=== PATIENT | male | born 1950 | race Caucasian/White ===

== ENCOUNTER → 2016-09-30 | Outpatient (CLI) | payer OTHER | END | disposition home or self-care (01) | LOC: C.PATHSPEC 17:55 | PROVIDERS: ATTEND Urology | DX: N42.89 Other specified disorders of prostate (principal); N41.1 Chronic prostatitis ==

== ENCOUNTER → 2017-04-07 | Outpatient (CLI) | payer OTHER ==
[2017-04-07 10:09] LABS: BLOOD UREA NITROGEN 14 mg/dl (7-18); BUN/CREATININE RATIO 13.9 (10-20); CALCIUM 8.9 mg/dl (8.5-10.1); CARBON DIOXIDE 31 mmol/L (21-32); CHLORIDE 103 mmol/L (98-107); CREATININE 0.97 mg/dl (0.60-1.40); GLUCOSE 90 mg/dl (70-99); POTASSIUM 4.3 mmol/L (3.5-5.1); SODIUM 138 mmol/L (136-145)
== END ==
LOC: C.LABFOXMH 09:09
PROVIDERS: ATTEND Internal Medicine
DX: I10 Essential (primary) hypertension (principal)

== ENCOUNTER → 2017-12-08 | Outpatient (CLI) | payer OTHER ==
[2017-12-08 09:36] LABS: HEMATOCRIT 46.7 % (42-52); HEMOGLOBIN 15.5 g/dL (14.0-18.0); MEAN CELL VOLUME 94.2 fL (80-100); MEAN CORPUSCULAR HEMOGLOBIN 31.3 pg (25-34); MEAN CORPUSCULAR HGB CONC 33.2 g/dl (32-36); MEAN PLATELET VOLUME 10.6 fL (7.4-10.4); PLATELET COUNT 165 K/uL (130-400); RED CELL DISTRIBUTION WIDTH CV 13.1 % (11.5-14.5); RED CELL DISTRIBUTION WIDTH SD 45.6 fL (36.4-46.3); WHITE BLOOD COUNT 6.26 K/uL (4.8-10.8)
[2017-12-08 09:51] LABS: ALBUMIN 3.4 gm/dl (3.4-5.0); ALT/SGPT 14 U/L (12-78); AST/SGOT 16 U/L (15-37); BLOOD UREA NITROGEN 20 mg/dl (7-18); CALCIUM 8.7 mg/dl (8.5-10.1); CARBON DIOXIDE 28 mmol/L (21-32); CHOLESTEROL 173 mg/dl (0-200); CREATININE 1.18 mg/dl (0.60-1.40); GLUCOSE 90 mg/dl (70-99); POTASSIUM 4.1 mmol/L (3.5-5.1); SODIUM 140 mmol/L (136-145)
[2017-12-08 10:01] LABS: ALKALINE PHOSPHATASE 35 U/L (45-117); LDL CHOLESTEROL CALCULATED 95 mg/dl; TOTAL PROTEIN 6.5 gm/dl (6.4-8.2)
== END | disposition home or self-care (01) ==
LOC: C.LABFOXMH 09:11
PROVIDERS: ATTEND Internal Medicine Hospice and Palliative Medicine
DX: E03.9 Hypothyroidism, unspecified (principal); E78.00 Pure hypercholesterolemia, unspecified; D64.9 Anemia, unspecified; R97.20 Elevated prostate specific antigen [PSA]

== ENCOUNTER → 2018-04-11 | Outpatient (CLI) | payer OTHER ==
[~2018-04-11] MED LIST: OPTIRAY 320 IV PRN
--- NOTE | 2018-04-11 16:26 | DIAGNOSTIC IMAGING REPORT ---
CT SCAN OF THE CHEST, ABDOMEN, AND PELVIS WITH IV CONTRAST CLINICAL HISTORY: Esophageal cancer. COMPARISON STUDY: Chest x-ray dated 10/15/2015. Abdominal ultrasound dated 10/15/2015. TECHNIQUE: Following the IV administration of 115 of Optiray 320, CT scan of the chest, abdomen, and pelvis was performed from the thoracic inlet to the proximal femora. Images are reviewed in the axial, sagittal, and coronal planes. IV contrast was administered without complication. A dose lowering technique was utilized adhering to the principles of ALARA. CT DOSE: 1285.51 mGy.cm FINDINGS: CHEST: Thyroid: Imaged portions of the thyroid gland are normal in size and attenuation. Thoracic aorta: The thoracic aorta is normal in caliber and demonstrates standard 3-vessel arch anatomy. No dissection is seen. Pulmonary vasculature: The pulmonary trunk is normal in caliber. There are no filling defects identified in the central pulmonary vessels to indicate pulmonary embolus. Note that this examination was not protocoled for evaluation of the pulmonary arteries. Heart: The heart is top normal in size and without pericardial effusion. Lungs and pleural spaces: The lungs and pleural spaces are clear. Mediastinum: There is no mediastinal lymphadenopathy. Megan: Clear. Axillae: There is no axillary lymphadenopathy. Esophagus: There is a small hiatal hernia. Circumferential wall thickening is identified in the distal esophagus just over the gastroesophageal junction seen on image #210. Bony thorax: The skeletal structures are osteopenic. A hemangioma is noted in the body of T10. No lytic or blastic lesions are identified. Degenerative changes noted throughout the thoracic spine. ABDOMEN AND PELVIS: Liver: The contrast-enhanced liver is normal in size, contour, and attenuation. There is no intrahepatic or ductal dilatation. The hepatic veins and portal veins are patent. Gallbladder: There are large gas containing gallstones. The gallbladder wall appears mildly thickened and hyperemic. No significant pericholecystic stranding is identified. Spleen: Normal in size and attenuation. Pancreas: Unremarkable. Adrenal glands: Unremarkable. Kidneys: The contrast enhanced kidneys demonstrate cortical atrophy and are without hydronephrosis. The kidneys enhance symmetrically. There are numerous bilateral cortical and parapelvic cysts measure up to 6.2 cm. Additional subcentimeter cortical hypodensities also likely represent cysts but are too small for definitive characterization. No enhancing cortical mass is seen. Abdominal vasculature: The abdominal aorta is normal in course and caliber noting scattered foci of atherosclerotic calcification. Bowel: The small bowel and colon are normal in course and caliber. The appendix is normal. Peritoneum: There is no intraperitoneal free air or abdominal ascites. Lymphadenopathy: None. Pelvic viscera: The prostate gland is enlarged and heterogeneous, measuring 6.1 cm in transverse diameter. There is median lobe atrophy. The bladder is decompressed and grossly unremarkable. Skeletal structures: The skeletal structures are osteopenic. No lytic or blastic lesions are seen. There is mild to moderate lumbosacral spondylosis. IMPRESSION: 1. There is no evidence of metastatic disease in the chest, abdomen, or pelvis. 2. There is circumferential wall thickening identified in the distal esophagus. This is nonspecific, but likely corresponds to the reported history of esophageal carcinoma. 3. There are large gallstones. There is mild nonspecific gallbladder wall thickening and hyperemia. No significant pericholecystic stranding is identified. Correlate clinically for evidence of acute versus chronic cholecystitis. 4. The lungs are clear. 5. Prostatomegaly. 6. Additional findings as above. Electronically signed by: Adrian Espino M.D. 04/11/2018 4:24 PM Dictated Date/Time: 04/11/2018 4:05 PM
== END | disposition home or self-care (01) ==
LOC: C.CTS 15:23
PROVIDERS: ATTEND Internal Medicine Gastroenterology
DX: C15.9 Malignant neoplasm of esophagus, unspecified (principal); K80.20 Calculus of gallbladder without cholecystitis without obstruction; N40.0 Benign prostatic hyperplasia without lower urinary tract symptoms

== ENCOUNTER 2018-11-19 11:17 | Inpatient (IN) ==
[2018-11-19] MEDS ORDERED: SODIUM CHLORIDE 0.9% 1000ML 1,000 ML IV ONE (11:42)
[2018-11-19] MEDS ORDERED: LEVALBUTEROL HCL 1.25 MG/3 ML NEB NEB STA (11:42)
--- NOTE | 2018-11-19 11:58 | XRay Report ---
XR chest 1V portable HISTORY: 68 years-old Male weakness acute weakness COMPARISON: PET CT 08/07/2018, chest radiograph 11/16/2018 TECHNIQUE: Portable AP view of the chest FINDINGS: Stable positioning of the right internal jugular [id number] catheter. Cardiomediastinal and hilar silhouettes are unchanged. No pneumothorax. Small right pleural effusion with right greater than left bibasilar airspace opacities. Trace left pleural effusion. Degenerative changes of the shoulders and spine. Left shoulder rotator cuff calcific tendinosis. IMPRESSION: 1. Persistent right greater than left bibasilar opacities appear unchanged suggestive of atelectasis or pneumonitis. 2. Small right and trace left pleural effusions. The above report was generated using voice recognition software. It may contain grammatical, syntax o r spelling errors. Electronically signed by: Mike Varner M.D. 11/19/2018 11:57 AM
[2018-11-19 12:43] LABS: Basophils # (auto) 0.01 K/uL (0-0.2); Basophils % (auto) 0.1 %; Eosinophils # (auto) 0.02 K/uL (0-0.5); Eosinophils % (auto) 0.2 %; Hematocrit (blood only) 42.4 % (42-52); Hemoglobin 13.9 g/dL (14.0-18.0); Immature Granulocytes # (auto) 0.02 K/uL (0.00-0.02); Immature Granulocytes % (auto) 0.2 %; Lymphocytes # (auto) 0.69 K/uL (1.2-3.4); Lymphocytes % (auto) 7.7 %; Mean Corpuscular Hgb Conc 32.8 g/dL (32-36); Mean Corpuscular Volume 91.6 fL (80-100); Mean Platelet Volume 9.7 fL (7.4-10.4); Monocytes # (auto) 0.52 K/uL (0.11-0.59); Monocytes % (auto) 5.8 %; Neutrophils # (auto) 7.71 K/uL (1.4-6.5); Platelet Count 203 K/uL (130-400); RDW Coefficient of Variation 14.7 % (11.5-14.5); RDW Standard Deviation 49.2 fL (36.4-46.3); Red Blood Count 4.63 M/uL (4.7-6.1); White Blood Count 8.97 K/uL (4.8-10.8)
[2018-11-19 13:00] LABS: Alanine Aminotransferase 12 U/L (12-78); Albumin Level 2.7 gm/dl (3.4-5.0); Aspartate Aminotransferase 20 U/L (15-37); BUN Creatinine Ratio 16.4 (10-20); Blood Urea Nitrogen 15 mg/dl (7-18); Calcium 8.5 mg/dl (8.5-10.1); Carbon Dioxide 30 mmol/L (21-32); Chloride 101 mmol/L (98-107); Est GFR (African American) 96.7; Est GFR (Non-African American) 83.5; Glucose 86 mg/dl (70-99); Potassium 3.9 mmol/L (3.5-5.1); Sodium 140 mmol/L (136-145)
[2018-11-19 13:17] LABS: Albumin Globulin Ratio 0.8 (0.9-2); Alkaline Phosphatase 50 U/L (45-117); Bilirubin,Total 0.7 mg/dl (0.2-1); Creatine Kinase 74 U/L (39-308); Creatine Kinase MB 2.7 ng/ml (0.5-3.6); Globulin 3.6 gm/dl (2.5-4.0); Total Protein 6.3 gm/dl (6.4-8.2); Troponin I 0.329 ng/ml (0-0.045)
[2018-11-19 14:13] LABS: INR 1.2 (0.9-1.1); Partial Thromboplastin Ratio 1.4; Partial Thromboplastin Time 36.9 Seconds (21.0-31.0); Prothrombin Time 11.8 Seconds (9.0-12.0)
--- NOTE | 2018-11-19 15:01 | History & Physical Report ---
Date of Service November 19, 2018 Assessment & Plan (1) Weakness: Likely multifactorial in the setting of esophageal cancer and recent chemo/radiation, recent shingles, recent PNA, and poor PO intake CBC, PRP WNL PT/OT pending May need higher level of care at [facility] (2) Elevated troponin: Appears to be a chronic issue Will repeat x1 and if stable, will not pursue further Seems to have baseline 0.4-0.6 Tele monitor until noted (3) Parkinson disease: continue home meds (4) Atrial fibrillation with RVR: Recent cardioversion with Dr. Ahumada No anticoagulation other than aspirin 81mg continue home meds (5) Primary cancer of lower third of esophagus: s/p chemo and radiation no diet restrictions denies swallowing issues (6) Urinary retention: Navarro placed on 10/29 Passed saline challenge 11/14 and was d/c'd however return of retention and navarro replaced 11/[address] Mejia if needed Was leaking in the ED and was removed and replaced Bactrim proph was stopped on 11/17 due to starting levaquin (7) Hypokalemia: Recently started on potassium (8) GERD (gastroesophageal reflux disease): continue home meds (9) Shingles: continue valacyclovir (10) PNA (pneumonia): Continue levaquin (11) HTN (hypertension): Has meds for afib but prior HTN meds have been stopped due to hypoTN after weight loss (12) DVT prophylaxis: Heparin and SCDs for DVT proph History of Present Illness Primary Care Provider: Agus Dsouza MD 68 y/o M who was transferred to the ED from independent living at [facility] due to worsening weakness and a leaking catheter. Pt states he has been having worsening weakness over the last several weeks. He has been getting SOB with [facility] at [facility], which was not an issue prior. It would resolve if he stopped to rest, but this is a new issue. He states that today he was so weak that he called for nursing to [place] [facility] [place]. He feels that the weakness has been worse since being dx with shingles recently. He tolerates PO, but his appetite is quite low. He had issues with taste after his chemo, but this had resolved until he was dx with shingles and put on valacyclovir recently. He is eating mostly fruit and Ensure. Pt denies fever, chest pain, abd pain, n/v, LE pain or swelling. He has been constipated recently. Pt was seen in the ED on 10/29 for urinary retention. A Navarro was placed and he was started on Bactrim for UTI prevention. He saw urology on Tuesday and passed a saline challenge, so navarro was d/c'd at that time. He noted return of urinary retention on Tuesday, so this was replaced and Bactrim was restarted. This was stopped on Tuesday with the initiation of levaquin for PNA noted on CXR done for congestion. He feels like his catheter is leaking today. Nursing reports that urine is drainage into the tube/bag but that the area is wet. It has good resistance still. Allergies Allergy/AdvReac Type Severity Reaction Status Date / Time No Known Allergies Allergy Verified 11/19/18 11:42 Home Medications Home Medications Medication Instructions Recorded Confirmed Type aspirin 81 mg PO HS 05/19/18 11/19/18 History carbidopa-levodopa [Sinemet] 2 tab PO QID 05/19/18 11/19/18 History cholecalciferol (vitamin D3) 1,000 unit PO QAM 05/19/18 11/19/18 History [Vitamin D3] folic acid 1 mg PO QAM 05/19/18 11/19/18 History rasagiline [Azilect] 1 mg PO QAM 05/19/18 11/19/18 History simvastatin 20 mg PO PM 05/19/18 11/19/18 History sulfasalazine 1 tab PO 1200 05/19/18 11/19/18 History sulfamethoxazole-trimethoprim 1 tab PO Q12H #20 tab 10/29/18 11/19/18 Rx [Bactrim DS] acetaminophen 325 mg PO Q4 PRN 10/30/18 11/19/18 History amiodarone 200 mg PO QPM 10/30/18 11/19/18 History coQ10 (ubiquinol) 200 mg PO QAM 10/30/18 11/19/18 History digoxin 1 tab PO QAM 10/30/18 11/19/18 History glycopyrrolate 1 mg PO QAM 10/30/18 11/19/18 History pantoprazole 40 mg PO QAM 10/30/18 11/19/18 History valacyclovir 1,000 mg PO BID 10/30/18 11/19/18 History alfuzosin 10 mg PO DAILY 11/19/18 11/19/18 History levofloxacin 500 mg PO DAILY 11/19/18 11/19/18 History Past Med/Surg History Surgical History History of cardioversion x2--07/2018 History of colonoscopy History of esophagogastroduodenoscopy (EGD) History of tonsillectomy History of tooth extraction all upper teeth History of vascular access device aport right side Social History Preferred Language: Singaporean Communication Ability: Effective Avp Required: No Beliefs That Will Affect Care: None marital status: Single Current Living Situation: Alone and Personal Care Facility Current Living Situation Comment: [facility] Other Information That Helps Us Care for You: No Feels Safe at Home: Yes Safety Concerns: Feels Safe At This Time Smoking Status: Never smoker Hx Alcohol Use: No Hx Substance Use: No caffeine: Yes (1 cup coffee/day;not currently since diagnosis;) during the past year weight has: increased > 10 lbs Review of Systems Pertinent positives and negatives reviewed in HPI--all others negative Physical Exam Vital Signs (Past 24 Hours): Last Vital Signs Pulse 103 H 11/19/18 14:15 Resp 19 11/19/18 14:15 BP 139/87 11/19/18 14:15 Pulse Ox 96 11/19/18 14:15 Constitutional: WD/WN, vitals as above Eyes: normal visual odonnell by confrontation and + anicteric sclerae Neck: normal visual inspection and trachea midline Respiratory: normal respiratory effort, lungs clear to auscultation Cardiovascular: Rate/Rhythm: regular rate and regular rhythm Gastrointestinal (Abdomen): Inspection/Auscultation: abdomen not distended Percussion/Palpation: abdomen soft; abdomen nontender Musculoskeletal: Head/Neck/Chest: normocephalic and head atraumatic negative for edema, peripheral pulses intact Skin: no rashes, warm and dry Neurologic: awake; not confused Speech / Cognition: normal speech Psychiatric: A+Ox3, euthymic affect Results & Data Diagnostic Findings CXR: b/l pleural effusions R>L, ?? PNA Code Status & VTE Plan Code Status Other: Full code, although pt states no prolonged mechanical life support, feeding tubes, etc VTE Prophylaxis Plan VTE Prophylaxis will be ordered: Yes
[2018-11-19] MEDS ORDERED: ACETAMINOPHEN 325 MG TAB PO PRN ×2 (16:09)
[2018-11-19] MEDS ORDERED: MAGNESIUM HYDROXIDE SUSP 30 ML UDC PO PRN (16:09)
[2018-11-19] MEDS ORDERED: ONDANSETRON INJ 2 MG/ML 2 ML VIAL IV PRN (16:09)
[2018-11-19 16:34] LABS: Appearance Urine Slightly Cloudy (Clear); Blood Urine 3+ (Negative); Color Urine Amber; Glucose Urine UA Negative (Negative); Ketones Urine 2+ (Negative); Leukocyte Esterase Urine Trace (Negative); Nitrite Urine Negative (Negative); Protein Urine 2+ (Negative); Specific Gravity Urine >= 1.030 (1.000-1.030); Urobilinogen Urine Positive (Negative)
[2018-11-19 16:42] LABS: Bilirubin Urine Negative (Negative); Ictotest Urine Negative (Negative)
[2018-11-19 16:50] LABS: Epithelial Cell Urine 0-5 /lpf (0-5); RBC Urine >30 /hpf (0-4)
[2018-11-19 16:51] LABS: Bacteria Urine 1+ (Negative)
[2018-11-19] MEDS: HEPARIN SOD 5,000 UNIT/0.5 ML VIAL SQ SCH ×2 (17:14→22:27)
[2018-11-19] MEDS: DIGOXIN 0.125 MG TAB PO SCH (18:01)
[2018-11-19] MEDS: CARBIDOPA/LEVODOPA 25/100MG TAB PO SCH ×2 (18:02→20:54)
[2018-11-19] MEDS: levoFLOXacin 500 MG TAB PO SCH (18:02)
[2018-11-19] MEDS: VALACYCLOVIR HCL 500 MG TABLET PO SCH (19:45)
[2018-11-19] MEDS: SIMVASTATIN 20 MG TAB PO SCH (19:46)
[2018-11-19] MEDS: AMIODARONE 200 MG TAB PO SCH (19:46)
[2018-11-19] MEDS: ASPIRIN 81 MG ECTAB PO SCH (19:47)
[2018-11-20] MEDS ORDERED: HEPARIN 100 UNIT/ML 5ML FLUSH FLUSH PRN (00:40)
[2018-11-20] MEDS: HEPARIN SOD 5,000 UNIT/0.5 ML VIAL SQ SCH ×3 (05:30→21:11)
[2018-11-20 06:36] LABS: Eosinophils % (auto) 1.6 %; Hematocrit (blood only) 39.4 % (42-52); Hemoglobin 13.1 g/dL (14.0-18.0); Immature Granulocytes # (auto) 0.02 K/uL (0.00-0.02); Immature Granulocytes % (auto) 0.3 %; Lymphocytes # (auto) 0.85 K/uL (1.2-3.4); Lymphocytes % (auto) 13.8 %; Mean Corpuscular Hgb Conc 33.2 g/dL (32-36); Mean Corpuscular Volume 92.7 fL (80-100); Mean Platelet Volume 10.1 fL (7.4-10.4); Monocytes # (auto) 0.45 K/uL (0.11-0.59); Monocytes % (auto) 7.3 %; Neutrophils # (auto) 4.74 K/uL (1.4-6.5); Platelet Count 187 K/uL (130-400); RDW Coefficient of Variation 14.9 % (11.5-14.5); RDW Standard Deviation 50.6 fL (36.4-46.3); Red Blood Count 4.25 M/uL (4.7-6.1); White Blood Count 6.16 K/uL (4.8-10.8)
[2018-11-20 07:08] LABS: Calcium 8.3 mg/dl (8.5-10.1); Creatinine Clr Calc Pharmacy 80.1 ml/min; Est GFR (African American) 105.6; Est GFR (Non-African American) 91.1; Potassium 3.9 mmol/L (3.5-5.1)
[2018-11-20 07:09] LABS: Phosphorus 2.5 mg/dl (2.5-4.9)
[2018-11-20] MEDS: FOLIC ACID 1 MG TAB PO SCH (07:31)
[2018-11-20] MEDS: VALACYCLOVIR HCL 500 MG TABLET PO SCH ×2 (07:31→19:36)
[2018-11-20] MEDS: ALFUZOSIN HCL 10 MG TAB PO SCH (07:32)
[2018-11-20] MEDS: PANTOprazole 40 MG TAB PO SCH (07:32)
[2018-11-20] MEDS: GLYCOPYRROLATE 1 MG TAB PO SCH (07:32)
[2018-11-20] MEDS: CARBIDOPA/LEVODOPA 25/100MG TAB PO SCH ×4 (07:32→21:11)
[2018-11-20] MEDS: CHOLECALCIFEROL 1,000 UNITS TAB PO SCH (07:32)
[2018-11-20] MEDS ORDERED: VANCOMYCIN CONSULT ACTIVE PRN (08:22)
[2018-11-20] MEDS ORDERED: XOPENEX/ATROVENT 1.25mg/0.5MG NEB COMBO NEB SCH (08:25)
[2018-11-20] MEDS ORDERED: NON-FORMULARY MEDICATION (Coq10 (Ubiquinol) 200 MG) PO SCH (09:00)
[2018-11-20] MEDS: LEVALBUTEROL 1.25MG/0.5ML NEB INH SCH ×3 (09:05→19:27)
[2018-11-20] MEDS: IPRATROPIUM BROMIDE NEB SOLN 0.02% 2.5 ML VIAL INH SCH ×3 (09:06→19:27)
[2018-11-20] MEDS ORDERED: VANCOMYCIN HCL 1,500 MG in SODIUM CHLORIDE 0.9% 500 ML IV STA (09:20)
--- NOTE | 2018-11-20 09:56 | Pharmacy Report ---
Pharmacy Abx Dose Short Note - Date of Service November 20, 2018 - Assessment & Plan Assessment * 68 year old M admitted for weakness in the setting of recent chemo/radiation, decreased PO intake, and infection (pneumonia, shingles) * Patient has been receiving Levofloxacin however IV Vancomycin added today in response to GPC growing in 1 of 2 BLCX's. * Spoke with Micro, the GPC is only growing in the aerobic bottle of one set of BLCX's. The organism is GPC in clusters (not chains) * PCR was performed on this organism and revealed that it is not staph aureus. This organism may be CoN Staph (less likely to be strep or enterococcus as organism was in clusters and not chains) * 48 hrs empiric vancomycin IV ordered - dosing per pharmacy * He does have an A-port in place. Patient states one of the BLCXs was drawn from his A-port and another was from a vein. The positive cx is not labeled with site. Plan Vancomycin * Loading dose: 1500mg x 1 (~23mg/kg) * Maint dose: 1000mg (~15mg/kg) IV Q 10 hours * Goal trough level for bacteremia : 15 to 20 mcg/mL * Will check trough w/ 4th maint dose * P'kinetic estimates: Vd 0.7L/kg, half-life ~7-8 hrs Pharmacy will continue to follow and will adjust dose/frequency as necessary. Thank you.
--- NOTE | 2018-11-20 10:02 | Emergency Department Note ---
Entered by Shirley Duarte acting as a scribe for History of Present Illness General Chief complaint: Weakness Stated complaint: weakness Time Seen by Provider: 11/19/18 11:20 Source: patient History of Present Illness Onset (ago): day(s) 2 Pain Consistency: + other (persistent) Quality: + other (weakness) Associated symptoms: + other (positive diminished eating and drinking) Treatments prior to arrival: none The patient is a 68 year old male who presents to the Emergency Room with complaints of persistent weakness that began 2 days prior to arrival. The patient states that he had a chest x-ray 2 days ago, and states that he was told he has pneumonia. The patient states that he was given Levoquin for his pneumonia at this time. He states that he has not been eating or drinking as much as he should be. He denies any treatments prior to arrival. The patient states that he has a history of Parkinson disease and shingles. He states that he was receiving chemotherapy and radiation for his esophageal cancer, but states that surgery was not performed. Home Medications Home Medications Medication Instructions Recorded Confirmed Type aspirin 81 mg PO HS 05/19/18 11/19/18 History carbidopa-levodopa [Sinemet] 2 tab PO QID 05/19/18 11/19/18 History cholecalciferol (vitamin D3) 1,000 unit PO QAM 05/19/18 11/19/18 History [Vitamin D3] folic acid 1 mg PO QAM 05/19/18 11/19/18 History rasagiline [Azilect] 1 mg PO QAM 05/19/18 11/19/18 History simvastatin 20 mg PO PM 05/19/18 11/19/18 History sulfasalazine 1 tab PO 1200 05/19/18 11/19/18 History sulfamethoxazole-trimethoprim 1 tab PO Q12H #20 tab 10/29/18 11/19/18 Rx [Bactrim DS] acetaminophen 325 mg PO Q4 PRN 10/30/18 11/19/18 History amiodarone 200 mg PO QPM 10/30/18 11/19/18 History coQ10 (ubiquinol) 200 mg PO QAM 10/30/18 11/19/18 History digoxin 1 tab PO QAM 10/30/18 11/19/18 History glycopyrrolate 1 mg PO QAM 10/30/18 11/19/18 History pantoprazole 40 mg PO QAM 10/30/18 11/19/18 History valacyclovir 1,000 mg PO BID 10/30/18 11/19/18 History alfuzosin 10 mg PO DAILY 11/19/18 11/19/18 History levofloxacin 500 mg PO DAILY 11/19/18 11/19/18 History Allergies Allergy/AdvReac Type Severity Reaction Status Date / Time No Known Allergies Allergy Verified 11/19/18 11:42 Past Med/Surg History Surgical History History of cardioversion x2--07/2018 History of colonoscopy History of esophagogastroduodenoscopy (EGD) History of tonsillectomy History of tooth extraction all upper teeth History of vascular access device aport right side Social History Communication Ability: Effective Beliefs That Will Affect Care: None marital status: Single Current Living Situation: Alone and Personal Care Facility Current Living Situation Comment: [facility] Other Information That Helps Us Care for You: No Feels Safe at Home: Yes Safety Concerns: Feels Safe At This Time Smoking Status: Never smoker Hx Alcohol Use: No Hx Substance Use: No caffeine: Yes (1 cup coffee/day;not currently since diagnosis;) during the past year weight has: increased > 10 lbs Review of Systems See HPI for pertinent positives & negatives. and A total of 10 systems reviewed and were otherwise negative Physical Exam Vital Signs Vital Signs - 24 hr 11/19/18 14:00 11/19/18 14:10 11/19/18 14:15 Temperature Temperature Source Pulse Rate - Lying Pulse Rate - Sitting Pulse Rate - Standing Pulse Rate 101 H 98 H 103 H Pulse Rate [Right Finger] 103 H Pulse Rhythm [Right Finger] Respiratory Rate 19 20 19 Respiratory Effort / Characteristics Spontaneous SOB on Exertion Spontaneous SOB on Exertion Respiratory Depth Normal Normal Respiratory Pattern Regular Regular Blood Pressure - Lying Blood Pressure - Sitting Blood Pressure 139/88 139/87 Blood Pressure [Left Arm] Blood Pressure [Right Arm] 139/87 Blood Pressure Mean 105 104 Blood Pressure Mean [Left Arm] Blood Pressure Mean [Right Arm] 104 Blood Pressure Position [Left Arm] Blood Pressure Position [Right Arm] Lying Pulse Oximetry 96 Pulse Oximetry [Post Treatment/Recovery] Pulse Oximetry [Start of Treatment] Pulse Oximetry [with Activity] Oxygen Delivery Method Room Air Room Air Oxygen Flow Rate Oxygen Flow Rate [Post Treatment/Recovery] Oxygen Flow Rate [Start of Treatment] Oxygen Flow Rate [with Activity] 11/19/18 16:17 11/19/18 18:01 11/19/18 19:42 Temperature 36.9 C Temperature Source Axillary Pulse Rate - Lying Pulse Rate - Sitting Pulse Rate - Standing Pulse Rate 98 H Pulse Rate [Right Finger] 92 H Pulse Rhythm [Right Finger] Irregular Respiratory Rate 20 Respiratory Effort / Characteristics Non-Labored Non-Labored Spontaneous Respiratory Depth Normal Normal Respiratory Pattern Regular Regular Blood Pressure - Lying Blood Pressure - Sitting Blood Pressure Blood Pressure [Left Arm] 115/71 Blood Pressure [Right Arm] Blood Pressure Mean Blood Pressure Mean [Left Arm] 85 Blood Pressure Mean [Right Arm] Blood Pressure Position [Left Arm] Sitting Blood Pressure Position [Right Arm] Pulse Oximetry 97 Pulse Oximetry [Post Treatment/Recovery] Pulse Oximetry [Start of Treatment] Pulse Oximetry [with Activity] Oxygen Delivery Method Room Air Room Air Oxygen Flow Rate Oxygen Flow Rate [Post Treatment/Recovery] Oxygen Flow Rate [Start of Treatment] Oxygen Flow Rate [with Activity] 11/19/18 20:13 11/19/18 23:00 11/19/18 23:41 Temperature 36.4 C L Temperature Source Oral Pulse Rate - Lying Pulse Rate - Sitting Pulse Rate - Standing Pulse Rate 97 H Pulse Rate [Right Finger] 94 H Pulse Rhythm [Right Finger] Respiratory Rate 16 Respiratory Effort / Characteristics Non-Labored Spontaneous Respiratory Depth Normal Respiratory Pattern Regular Blood Pressure - Lying Blood Pressure - Sitting Blood Pressure Blood Pressure [Left Arm] 111/66 Blood Pressure [Right Arm] Blood Pressure Mean Blood Pressure Mean [Left Arm] 81 Blood Pressure Mean [Right Arm] Blood Pressure Position [Left Arm] Lying Blood Pressure Position [Right Arm] Pulse Oximetry 98 Pulse Oximetry [Post Treatment/Recovery] Pulse Oximetry [Start of Treatment] Pulse Oximetry [with Activity] Oxygen Delivery Method Room Air Room Air Oxygen Flow Rate Oxygen Flow Rate [Post Treatment/Recovery] Oxygen Flow Rate [Start of Treatment] Oxygen Flow Rate [with Activity] 11/20/18 02:45 11/20/18 07:29 11/20/18 08:00 Temperature 36.6 C 36.6 C Temperature Source Oral Oral Pulse Rate - Lying Pulse Rate - Sitting Pulse Rate - Standing Pulse Rate Pulse Rate [Right Finger] 91 H 90 Pulse Rhythm [Right Finger] Respiratory Rate 18 18 Respiratory Effort / Characteristics Respiratory Depth Respiratory Pattern Regular Blood Pressure - Lying Blood Pressure - Sitting Blood Pressure Blood Pressure [Left Arm] 128/84 122/78 Blood Pressure [Right Arm] Blood Pressure Mean Blood Pressure Mean [Left Arm] 98 92 Blood Pressure Mean [Right Arm] Blood Pressure Position [Left Arm] Lying Lying Blood Pressure Position [Right Arm] Pulse Oximetry 95 92 Pulse Oximetry [Post Treatment/Recovery] Pulse Oximetry [Start of Treatment] Pulse Oximetry [with Activity] Oxygen Delivery Method Room Air Room Air Nasal Cannula Oxygen Flow Rate 2 Oxygen Flow Rate [Post Treatment/Recovery] Oxygen Flow Rate [Start of Treatment] Oxygen Flow Rate [with Activity] 11/20/18 09:06 11/20/18 11:11 11/20/18 11:26 Temperature 36.7 C Temperature Source Oral Pulse Rate - Lying 100 H Pulse Rate - Sitting 122 H Pulse Rate - Standing 134 H Pulse Rate Pulse Rate [Right Finger] 119 H 110 H Pulse Rhythm [Right Finger] Respiratory Rate 18 18 Respiratory Effort / Characteristics Non-Labored Spontaneous Respiratory Depth Respiratory Pattern Blood Pressure - Lying 96/60 L Blood Pressure - Sitting 100/70 Blood Pressure Blood Pressure [Left Arm] 96/62 L Blood Pressure [Right Arm] Blood Pressure Mean Blood Pressure Mean [Left Arm] 73 Blood Pressure Mean [Right Arm] Blood Pressure Position [Left Arm] Lying Blood Pressure Position [Right Arm] Pulse Oximetry 87 L 99 Pulse Oximetry [Post Treatment/Recovery] 94 Pulse Oximetry [Start of Treatment] 90 Pulse Oximetry [with Activity] 83 L Oxygen Delivery Method Room Air Nasal Cannula Oxygen Flow Rate 2 Oxygen Flow Rate [Post Treatment/Recovery] 2 Oxygen Flow Rate [Start of Treatment] 0 Oxygen Flow Rate [with Activity] 0 11/20/18 13:33 Temperature Temperature Source Pulse Rate - Lying 103 H Pulse Rate - Sitting Pulse Rate - Standing Pulse Rate Pulse Rate [Right Finger] Pulse Rhythm [Right Finger] Respiratory Rate Respiratory Effort / Characteristics Respiratory Depth Respiratory Pattern Blood Pressure - Lying 108/71 Blood Pressure - Sitting 83/52 L Blood Pressure Blood Pressure [Left Arm] Blood Pressure [Right Arm] Blood Pressure Mean Blood Pressure Mean [Left Arm] Blood Pressure Mean [Right Arm] Blood Pressure Position [Left Arm] Blood Pressure Position [Right Arm] Pulse Oximetry Pulse Oximetry [Post Treatment/Recovery] Pulse Oximetry [Start of Treatment] Pulse Oximetry [with Activity] Oxygen Delivery Method Oxygen Flow Rate Oxygen Flow Rate [Post Treatment/Recovery] Oxygen Flow Rate [Start of Treatment] Oxygen Flow Rate [with Activity] GENERAL: Awake, alert, well-appearing, in no distress. Cachectic in appearance. HENT: Normocephalic, atraumatic. Oropharynx unremarkable. EYES: Normal conjunctiva. Sclera non-icteric. NECK: Supple. No nuchal rigidity. FROM. No masses. RESPIRATORY: Clear to auscultation. No wheezes. No rales. Normal respiratory effort. CARDIAC: Normal rate. Normal rhythm. No murmurs. No rubs. Extremities warm and well perfused. Pulses equal. No JVD. GI: Soft, non-distended. No tenderness to palpation. No rebound or guarding. No masses. RECTAL: Deferred. MUSCULOSKELETAL: Atraumatic. Chest examination reveals no tenderness. The back is symmetrical on inspection without obvious abnormality. There is no CVA tenderness to palpation. No joint edema. LOWER EXTREMITIES: Calves are equal size bilaterally and non-tender. No edema. No discoloration. NEURO: Normal sensorium. No sensory or motor deficits noted. Course 1135: The patient was evaluated in room C1B, and a complete history and physical examination were performed. 1330: [facility] for further evaluation. Consultations Consultation #1: [facility] for further evaluation. Time: 13:30 Administered Medications Alfuzosin HCl (Uroxatral) 10 mg PO DAILY KARYN Stop: 12/20/18 08:59 Last Admin: 11/20/18 07:32 Dose: 10 mg Documented by: [id number] Amiodarone HCl (Cordarone) 200 mg PO QPM KARYN Stop: 12/19/18 20:59 Last Admin: 11/19/18 19:46 Dose: 200 mg Documented by: [id number] Aspirin (Ecotrin Ectab) 81 mg PO HS KARYN Stop: 12/19/18 20:59 Last Admin: 11/19/18 19:47 Dose: 81 mg Documented by: [id number] Carbidopa/Levodopa (Sinemet 25/100 Mg) 2 tab PO QID KARYN Stop: 12/19/18 16:59 Last Admin: 11/20/18 12:55 Dose: 2 tab Documented by: [id number] Admin: 11/20/18 07:32 Dose: 2 tab Documented by: [id number] Admin: 11/19/18 20:54 Dose: 2 tab Documented by: [id number] Admin: 11/19/18 18:02 Dose: 2 tab Documented by: [id number] Digoxin (Lanoxin) 0.125 mg PO DAILY@1600 [facility] Stop: 12/19/18 17:59 Last Admin: 11/19/18 18:01 Dose: 0.125 mg Documented by: [id number] [facility] [place]: 12/20/18 08:59 Last Admin: 11/20/18 07:31 Dose: 1 mg Documented by: [id number] Glycopyrrolate (Robinul) 1 mg PO [facility] Stop: 12/20/18 08:59 Last Admin: 11/20/18 07:32 Dose: 1 mg Documented by: [id number] Guaifenesin (Mucinex) 1,200 mg PO Q12 [facility] Stop: 12/20/18 08:59 Last Admin: 11/20/18 10:14 Dose: 1,200 mg Documented by: [id number] Heparin Sodium (Porcine) (Heparin Sodium (Porcine)) 5,000 units SQ Q8 [facility] Stop: 12/19/18 16:08 Last Admin: 11/20/18 12:55 Dose: 5,000 units Documented by: [id number] Cosigned by: [id number] Admin: 11/20/18 05:30 Dose: 5,000 units Documented by: [id number] Cosigned by: [id number] Admin: 11/19/18 22:27 Dose: 5,000 units Documented by: [id number] Cosigned by: [id number] Admin: 11/19/18 17:14 Dose: 5,000 units Documented by: [id number] Cosigned by: [id number] Ioversol (Optiray 320 125ml) 120 ml IV ONCE PRN PRN Reason: Interaction Checking Stop: 11/24/18 12:32 Last Admin: 11/20/18 12:34 Dose: 120 ml Documented by: [id number] Ipratropium Eucha (Atrovent 0.02% 0.5mg/2.5ml) 0.5 mg INH Q6R [facility] Stop: 12/20/18 08:29 Last Admin: 11/20/18 09:06 Dose: 0.5 mg Documented by: [id number] Levalbuterol HCl (Xopenex 1.25mg/0.5ml Neb) 1.25 mg INH Q6R [facility] Stop: 12/20/18 08:29 Last Admin: 11/20/18 09:05 Dose: 1.25 mg Documented by: [id number] Metoprolol Tartrate (Lopressor) 25 mg PO BID [facility] Stop: 12/20/18 11:59 Last Admin: 11/20/18 12:55 Dose: 25 mg Documented by: [id number] Miscellaneous (Order Awaiting Action) 1 ea N/A QS [facility] Stop: 12/20/18 00:00 Last Admin: 11/20/18 07:08 Dose: Not Given Documented by: [id number] Admin: 11/20/18 00:02 Dose: Not Given Documented by: [id number] Pantoprazole Sodium (Protonix) 40 mg PO QAM [facility] Stop: 12/20/18 08:59 Last Admin: 11/20/18 07:32 Dose: 40 mg Documented by: [id number] Simvastatin (Zocor) 20 mg PO PM KARYN Stop: 12/19/18 20:59 Last Admin: 11/19/18 19:46 Dose: 20 mg Documented by: [id number] Sulfadiazine (Azulfidine) 500 mg PO 1200 [facility] Stop: 12/20/18 11:59 Last Admin: 11/20/18 11:20 Dose: 500 mg Documented by: [id number] Valacyclovir HCl (Valtrex) 1,000 mg PO BID [facility] Stop: 12/19/18 20:59 Last Admin: 11/20/18 07:31 Dose: 1,000 mg Documented by: [id number] Admin: 11/19/18 19:45 Dose: 1,000 mg Documented by: [id number] Vitamin D (Vitamin D3) 1,000 units PO QAM [facility] Stop: 12/20/18 08:59 Last Admin: 11/20/18 07:32 Dose: 1,000 units Documented by: [id number] Discontinued Medications Sodium Chloride (Nss 1000ml) 1,000 mls @ 999 mls/hr IV .Q1H1M ONE Stop: 11/19/18 12:42 Last Infusion: 11/19/18 13:30 Dose: 0 mls/hr Documented by: [id number] Admin: 11/19/18 12:29 Dose: 999 mls/hr Documented by: [id number] Vancomycin HCl 1,500 mg/ (Sodium Chloride) 530 mls @ 200 mls/hr IV NOW STA Stop: 11/20/18 11:58 Last Infusion: 11/20/18 12:54 Dose: 0 mls/hr Documented by: [id number] Admin: 11/20/18 10:14 Dose: 200 mls/hr Documented by: [id number] Levalbuterol HCl (Xopenex 1.25mg/3ml Neb) 1.25 mg NEB NOW STA Stop: 11/19/18 11:43 Last Admin: 11/19/18 12:13 Dose: 1.25 mg Documented by: [id number] Levofloxacin (Levaquin) 500 mg PO DAILY@1100 K[facility]N Stop: 11/26/18 17:59 Last Admin: 11/20/18 10:15 Dose: 500 mg Documented by: [id number] Admin: 11/19/18 18:02 Dose: 500 mg Documented by: [id number] Medical Decision Making Differential Diagnosis Differential includes acute coronary syndrome, myocardial infarction, CVA, TIA, anemia, infection, pneumonia, UTI, pyelonephritis, poor nutrition, dehydration, electrolyte disturbance,hypoglycemia, and others were considered. Medical Records Attestation: I reviewed the patient's medical records. Home Medications Current Medication List: was personally reviewed by me Laboratory Data Attestation: I reviewed the patient's lab results. Result diagrams: 11/20/18 05:24 11/20/18 05:24 Lab Results 11/19/18 11/19/18 11/19/18 Range/Units 12:03 12:03 12:03 WBC 8.97 (4.8-10.8) K/uL RBC 4.63 L (4.7-6.1) M/uL Hgb 13.9 L (14.0-18.0) g/dL Hct 42.4 (42-52) % MCV 91.6 (80-100) fL MCH 30.0 (25-34) pg MCHC 32.8 (32-36) g/dL RDW Std Deviation 49.2 H (36.4-46.3) fL RDW Coeff of Mikki 14.7 H (11.5-14.5) % Plt Count 203 (130-400) K/uL MPV 9.7 (7.4-10.4) fL Immature Gran % (Auto) 0.2 % Neut % (Auto) 86.0 % Lymph % (Auto) 7.7 % Love % (Auto) 5.8 % Eos % (Auto) 0.2 % Baso % (Auto) 0.1 % Immature Gran # (Auto) 0.02 (0.00-0.02) K/uL Neut # (Auto) 7.71 H (1.4-6.5) K/uL Lymph # (Auto) 0.69 L (1.2-3.4) K/uL Love # (Auto) 0.52 (0.11-0.59) K/uL Eos # (Auto) 0.02 (0-0.5) K/uL Baso # (Auto) 0.01 (0-0.2) K/uL PT (9.0-12.0) Seconds INR (0.9-1.1) APTT (21.0-31.0) Seconds PTT Ratio Sodium 140 (136-145) mmol/L Potassium 3.9 (3.5-5.1) mmol/L Chloride 101 (98-107) mmol/L Carbon Dioxide 30 (21-32) mmol/L Anion Gap 9.0 (3-11) BUN 15 (7-18) mg/dl Creatinine 0.93 (0.6-1.4) mg/dl Est Cr Clr Drug Dosing Not Reportable Est GFR ( Amer) 96.7 Est GFR (Non-Af Amer) 83.5 BUN/Creatinine Ratio 16.4 (10-20) Glucose 86 (70-99) mg/dl Calcium 8.5 (8.5-10.1) mg/dl Phosphorus (2.5-4.9) mg/dl Magnesium (1.8-2.4) mg/dl Total Bilirubin 0.7 (0.2-1) mg/dl AST 20 (15-37) U/L ALT 12 (12-78) U/L Alkaline Phosphatase 50 (45-117) U/L Total Creatine Kinase 74 (39-308) U/L CK-MB (CK-2) 2.7 (0.5-3.6) ng/ml CK/CKMB % Calc 3.6 H (0-3.0) Troponin I 0.329 H* (0-0.045) ng/ml NT-Pro-B Natriuret Pep 477 (0-900) pg/ml Total Protein 6.3 L (6.4-8.2) gm/dl Albumin 2.7 L (3.4-5.0) gm/dl Globulin 3.6 (2.5-4.0) gm/dl Albumin/Globulin Ratio 0.8 L (0.9-2) TSH 1.380 (0.300-4.500) uIu/ml Urine Color Urine Appearance (Clear) Urine pH (4.5-7.5) Ur Specific [place] (1.000-1.030) Urine Protein (Negative) Urine Glucose (UA) (Negative) Urine Ketones (Negative) Urine Blood (Negative) Urine Nitrite (Negative) Urine Bilirubin (Negative) Urine Urobilinogen (Negative) Ur Leukocyte Esterase (Negative) Urine RBC (0-4) /hpf Urine WBC (0-5) /hpf Ur Epithelial Cells (0-5) /lpf Urine Bacteria (Negative) Bld Cult Staph aureus PCR (Negative) Blood Culture MRSA PCR (Negative) 11/19/18 11/19/18 11/19/18 Range/Units 12:07 12:07 16:10 WBC (4.8-10.8) K/uL RBC (4.7-6.1) M/uL Hgb (14.0-18.0) g/dL Hct (42-52) % MCV (80-100) fL MCH (25-34) pg MCHC (32-36) g/dL RDW Std Deviation (36.4-46.3) fL RDW Coeff of Mikki (11.5-14.5) % Plt Count (130-400) K/uL MPV (7.4-10.4) fL Immature Gran % (Auto) % Neut % (Auto) % Lymph % (Auto) % Love % (Auto) % Eos % (Auto) % Baso % (Auto) % Immature Gran # (Auto) (0.00-0.02) K/uL Neut # (Auto) (1.4-6.5) K/uL Lymph # (Auto) (1.2-3.4) K/uL Love # (Auto) (0.11-0.59) K/uL Eos # (Auto) (0-0.5) K/uL Baso # (Auto) (0-0.2) K/uL PT 11.8 (9.0-12.0) Seconds INR 1.2 H (0.9-1.1) APTT 36.9 H (21.0-31.0) Seconds PTT Ratio 1.4 Sodium (136-145) mmol/L Potassium (3.5-5.1) mmol/L Chloride (98-107) mmol/L Carbon Dioxide (21-32) mmol/L Anion Gap (3-11) BUN (7-18) mg/dl Creatinine (0.6-1.4) mg/dl Est Cr Clr Drug Dosing Est GFR ( Amer) Est GFR (Non-Af Amer) BUN/Creatinine Ratio (10-20) Glucose (70-99) mg/dl Calcium (8.5-10.1) mg/dl Phosphorus (2.5-4.9) mg/dl Magnesium (1.8-2.4) mg/dl Total Bilirubin (0.2-1) mg/dl AST (15-37) U/L ALT (12-78) U/L Alkaline Phosphatase (45-117) U/L Total Creatine Kinase (39-308) U/L CK-MB (CK-2) (0.5-3.6) ng/ml CK/CKMB % Calc (0-3.0) Troponin I (0-0.045) ng/ml NT-Pro-B Natriuret Pep (0-900) pg/ml Total Protein (6.4-8.2) gm/dl Albumin (3.4-5.0) gm/dl Globulin (2.5-4.0) gm/dl Albumin/Globulin Ratio (0.9-2) TSH (0.300-4.500) uIu/ml Urine Color [place] Urine Appearance Slightly Cloudy (Clear) Urine pH 6.0 (4.5-7.5) Ur Specific [place] >= 1.030 (1.000-1.030) Urine Protein 2+ H (Negative) Urine Glucose (UA) Negative (Negative) Urine Ketones 2+ H (Negative) Urine Blood 3+ H (Negative) Urine Nitrite Negative (Negative) Urine Bilirubin Negative (Negative) Urine Urobilinogen Positive H (Negative) Ur Leukocyte Esterase Trace H (Negative) Urine RBC >30 H (0-4) /hpf Urine WBC 5-10 H (0-5) /hpf Ur Epithelial Cells 0-5 (0-5) /lpf Urine Bacteria 1+ H (Negative) Bld Cult Staph aureus PCR Negative (Negative) Blood Culture MRSA PCR Negative (Negative) 11/19/18 11/20/18 11/20/18 Range/Units 16:27 05:24 05:24 WBC 6.16 (4.8-10.8) K/uL RBC 4.25 L (4.7-6.1) M/uL Hgb 13.1 L (14.0-18.0) g/dL Hct 39.4 L (42-52) % MCV 92.7 (80-100) fL MCH 30.8 (25-34) pg MCHC 33.2 (32-36) g/dL RDW Std Deviation 50.6 H (36.4-46.3) fL RDW Coeff of Mikki 14.9 H (11.5-14.5) % Plt Count 187 (130-400) K/uL MPV 10.1 (7.4-10.4) fL Immature Gran % (Auto) 0.3 % Neut % (Auto) 77.0 % Lymph % (Auto) 13.8 % Love % (Auto) 7.3 % Eos % (Auto) 1.6 % Baso % (Auto) 0.0 % Immature Gran # (Auto) 0.02 (0.00-0.02) K/uL Neut # (Auto) 4.74 (1.4-6.5) K/uL Lymph # (Auto) 0.85 L (1.2-3.4) K/uL Love # (Auto) 0.45 (0.11-0.59) K/uL Eos # (Auto) 0.10 (0-0.5) K/uL Baso # (Auto) 0.00 (0-0.2) K/uL PT (9.0-12.0) Seconds INR (0.9-1.1) APTT (21.0-31.0) Seconds PTT Ratio Sodium 140 (136-145) mmol/L Potassium 3.9 (3.5-5.1) mmol/L Chloride 103 (98-107) mmol/L Carbon Dioxide 30 (21-32) mmol/L Anion Gap 7.0 (3-11) BUN 14 (7-18) mg/dl Creatinine 0.80 (0.6-1.4) mg/dl Est Cr Clr Drug Dosing 80.1 Est GFR ( Amer) 105.6 Est GFR (Non-Af Amer) 91.1 BUN/Creatinine Ratio 18.0 (10-20) Glucose 84 (70-99) mg/dl Calcium 8.3 L (8.5-10.1) mg/dl Phosphorus 2.5 (2.5-4.9) mg/dl Magnesium 2.0 (1.8-2.4) mg/dl Total Bilirubin (0.2-1) mg/dl AST (15-37) U/L ALT (12-78) U/L Alkaline Phosphatase (45-117) U/L Total Creatine Kinase (39-308) U/L CK-MB (CK-2) (0.5-3.6) ng/ml CK/CKMB % Calc (0-3.0) Troponin I 0.343 H* (0-0.045) ng/ml NT-Pro-B Natriuret Pep (0-900) pg/ml Total Protein (6.4-8.2) gm/dl Albumin (3.4-5.0) gm/dl Globulin (2.5-4.0) gm/dl Albumin/Globulin Ratio (0.9-2) TSH (0.300-4.500) uIu/ml Urine Color Urine Appearance (Clear) Urine pH (4.5-7.5) Ur Specific [place] (1.000-1.030) Urine Protein (Negative) Urine Glucose (UA) (Negative) Urine Ketones (Negative) Urine Blood (Negative) Urine Nitrite (Negative) Urine Bilirubin (Negative) Urine Urobilinogen (Negative) Ur Leukocyte Esterase (Negative) Urine RBC (0-4) /hpf Urine WBC (0-5) /hpf Ur Epithelial Cells (0-5) /lpf Urine Bacteria (Negative) Bld Cult Staph aureus PCR (Negative) Blood Culture MRSA PCR (Negative) Imaging Data Radiologist's Impression: Radiology results as stated below per my review and the radiologist's interpretation: XR chest 1V portable HISTORY: 68 years-old Male weakness acute weakness COMPARISON: PET CT 08/07/2018, chest radiograph 11/16/2018 TECHNIQUE: Portable AP view of the chest FINDINGS: Stable positioning of the right internal jugular [id number] catheter. Cardiomediastinal and hilar silhouettes are unchanged. No pneumothorax. Small right pleural effusion with right greater than left bibasilar airspace opacities. Trace left pleural effusion. Degenerative changes of the shoulders and spine. Left shoulder rotator cuff calcific tendinosis. IMPRESSION: 1. Persistent right greater than left bibasilar opacities appear unchanged suggestive of atelectasis or pneumonitis. 2. Small right and trace left pleural effusions. The above report was generated using voice recognition software. It may contain grammatical, syntax or spelling errors. Electronically signed by: Mike Varner M.D. 11/19/2018 11:57 AM ECG Data Attestation: I personally reviewed and interpreted this ECG as follows: Indication: weakness Rate (beats per minute): 98 Rhythm: other (Aflutter) Findings: no ST depression and no ST elevation Comparison ECG Date: from (06/21/2018) Change: the following changes noted (aflutter is new) Blood Pressure Blood Pressure Findings: Elevated blood pressure Blood Pressure Disposition: further management by hospitalist MDM Narrative This is a 68-year-old male who presents emergency department complaining of generalized weakness. The patient has bilateral pleural effusions. He does have an elevation in his troponin. Based on this I did discuss case with the hospitalist service who agreed to admit the patient. Patient was in agreement with the treatment plan. Impression & Plan Elevated troponin, Weakness Discharge Plan Visit Data *Final* Discharge Date/Time: 11/19/18 15:29 Chief Complaint: Weakness Stated Complaint: weakness ED Provider: Que Campos Discharge Problem: Elevated troponin, Weakness Patient Disposition: Admitted As Inpatient Discharge Instructions Interventions: ED Discharge Assessment Last Done: 11/19/18 15:29 The scribe's documentation has been prepared under my direction and personally reviewed by me in its entirety. I confirm that the note above accurately reflec ts all work, treatment, procedures, and medical decision making performed by me.
[2018-11-20] MEDS: guaiFENesin 600 MG TABCR PO SCH ×2 (10:14→19:37)
[2018-11-20] MEDS: levoFLOXacin 500 MG TAB PO SCH (10:15)
[2018-11-20] MEDS: sulfaSALAzine 500 MG TABLET PO SCH (11:20)
[2018-11-20] MEDS ORDERED: OPTIRAY 320 125ml IV PRN (12:33)
[2018-11-20] MEDS: METOPROLOL TARTRATE 25 MG TAB PO SCH ×3 (12:55→21:11)
--- NOTE | 2018-11-20 13:17 | CT Scan Report ---
ADDENDUM Updated impression #3: 3. Interval development of hypoenhancing peripheral geographic regions in the upper pole the spleen, which are MOST concerning for splenic infarcts. DIFFERENTIAL CONSIDERATION INCLUDES METASTASES THOUGH THIS IS CONSIDERED LESS LIKELY. ATTENTION ON FOLLOW-UP. Electronically signed by: Saurav Foley M.D. 11/20/2018 1:[address] abd pelvis IV con only CLINICAL HISTORY: 68 years-old Male presenting with esophageal ca, dyspnea, weight loss, eval for met s. TECHNIQUE: Multidetector CT of the abdomen and pelvis was performed after the administration of intra venous contrast. IV contrast: 120 mL of Optiray 320. One or more dose lowering techniques were used c onsistent with the principles of ALARA (as low as reasonably achievable), including automatic exposur e control, mA or kV adjustment to individual patient size, and/or use of iterative reconstruction. COMPARISON: 04/11/2018. CT DOSE (mGy.cm): The estimated cumulative dose is 1355.67. 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 Lung bases: Mild multichamber enlargement of the heart. Aortic valve calcification. Small right and t race left pleural effusions new from prior. No pericardial effusion. Interval development of extensiv e groundglass opacities and consolidation in the lateral right upper lobe and extensive volume loss a nd consolidation in the right middle lobe and right lower lobes. Bronchiectasis also suggested in the se regions. A lesser degree of similar appearing consolidation and groundglass opacities in the left lower lobe. These are well demarcated. Liver: Normal morphology. No liver lesion. Patent hepatic vasculature. Biliary: No intrahepatic or extrahepatic biliary ductal dilatation. Gallbladder contains gallstones. Pancreas: Moderate parenchymal atrophy. Spleen: Hypodense regions at the upper pole of the spleen peripheral and wedge like in distribution n ew from prior exam. Adrenal glands: Normal. Kidneys and ureters: Numerous bilateral parapelvic and parenchymal simple and/or minimally complex cy sts. No hydronephrosis. Bladder: Severe circumferential bladder wall thickening. Armijo catheter decompresses the urinary blad shruthi. Pelvic organs: Prostate enlargement likely secondary to benign prostatic hyperplasia. The right ingui nal region may either contain a retracted testicle or encysted hydrocele. Bowel: Mild gaseous distention of large bowel, which also contains a mild stool burden. No bowel obst ruction. The appendix is normal. Wall thickening of the distal esophagus again suggested not progress ed from prior exam and slightly less conspicuous. Small bowel is largely decompressed. Peritoneal cavity: No free fluid or intraperitoneal gas. Lymph nodes: No enlarged lymph nodes in the abdomen or pelvis. Vasculature: Aorta and IVC patent and normal in caliber. Abdominal wall: Mild body wall edema. Musculoskeletal: Degenerative changes of the spine. Few foci of lucency in the mono subjacent to the sacral iliac joints. These are unchanged from prior and are nonspecific. IMPRESSION: 1. Interval development of extensive groundglass infiltrates and consolidation at the lung bases gre ater on the right. The distribution and well demarcated pattern could represent post radiation change . Correlate with the planned radiation field. 2. Decreased conspicuity of prior esophageal wall thickening. 3. Interval development of hypoenhancing peripheral geographic regions in the upper pole the spleen, which are concerning for splenic infarcts. 4. Cholelithiasis. 5. Chronic bladder outlet obstruction secondary to prostatomegaly. Electronically signed by: Saurav Foley M.D. 11/20/2018 1:16 PM
--- NOTE | 2018-11-20 13:30 | CT Scan Report ---
CT angio chest PE protocol CT DOSE: 1355.67 mGycm HISTORY: 68 years-old Male with esophageal cancer, dyspnea, eval PE/mets. Acute dysphasia with esop hageal carcinoma TECHNIQUE: Multiple CTA images of the chest were obtained after the intravenous administration of 120 ml Optiray 320. Coronal and sagittal MIPS were obtained from the axial data set and were submitted for review. All measurements were obtained according to NASCET criteria. A dose lowering technique w as utilized adhering to the principles of ALARA. COMPARISON: CT abdomen and pelvis of same day, chest CT 04/11/2018, PET CT 08/07/2018 FINDINGS: CTA: Mild cardiomegaly with small pericardial effusion. Coronary arterial calcifications are noted. Calcif ications of the aortic annulus are also noted. No thoracic aortic aneurysm or dissection. There is pa tency of the imaged great vessels. Calcification noted about the bilateral carotid bulbs. The pulmona ry arterial tree is opacified to the level of the segmental branches and demonstrates no focal fillin g defects to suggest pulmonary thromboembolic disease. CT CHEST: No dominant thyroid nodule. Mildly enlarged AP window lymph nodes measure up to 12 mm in short axis c omminuted from comparison. Small bilateral pleural effusions. Bibasilar predominant groundglass and consolidative opacities are noted, right greater than left. There is a 5 mm solid nodule noted about the left upper lobe on image 238 series 4, new from comparison. 2 mm solid nodule of left upper lobe on image 175 series 4 also a ppears new. Scattered solid nodules of the right upper lobe are seen measuring up to 2 mm. Central ai rways appear patent. Cholelithiasis with gallbladder distention with possible mild gallbladder wall thickening. Thickening of the bilateral adrenal glands. Long segment wall thickening about the mid and distal esophagus wit h periesophageal stranding. Mild generalized body wall edema. Right internal jugular [id number] ca theter distal tip terminates about the SVC. No suspicious bone lesions identified to suggest osseous metastasis. Degenerative changes of the shoulders and spine. IMPRESSION: 1. Long segment moderate wall thickening about the mid and distal esophagus redemonstrated correlatin g with the patient's known esophageal carcinoma. 2. Small bilateral pleural effusions with right greater than left bibasilar predominant groundglass a nd consolidative opacities suggestive of multifocal pneumonia or aspiration pneumonitis with atelecta sis. 3. Mild AP window adenopathy, possibly reactive. 4. There are a few new solid pulmonary nodules noted measuring up to 5 mm within the left upper lobe. Attention at follow-up recommended. 5. No evidence of pulmonary thromboembolic disease. Please refer to below summary of Fleischner criteria recommendations for follow-up of incidental CT n odules (Jairo White, Guidelines for management of small pulmonary nodules detected on CT scans: A sta tement from the Fleischner Society, Radiology 237: [phone].) SOLID NODULES Multiple nodules size: <6 mm * Low risk patients: no routine follow-up * high risk patients: optional CT at 12 months * Note: newly detected indeterminate nodule in persons 35 years of age or older. * Low risk patients: minimal or absent history of smoking and/or other known risk factors * high risk patients: history of smoking or of other known risk factors (e.g. first degree relative with lung cancer, or exposure to asbestos, radon, uranium) * if a nodule up to 8 mm is partly solid or is ground glass further follow-up is required after 24 m onths to exclude possible slow growing adenocarcinoma (AZEEM) The above report was generated using voice recognition software. It may contain grammatical, syntax o r spelling errors. Electronically signed by: Mike Varner M.D. 11/20/2018 1:29 PM
[2018-11-20] MEDS ORDERED: levoFLOXacin 250 MG TABLET PO ONE (13:40)
[2018-11-20] MEDS ORDERED: SODIUM CHLORIDE 0.9% 1000ML 500 ML IV ONE (16:11)
[2018-11-20] MEDS: DIGOXIN 0.125 MG TAB PO SCH (17:00)
[2018-11-20] MEDS ORDERED: SODIUM CHLORIDE 0.9% 500 ML IV ONE (18:33)
[2018-11-20] MEDS: CEROVITE ADV FORMULA TAB PO SCH (19:19)
[2018-11-20] MEDS: POLYETHYLENE (MIRALAX) 17 GM PACK PO SCH (19:34)
[2018-11-20] MEDS: SENNA 8.6 MG TAB PO SCH (19:34)
[2018-11-20] MEDS: ASPIRIN 81 MG ECTAB PO SCH (19:36)
[2018-11-20] MEDS: SIMVASTATIN 20 MG TAB PO SCH (19:37)
[2018-11-20] MEDS: VANCOMYCIN HCL 1,000 MG in SODIUM CHLORIDE 0.9% 250 ML IV SCH (20:14)
[2018-11-20] MEDS: AMIODARONE 200 MG TAB PO SCH (20:18)
--- NOTE | 2018-11-20 20:31 | Hospitalist Progress Note ---
Date of Service November 20, 2018 Assessment & Plan (1) Abnormal chest CT: I am uncertain if the extensive bibasilar infiltrates are due to prior radiation damage/pneumonitis (I spoke with Dr. Marsh, his rad onc, and he confirmed the lung bases were in the field of radiation) vs amiodarone induced vs infectious vs other. I do not believe this represents pulmonary edema. The patient quickly desats with removal of O2. He remains on levaquin to cover any infectious process. I have asked pulmonary to see in consultation for their opinion. Defer on steroids unless pulmonary advises. Present on Admission?: Yes (2) PNA (pneumonia): see discussion above in "abnormal chest CT" (3) Severe protein-calorie malnutrition: highly concerning in light of esophageal cancer history. valdes-CT today (chest/abd/pelvis) shows splenic lesions, some small pulmonary nodules, pleural effusion and mild chest adenopathy. I discussed his case with GI, pulmonary, rad onc, and oncology (Dr. Brice). ideally he will need PET-CT as outpatient. GI to perform EGD this admission to re-eval the esophagus. Check cortisol level in am in light of low BPs and dizziness - r/o adrenal in sufficiency (has adrenal gland thickening on CT). at this point progressive esophageal ca is highest on differential for cause of his weight loss; other causes to be excluded. add MVI add boost Present on Admission?: Yes (4) Atrial fibrillation with RVR: Patient had [id number] a.fib on prior admissions and is poor candidate for AV tatianna agents due to low BPs. He ultimately needed cardioversion on prior admission. Unfortunately he is NOT anticoagulated and thus cardioversion would have to be done via GILLES to r/o thrombus. I gave him very small dose of oral metoprolol today which DID improve his rates to the 70s but promptly dropped his BPs. He might get by with 12.5mg of metoprolol BID. I spoke with Dr. Ahumada who will consult in am. He is on chronic amiodarone. We could increase his dose or give IV but if he is not anticoagulated and chemically cardioverts there is increased risk of stroke. Defer management to Dr. Ahumada. Continue digoxin. Present on Admission?: Yes (5) Splenic lesion: uncertain etiology. odd location for mets from esophageal cancer. infarcts are possible. follow. Present on Admission?: Yes (6) HTN (hypertension): now with hypotension - some of which is iatrogenic from metoprolol. (7) Hypotension: check cortisol in am to exclude adrenal insufficiency. partially iatrogenic today from beta blockers. gave 2 small boluses of NS today with improved BPs. recheck BMP am. Present on Admission?: No (8) Shingles: resolved finish valtrex (9) Urinary retention: s/p navarro maintain navarro to have outpatient f/u with urology (10) Positive blood culture: GPC only 1 bottle thus far has port so need to exclude true pathogen vancomycin while awaiting cultures (11) GERD (gastroesophageal reflux disease): cont PPI GI has seen - to have EGD this admission (12) Parkinson disease: cont sinemet (13) Elevated troponin: no ischemic symptoms likely myocardial demand ischemia in setting of rapid a.fib repeat troponin am (14) Primary cancer of lower third of esophagus: s/p chemo/radiation fall [address] Brice from oncology followed by Dr. Marsh [facility] rad [facility] made initial dx March 2018 Dr. Salvador saw patient today - EGD planned this admission CT chest/abd/pelvis reviewed (15) Dizziness: due to rapid a.fib? hypotension? other? cortisol level am control the a.fib consider repeat echo no evidence of PEs on CTA chest today (16) DVT prophylaxis: heparin SC total time today - 90 minutes - including speaking with multiple consultants (rad onc, onc, pulmonary, GI, and cardiology), reviewing studies, coordinating care, etc Subjective patient reports significant weight loss since dx of esophageal cancer in 2017. he has also lost 30 pounds of weight since September 2018. he has "no taste" and poor appetite day to day at home. denies dysphagia or odynophagia. no fevers. appetite has been worse in the last week as well. he has also had progressive dyspnea on exertion since July or August. these symptoms have been worse in the last week much like his appetite. shingles lesions have resolved in the last 1-2 weeks. tele overnight with bibiana. states he was not placed on anticoagulation last year because of concern of bleeding from his esophagus as well as he was anticipating surgery for the cancer (never did have surgery however). admits to missing 2+ weeks of amiodarone in the last few weeks. lastly he c/o dizziness/lightheadedness upon standing. Constitutional: + anorexia and + weight loss; no fever and no chills Respiratory: + cough, + dyspnea and + dyspnea on exertion; no hemoptysis, no pain on inspiration and no wheezing Cardiovascular: no chest pain, no orthopnea, no paroxysmal nocturnal dyspnea, no syncope and no edema Gastrointestinal: no abdominal pain, no nausea, no vomiting and no dysphagia Genitourinary (Male): + difficulty urinating now with navarro Physical Exam Vital Signs (Past 24 Hours): Last Vital Signs Temp 36.6 C 11/20/18 19:24 Pulse 55 L 11/20/18 19:29 Resp 18 11/20/18 19:29 BP 105/56 L 11/20/18 20:17 Pulse Ox 96 11/20/18 19:29 Constitutional: + ill appearing and + thin; no acute distress ENMT: external ear and nose normal, oropharynx normal Respiratory: normal respiratory effort, lungs clear to auscultation Auscultation: no rales, no rhonchi and no wheezes Cardiovascular: Rate/Rhythm: regular rate; + abnormal rhythm (irregular) Heart Sounds: normal S1 and normal S2; no murmur Vessels: posterior tibial pulses present and dorsalis pedis pulses present; no JVD Extremities: no edema Gastrointestinal (Abdomen): normal bowel sounds, soft, nontender, no hepatosplenomegaly Skin: no rashes, warm and dry Port - clean, no erythema or tenderness Psychiatric: A+Ox3, euthymic affect Results & Data Laboratory Results BMP wnl TSH this admission 1.3 Diagnostic Findings EKG - a.fib, RBBB, lateral ST changes (1) HTN (hypertension) Hypertension type: essential hypertension Qualified Code(s): I10 - Essential (primary) hypertension (2) PNA (pneumonia) Pneumonia type: due to unspecified organism Laterality: bilateral Lung location: lower lobe of lung Qualified Code(s): J18.1 - Lobar pneumonia, unspecified organism (3) Shingles Herpes zoster complications: without complications Qualified Code(s): B02.9 - Zoster without complications (4) GERD (gastroesophageal reflux disease) Esophagitis presence: esophagitis presence not specified Qualified Code(s): K21.9 - Gastro-esophageal reflux disease without esophagitis (5) Hypotension Hypotension type: other hypotension type Qualified Code(s): I95.89 - Other hypotension
--- NOTE | 2018-11-20 21:19 | Progress Note ---
DATE: 11/20/2018 REASON FOR CONSULTATION: Loss of appetite and weight loss. HISTORY OF PRESENT ILLNESS: The patient is a 68-year-old male diagnosed with adenocarcinoma of the distal esophagus in March 2018 on an upper endoscopy when he presented with difficulty swallowing. This was performed by Dr. Hernandez. The patient underwent radiation and chemo and during this process, he was able to swallow normally following that, but his weight has dropped about 50 pounds in the last few months during the treatment process. The patient states that he has no appetite and his taste ability is diminished. He does not really have any abdominal pain. He was found to have some gallstones, but I think these are incidental. He also has a splenic infarct, but does not really experience any abdominal pain from it. He does have what looks like some infiltrates in both lungs, possibly radiation damage or pneumonia and he has small pleural effusions, right greater than left. Underlying all this is Parkinson disease and urinary retention. He was scheduled to have a follow up EGD to assess the status of his esophageal cancer, but it was postponed because of shingles on his right flank and back, which is now improved on valacyclovir. PAST MEDICAL HISTORY: Remarkable for esophageal adenocarcinoma, Parkinson disease, atrial fibrillation, urinary retention, hypokalemia, esophageal reflux, shingles, pneumonia, hypertension. He has had a tonsillectomy, cardioversion. MEDICATIONS: Per list. ALLERGIES: None. FAMILY HISTORY: Noncontributory. SOCIAL HISTORY: The patient is a resident of [facility]. REVIEW OF SYSTEMS: Positive for weakness, shortness of breath with exertion. PHYSICAL EXAMINATION: GENERAL: The patient appears somewhat cachectic and frail with nasal oxygen on while sitting in chair. VITAL SIGNS: Normal. He is afebrile. ABDOMEN: Soft. There are no masses or tenderness. IMPRESSION AND PLAN: The patient has weight loss and loss of taste sensation, probably from his chemotherapy. I plan on scheduling an EGD for him on 11/22/2018 to reassess the status of his esophageal cancer, but I think the main problem is combination of chemotherapy, radiation, and Parkinson disease.
[2018-11-21] MEDS: LEVALBUTEROL 1.25MG/0.5ML NEB INH SCH ×4 (02:08→19:14)
[2018-11-21] MEDS: IPRATROPIUM BROMIDE NEB SOLN 0.02% 2.5 ML VIAL INH SCH ×4 (02:08→19:14)
[2018-11-21 05:46] LABS: BUN Creatinine Ratio 15.2 (10-20); Calcium 8.1 mg/dl (8.5-10.1); Creatinine Clr Calc Pharmacy 82.2 ml/min; Est GFR (African American) 106.7; Est GFR (Non-African American) 92.1; Potassium 4.1 mmol/L (3.5-5.1)
[2018-11-21 05:59] LABS: Troponin I 0.279 ng/ml (0-0.045)
[2018-11-21] MEDS: VANCOMYCIN HCL 1,000 MG in SODIUM CHLORIDE 0.9% 250 ML IV SCH ×2 (06:07→15:51)
[2018-11-21] MEDS: HEPARIN SOD 5,000 UNIT/0.5 ML VIAL SQ SCH ×3 (06:08→21:17)
[2018-11-21] MEDS: VALACYCLOVIR HCL 500 MG TABLET PO SCH ×2 (08:06→21:15)
[2018-11-21] MEDS: METOPROLOL TARTRATE 25 MG TAB PO SCH ×2 (08:07→21:14)
[2018-11-21] MEDS: CARBIDOPA/LEVODOPA 25/100MG TAB PO SCH ×4 (08:07→21:16)
[2018-11-21] MEDS: GLYCOPYRROLATE 1 MG TAB PO SCH (08:09)
[2018-11-21] MEDS: ALFUZOSIN HCL 10 MG TAB PO SCH (08:09)
[2018-11-21] MEDS: FOLIC ACID 1 MG TAB PO SCH (08:09)
[2018-11-21] MEDS: SENNA 8.6 MG TAB PO SCH (08:10)
[2018-11-21] MEDS: CHOLECALCIFEROL 1,000 UNITS TAB PO SCH (08:10)
[2018-11-21] MEDS: guaiFENesin 600 MG TABCR PO SCH ×2 (08:10→21:14)
[2018-11-21] MEDS: POLYETHYLENE (MIRALAX) 17 GM PACK PO SCH (08:13)
[2018-11-21] MEDS: PANTOprazole 40 MG TAB PO SCH (09:24)
--- NOTE | 2018-11-21 09:44 | Cardiology Consultation ---
Date of Consultation November 21, 2018 Assessment & Plan (1) Atrial flutter with rapid ventricular response: Dr. Stone started the patient on low-dose metoprolol which is now controlled his ventricular response to atrial flutter. Would continue amiodarone as this may be helping to control his ventricular response. The patient is not on long-term anticoagulation as his esophageal adenocarcinoma is quite friable felt to be at high risk for bleeding. EGD is scheduled for tomorrow. (2) Elevated troponin: This is a chronic finding. Suspect it is related to a supply demand mismatch as the patient presented in atrial flutter with a rapid ventricular response and has known left ventricular hypertrophy by an echocardiogram performed in May 2018. No further evaluation necessary. (3) HTN (hypertension): Well controlled on current medical regimen. (4) Primary cancer of lower third of esophagus: Management per Oncology and Gastroenterology. History of Present Illness Attending Physician: Ellis Pena History of Present Illness Mr. Donahue this 68-year-old male admitted on November 19 with progressive weakness. This consultation was ordered as the patient is ventricular response to atrial flutter was elevated. Of note, the patient is well known to me from the outpatient setting. The patient was in his usual state of health until several days prior to presentation. He began to notice increasing weakness and was having a difficult time with his activities of daily life. He was also noticing a great deal of leakage around his Armijo catheter and therefore, proceeded to the emergency room for further care. On arrival here, the patient was noted to be in atrial flutter with a rapid ventricular response. In the patient has no idea when he developed his dysrhythmia as he does not experience symptoms such as palpitations. The patient was started on amiodarone and had an electrical cardioversion performed in late May of 2018. He has not been on anticoagulation as his esophageal tumor is quite friable and felt to be at high risk for bleeding. The patient continues close follow-up with Oncology at [facility]. He has received radiation and chemotherapy for his adenocarcinoma of the lower 1/3 of the esophagus. He was denied a surgical intervention as it was felt his functional capacity was quite limited and the patient had little reserve. The patient does not experience exertional chest pain nor limiting dyspnea. He further denies syncope, presyncope, PND, orthopnea, lower extremity edema, and claudication. Currently, patient is resting comfortably in bed without complaints. Past medical and surgical history 1. Hypertension 2. Mild LVH 3. Hypercholesterolemia 4. Paroxysmal atrial fibrillation/flutter-May 2018 5. Esophageal adenocarcinoma-March 2018, s/p XRT and chemotherapy 6. GERD 7. Ulcerative colitis 8. Parkinson's disease 9. A port 10. Tonsillectomy Social history Single, currently a resident at [facility] No tobacco or alcohol Family history Father at 88 from old age. Mother at 80 from an [place]. Review of systems A 10 point review of systems was undertaken and negative except for that described above. Allergies Allergy/AdvReac Type Severity Reaction Status Date / Time No Known Allergies Allergy Verified 11/19/18 11:42 Home Medications Home Medications Medication Instructions Recorded Confirmed Type aspirin 81 mg PO HS 05/19/18 11/19/18 History carbidopa-levodopa [Sinemet] 2 tab PO QID 05/19/18 11/19/18 History cholecalciferol (vitamin D3) 1,000 unit PO QAM 05/19/18 11/19/18 History [Vitamin D3] folic acid 1 mg PO QAM 05/19/18 11/19/18 History rasagiline [Azilect] 1 mg PO QAM 05/19/18 11/19/18 History simvastatin 20 mg PO PM 05/19/18 11/19/18 History sulfasalazine 1 tab PO 1200 05/19/18 11/19/18 History sulfamethoxazole-trimethoprim 1 tab PO Q12H #20 tab 10/29/18 11/19/18 Rx [Bactrim DS] acetaminophen 325 mg PO Q4 PRN 10/30/18 11/19/18 History amiodarone 200 mg PO QPM 10/30/18 11/19/18 History coQ10 (ubiquinol) 200 mg PO QAM 10/30/18 11/19/18 History digoxin 1 tab PO QAM 10/30/18 11/19/18 History glycopyrrolate 1 mg PO QAM 10/30/18 11/19/18 History pantoprazole 40 mg PO QAM 10/30/18 11/19/18 History valacyclovir 1,000 mg PO BID 10/30/18 11/19/18 History alfuzosin 10 mg PO DAILY 11/19/18 11/19/18 History levofloxacin 500 mg PO DAILY 11/19/18 11/19/18 History Patient History Surgical History History of cardioversion x2--07/2018 History of colonoscopy History of esophagogastroduodenoscopy (EGD) History of tonsillectomy History of tooth extraction all upper teeth History of vascular access device aport right side Social History Communication Ability: Effective Beliefs That Will Affect Care: None marital status: Single Current Living Situation: Alone and Personal Care Facility Current Living Situation Comment: [facility] Other Information That Helps Us Care for You: No Feels Safe at Home: Yes Safety Concerns: Feels Safe At This Time Smoking Status: Never smoker Hx Alcohol Use: No Hx Substance Use: No caffeine: Yes (1 cup coffee/day;not currently since diagnosis;) during the past year weight has: increased > 10 lbs Physical Exam Vital Signs (Past 24 Hours): Last Vital Signs Temp 36.6 C 11/21/18 07:51 Pulse 95 H 11/21/18 07:51 Resp 20 11/21/18 07:51 BP 117/74 11/21/18 07:51 Pulse Ox 96 11/21/18 07:51 Physical Exam: In general this is a thin white male in no acute distress. HEENT exam is negative. Neck is supple with full carotid upstrokes. There are no carotid bruits. Jugular venous pressure is flat at 90. There is no thyromegaly. Cardiovascular exam reveals an irregular rhythm with distant heart sounds. No obvious murmurs. Chest reveals in a port in the right subclavicular region. Lungs are clear without rales, rhonchi, or wheezes. Abdomen is soft and nontender without bruits. Extremities reveal intact radial artery and posterior tibial pulses bilaterally. There is no peripheral edema. Results & Data Laboratory Results CBC notes hemoglobin 13.1, hematocrit 39.4, white count 6.16, and platelet count of [id number]. Electrolytes showed a sodium of 141, potassium 4.1, chloride 105, bicarb 31, BUN 12, creatinine 0.90, glucose 93. Initial troponin was 0.329 with fall values of 0.343 and 0.279. BNP is normal at 477. TSH is normal 1.38. Diagnostic Findings EKG notes atrial flutter with a variable ventricular response. There is a complete right bundle-branch block. 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 scan of the chest noted bibasilar opacities and small pleural effusions. (1) HTN (hypertension) Hypertension type: essential hypertension Qualified Code(s): I10 - Essential (primary) hypertension
--- NOTE | 2018-11-21 12:02 | Pulmonary Consultation ---
Date of Consultation November 21, 2018 Assessment & Plan (1) Abnormal chest CT: infiltrate on CT chest most likely related to pneumonia. less likely due to radiation but cannot rule it out. doubt amiodarone related. would repeat Ct chest in 6-12 weeks for clearance (2) PNA (pneumonia): improving continue levofloxacin to complete 7 days titrate off o2 for sat >90 insulin staph species in one blood culture await speciation to see if significant esophageal CA parkinsons disease rapid a fib Laterality: bilateral Lung location: lower lobe of lung Pneumonia type: due to unspecified organism Qualified Code(s): J18.1 - Lobar pneumonia, unspecified organism History of Present Illness Attending Physician: Ellis Pena History of Present Illness 68 y/o male with history of parkinsons, HTN, esophageal CA, hyperlipidemia who presented with generalized weakness. He says that he had mild sob as well as a cough. recently had herpes zoster and his symptoms started around that time. He has been having trouble with urinary retention recently. He was found to have bibasilar infiltrates on CT r >>L He says that since being in the hospital his symptoms have improved. per RN desat to 82% yesterday on RA. currently he is on 1L Allergies Allergy/AdvReac Type Severity Reaction Status Date / Time No Known Allergies Allergy Verified 11/19/18 11:42 Home Medications Home Medications Medication Instructions Recorded Confirmed Type aspirin 81 mg PO HS 05/19/18 11/19/18 History carbidopa-levodopa [Sinemet] 2 tab PO QID 05/19/18 11/19/18 History cholecalciferol (vitamin D3) 1,000 unit PO QAM 05/19/18 11/19/18 History [Vitamin D3] folic acid 1 mg PO QAM 05/19/18 11/19/18 History rasagiline [Azilect] 1 mg PO QAM 05/19/18 11/19/18 History simvastatin 20 mg PO PM 05/19/18 11/19/18 History sulfasalazine 1 tab PO 1200 05/19/18 11/19/18 History sulfamethoxazole-trimethoprim 1 tab PO Q12H #20 tab 10/29/18 11/19/18 Rx [Bactrim DS] acetaminophen 325 mg PO Q4 PRN 10/30/18 11/19/18 History amiodarone 200 mg PO QPM 10/30/18 11/19/18 History coQ10 (ubiquinol) 200 mg PO QAM 10/30/18 11/19/18 History digoxin 1 tab PO QAM 10/30/18 11/19/18 History glycopyrrolate 1 mg PO QAM 10/30/18 11/19/18 History pantoprazole 40 mg PO QAM 10/30/18 11/19/18 History valacyclovir 1,000 mg PO BID 10/30/18 11/19/18 History alfuzosin 10 mg PO DAILY 11/19/18 11/19/18 History levofloxacin 500 mg PO DAILY 11/19/18 11/19/18 History Patient History Medical History Atrial fibrillation Dysphagia PROGRESSIVE X 2 MONTHS PER ONCOLOGY NOTE Esophageal cancer 2018--chemo, radiation Armijo catheter in place Hyperlipidemia Hypertension Parkinsons disease Reflux esophagitis Ulcerative colitis Weight loss 30 POUND WEIGHT LOSS PER ONCOLOGY NOTE Surgical History History of cardioversion x2--07/2018 History of colonoscopy History of esophagogastroduodenoscopy (EGD) History of tonsillectomy History of tooth extraction all upper teeth History of vascular access device aport right side Family History Mother , at 80yo;NE, aortic valve replacement, stroke No problems noted. Father , at 88yo;"Colon problem that caused him to weaken" No problems noted. Brother No problems noted. Grandmother (Maternal) Family history of diabetes mellitus Grandfather (Maternal) Family hx of colon cancer Other No family history of adverse response to anesthesia Social History Communication Ability: Effective Beliefs That Will Affect Care: None marital status: Single Current Living Situation: Alone and Personal Care Facility Current Living Situation Comment: [facility] Other Information That Helps Us Care for You: No Feels Safe at Home: Yes Safety Concerns: Feels Safe At This Time Smoking Status: Never smoker Hx Alcohol Use: No Hx Substance Use: No caffeine: Yes (1 cup coffee/day;not currently since diagnosis;) during the past year weight has: increased > 10 lbs Review of Systems Constitutional: no fevers no chills no weight loss +weakness Eyes: no blurry or double vision EENT: no sore throat, no congestion Respiratory: + cough + shortness of breath Cardiovascular: no chest pain no palpitations GI: no abdominal pain, no nausea, no vomiting, no diarrhea, no constipation Gu: no dysuria, no frequency MSK: no joint pain, no muscle aches Skin: no rash Neuro: no headache, no dizziness, no focal weakness Psych: no depression, no anxiety Physical Exam Vital Signs (Past 24 Hours): Last Vital Signs Temp 36.4 C L 11/21/18 11:39 Pulse 78 11/21/18 11:39 Resp 22 11/21/18 11:39 BP 115/63 11/21/18 11:40 Pulse Ox 92 11/21/18 11:39 Physical Exam: Constitutional: Comfortable NAD HEENT: normocephalic atraumatic. MMM. no cervical lymphadenopathy CV: RRR nl s1,s2 no murmurs rubs or gallops Lungs: clear to auscultation bilaterally. no accessory muscle use Abd: soft nontender nondistended. normal bowel sounds Ext: no edema. no cyanosis, no clubbing Skin: warm dry Neuro: alert and oriented. moving all extremities. tremors R>L Psych: normal mood and affect Results & Data Laboratory Results Laboratory Results - last 24 hr 11/21/18 11/21/18 11/21/18 05:01 07:10 09:30 Sodium 141 Potassium 4.1 Chloride 105 Carbon Dioxide 31 Anion Gap 5.0 BUN 12 Creatinine 0.78 Est Cr Clr Drug Dosing 82.2 Est GFR ( Amer) 106.7 Est GFR (Non-Af Amer) 92.1 BUN/Creatinine Ratio 15.2 Glucose 93 Calcium 8.1 L Troponin I 0.279 H* Cortisol AM Sample 18.86 Nasal Screen MRSA (PCR) Negative Diagnostic Findings CT chest IMPRESSION: 1. Long segment moderate wall thickening about the mid and distal esophagus redemonstrated correlating with the patient's known esophageal carcinoma. 2. Small bilateral pleural effusions with right greater than left bibasilar predominant groundglass and consolidative opacities suggestive of multifocal pneumonia or aspiration pneumonitis with atelectasis. 3. Mild AP window adenopathy, possibly reactive. 4. There are a few new solid pulmonary nodules noted measuring up to 5 mm within the left upper lobe. Attention at follow-up recommended. 5. No evidence of pulmonary thromboembolic disease.
[2018-11-21] MEDS: sulfaSALAzine 500 MG TABLET PO SCH (12:11)
[2018-11-21] MEDS: levoFLOXacin 750 MG TAB PO SCH (12:11)
[2018-11-21] MEDS: CEROVITE ADV FORMULA TAB PO SCH (12:12)
--- NOTE | 2018-11-21 14:00 | Medical Student Progress Note ---
Date of Service November 21, 2018 Assessment & Plan (1) Abnormal chest CT: Chest CT from 11/20 was remarkable for bilateral bibasilar opacities Opacities may have been due to previous radiation exposure, from amiodorone use or remarkable for pneumonia. Pulmonology was consulted and finds opacities to be more likely due from pneumonia, recommends f/u scan in 6-12 weeks Recommends continuing levoquin for pneumonia Pt sating 96 off of the O2 (2) PNA (pneumonia): Continue levoquin for 7 days. Off O2 Laterality: bilateral Lung location: lower lobe of lung Pneumonia type: due to unspecified organism Qualified Code(s): J18.1 - Lobar pneumonia, unspecified organism (3) Severe protein-calorie malnutrition: low albumin concerning for protein calorie malnutrition cause of weight loss may be likely due to progression of esophageal cancer especially in the setting of Abdominal CT findings Due to findings of splenic and pulmonary lesions, PET-CT has been recommended and will be f/u as outpt EGD will take place 11/22 to assess esophageal cancer progression Will order suppository for pt constipation (4) Atrial flutter with rapid ventricular response: Pt has hx of cardioversion in May for atrial flutter Pt is stable on telemetry Cardiology has seen pt and recommends pt remain on amiodorone and metoprolol Pt is not on anticoagulation and cannot start custodial anticoagulation therapy due to bleeding from esophageal cancer (5) Splenic lesion: may be site of metastasis of site of infarction, fu with PET scan (6) Hypotension: may be due to metoprolol, pt mentioned sx of orthastatic hypotension that had been happening at home shortly prior to his hospitalization. Cortisol is within normal limits If hypotension continues, consider parkinson's related autonomic instability Hypotension type: other hypotension type Qualified Code(s): I95.89 - Other hypotension (7) Shingles: resolved, outbreak was from thoracic spine Herpes zoster complications: without complications Qualified Code(s): B02.9 - Zoster without complications Subjective Pt is a 68 yo M w a hx of adenocarcinoma of the esophagus (dx Mar 2018) and paroxysmal atrial flutter cardioverted in May 2018 on day 3 of his admission for bacteremia secondary to pneumonea, severe protein calorie malnutrition, and atrial flutter. Today, pt states he feels better but is unsure how much better since he has mostly been in bed. Pt had been feeling dizzy when standing up and getting up from bed prior to his admission, but states he no longer feels the lightheadedness. OT did visit yesterday where he did ambulate around the hallways and said he felt fine then. Pt feels that he is eating better today than he has in the last few days, but notes that it is difficult to do so when he does not have an appetite. Pt did not have a bm today, the last bm he has had was 8 days ago. His baseline is 1-2 a week, which could be related to the chemo, parkinsons, and malnutrition. Pt was given miralax yesterday and today. Pt denies feeling any abdominal pain, but does complain of urinary "pressure or discomfort" that seemed intermittent but has caused him difficulty urinating which is why he has been catheterized. Pt denies SOB, cough, chest pain. Review of Systems All systems reviewed & are unremarkable except as noted in HPI & below + difficulty urinating, + constipation Physical Exam Vital Signs (Past 24 Hours): Last Vital Signs Temp 36.4 C L 11/21/18 11:39 Pulse 77 11/21/18 13:47 Resp 16 11/21/18 13:47 BP 115/63 11/21/18 11:40 Pulse Ox 96 11/21/18 13:47 Constitutional: cooperative, comfortable and + malnourished Eyes: PERRL, conjunctivae normal, anicteric sclerae Neck: normal visual inspection Respiratory: normal respiratory effort, lungs clear to auscultation Lung sounds in Left lower lung field> Right lower lung field Cardiovascular: Rate/Rhythm: regular rate (irregular rhythm ) distant heart sounds Gastrointestinal (Abdomen): normal bowel sounds, soft, nontender, no hepatosplenomegaly Skin: no rashes, warm and dry Neurologic: awake, alert & oriented x 3 Psychiatric: euthymic affect Results & Data Laboratory Results WBC: 6.16 RBC: 4.25 Hgb: 13.1 Hct: 39.4 RDW: 50.6 neutrophil: 4.74 lymphocytes: .85 Na: 141 K: 4.1 Cl: 105 HCO3: 31 BUN: 12 Cr: .78 Glucose: 93 Ca: 8.1 Troponin .279
[2018-11-21] MEDS: DIGOXIN 0.125 MG TAB PO SCH (15:52)
[2018-11-21] MEDS ORDERED: BISACODYL 10 MG SUPP PR STA (17:50)
[2018-11-21] MEDS: AMIODARONE 200 MG TAB PO SCH (19:51)
--- NOTE | 2018-11-21 21:07 | Hospitalist Progress Note ---
Date of Service November 21, 2018 Assessment & Plan (1) PNA (pneumonia): Pulmonary has seen, and they feel that CT findings are most c/w infectious pneumonia. Radiation pneumonitis is possible but felt to be less likely. He is at least day #4 of levaquin, possibly longer - will need to check with patient to see when it was started as outpatient. Treat 7 days in total. Present on Admission?: Yes (2) Abnormal chest CT: Likely due to pneumonia. Radiation pneumonitis less likely. Amiodarone ILD felt to be unlikely. Repeat chest CT in 4-6 weeks as outpatient. Present on Admission?: Yes (3) Severe protein-calorie malnutrition: GI to perform EGD this admission to re-eval the esophagus. Cortisol level normal ruling out adrenal insufficiency. added MVI and boost. could consider appetite stimulant. TSH wnl as well. Present on Admission?: Yes (4) Atrial fibrillation with RVR: Patient had [id number] a.fib on prior admissions and is poor candidate for AV tatianna agents due to low BPs. He ultimately needed cardioversion on prior admission. Unfortunately he is NOT anticoagulated and thus cardioversion would have to be done via GILLES to r/o thrombus. He has responded to low-dose metoprolol although it did depress his BPs. Thus will continue metoprolol 12.5mg BID. Continue digoxin. Continue amiodarone. Present on Admission?: Yes (5) Splenic lesion: uncertain etiology. odd location for mets from esophageal cancer. infarcts are possible. follow. (6) HTN (hypertension): now with hypotension - some of which is iatrogenic from metoprolol. BPs improving albeit marginally. (7) Hypotension: adrenal insufficiency ruled out. partially iatrogenic from beta blockers. some of hypotension and orthostasis could be parkinson's related. if this persists consider midodrine. (8) Shingles: resolved finish valtrex (9) Urinary retention: s/p navarro maintain navarro to have outpatient f/u with urology (10) Positive blood culture: staph species only 1 bottle thus far has port so need to exclude true pathogen vancomycin while awaiting cultures repeat blood cx's in am (11) GERD (gastroesophageal reflux disease): cont PPI GI has seen - to have EGD this admission (12) Parkinson disease: cont sinemet (13) Elevated troponin: no ischemic symptoms likely myocardial demand ischemia in setting of rapid a.fib repeat troponin today is lower than previous (14) Primary cancer of lower third of esophagus: s/p chemo/radiation fall [address] Brice from oncology followed by Dr. Marsh from rad onc Dr. Hernandez [facility] - made initial dx March 2018 Dr. Salvador to perform EGD tomorrow am case d/w & (15) Dizziness: suspect due to hypotension and orthostasis see above (16) DVT prophylaxis: heparin SC progressing Subjective patient feels better today appetite improved o2 has been weaned off a flutter rates improved with low-dose beta raj BPs still low at times and he still has dizziness upon standing overall happy with progress he is scheduled for EGD tomorrow Constitutional: no fever and no chills Respiratory: + cough and + dyspnea on exertion; no wheezing Cardiovascular: no chest pain Gastrointestinal: + constipation (no BM in 7+ days); no abdominal pain Physical Exam Vital Signs (Past 24 Hours): Last Vital Signs Temp 36.4 C L 11/21/18 20:06 Pulse 98 H 11/21/18 20:06 Resp 16 11/21/18 20:06 BP 96/58 L 11/21/18 20:06 Pulse Ox 95 11/21/18 20:06 Constitutional: + thin; no acute distress ENMT: external ear and nose normal, oropharynx normal Respiratory: normal respiratory effort, lungs clear to auscultation Auscultation: + diminished lung sounds (bases); no rales, no rhonchi and no wheezes Cardiovascular: Rate/Rhythm: regular rate; + abnormal rhythm (irregular) Heart Sounds: normal S1 and normal S2; no murmur Vessels: posterior tibial pulses present and dorsalis pedis pulses present; no JVD Extremities: no edema Gastrointestinal (Abdomen): normal bowel sounds, soft, nontender, no hepatosplenomegaly Skin: no rashes, warm and dry Psychiatric: A+Ox3, euthymic affect Results & Data Laboratory Results Laboratory Results - last 24 hr 11/21/18 11/21/18 11/21/18 05:01 07:10 09:30 Sodium 141 Potassium 4.1 Chloride 105 Carbon Dioxide 31 Anion Gap 5.0 BUN 12 Creatinine 0.78 Est Cr Clr Drug Dosing 82.2 Est GFR ( Amer) 106.7 Est GFR (Non-Af Amer) 92.1 BUN/Creatinine Ratio 15.2 Glucose 93 Calcium 8.1 L Troponin I 0.279 H* Cortisol AM Sample 18.86 Nasal Screen MRSA (PCR) Negative (1) Shingles Herpes zoster complications: without complications Qualified Code(s): B02.9 - Zoster without complications (2) GERD (gastroesophageal reflux disease) Esophagitis presence: esophagitis presence not specified Qualified Code(s): K21.9 - Gastro-esophageal reflux disease without esophagitis (3) HTN (hypertension) Hypertension type: essential hypertension Qualified Code(s): I10 - Essential (primary) hypertension (4) Hypotension Hypotension type: other hypotension type Qualified Code(s): I95.89 - Other hypotension (5) PNA (pneumonia) Laterality: bilateral Lung location: lower lobe of lung Pneumonia type: due to unspecified organism Qualified Code(s): J18.1 - Lobar pneumonia, unspecified organism
[2018-11-21] MEDS: ASPIRIN 81 MG ECTAB PO SCH (21:14)
[2018-11-21] MEDS: SIMVASTATIN 20 MG TAB PO SCH (21:15)
[2018-11-22] MEDS ORDERED: VANCOMYCIN TROUGH ONE (01:30)
[2018-11-22] MEDS: LEVALBUTEROL 1.25MG/0.5ML NEB INH SCH ×4 (01:50→19:10)
[2018-11-22] MEDS: IPRATROPIUM BROMIDE NEB SOLN 0.02% 2.5 ML VIAL INH SCH ×4 (01:50→19:10)
[2018-11-22 02:03] LABS: Est GFR (African American) 105.6; Est GFR (Non-African American) 91.1
[2018-11-22] MEDS: VANCOMYCIN HCL 1,000 MG in SODIUM CHLORIDE 0.9% 250 ML IV SCH (02:27)
[2018-11-22] MEDS: HEPARIN SOD 5,000 UNIT/0.5 ML VIAL SQ SCH ×3 (05:21→21:17)
[2018-11-22] MEDS: VALACYCLOVIR HCL 500 MG TABLET PO SCH ×2 (07:59→21:16)
[2018-11-22] MEDS: CARBIDOPA/LEVODOPA 25/100MG TAB PO SCH ×4 (07:59→21:15)
[2018-11-22] MEDS: FOLIC ACID 1 MG TAB PO SCH (08:00)
[2018-11-22] MEDS: guaiFENesin 600 MG TABCR PO SCH ×2 (08:00→21:16)
[2018-11-22] MEDS: SENNA 8.6 MG TAB PO SCH (08:00)
[2018-11-22] MEDS: METOPROLOL TARTRATE 25 MG TAB PO SCH ×2 (08:00→22:13)
[2018-11-22] MEDS: ALFUZOSIN HCL 10 MG TAB PO SCH (08:00)
[2018-11-22] MEDS: GLYCOPYRROLATE 1 MG TAB PO SCH (08:00)
[2018-11-22] MEDS: CHOLECALCIFEROL 1,000 UNITS TAB PO SCH (08:00)
[2018-11-22] MEDS: PANTOprazole 40 MG TAB PO SCH (08:01)
[2018-11-22] MEDS: POLYETHYLENE (MIRALAX) 17 GM PACK PO SCH (08:02)
[2018-11-22] MEDS: levoFLOXacin 750 MG TAB PO SCH (10:51)
[2018-11-22] MEDS: CEROVITE ADV FORMULA TAB PO SCH (10:51)
[2018-11-22] MEDS: sulfaSALAzine 500 MG TABLET PO SCH (10:51)
--- NOTE | 2018-11-22 12:48 | Cardiology Progress Note ---
Date of Service November 22, 2018 Assessment & Plan (1) Atrial flutter with rapid ventricular response: Patient's ventricular response is adequately controlled with a combination of amiodarone, digoxin, and metoprolol tartrate. (2) Elevated troponin: Suspect secondary to a supply demand mismatch as the patient presented in atrial flutter with a rapid ventricular response and has known left ventricular hypertrophy. No further evaluation necessary. (3) HTN (hypertension): Well controlled on current medical regimen. (4) Primary cancer of lower third of esophagus: Management per Oncology and Gastroenterology. EGD to be performed later today. Subjective The patient is resting comfortably points of chest pain, dyspnea, or palpitations. He is awaiting upper endoscopy. Physical Exam Vital Signs (Past 24 Hours): Last Vital Signs Temp 36.4 C L 11/22/18 11:38 Pulse 89 11/22/18 11:38 Resp 24 11/22/18 11:38 BP 98/63 L 11/22/18 11:38 Pulse Ox 94 11/22/18 11:51 Physical Exam: In general this is a well-developed well-nourished white female in no acute distress. HEENT exam is negative. Neck is supple with full carotid upstrokes. There are no carotid bruits. Jugular venous pressure is flat at 90. There is no thyromegaly. Cardiovascular exam reveals a regular rhythm with a normal S1 and S2. No S3, S4, or murmurs are noted. Lungs are clear without rales, rhonchi, or wheezes. Abdomen is soft and nontender without bruits. Extremities reveal intact radial artery and posterior tibial pulses bilaterally. There is no peripheral edema. Results & Data Diagnostic Findings court recording monitor shows atrial fibrillation with ventricular response in the 80- 90 range. (1) HTN (hypertension) Hypertension type: essential hypertension Qualified Code(s): I10 - Essential (primary) hypertension
[2018-11-22] MEDS: D5W AND 1/2NSS 1,000 ML IV SCH (13:43)
--- NOTE | 2018-11-22 14:21 | Anesthesiology Consultation ---
Date of Service November 22, 2018 Assessment & Plan (1) Encounter for pre-operative examination: Chart Review Chart Review: Acceptable Risk for Surgery History Surgery Operation Date: 11/22/18 08:30 Proposed Procedures p Esophagogastroduodenoscopy Dr Modesto Salvador Height/Weight Height: 5 ft 8 in Weight: 65 kg Allergies Allergy/AdvReac Type Severity Reaction Status Date / Time No Known Allergies Allergy Verified 11/19/18 11:42 Medications Home Medications Medication Instructions Recorded Confirmed Last Taken aspirin 81 mg PO HS 05/19/18 11/19/18 11/18/18 carbidopa-levodopa [Sinemet] 2 tab PO QID 05/19/18 11/19/18 11/18/18 cholecalciferol (vitamin D3) 1,000 unit PO QAM 05/19/18 11/19/18 11/18/18 [Vitamin D3] folic acid 1 mg PO QAM 05/19/18 11/19/18 11/18/18 rasagiline [Azilect] 1 mg PO QAM 05/19/18 11/19/18 11/18/18 simvastatin 20 mg PO PM 05/19/18 11/19/18 11/18/18 sulfasalazine 1 tab PO 1200 05/19/18 11/19/18 11/18/18 sulfamethoxazole-trimethoprim 1 tab PO Q12H #20 tab 10/29/18 11/19/18 11/18/18 [Bactrim DS] acetaminophen 325 mg PO Q4 PRN 10/30/18 11/19/18 11/18/18 amiodarone 200 mg PO QPM 10/30/18 11/19/18 11/18/18 coQ10 (ubiquinol) 200 mg PO QAM 10/30/18 11/19/18 11/18/18 digoxin 1 tab PO QAM 10/30/18 11/19/18 11/18/18 glycopyrrolate 1 mg PO QAM 10/30/18 11/19/18 11/18/18 pantoprazole 40 mg PO QAM 10/30/18 11/19/18 11/18/18 valacyclovir 1,000 mg PO BID 10/30/18 11/19/18 11/18/18 alfuzosin 10 mg PO DAILY 11/19/18 11/19/18 11/18/18 levofloxacin 500 mg PO DAILY 11/19/18 11/19/18 11/18/18 Active Medications Generic Name Dose Route Start Last Admin Trade Name Manjit PRN Reason Stop Dose Admin Alfuzosin HCl 10 mg 11/20/18 09:00 11/22/18 08:00 Uroxatral PO 12/20/18 08:59 10 mg DAILY KARYN Administration Amiodarone HCl 200 mg 11/19/18 21:00 11/21/18 19:51 Cordarone PO 12/19/18 20:59 200 mg QPM KARYN Administration Aspirin 81 mg 11/19/18 21:00 11/21/18 21:14 Ecotrin Ectab PO 12/19/18 20:59 81 mg HS KARYN Administration Carbidopa/Levodopa 2 tab 11/19/18 17:00 11/22/18 13:45 Sinemet 25/100 Mg PO 12/19/18 16:59 2 tab QID KARYN Administration Digoxin 0.125 mg 11/19/18 18:00 11/21/18 15:52 Lanoxin PO 12/19/18 17:59 0.125 mg DAILY@1600 KARYN Administration Folic Acid 1 mg 11/20/18 09:00 11/22/18 08:00 Folvite PO 12/20/18 08:59 1 mg QAM KARYN Administration Glycopyrrolate 1 mg 11/20/18 09:00 11/22/18 08:00 Robinul PO 12/20/18 08:59 1 mg QAM KARYN Administration Guaifenesin 1,200 mg 11/20/18 09:00 11/22/18 08:00 Mucinex PO 12/20/18 08:59 1,200 mg Q12 KARYN Administration Heparin Sodium (Porcine) 5,000 units 11/19/18 16:09 11/22/18 13:45 Heparin Sodium (Porcine) SQ 12/19/18 16:08 5,000 units Q8 KARYN Administration Dextrose/Sodium Chloride 1,000 mls @ 80 mls/hr 11/22/18 13:00 11/22/18 13:43 D5w And 1/2nss IV 12/22/18 12:59 80 mls/hr .[id number] KARYN Administration Ioversol 120 ml 11/20/18 12:33 11/20/18 12:34 Optiray 320 125ml IV 11/24/18 12:32 120 ml ONCE PRN Administration Interaction Checking Ipratropium [place] 0.5 mg 11/20/18 08:30 11/22/18 07:22 Atrovent 0.02% 0.5mg/2.5ml INH 12/20/18 08:29 0.5 mg Q6R KARYN Administration Levalbuterol HCl 1.25 mg 11/20/18 08:30 11/22/18 07:22 Xopenex 1.25mg/0.5ml Neb INH 12/20/18 08:29 1.25 mg Q6R KARYN Administration Levofloxacin 750 mg 11/21/18 11:00 11/22/18 10:51 Levaquin PO 11/28/18 10:59 750 mg DAILY@1100 KARYN Administration Metoprolol Tartrate 12.5 mg 11/20/18 21:00 11/22/18 08:00 Lopressor PO 12/20/18 20:59 12.5 mg BID KARYN Administration Miscellaneous 1 ea 11/20/18 00:00 11/22/18 08:01 Order Awaiting Action N/A 12/20/18 00:00 Not Given QS KARYN Multivitamins/Minerals 1 tab 11/20/18 19:00 11/22/18 10:51 Multivitamin W/ Minerals Tab PO 12/20/18 18:59 1 tab TODAY@1100 KARYN Administration Protocol Pantoprazole Sodium 40 mg 11/20/18 09:00 11/22/18 08:01 Protonix PO 12/20/18 08:59 40 mg QAM KARYN Administration Polyethylene Glycol 17 gm 11/20/18 18:45 11/22/18 08:02 Miralax Powder Packet PO 12/20/18 18:44 17 gm DAILY KARYN Administration Sennosides 17.2 mg 11/20/18 18:45 11/22/18 08:00 Senokot PO 12/20/18 18:44 17.2 mg QAM KARYN Administration Simvastatin 20 mg 11/19/18 21:00 11/21/18 21:15 Zocor PO 12/19/18 20:59 20 mg PM KARYN Administration Sulfadiazine 500 mg 11/20/18 12:00 11/22/18 10:51 Azulfidine PO 12/20/18 11:59 500 mg 1200 KARYN Administration Valacyclovir HCl 1,000 mg 03/31/19 21:00 11/22/18 07:59 Valtrex PO 12/19/18 20:59 1,000 mg BID KARYN Administration Vitamin D 1,000 units 11/20/18 09:00 11/22/18 08:00 Vitamin D3 PO 12/20/18 08:59 1,000 units QAM KARYN Administration Beta Sadia Beta Sadia Taken Within 24 Hours: Yes Past Medical History Medical History Atrial fibrillation Dysphagia PROGRESSIVE X 2 MONTHS PER ONCOLOGY NOTE Esophageal cancer 2018--chemo, radiation Armijo catheter in place Hyperlipidemia Hypertension Parkinsons disease Reflux esophagitis Ulcerative colitis Weight loss 30 POUND WEIGHT LOSS PER ONCOLOGY NOTE Past Family History Family History Mother , at 80yo;CA, aortic valve replacement, stroke No problems noted. Father , at 88yo;"Colon problem that caused him to weaken" No problems noted. Brother No problems noted. Grandmother (Maternal) Family history of diabetes mellitus Grandfather (Maternal) Family hx of colon cancer Other No family history of adverse response to anesthesia Past Surgical History Surgical History History of cardioversion x2--07/2018 History of colonoscopy History of esophagogastroduodenoscopy (EGD) History of tonsillectomy History of tooth extraction all upper teeth History of vascular access device aport right side Past Anesthesia History No Hx of Anesthesia Complications History of PONV No Motion Sickness Screening History of Motion Sickness: No Social History Smoking Status: Never smoker Do You Dip or Chew Tobacco: No Hx Alcohol Use: No Hx Substance Use: No substance use type: does not use Physical Exam Vital Signs Last Vital Signs Temp 36.4 C L 11/22/18 11:38 Pulse 89 11/22/18 11:38 Resp 24 11/22/18 11:38 BP 98/63 L 11/22/18 11:38 Pulse Ox 94 11/22/18 11:51 Testing Laboratory Results 11/20/18 05:24 11/22/18 01:15 PT 11.8 Seconds (9.0-12.0) 11/19/18 12:07 INR 1.2 (0.9-1.1) H 11/19/18 12:07 APTT 36.9 Seconds (21.0-31.0) H 11/19/18 12:07 Urine Color [place] 11/19/18 16:10 Urine Appearance Slightly Cloudy (Clear) 11/19/18 16:10 Urine pH 6.0 (4.5-7.5) 11/19/18 16:10 Ur Specific [place] >= 1.030 (1.000-1.030) 11/19/18 16:10 Urine Protein 2+ (Negative) H 11/19/18 16:10 Urine Glucose (UA) Negative (Negative) 11/19/18 16:10 Urine Ketones 2+ (Negative) H 11/19/18 16:10 Urine Nitrite Negative (Negative) 11/19/18 16:10 Ur Leukocyte Esterase Trace (Negative) H 11/19/18 16:10 Urine RBC >30 /hpf (0-4) H 11/19/18 16:10 Urine WBC 5-10 /hpf (0-5) H 11/19/18 16:10 Ur Epithelial Cells 0-5 /lpf (0-5) 11/19/18 16:10 11/19/18 12:07 Blood Culture - Final Blood Coag neg staph not lugdunensis 11/19/18 16:10 Urine Culture - Final Urine,Clean Catch No growth - less than 1,000 colonies/mL. 11/19/18 12:57 Blood Culture - Preliminary Blood No growth to date.
--- NOTE | 2018-11-22 14:49 | History & Physical Report ---
Date of Service November 22, 2018 History of Present Illness Chief Complaint: esoph cancer, weight loss Primary Care Provider: Agus Dsouza MD For EGD Allergies Allergy/AdvReac Type Severity Reaction Status Date / Time No Known Allergies Allergy Verified 11/19/18 11:42 Home Medications Home Medications Medication Instructions Recorded Confirmed Type aspirin 81 mg PO HS 05/19/18 11/19/18 History carbidopa-levodopa [Sinemet] 2 tab PO QID 05/19/18 11/19/18 History cholecalciferol (vitamin D3) 1,000 unit PO QAM 05/19/18 11/19/18 History [Vitamin D3] folic acid 1 mg PO QAM 05/19/18 11/19/18 History rasagiline [Azilect] 1 mg PO QAM 05/19/18 11/19/18 History simvastatin 20 mg PO PM 05/19/18 11/19/18 History sulfasalazine 1 tab PO 1200 05/19/18 11/19/18 History sulfamethoxazole-trimethoprim 1 tab PO Q12H #20 tab 10/29/18 11/19/18 Rx [Bactrim DS] acetaminophen 325 mg PO Q4 PRN 10/30/18 11/19/18 History amiodarone 200 mg PO QPM 10/30/18 11/19/18 History coQ10 (ubiquinol) 200 mg PO QAM 10/30/18 11/19/18 History digoxin 1 tab PO QAM 10/30/18 11/19/18 History glycopyrrolate 1 mg PO QAM 10/30/18 11/19/18 History pantoprazole 40 mg PO QAM 10/30/18 11/19/18 History valacyclovir 1,000 mg PO BID 10/30/18 11/19/18 History alfuzosin 10 mg PO DAILY 11/19/18 11/19/18 History levofloxacin 500 mg PO DAILY 11/19/18 11/19/18 History Past Med/Surg History Medical History Atrial fibrillation Dysphagia PROGRESSIVE X 2 MONTHS PER ONCOLOGY NOTE Esophageal cancer 2017--chemo, radiation Armijo catheter in place Hyperlipidemia Hypertension Parkinsons disease Reflux esophagitis Ulcerative colitis Weight loss 30 POUND WEIGHT LOSS PER ONCOLOGY NOTE Surgical History History of cardioversion x2--07/2018 History of colonoscopy History of esophagogastroduodenoscopy (EGD) History of tonsillectomy History of tooth extraction all upper teeth History of vascular access device aport right side Family History Mother , at 80yo;VT, aortic valve replacement, stroke No problems noted. Father , at 88yo;"Colon problem that caused him to weaken" No problems noted. Brother No problems noted. Grandmother (Maternal) Family history of diabetes mellitus Grandfather (Maternal) Family hx of colon cancer Other No family history of adverse response to anesthesia Social History Communication Ability: Effective Beliefs That Will Affect Care: None marital status: Single Current Living Situation: Alone and Personal Care Facility Current Living Situation Comment: [facility] Other Information That Helps Us Care for You: No Feels Safe at Home: Yes Safety Concerns: Feels Safe At This Time Smoking Status: Never smoker Hx Alcohol Use: No Hx Substance Use: No caffeine: Yes (1 cup coffee/day;not currently since diagnosis;) during the past year weight has: increased > 10 lbs Physical Exam Vital Signs (Past 24 Hours): Last Vital Signs Temp 36.6 C 11/22/18 14:15 Pulse 73 11/22/18 14:15 Resp 18 11/22/18 14:15 BP 110/56 L 11/22/18 14:15 Pulse Ox 100 11/22/18 14:15 Constitutional: + thin Respiratory: Auscultation: + diminished lung sounds Cardiovascular: Rate/Rhythm: regular rate and regular rhythm Gastrointestinal (Abdomen): Percussion/Palpation: abdomen soft Code Status & VTE Plan VTE Prophylaxis Plan VTE Prophylaxis will be ordered: Yes
[2018-11-22] MEDS ORDERED: SODIUM CHLORIDE 0.9% 1000ML 1,000 ML IV SCH (15:00)
[2018-11-22] MEDS ORDERED: PROPOFOL IV EMULSION 10 MG/ML 20 ML VIAL IV ONE (15:35)
--- NOTE | 2018-11-22 15:40 | GI REPORT ---
Patient Name: Jericho Donahue Procedure Date: 11/22/2018 3:14 PM Date of : 1950 Admit Type: Inpatient Age: 68 Gender: Male Attending MD: Favio Salvador MD Procedure: Upper GI endoscopy Providers: Favio Salvador MD Referring MD: Ellis Pena Indications: Weight loss, Family history of esophageal cancer Medicines: Propofol total dose 90 mg IV Complications: No immediate complications. Estimated Blood Loss: Estimated blood loss was minimal. Procedure: Pre-Anesthesia Assessment: - Prior to the procedure, a History and Physical was performed, and patient medications, allergies and sensitivities were reviewed. The patient's tolerance of previous anesthesia was reviewed. - Prior to the procedure, a History and Physical was performed, and patient medications, allergies and sensitivities were reviewed. The patient's tolerance of previous anesthesia was reviewed. - The risks and benefits of the procedure and the sedation options and risks were discussed with the patient. All questions were answered and informed consent was obtained. After obtaining informed consent, the endoscope was passed under direct vision. Throughout the procedure, the patient's blood pressure, pulse, and oxygen saturations were monitored continuously. The scope was introduced through the mouth, and advanced to the second part of duodenum. The upper GI endoscopy was accomplished without difficulty. The patient tolerated the procedure well. Findings: The Z-line was variable and was found 38 cm from the incisors. A scar was found at the gastroesophageal junction, 38 cm from the incisors. There was residual polypoid tissue. Biopsies were taken with a cold forceps for histology. Estimated blood loss was minimal. Bilious fluid was found in the gastric body. The second portion of the duodenum was normal. Biopsies were taken with a cold forceps for histology. Estimated blood loss was minimal. Impression: - Z-line variable, 38 cm from the incisors. - Scar at the gastroesophageal junction. Biopsied. - Bilious gastric fluid. - Normal second portion of the duodenum. Biopsied. Recommendation: - [facility]. - Await pathology results. Favio Salvador M.D. Favio Salvador MD 11/22/2018 3:39:46 PM This report has been signed electronically. Note Initiated On: 11/22/2018 3:14 PM Number of Addenda: 0 I attest to the content of the Intraoperative Record and orders documented therein, exceptions below {[id number]}
[2018-11-22] MEDS: DIGOXIN 0.125 MG TAB PO SCH (16:36)
--- NOTE | 2018-11-22 16:37 | Anesthesiology Progress Note ---
Date of Service November 22, 2018 Anesthesia Post Procedure Vital Signs Vital Signs: Temp Pulse Pulse Resp BP BP Pulse Ox 11/22/18 16:36 94 H 11/22/18 16:21 36.4 C L 64 18 99/60 L 93 11/22/18 16:02 68 18 99/55 L 100 11/22/18 15:47 65 18 95/58 L 100 11/22/18 15:32 66 18 86/55 L 100 11/22/18 14:15 36.6 C 73 18 110/56 L 100 11/22/18 11:51 94 11/22/18 11:38 36.4 C L 89 24 98/63 L 86 L 11/22/18 07:25 86 18 98 11/22/18 06:50 36.6 C 86 18 97/56 L 97 11/22/18 03:07 36.7 C 96 11/22/18 01:51 97 H 16 93 11/21/18 23:45 89 11/21/18 23:42 36.5 C 92 H 18 104/65 95 11/21/18 21:07 109 H 127/70 11/21/18 20:06 36.4 C L 98 H 16 96/58 L 95 11/21/18 19:15 101 H 16 97 Notes Mental Status: alert / awake / arousable Patient Amnestic to Procedure: Yes Nausea / Vomiting: adequately controlled Pain: adequately controlled Airway Patency, RR, SpO2: stable & adequate BP & HR: stable & adequate Hydration State: stable & adequate Anesthetic Complications: no major complications apparent
--- NOTE | 2018-11-22 19:12 | Medical Student Progress Note ---
Date of Service November 22, 2018 Assessment & Plan (1) Abnormal chest CT: Chest CT from 11/20 was remarkable for bilateral bibasilar opacities Opacities may have been due to previous radiation exposure, from amiodorone use or remarkable for pneumonia. Pulmonology was consulted and finds opacities to be more likely due from pneumonia, recommends f/u scan in 6-12 weeks Recommends continuing levoquin for pneumonia (2) PNA (pneumonia): Continue levoquin for 7 days. Off O2 Pt states he started levoquin 3 days prior to his admission on 11/19 so he should have his last dose 11/23 blood culture ordered in am to assess whether or not former diagnosis of b acteremia was contaminated due to single positive culture, culture results pending Laterality: bilateral Lung location: lower lobe of lung Pneumonia type: due to unspecified organism Qualified Code(s): J18.1 - Lobar pneumonia, unspecified organism (3) Severe protein-calorie malnutrition: low albumin concerning for protein calorie malnutrition cause of weight loss may be likely due to progression of esophageal cancer especially in the setting of Abdominal CT findings Due to findings of splenic and pulmonary lesions, PET-CT has been recommended and will be f/u as outpt EGD took place 11/22 no noted findings on EGD report, awaiting path report (4) Atrial flutter with rapid ventricular response: Pt has hx of cardioversion in May for atrial flutter Pt is stable on telemetry Cardiology has seen pt and recommends pt remain on amiodorone and metoprolol Pt is not on anticoagulation and cannot start fpc anticoagulation therapy due to bleeding from esophageal cancer (5) Splenic lesion: may be site of metastasis of site of infarction, fu with PET scan (6) Hypotension: may be due to metoprolol, pt mentioned sx of orthastatic hypotension that had been happening at home shortly prior to his hospitalization. Cortisol is within normal limits If hypotension continues, consider parkinson's related autonomic instability D5 IVF were ordered for pt to help with lightheadedness today, which may had been due to being NPO or may have been related to the hypotension. If hypotension continues, consider ordering mitidrine Hypotension type: other hypotension type Qualified Code(s): I95.89 - Other hypotension (7) Shingles: resolved, outbreak was from thoracic spine Herpes zoster complications: without complications Qualified Code(s): B02.9 - Zoster without complications Subjective Pt is a 68 yo M w a hx of adenocarcinoma of the esophagus (dx Mar 2018) and paroxysmal atrial flutter cardioverted in May 2018 on day 3 of his admission for bacteremia secondary to pneumonea, severe protein calorie malnutrition, and atrial flutter. Overnight, there were no changes. This morning, pt was feeling better. He had his suppositiory and was able to have two small bowel movements. He is feeling some abdominal pain relief from the bms, but feels that he still has more stool. Today is the day the pt is getting his EGD. He has been NPO since the evening. His breathing was fine in the morning as pt had remained off the oxygen, but towards the afternoon the pt required oxygen. In the afternoon, pt also felt he was feeling lightheaded again. He did not attribute it to orthostatics; rather he felt light headed since he had been NPO for the day. Physical Exam Vital Signs (Past 24 Hours): Last Vital Signs Temp 36.4 C L 11/22/18 16:21 Pulse 94 H 11/22/18 16:36 Resp 18 11/22/18 16:21 BP 99/60 L 11/22/18 16:21 Pulse Ox 93 11/22/18 16:21 Constitutional: cooperative, comfortable and + malnourished Eyes: PERRL, conjunctivae normal, anicteric sclerae Neck: normal visual inspection Respiratory: normal respiratory effort, lungs clear to auscultation Cardiovascular: RRR, no murmur, no edema Rate/Rhythm: regular rate (irregular rhythm ) Gastrointestinal (Abdomen): normal bowel sounds, soft, nontender, no hepatosplenomegaly Skin: no rashes, warm and dry
[2018-11-22] MEDS: AMIODARONE 200 MG TAB PO SCH (19:40)
--- NOTE | 2018-11-22 20:46 | Hospitalist Progress Note ---
Date of Service November 22, 2018 Assessment & Plan (1) Dizziness: suspect due to hypotension and orthostasis the patient's parkinson's disease likely playing a role in this cortisol level was normal he needs the metoprolol for a flutter/fib rate control which is likely making his orthostasis worse thus, I believe we need to start midodrine start 2.5mg TID obtain daily orthostatic BPs to assess response Present on Admission?: Yes (2) PNA (pneumonia): Pulmonary has seen, and they feel that CT findings are most c/w infectious pneumonia. Radiation pneumonitis is possible but felt to be less likely. Patient states he received 3 doses of levaquin before admission. Thus, he is at least day #7 of treatment today. Since his levaquin dose was only 500mg/day prior to admission would treat for 3 more days with high-dose levaquin then stop. needs repeat CT in 4-6 weeks to see if any of his infiltrates are due to radiation. Present on Admission?: Yes (3) Primary cancer of lower third of esophagus: s/p chemo/radiation fall [address] Brice from oncology followed by Dr. Marsh from rad onc Dr. Hernandez [facility] - made initial dx March 2018 Dr. Salvador to perform EGD today to reassess status of the cancer case d/w & this admission as well needs repeat PET scan after admission with Dr. Brice in light of CT findings this admission (4) Abnormal chest CT: Likely due to pneumonia. Radiation pneumonitis less likely. Amiodarone ILD felt to be unlikely. Repeat chest CT in 4-6 weeks as outpatient. may need 2-step O2 test on day of discharge. (5) Severe protein-calorie malnutrition: GI to perform EGD today to re-eval the esophagus. Cortisol level normal ruling out adrenal insufficiency. added MVI and boost. could consider appetite stimulant. TSH wnl as well. I am still quite concerned that his cancer is the main cause for progressive weight loss this winter (6) Atrial fibrillation with RVR: Patient had [id number] a.fib on prior admissions and is poor candidate for AV tatianna agents due to low BPs. He ultimately needed cardioversion on prior admission. Unfortunately he is NOT anticoagulated and thus cardioversion would have to be done via GILLES to r/o thrombus. He has responded to low-dose metoprolol although it did depress his BPs. Continue metoprolol 12.5mg BID. Continue digoxin. Continue amiodarone. appreciate Dr Ahumada's consultation. (7) Splenic lesion: uncertain etiology. odd location for mets from esophageal cancer. infarcts are possible. follow. (8) HTN (hypertension): now with hypotension - some of which is iatrogenic from metoprolol. BPs improving albeit marginally. adding midodrine -- see above. (9) Hypotension: adrenal insufficiency ruled out. partially iatrogenic from beta blockers. some of hypotension and orthostasis could be parkinson's related. start midodrine 2.5mg TID. (10) Shingles: resolved was located on right thorax finish valtrex (11) Urinary retention: s/p navarro maintain navarro to have outpatient f/u with urology (12) Positive blood culture: staph epi only 1 set thus far repeat blood cx's pending suspect contamination rather than true pathogen stop IV vancomycin (13) GERD (gastroesophageal reflux disease): cont PPI GI has seen - to have EGD today see above (14) Parkinson disease: cont sinemet (15) Elevated troponin: no ischemic symptoms likely myocardial demand ischemia in setting of rapid a.fib (16) DVT prophylaxis: heparin SC progressing slowly Subjective patient still having mild dizziness with standing but not as severe as when he first was admitted cough and dyspnea improved was placed back on oxygen today for desaturation rate control of a.flutter very good last 24hours on tele no new complaints Constitutional: no fever and no chills Respiratory: + dyspnea on exertion; no hemoptysis Cardiovascular: no chest pain, no orthopnea, no paroxysmal nocturnal dyspnea and no edema Gastrointestinal: no abdominal pain, no nausea and no vomiting Physical Exam Vital Signs (Past 24 Hours): Last Vital Signs Temp 36.4 C L 11/22/18 19:09 Pulse 71 11/22/18 19:12 Resp 16 11/22/18 19:12 BP 90/52 L 11/22/18 19:09 Pulse Ox 92 11/22/18 19:12 Constitutional: + thin; no acute distress ENMT: external ear and nose normal, oropharynx normal Respiratory: normal respiratory effort, lungs clear to auscultation Auscultation: + diminished lung sounds (bases); no rales, no rhonchi and no wheezes Cardiovascular: Rate/Rhythm: regular rate; + abnormal rhythm (irregular) Heart Sounds: normal S1 and normal S2; no murmur Vessels: posterior tibial pulses present and dorsalis pedis pulses present; no JVD Extremities: no edema Gastrointestinal (Abdomen): normal bowel sounds, soft, nontender, no hepatosplenomegaly Skin: no rashes, warm and dry Psychiatric: A+Ox3, euthymic affect (1) Shingles Herpes zoster complications: without complications Qualified Code(s): B02.9 - Zoster without complications (2) GERD (gastroesophageal reflux disease) Esophagitis presence: esophagitis presence not specified Qualified Code(s): K21.9 - Gastro-esophageal reflux disease without esophagitis (3) HTN (hypertension) Hypertension type: essential hypertension Qualified Code(s): I10 - Essential (primary) hypertension (4) Hypotension Hypotension type: other hypotension type Qualified Code(s): I95.89 - Other hypotension (5) PNA (pneumonia) Laterality: bilateral Lung location: lower lobe of lung Pneumonia type: due to unspecified organism Qualified Code(s): J18.1 - Lobar pneumonia, unspecified organism
[2018-11-22] MEDS: ASPIRIN 81 MG ECTAB PO SCH (21:16)
[2018-11-22] MEDS: SIMVASTATIN 20 MG TAB PO SCH (21:17)
[2018-11-22] MEDS: MIDODRINE HCL 2.5 MG TAB PO SCH (22:05)
[2018-11-23] MEDS: LEVALBUTEROL 1.25MG/0.5ML NEB INH SCH ×2 (01:24→07:23)
[2018-11-23] MEDS: IPRATROPIUM BROMIDE NEB SOLN 0.02% 2.5 ML VIAL INH SCH ×2 (01:25→07:23)
[2018-11-23] MEDS: D5W AND 1/2NSS 1,000 ML IV SCH (02:21)
[2018-11-23] MEDS: HEPARIN SOD 5,000 UNIT/0.5 ML VIAL SQ SCH (05:24)
[2018-11-23 06:46] LABS: Hematocrit (blood only) 33.1 % (42-52); Hemoglobin 11.1 g/dL (14.0-18.0); Mean Corpuscular Hgb Conc 33.5 g/dL (32-36); Mean Corpuscular Volume 90.9 fL (80-100); Mean Platelet Volume 9.8 fL (7.4-10.4); Platelet Count 147 K/uL (130-400); RDW Standard Deviation 49.9 fL (36.4-46.3); Red Blood Count 3.64 M/uL (4.7-6.1); White Blood Count 5.56 K/uL (4.8-10.8)
[2018-11-23 07:22] LABS: BUN Creatinine Ratio 13.6 (10-20); Creatinine Clr Calc Pharmacy 98.6 ml/min; Est GFR (African American) 115.1; Est GFR (Non-African American) 99.3; Potassium 3.5 mmol/L (3.5-5.1)
[2018-11-23] MEDS: MIDODRINE HCL 2.5 MG TAB PO SCH ×2 (07:55→12:08)
[2018-11-23] MEDS: PANTOprazole 40 MG TAB PO SCH (08:00)
[2018-11-23] MEDS: METOPROLOL TARTRATE 25 MG TAB PO SCH (08:00)
[2018-11-23] MEDS: VALACYCLOVIR HCL 500 MG TABLET PO SCH (08:01)
[2018-11-23] MEDS: CARBIDOPA/LEVODOPA 25/100MG TAB PO SCH ×2 (08:02→12:08)
[2018-11-23] MEDS: guaiFENesin 600 MG TABCR PO SCH (08:02)
[2018-11-23] MEDS: CHOLECALCIFEROL 1,000 UNITS TAB PO SCH (08:02)
[2018-11-23] MEDS: ALFUZOSIN HCL 10 MG TAB PO SCH (08:02)
[2018-11-23] MEDS: FOLIC ACID 1 MG TAB PO SCH (08:02)
[2018-11-23] MEDS: SENNA 8.6 MG TAB PO SCH (08:03)
[2018-11-23] MEDS: GLYCOPYRROLATE 1 MG TAB PO SCH (08:03)
[2018-11-23] MEDS: POLYETHYLENE (MIRALAX) 17 GM PACK PO SCH (08:03)
[2018-11-23 11:42] VITALS: PULSE 87; TEMP 97.9; O2SAT 90
[2018-11-23] MEDS: sulfaSALAzine 500 MG TABLET PO SCH (12:08)
[2018-11-23] MEDS: levoFLOXacin 750 MG TAB PO SCH (12:08)
[2018-11-23] MEDS: CEROVITE ADV FORMULA TAB PO SCH (12:08)
[2018-11-23] MEDS ORDERED: APIXABAN 5 MG TABLET PO SCH (12:15)
--- NOTE | 2018-11-23 13:04 | Discharge Summary ---
Date of Service November 23, 2018 Admission HPI Per Admitting Provider 68 y/o M who was transferred to the ED from independent living at [facility] due to worsening weakness and a leaking catheter. Pt states he has been having worsening weakness over the last several weeks. He has been getting SOB with walking from his [place] to the dining [facility] at [facility], which was not an issue prior. It would resolve if he stopped to rest, but this is a new issue. He states that today he was so weak that he called for nursing [place] [facility]. He feels that the weakness has been worse since being dx with shingles recently. He tolerates PO, but his appetite is quite low. He had issues with taste after his chemo, but this had resolved until he was dx with shingles and put on valacyclovir recently. He is eating mostly fruit and Ensure. Pt denies fever, chest pain, abd pain, n/v, LE pain or swelling. He has been constipated recently. Pt was seen in the ED on 10/29 for urinary retention. A Navarro was placed and he was started on Bactrim for UTI prevention. He saw urology on Tuesday and passed a saline challenge, so navarro was d/c'd at that time. He noted return of urinary retention on Tuesday, so this was replaced and Bactrim was restarted. This was stopped on Tuesday with the initiation of levaquin for PNA noted on CXR done for congestion. He feels like his catheter is leaking today. Nursing reports that urine is drainage into the tube/bag but that the area is wet. It has good resistance still. Principal Diagnosis Orthostatic hypotension, rapid atrial flutter Discharge Exam Constitutional WD/WN, vitals as above Eyes PERRL, conjunctivae normal, anicteric sclerae ENMT external ear and nose normal, oropharynx normal Neck trachea midline, no thyromegaly Respiratory normal respiratory effort; no respiratory distress Auscultation: + crackles (At the right base, otherwise clear, moving air well throughout) Cardiovascular Rate/Rhythm: regular rate; + abnormal rhythm (Irregularly irregular) Heart Sounds: + murmur (2/6 at the left lower sternal border) Extremities: no edema Gastrointestinal (Abdomen) normal bowel sounds, soft, nontender, no hepatosplenomegaly Musculoskeletal Extremities: extremities normal to inspection; no cyanosis and no clubbing Skin no rashes, warm and dry Neurologic moves all extremities and awake; no focal motor deficits Psychiatric A+Ox3, euthymic affect Genitourinary Navarro catheter in place with clear yellow urine Discharge Data Allergies Allergy/AdvReac Type Severity Reaction Status Date / Time No Known Allergies Allergy Verified 11/19/18 11:42 Consultations Gastroenterology Pulmonology Cardiology Procedures Performed Operation Date: 11/22/18 08:30 Actual Procedures p EGD Biopsy Cytology - Favio Salvador Ordered Studies 11/20/18 11:50 CT abd pelvis IV con only Routine CT angio chest PE protocol Routine Chest x-ray Hospital Course (1) Dizziness: suspect due to hypotension and orthostasis the patient's parkinson's disease likely playing a role in this as well as dehydration on admission due to poor p.o. intake from recent pneumonia, as well as being started on alfuzosin for urinary retention cortisol level was normal -Was gently hydrated with IV fluids initially -He needs the metoprolol for a flutter/fib rate control which is likely making his orthostasis worse -Started on midodrine 2.5mg TID and had resolution of his orthostatic hypotension upon repeat checks (2) PNA (pneumonia): Pulmonary has seen, and they feel that CT findings are most c/w infectious pneumonia. Radiation pneumonitis is possible but felt to be less likely. He finished out a 7-day course of Levaquin -Needs repeat CT in 4-6 weeks to see if any of his infiltrates are due to radiation. Also with pulmonary nodules which are new from previous-could also be consistent with infection and need to ensure that they resolve (3) Primary cancer of lower third of esophagus: s/p chemo/radiation fall [address] Brice from oncology followed by Dr. Marsh from rad onc Dr. Hernandez [facility] - made initial dx March 2018 Dr. Salvador performed EGD this admission to reassess status of the cancer and on visual inspection appeared to be scar tissue only-a biopsy was taken and the result was pending at the time of discharge case d/w & this admission as well needs repeat PET scan after discharge with Dr. Brice in light of CT findings this admission of pulmonary nodules in the lungs (4) Abnormal chest CT: Likely due to pneumonia. Radiation pneumonitis less likely. Amiodarone ILD felt to be unlikely. Repeat chest CT in 4-6 weeks as outpatient. (5) Severe protein-calorie malnutrition: GI performed EGD this admission as above to re-eval the esophagus. Appeared with just scar tissue only Cortisol level normal ruling out adrenal insufficiency. added MVI and boost. could consider appetite stimulant if needed as an outpatient. TSH wnl as well. (6) Atrial fibrillation with RVR: Patient had cavagakgy-th-inalfus a.fib on prior admissions and is poor candidate for AV tatianna agents due to low BPs. He ultimately needed cardioversion on prior admission. Unfortunately he has not been anticoagulated and thus cardioversion would have to be done via GILLES to r/o thrombus. He has responded to low-dose metoprolol although it did depress his BPs. Continue rate control strategy with the following: Continue metoprolol 12.5mg BID. Continue digoxin. Continue amiodarone. appreciate Dr Ahumada's consultation. -Okay to start on Eliquis 5 mg p.o. twice daily as his cancer in the esophagus seems to resolved and he is not at risk for bleeding at this point Of note, his hemoglobin did decrease from 13-11 but I feel that it was from hemodilution from IV fluid hydration during admission -Follow CBC in 1 week (7) Splenic lesion: Multiple possible splenic infarct seen on CT of the abdomen/pelvis odd location for mets from esophageal cancer. Splenic infarcts are most likely due to atrial fibrillation without anticoagulation Starting on Eliquis here as above (8) HTN (hypertension): Blood pressures were low especially with standing with orthostasis as above Now improved with adding midodrine -- see above. (9) Hypotension: As above and orthostasis (10) Shingles: resolved was located on right thorax Has already been on Valtrex times 3 weeks-he is no longer immunosuppressed and does not need any further treatment for this (11) Urinary retention: s/p navarro maintain navarro to have outpatient f/u with urology -Continue alfuzosin (12) Positive blood culture: Coag negative staph epi only 1 set thus far repeat blood cx's pending and no growth at the time of discharge suspect contamination rather than true pathogen No further antibiotics needed Follow-up on final blood cultures after discharge by PCP (13) GERD (gastroesophageal reflux disease): cont PPI With EGD as above this admission (14) Parkinson disease: Stable -Cont sinemet And routine follow-up with neurology (15) Elevated troponin: no ischemic symptoms, troponins were very mildly elevated and decreased after admission likely myocardial demand ischemia in setting of rapid a.fib (16) DVT prophylaxis: heparin SC was provided, then started on Eliquis Disposition-stable for discharge back to SNF at [facility] today for rehab Total Time Total Time Spent Total Time Spent (In Minutes): Greater than 30 minutes Total Time Includes: Examination of the Patient, Discharge Planning, Medication Reconciliation and Communication With Other Providers (Cardiology) Discharge Plan Discharge Items Patient Disposition: Transfer Correction Fac Reason For Visit: weakness Discharge Diagnosis: Orthostatic hypotension, Pneumonia Condition: Good Discharge Goals: Diagnostic testing, Improve disease control, Learn about illness and Therapeutic intervention Activity: As commented below Lifting: Gradually increase as tolerated Bathing: No limitations Exercise/Sports: Gradually increase as tolerated Exercise Comment: with assistance, PT/OT Non-emergency contact: Primary Care Provider, Bulk Gas Specialist, Oncologist and Deputy Felony Clerk Call non-emergency contact if: you have any medication questions and your symptoms worsen Follow-up/Referrals: Samuel Ahumada MD [Bulk Gas Specialist] - (Within 1 month ) Jonn Brice [Physician] - (As scheduled within 2-3 weeks ) Agus Dsouza MD [Primary Care Provider] - Diet: Heart Healthy Addtl Provider Instructions: Mr. Donahue was admitted with dizziness secondary to orthostasis from medications and hypovolemia/dehydration. He was treated with IVFs, control of his atrial flutter rate, and midodrine was started. He was continued on antibiotics for his Pneumonia and completed them. He should have a repeat CT chest in 6-12 weeks to confirm resolution of infiltrate and nodules. He had an EGD which showed only scar of the esophagus at prior site of tumor. It is safe for him to go on anticoagulation with Eliquis. The biopsy result from the EGD was pending at the time of discharge and should be followed up on after discharge. He remains with a Navarro catheter in place and should follow up with Urology for another trial of void within the week. He can stop the Valtrex as he has completed 3 weeks of therapy and is not currently immunosuppressed. Prescriptions: New ipratropium bromide 0.02 % Solution 0.5 mg inhalation Q6R Qty: 75 RF: 0 levalbuterol HCl 1.25 mg/0.5 mL Solution For Nebulization 1.25 mg inhalation Q6R Qty: 30 RF: 0 sennosides [Senokot] 8.6 mg Tablet 17.2 mg PO QAM Qty: 14 RF: 0 polyethylene glycol 3350 [Miralax] 17 gram Powder In Packet 17 g PO DAILY Qty: 7 RF: 0 midodrine 2.5 mg Tablet 2.5 mg PO TID@0800,1200,1700 Qty: 90 RF: 0 metoprolol tartrate 25 mg Tablet 12.5 mg PO BID Qty: 30 RF: 0 Eliquis 5 mg Tablet 5 mg PO BID Qty: 60 RF: 0 guaifenesin [Mucinex] 600 mg Tablet Extended Release 12hr 1,200 mg PO Q12 Qty: 60 RF: 0 Continued alfuzosin 10 mg tablet extended release 24 hr 10 mg PO DAILY RF: 0 sulfasalazine 500 mg Tablet 1 tab PO 1200 RF: 0 aspirin 81 mg Tablet,Delayed Release (Dr/Ec) 81 mg PO HS RF: 0 simvastatin 20 mg Tablet 20 mg PO PM RF: 0 folic acid 1 mg Tablet 1 mg PO QAM RF: 0 carbidopa-levodopa [Sinemet] 25-100 mg Tablet 2 tab PO QID RF: 0 cholecalciferol (vitamin D3) [Vitamin D3] 1,000 unit Capsule 1,000 unit PO QAM RF: 0 rasagiline [Azilect] 1 mg Tablet 1 mg PO QAM RF: 0 glycopyrrolate 1 mg Tablet 1 mg PO QAM RF: 0 acetaminophen 325 mg Tablet 325 mg PO Q4 PRN (Reason: pain/fever) RF: 0 amiodarone 200 mg Tablet 200 mg PO QPM RF: 0 pantoprazole 40 mg Tablet,Delayed Release (Dr/Ec) 40 mg PO QAM RF: 0 digoxin 125 mcg Tablet 1 tab PO QAM RF: 0 coQ10 (ubiquinol) 200 mg Capsule 200 mg PO QAM RF: 0 Discontinued sulfamethoxazole-trimethoprim [Bactrim DS] 800-160 mg tablet 1 tab PO Q12H Qty: 20 RF: 0 levofloxacin 500 mg tablet 500 mg PO DAILY RF: 0 valacyclovir 1 gram Tablet 1,000 mg PO BID RF: 0 Stand-Alone Forms: [facility] Discharge Orders: Discharge Order (Routine); Ordered 11/23/18 Ordered By: Raeann Kelley Skilled Items Patient informed of condition?: Yes DNR: No Discharge Level of Care: Skilled Communicable Disease: No Discharge Prognosis: Improving Admission Data Admit Date/Time: 11/19/18 13:51 Attending Provider: Raeann Kelley Admit Provider: Caryl Chanel Primary Care Provider: Agus Dsouza Other Providers: Caryl Chanel ; Favio Salvador ; Julio Cesar Mahmood ; Samuel Ahumada Service: Telemetry Other Interventions: Discharge Summary Assessment (RN) Last Done: 11/23/18 13:07 Pending Studies at Discharge: Yes Studies:: EGD biopsy Final Blood culture result-no growth date DC Date/Time DO NOT enter until pt leaves facility: 11/23/18 14:07
[2018-11-23 13:09] VITALS: BP 159/81
--- NOTE | 2018-11-23 13:19 | Medical Student Progress Note ---
Date of Service November 23, 2018 Assessment & Plan (1) Abnormal chest CT: Chest CT from 11/20 was remarkable for bilateral bibasilar opacities Opacities may have been due to previous radiation exposure, from amiodorone use or remarkable for pneumonia. Pulmonology was consulted and finds opacities to be more likely due from pneumonia, recommends f/u scan in 6-12 weeks to further evaluate etiology of pulmonary lesions (2) PNA (pneumonia): On day 7 of 7 of levoquin. Improved oxygen demands, has been off of the O2, lungs clear on auscultation Second set of blood cultures have shown no growth in the last 24 hours, last set likely to have been contaminated Laterality: bilateral Lung location: lower lobe of lung Pneumonia type: due to unspecified organism Qualified Code(s): J18.1 - Lobar pneumonia, unspecified organism (3) Severe protein-calorie malnutrition: low albumin concerning for protein calorie malnutrition cause of weight loss may be likely due to progression of esophageal cancer especially in the setting of Abdominal CT findings EGD showed scarring, no tumor visualized, awaiting path report PET-CT will be ordered in the outpatient setting to further evaluate etiology of pulmonary lesions (4) Atrial flutter with rapid ventricular response: Pt has hx of cardioversion in May for atrial flutter Pt is stable on telemetry Cardiology has seen pt and recommends pt remain on amiodorone, digoxin, and metoprolol Since no esophageal tumor was visualized on EGD, pt will be started on anticoagulations. Eliquis has been ordered. (5) Splenic lesion: In light of EGD, lesions likely sites of infarcts since pt had not been anticoagulated for atrial flutter. Anticoagulation has been started to address this. PET-CT scan planned in outpt setting and will further provide insight into etiology. (6) Hypotension: Combination of factors may be at play. These include starting the pt on metorpolol while in the hospital for his atrial flutter. Pt had stopped taking metoprolol at home since he was no longer hypertensive with the weight loss. Hypotension may have been also due to the malnutrition and decrease volume intake. Autonomic instability secondary to the Parkinson's may be an additional factor contributing to the hypotension. Cortisol was measured to r/o adrenal insufficiency and was normal Midodrine was ordered 11/22 and pt's bp readings have improved. Hypotension type: other hypotension type Qualified Code(s): I95.89 - Other hypotension (7) Urinary retention: CT showed bladder outlet obstruction secondary to prostatomegaly Pt sees urology and was started on alfuzosin 10mg PO daily Pt was admitted with catheter and has been catherized since being here, will be d/c with catheter and will f/u with urology DVT Prophylaxis: throughout hospitalization was getting heparin sc, started on eliquis 11/23 Disposition: Appropriate to d/c pt today 11/23. Pt's CC of dizziness likely secondary to the hypotension has resolved. Oxygen demands have improved and pt h as completed antibiotic course. Esophageal cancer appears to be in remission based on EGD findings, awaiting path report. Pt will fu in outpt for his abnormal ct findings. (8) Shingles: resolved, outbreak was from thoracic spine Pt has been taking valcyclovir 1000mg bid for three weeks, has been stopped Herpes zoster complications: without complications Qualified Code(s): B02.9 - Zoster without complications Subjective Pt is a 68 yo M w a hx of adenocarcinoma of the esophagus (dx Mar 2018) and paroxysmal atrial flutter cardioverted in May 2018 on day 4 of his admission for bacteremia secondary to pneumonia, severe protein calorie malnutrition, and atrial flutter. Overnight, there were no changes as pt was in aflutter in the mid 70s overnight. This morning pt was in aflutter between the 80s and 90s. Today, pt states he is feeling better and feels relieved by the results of the EGD yesterday. Since EGD, pt has been on a clear diet and was converted to a regular diet in late morning-noon time. He has not had another bm since his suppository. At baseline, he has about 1-2 bm a week. Pt states breathing is fine and has not required oxygen since yesterday before the EGD. Pt no longer feels lightheaded or dizzy and has been ambulating with no issues. Pt is ready to go back to [facility] and states he will be going to the assisted living facility where physician care will be available. Physical Exam Vital Signs (Past 24 Hours): Last Vital Signs Temp 36.6 C 11/23/18 11:41 Pulse 87 11/23/18 11:41 Resp 20 11/23/18 11:41 BP 99/46 L 11/23/18 11:41 Pulse Ox 90 11/23/18 11:41 Constitutional: cooperative, comfortable and + malnourished Eyes: PERRL, conjunctivae normal, anicteric sclerae Neck: normal visual inspection Respiratory: normal respiratory effort, lungs clear to auscultation greater aeration in L. lower lung field> R lower lung field. Cardiovascular: RRR, no murmur, no edema Rate/Rhythm: regular rate (irregular rhythm ) Gastrointestinal (Abdomen): normal bowel sounds, soft, nontender, no hepatosplenomegaly Skin: no rashes, warm and dry Neurologic: Motor/Sensory: + tremor Genitourinary: catheter in place
--- NOTE | 2018-11-23 13:26 | Cardiology Progress Note ---
Date of Service November 23, 2018 Assessment & Plan (1) Atrial flutter with rapid ventricular response: Continue amiodarone, digoxin, and metoprolol tartrate for rate control. As only scar tissue was seen at endoscopy yesterday, would recommend initiating long-term anticoagulation with Eliquis 5 mg b.i.d.. (2) Elevated troponin: Suspect secondary to a supply demand mismatch at time of presentation. No further evaluation necessary. (3) HTN (hypertension): Well controlled on current medical regimen. (4) Primary cancer of lower third of esophagus: Management per Oncology and Gastroenterology. Subjective The patient is resting comfortably in bed without complaints of chest pain, dyspnea, or palpitations. Physical Exam Vital Signs (Past 24 Hours): Last Vital Signs Temp 36.6 C 11/23/18 13:07 Pulse 87 11/23/18 13:07 Resp 20 11/23/18 13:07 BP 159/81 H 11/23/18 13:07 Pulse Ox 90 11/23/18 13:07 Physical Exam: In general this is a well-developed well-nourished white female in no acute distress. HEENT exam is negative. Neck is supple with full carotid upstrokes. There are no carotid bruits. Jugular venous pressure is flat at 90. There is no thyromegaly. Cardiovascular exam reveals a regular rhythm with a normal S1 and S2. No S3, S4, or murmurs are noted. Lungs are clear wit hout rales, rhonchi, or wheezes. Abdomen is soft and nontender without bruits. Extremities reveal intact radial artery and posterior tibial pulses bilaterally. There is no peripheral edema. Results & Data Diagnostic Findings shelter monitor notes rate controlled atrial fibrillation. (1) HTN (hypertension) Hypertension type: essential hypertension Qualified Code(s): I10 - Essential (primary) hypertension
== END 2018-11-23 14:07 | DRG 374 ==
LOC: ED 11:17 → SUATTDRO 13:51 → 2S 13:51

== ENCOUNTER 2019-01-04 08:49 | Inpatient (IN) ==
[2019-01-04] MEDS ORDERED: SODIUM CHLORIDE 0.9% 1000ML 1,000 ML IV SCH (09:45)
[2019-01-04 09:52] LABS: Hematocrit (blood only) 33.7 % (42-52); Hemoglobin 11.1 g/dL (14.0-18.0); Immature Granulocytes # (auto) 0.19 K/uL (0.00-0.02); Lymphocytes # (auto) 0.42 K/uL (1.2-3.4); Lymphocytes % (auto) 2.3 %; Mean Corpuscular Hgb Conc 32.9 g/dL (32-36); Mean Corpuscular Volume 91.3 fL (80-100); Mean Platelet Volume 10.3 fL (7.4-10.4); Monocytes # (auto) 1.03 K/uL (0.11-0.59); Monocytes % (auto) 5.7 %; Neutrophils # (auto) 16.48 K/uL (1.4-6.5); Platelet Count 147 K/uL (130-400); RDW Coefficient of Variation 16.3 % (11.5-14.5); RDW Standard Deviation 54.5 fL (36.4-46.3); Red Blood Count 3.69 M/uL (4.7-6.1); White Blood Count 18.12 K/uL (4.8-10.8)
[2019-01-04 10:03] LABS: Albumin Level 2.7 gm/dl (3.4-5.0); BUN Creatinine Ratio 20.4 (10-20); Calcium 8.4 mg/dl (8.5-10.1); Creatinine Clr Calc Pharmacy 62.1 ml/min; Est GFR (African American) 100.6; Est GFR (Non-African American) 86.8; Globulin 2.7 gm/dl (2.5-4.0); Potassium 3.3 mmol/L (3.5-5.1); Total Protein 5.4 gm/dl (6.4-8.2)
[2019-01-04 10:11] LABS: Bilirubin,Total 0.8 mg/dl (0.2-1); Troponin I 0.707 ng/ml (0-0.045)
[2019-01-04 10:13] LABS: INR 1.3 (0.9-1.1); Prothrombin Time 13.2 Seconds (9.0-12.0)
--- NOTE | 2019-01-04 10:22 | XRay Report ---
XR chest 1V portable CLINICAL HISTORY: 68 years-old Male presenting with weakness. TECHNIQUE: Portable upright AP view of the chest was obtained. COMPARISON: 12/27/2018. FINDINGS: Right internal jugular Mediport terminates in the upper SVC. Atherosclerosis of the aortic arch. Card iac silhouette mildly enlarged, unchanged. Architectural distortion and peripheral basilar right lung opacity similar to prior exam. Left basilar opacity similar to prior. No convincing evidence of a pn eumothorax with lucencies at the costophrenic angles likely related to skin folds. Degenerative garcia es of the thoracic spine. Oral contrast may be present in the left upper quadrant large bowel. IMPRESSION: 1. Persistent basilar peripheral infiltrates, right greater than left. No new superimposed infiltrat e. 2. Mild cardiomegaly. 3. An attempt to reduce skin folds on subsequent radiographs would benefit the accurate detection of pneumothorax. Alternatively, PA and lateral views could accomplish this is well. There is no convinc ing pneumothorax on the current exam. Electronically signed by: Saurav Foley M.D. 01/04/2019 10:20 AM
[2019-01-04 10:55] LABS: Appearance Urine Turbid (Clear); Bacteria Urine Automated Negative (Negative); Blood Urine 3+ (Negative); Epithelial Cell Urine Auto >30 /lpf (0-5); Glucose Urine UA Negative (Negative); Ketones Urine 2+ (Negative); Leukocyte Esterase Urine 2+ (Negative); Nitrite Urine Positive (Negative); Protein Urine 2+ (Negative); Specific Gravity Urine 1.021 (1.000-1.030); Urobilinogen Urine Negative (Negative); WBC Urine Automated >30 /hpf (0-5); pH Urine 5.5 (4.5-7.5)
[2019-01-04 10:57] LABS: Color Urine Amber
[2019-01-04 10:58] LABS: Bilirubin Urine Negative (Negative); Ictotest Urine Negative (Negative)
[2019-01-04] MEDS ORDERED: cefTRIAXone SODIUM 1,000 MG/50 ML BAG IV STA (11:01)
[2019-01-04 11:06] LABS: RBC Urine Automated >30 /hpf (0-4)
[2019-01-04 11:07] LABS: Mucus Urine Present (None Prsent)
--- NOTE | 2019-01-04 11:50 | Emergency Department Note ---
Entered by Nadia Goldsmith acting as a scribe for History of Present Illness General Chief complaint: Food Bolus Source: patient Mode of arrival: EMS Limitations: no limitations History of Present Illness Provider complaint: dehydration Onset (ago): day(s) (yesterday) Location: mouth Pain Consistency: + other (episode) Quality: + other (dehydration) Associated symptoms: + other (dry mouth) The patient is a 68 year old male with a history of esophageal cancer that presents to the Emergency Room via EMS for an evaluation of dehydration. The patient reports that he has had difficulty swallowing. He states that he currently is undergoing radiation and is scheduled to have a session today. He also notes that he had a swallow study performed yesterday but that it was stopped after his x-ray results were viewed and showed a mass in his throat. He denies any tobacco use. He reports that he does have a dry mouth. He states that he was diagnosed around . Home Medications Home Medications Medication Instructions Recorded Confirmed Type aspirin 81 mg PO QAM 05/19/18 01/04/19 History carbidopa-levodopa [Sinemet] 2 tab PO QID 05/19/18 01/04/19 History cholecalciferol (vitamin D3) 2,000 unit PO QAM 05/19/18 01/04/19 History [Vitamin D3] folic acid 1 mg PO HS 05/19/18 01/04/19 History simvastatin 20 mg PO PM 05/19/18 01/04/19 History sulfasalazine 1 tab PO 1200 05/19/18 01/04/19 History acetaminophen 325 mg PO Q4 PRN 10/30/18 01/04/19 History coQ10 (ubiquinol) 200 mg PO QAM 10/30/18 01/04/19 History digoxin 125 mcg PO QAM 10/30/18 01/04/19 History pantoprazole 40 mg PO QAM 10/30/18 01/04/19 History alfuzosin 10 mg PO QPM 11/19/18 01/04/19 History Eliquis 5 mg PO BID #60 tab 11/23/18 01/04/19 Rx levalbuterol HCl 1.25 mg INHALATION Q6R #30 ea 11/23/18 01/04/19 Rx sennosides [Senokot] 17.2 mg PO QAM #14 tab 11/23/18 01/04/19 Rx amiodarone 200 mg tablet 200 mg PO DAILY tab 12/05/18 01/04/19 History polyethylene glycol 3350 17 gram 17 g PO DAILY PRN ea 12/05/18 01/04/19 History oral powder packet dutasteride 0.5 mg PO DAILY 01/04/19 01/04/19 History metoprolol succinate 25 mg PO HS 01/04/19 01/04/19 History midodrine 10 mg PO TID 01/04/19 01/04/19 History oxybutynin chloride 5 mg PO TID PRN 01/04/19 01/04/19 History potassium chloride 10 meq PO DAILY 01/04/19 01/04/19 History rasagiline 1 mg PO HS 01/04/19 01/04/19 History Allergies Allergy/AdvReac Type Severity Reaction Status Date / Time No Known Allergies Allergy Verified 01/04/19 09:14 Past Med/Surg History Medical History Atrial fibrillation Dysphagia PROGRESSIVE X 2 MONTHS PER ONCOLOGY NOTE Esophageal cancer 2018--chemo, radiation Navarro catheter in place History of recent pneumonia hospitalized [facility] 11/19/18-11/23/2018 Hyperlipidemia Hypertension Parkinsons disease Reflux esophagitis Ulcerative colitis Weight loss 30 POUND WEIGHT LOSS PER ONCOLOGY NOTE Surgical History History of cardioversion x2--07/2018 History of colonoscopy History of esophagogastroduodenoscopy (EGD) History of tonsillectomy History of tooth extraction all upper teeth History of vascular access device aport right side Family History Mother , at 80yo;[place], aortic valve replacement, stroke No problems noted. Father , at 88yo;"Colon problem that caused him to weaken" No problems noted. Brother No problems noted. Grandmother (Maternal) Family history of diabetes mellitus Grandfather (Maternal) Family hx of colon cancer Other No family history of adverse response to anesthesia Social History Preferred Language: Portuguese Communication Ability: Effective Visual Impairment: No Limitations Hearing Ability: Normal [employer] Pan[employer] Plater Required: No Beliefs That Will Affect Care: None marital status: Single Current Living Situation: Personal Care Facility Current Living Situation Comment: [facility] Other Information That Helps Us Care for You: No Feels Safe at Home: Yes Safety Concerns: Feels Safe At This Time Smoking Status: Never smoker Do You Dip or Chew Tobacco: No Second Hand Exposur e: No Hx Alcohol Use: No Hx Substance Use: No caffeine: Yes (1 cup coffee/day;not currently since diagnosis;) during the past year weight has: increased > 10 lbs Review of Systems See HPI for pertinent positives & negatives. and A total of 10 systems reviewed and were otherwise negative Physical Exam Vital Signs Vital Signs - 24 hr 01/04/19 09:01 01/04/19 09:55 01/04/19 11:10 Temperature 37.0 C Temperature Source Oral Sepsis Recent Fever Within 48 Hours No Sepsis Action Taken by Nursing No Action Required Pulse Rate 79 Pulse Rate [Left Finger] 71 74 Respiratory Rate 24 20 18 Blood Pressure 103/50 L Blood Pressure [Left Arm] 110/56 L 129/65 Blood Pressure Mean 67 Blood Pressure Mean [Left Arm] 74 86 Pulse Oximetry 94 97 98 Oxygen Delivery Method Room Air Room Air Room Air 01/04/19 12:03 01/04/19 12:55 Temperature Temperature Source Sepsis Recent Fever Within 48 Hours Sepsis Action Taken by Nursing Pulse Rate Pulse Rate [Left Finger] 75 Respiratory Rate 16 Blood Pressure Blood Pressure [Left Arm] 122/61 Blood Pressure Mean Blood Pressure Mean [Left Arm] 81 Pulse Oximetry 99 Oxygen Delivery Method Room Air Room Air GENERAL: Awake, alert, weak appearing, in no distress HENT: Normocephalic, atraumatic. Oropharynx appears dry. EYES: Normal conjunctiva. Sclera non-icteric. NECK: Supple. No nuchal rigidity. RESPIRATORY: Clear to auscultation. No wheezes. Normal respiratory effort. CARDIAC: Normal rate. Normal rhythm. Extremities warm and well perfused. GI: Soft, non-distended. No tenderness to palpation. No rebound or guarding. Chronic navarro in place RECTAL: Deferred. MUSCULOSKELETAL: Atraumatic. Chest examination reveals no tenderness. Right upper chest wall port. LOWER EXTREMITIES: Calves are equal size bilaterally and non-tender. No edema NEURO: Normal sensorium. No sensory or motor deficits noted. No facial droop. SKIN: Warm and dry. No rash or jaundice noted. Course 939: Past medical records reviewed. The patient was evaluated in room B2. A complete history and physical examination was performed. 1133: I discussed the patient�s case with Dr. Kelley � [facility] Hospitalist. She will evaluate the patient for further management. Administered Medications Discontinued Medications Sodium Chloride (Nss 1000ml) 1,000 mls @ 999 mls/hr IV .Q1H1M KARYN Stop: 01/04/19 10:45 Last Infusion: 01/04/19 11:05 Dose: 0 mls/hr Documented by: [id number] Admin: 01/04/19 09:50 Dose: 999 mls/hr Documented by: [id number] Ceftriaxone Sodium (Rocephin) 1,000 mg in 50 mls @ 100 mls/hr IV NOW STA Stop: 01/04/19 11:30 Last Infusion: 01/04/19 11:42 Dose: 0 mls/hr Documented by: [id number] Admin: 01/04/19 11:07 Dose: 100 mls/hr Documented by: [id number] Medical Decision Making Differential Diagnosis Differential Diagnosis includes but is not limited to dehydration, stroke, anemia, hypoglycemia, hyponatremia, hypernatremia, urinary tract infection, pneumonia, bronchitis, sepsis, gastroenteritis, additional abdominal pathology, metabolic abnormalities and infections. Medical Records Attestation: I reviewed the patient's medical records. Home Medications Current Medication List: was personally reviewed by me Laboratory Data Attestation: I reviewed the patient's lab results. Result diagrams: 01/04/19 09:25 01/04/19 09:25 Lab Results 01/04/19 01/04/19 01/04/19 Range/Units 09:25 09:25 09:25 WBC 18.12 H (4.8-10.8) K/uL RBC 3.69 L (4.7-6.1) M/uL Hgb 11.1 L (14.0-18.0) g/dL Hct 33.7 L (42-52) % MCV 91.3 (80-100) fL MCH 30.1 (25-34) pg MCHC 32.9 (32-36) g/dL RDW Std Deviation 54.5 H (36.4-46.3) fL RDW Coeff of Mikki 16.3 H (11.5-14.5) % Plt Count 147 (130-400) K/uL MPV 10.3 (7.4-10.4) fL Immature Gran % (Auto) 1.0 % Neut % (Auto) 91.0 % Lymph % (Auto) 2.3 % [place] % (Auto) 5.7 % Eos % (Auto) 0.0 % Baso % (Auto) 0.0 % Immature Gran # (Auto) 0.19 H (0.00-0.02) K/uL Neut # (Auto) 16.48 H (1.4-6.5) K/uL Lymph # (Auto) 0.42 L (1.2-3.4) K/uL [place] # (Auto) 1.03 H (0.11-0.59) K/uL Eos # (Auto) 0.00 (0-0.5) K/uL Baso # (Auto) 0.00 (0-0.2) K/uL PT 13.2 H (9.0-12.0) Seconds INR 1.3 H (0.9-1.1) Sodium 136 (136-145) mmol/L Potassium 3.3 L (3.5-5.1) mmol/L Chloride 97 L (98-107) mmol/L Carbon Dioxide 31 (21-32) mmol/L Anion Gap 8.0 (3-11) BUN 18 (7-18) mg/dl Creatinine 0.90 (0.6-1.4) mg/dl Est Cr Clr Drug Dosing 62.1 ml/min Est GFR ( Amer) 100.6 Est GFR (Non-Af Amer) 86.8 BUN/Creatinine Ratio 20.4 H (10-20) Glucose 73 (70-99) mg/dl Calcium 8.4 L (8.5-10.1) mg/dl Total Bilirubin 0.8 (0.2-1) mg/dl AST 36 (15-37) U/L ALT 10 L (12-78) U/L Alkaline Phosphatase 38 L (45-117) U/L Troponin I 0.707 H* (0-0.045) ng/ml Total Protein 5.4 L (6.4-8.2) gm/dl Albumin 2.7 L (3.4-5.0) gm/dl Globulin 2.7 (2.5-4.0) gm/dl Albumin/Globulin Ratio 1.0 (0.9-2) Urine Color Urine Appearance (Clear) Urine pH (4.5-7.5) Ur Specific [place] (1.000-1.030) Urine Protein (Negative) Urine Glucose (UA) (Negative) Urine Ketones (Negative) Urine Blood (Negative) Urine Nitrite (Negative) Urine Bilirubin (Negative) Urine Urobilinogen (Negative) Ur Leukocyte Esterase (Negative) Urine WBC (Auto) (0-5) /hpf Urine RBC (Auto) (0-4) /hpf U Hyaline Cast (Auto) (0-5) /lpf U Epithel Cells (Auto) (0-5) /lpf Urine Bacteria (Auto) (Negative) Ur Renal Epithelial Cell Granular Casts (0) /lpf Urine Mucus (None Prsent) Urine Yeast 01/04/19 Range/Units 10:41 WBC (4.8-10.8) K/uL RBC (4.7-6.1) M/uL Hgb (14.0-18.0) g/dL Hct (42-52) % MCV (80-100) fL MCH (25-34) pg MCHC (32-36) g/dL RDW Std Deviation (36.4-46.3) fL RDW Coeff of Mikki (11.5-14.5) % Plt Count (130-400) K/uL MPV (7.4-10.4) fL Immature Gran % (Auto) % Neut % (Auto) % Lymph % (Auto) % [place] % (Auto) % Eos % (Auto) % Baso % (Auto) % Immature Gran # (Auto) (0.00-0.02) K/uL Neut # (Auto) (1.4-6.5) K/uL Lymph # (Auto) (1.2-3.4) K/uL [place] # (Auto) (0.11-0.59) K/uL Eos # (Auto) (0-0.5) K/uL Baso # (Auto) (0-0.2) K/uL PT (9.0-12.0) Seconds INR (0.9-1.1) Sodium (136-145) mmol/L Potassium (3.5-5.1) mmol/L Chloride (98-107) mmol/L Carbon Dioxide (21-32) mmol/L Anion Gap (3-11) BUN (7-18) mg/dl Creatinine (0.6-1.4) mg/dl Est Cr Clr Drug Dosing ml/min Est GFR ( Amer) Est GFR (Non-Af Amer) BUN/Creatinine Ratio (10-20) Glucose (70-99) mg/dl Calcium (8.5-10.1) mg/dl Total Bilirubin (0.2-1) mg/dl AST (15-37) U/L ALT (12-78) U/L Alkaline Phosphatase (45-117) U/L Troponin I (0-0.045) ng/ml Total Protein (6.4-8.2) gm/dl Albumin (3.4-5.0) gm/dl Globulin (2.5-4.0) gm/dl Albumin/Globulin Ratio (0.9-2) Urine Color [place] Urine Appearance Turbid A (Clear) Urine pH 5.5 (4.5-7.5) Ur Specific [place] 1.021 (1.000-1.030) Urine Protein 2+ H (Negative) Urine Glucose (UA) Negative (Negative) Urine Ketones 2+ H (Negative) Urine Blood 3+ H (Negative) Urine Nitrite Positive A (Negative) Urine Bilirubin Negative (Negative) Urine Urobilinogen Negative (Negative) Ur Leukocyte Esterase 2+ H (Negative) Urine WBC (Auto) >30 H (0-5) /hpf Urine RBC (Auto) >30 H (0-4) /hpf U Hyaline Cast (Auto) 10-30 H (0-5) /lpf U Epithel Cells (Auto) >30 H (0-5) /lpf Urine Bacteria (Auto) Negative (Negative) Ur Renal Epithelial Cell Not Reportable Granular Casts 10-20 H (0) /lpf Urine Mucus Present A (None Prsent) Urine Yeast Not Reportable Imaging Data Radiologist's Impression: Radiology results as stated below per my review and the radiologist's interpretation: XR chest 1V portable CLINICAL HISTORY: 68 years-old Male presenting with weakness. TECHNIQUE: Portable upright AP view of the chest was obtained. COMPARISON: 12/27/2018. FINDINGS: Right internal jugular Mediport terminates in the upper SVC. Atherosclerosis of the aortic arch. Cardiac silhouette mildly enlarged, unchanged. Architectural distortion and peripheral basilar right lung opacity similar to prior exam. Left basilar opacity similar to prior. No convincing evidence of a pneumothorax with lucencies at the costophrenic angles likely related to skin folds. Degenerative changes of the thoracic spine. Oral contrast may be present in the left upper quadrant large bowel. IMPRESSION: 1. Persistent basilar peripheral infiltrates, right greater than left. No new superimposed infiltrate. 2. Mild cardiomegaly. 3. An attempt to reduce skin folds on subsequent radiographs would benefit the accurate detection of pneumothorax. Alternatively, PA and lateral views could accomplish this is well. There is no convincing pneumothorax on the current exam. Electronically signed by: Saurav Foley M.D. 01/04/2019 10:20 AM ECG Data Attestation: I personally reviewed and interpreted this ECG as follows: Indication: weakness Rate (beats per minute): 69 Rhythm: atrial flutter Findings: + other (4-1 block); no ST elevation Blood Pressure Blood Pressure Findings: Low blood pressure MDM Narrative Patient is a unfortunate 68-year-old gentleman diagnosed with esophageal cancer presenting today from group home facility evidently concern there for dehydration and report of a low blood pressure. Patient had a swallow study yes terday showing high risk for aspiration and esophageal obstruction. Had prior esophageal dilations and currently undergoing radiation therapy. Afebrile here. No evidence of neutropenia but actually a significant leukocytosis is noted. UA appears grossly positive from indwelling Navarro that was exchanged. Does have a slightly increased troponin level from his chronic baseline likely related to some dehydration. No evidence of acute kidney injury. Given a liter of IV fluids. Given his decreased oral intake discussed with the patient he is willing to consider possible feeding tube or PEG tube. Discussed with hospitalist for admission for continued hydration and treatment of UTI. Will n eed GI consultation again for possible feeding tube versus esophageal dilation. Impression & Plan Dehydration, Elevated troponin, Acute UTI (urinary tract infection), Esophageal obstruction Discharge Plan Visit Data Chief Complaint: Food Bolus ED Provider: Stu Dixon Discharge Problem: Dehydration, Elevated troponin, Acute UTI (urinary tract infection), Esophageal obstruction Patient Disposition: Being Evaluated by Hospitalist Forms Stand Alone Forms: My [facility] [place] Prescriptions Prescriptions: No Action polyethylene glycol 3350 [Miralax] 17 gram powder in packet 17 g PO DAILY PRN (Reason: constipation) RF: 0 alfuzosin 10 mg tablet extended release 24 hr 10 mg PO QPM RF: 0 levalbuterol HCl 1.25 mg/0.5 mL Solution For Nebulization 1.25 mg inhalation Q6R Qty: 30 RF: 0 sennosides [Senokot] 8.6 mg Tablet 17.2 mg PO QAM Qty: 14 RF: 0 Eliquis 5 mg Tablet 5 mg PO BID Qty: 60 RF: 0 sulfasalazine 500 mg Tablet 1 tab PO 1200 RF: 0 aspirin 81 mg Tablet,Delayed Release (Dr/Ec) 81 mg PO QAM RF: 0 simvastatin 20 mg Tablet 20 mg PO PM RF: 0 folic acid 1 mg Tablet 1 mg PO HS RF: 0 carbidopa-levodopa [Sinemet] 25-100 mg Tablet 2 tab PO QID RF: 0 cholecalciferol (vitamin D3) [Vitamin D3] 1,000 unit Capsule 2,000 unit PO QAM RF: 0 acetaminophen 325 mg Tablet 325 mg PO Q4 PRN (Reason: pain/fever) RF: 0 pantoprazole 40 mg Tablet,Delayed Release (Dr/Ec) 40 mg PO QAM RF: 0 digoxin 125 mcg Tablet 125 mcg PO QAM RF: 0 coQ10 (ubiquinol) 200 mg Capsule 200 mg PO QAM RF: 0 amiodarone 200 mg tablet 200 mg PO DAILY RF: 0 potassium chloride 10 mEq tablet extended release 10 meq PO DAILY RF: 0 metoprolol succinate 25 mg tablet extended release 24 hr 25 mg PO HS RF: 0 midodrine 10 mg tablet 10 mg PO TID RF: 0 dutasteride 0.5 mg capsule 0.5 mg PO DAILY RF: 0 oxybutynin chloride 5 mg tablet 5 mg PO TID PRN (Reason: Bladder Spasms) RF: 0 rasagiline 1 mg tablet 1 mg PO HS RF: 0 Referrals Referrals: Eriberto Turner [Primary Care Provider] - The scribe's documentation has been prepared under my direction and personally reviewed by me in its entirety. I confirm that the note above accurately reflects all work, treatment, procedures, and medical decision making performed by me.
--- NOTE | 2019-01-04 13:50 | History & Physical Report ---
Date of Service January 04, 2019 Assessment & Plan (1) Esophageal stenosis: -Admit to medical floor with telemetry given history of atrial fibrillation and positive troponin -Consult GI-discussed case with him-plan is for PEG tube placement tomorrow -Keep n.p.o. except for necessary meds that cannot be changed to IV -We will give IV fluid hydration with D5 half-normal saline with 20 mEq potassium chloride -Hold Eliquis for procedure (2) Acute UTI (urinary tract infection): Streptococcus species and Staphylococcus species growing on urine culture, UA is obviously abnormal. Afebrile -Armijo catheter was exchanged in the ER upon admission -Continue Rocephin 1 g IV every 24 hours and await final urine culture results Leukocytosis at 18 on admission could be from infection versus stress response from severe malnutrition -Follow CBC in the morning (3) Severe protein-calorie malnutrition: With 9 kg weight loss in the last month, pre-albumin severely low at 13, secondary to esophageal cancer and stenosis with poor p.o. intake -Plan for PEG tube placement tomorrow -Consult nutrition for feeding recommendations -Watch for refeeding syndrome -Follow daily CBC, CMP, phosphorus, magnesium (4) Elevated troponin: Troponin mildly elevated at 0.7 upon admission, this is been elevated in the past, is likely myocardial demand ischemia He has no chest pain or pressure at all and is asymptomatic, ECG is with no definite ischemic changes -Serial troponins ordered -Monitor on telemetry (5) Hyperlipidemia: -Hold statin to minimize p.o. meds (6) Parkinsons disease: Sinemet is ordered but unclear if he will be able to tolerate the p.o. meds (7) Reflux esophagitis: Hold p.o. PPI and give Pepcid 20 mg IV twice daily (8) Hypertension: Blood pressures on the low side -Maintained on metoprolol for rate control for atrial flutter (9) Esophageal cancer: With preoperative chemotherapy and XRT performed late in 2018, he was then not a surgical candidate for esophagectomy due to comorbidities. He then was found to have recurrence in the scar of the esophagus on EGD in 11/2017 Currently undergoing HDR brachytherapy-was supposed to have a treatment today-I discussed the case with Dr. Marsh of radiation oncology who will hold off on treatment for today and will follow along as the patient is hospitalized Radiation oncology is requesting that an NG tube be placed at the time of EGD tomorrow and remain in place for continued brachytherapy as an inpatient due to difficulties with placing NG tube for treatment in the past -Plans for possible systemic chemotherapy are pending-the patient is I believe to have a repeat PET scan (10) Weight loss: As above, secondary to esophageal stenosis and cancer (11) Ulcerative colitis: Not currently active -Holding p.o. sulfadiazine to minimize p.o. meds (12) Atrial fibrillation: In atrial flutter at the time of admission, rate controlled -Holding p.o. metoprolol we will give scheduled IV Lopressor 5 mg every 6 -Holding Eliquis for PEG tube placement -Convert p.o. digoxin to IV digoxin Monitor on telemetry (13) Armijo catheter in place: Placed for urinary retention -Holding home dutasteride to minimize p.o. meds -Continue alfuzosin if can tolerate, however he does have a Armijo catheter in place and would be okay to hold alfuzosin if necessary -Armijo catheter was exchanged on admission in the ER on 01/04/2019 (14) Orthostatic hypotension: Started on midodrine last admission for orthostasis which is likely secondary to Parkinson's, Sinemet, alfuzosin -Follow blood pressures (15) Oral candidiasis: Start clotrimazole trouches x14-day course (16) DVT prophylaxis: Holding chemical means due to upcoming procedure, will provide SCDs only at this time -Admit to medical floor with telemetry History of Present Illness Chief Complaint: Inability to eat Primary Care Provider: [facility] This pt is a 68 yo male with a h/o esophageal CA s/p chemotherapy and XRT, without resection due to comorbidities, followed by recurrence of CA in 11/2018. He has lost a tremendous amount of weight even in the last month-about 9 kg in the last 4-5 weeks. He has only been able to tolerate 2 Ensure cans each day. He has been undergoing brachytherapy radiation and has completed 2 out of his 5 sessions. He had a video swallow study yesterday that showed complete obstruction of the distal esophagus. He recently had a dilation of the distal esophagus about 8 days ago. On the EGD, it was thought to be stenosis not secondary to the tumor in fact there was very residual scar at the site of the previous cancer. Patient reports regular bowel movements, no abdominal pain, no chest pain, no blood in the stool, and no nausea or vomiting. He has been made n.p.o. by the [facility] as of yesterday. Incidentally, he is also found to have a urinary tract infection and a leukocytosis with an indwelling Armijo catheter. His urine culture taken yesterday from the [facility] is showing alpha Streptococcus species and staph species. He will be admitted for failure to thrive, esophageal obstruction, and also treated for his Armijo catheter associated UTI present on admission. Allergies Allergy/AdvReac Type Severity Reaction Status Date / Time No Known Allergies Allergy Verified 01/04/19 09:14 Home Medications Home Medications Medication Instructions Recorded Confirmed Type aspirin 81 mg PO QAM 05/19/18 01/04/19 History carbidopa-levodopa [Sinemet] 2 tab PO QID 05/19/18 01/04/19 History cholecalciferol (vitamin D3) 2,000 unit PO QAM 05/19/18 01/04/19 History [Vitamin D3] folic acid 1 mg PO HS 05/19/18 01/04/19 History simvastatin 20 mg PO PM 05/19/18 01/04/19 History sulfasalazine 500 mg PO DAILY@1200 05/19/18 01/04/19 History acetaminophen 325 mg PO Q4 PRN 10/30/18 01/04/19 History coQ10 (ubiquinol) 200 mg PO QAM 10/30/18 01/04/19 History digoxin 125 mcg PO QAM 10/30/18 01/04/19 History pantoprazole 40 mg PO QAM 10/30/18 01/04/19 History alfuzosin 10 mg PO QPM 11/19/18 01/04/19 History Eliquis 5 mg PO BID #60 tab 11/23/18 01/04/19 Rx levalbuterol HCl 1.25 mg INHALATION Q6R #30 ea 11/23/18 01/04/19 Rx sennosides [Senokot] 17.2 mg PO QAM #14 tab 11/23/18 01/04/19 Rx amiodarone 200 mg tablet 200 mg PO DAILY tab 12/05/18 01/04/19 History polyethylene glycol 3350 17 gram 17 g PO DAILY PRN ea 12/05/18 01/04/19 History oral powder packet dutasteride 0.5 mg PO DAILY 01/04/19 01/04/19 History metoprolol succinate 25 mg PO HS 01/04/19 01/04/19 History midodrine 10 mg PO TID 01/04/19 01/04/19 History oxybutynin chloride 5 mg PO TID PRN 01/04/19 01/04/19 History potassium chloride 10 meq PO DAILY 01/04/19 01/04/19 History rasagiline 1 mg PO HS 01/04/19 01/04/19 History Past Med/Surg History Medical History Esophageal stenosis Orthostatic hypotension Atrial fibrillation Dysphagia PROGRESSIVE X 2 MONTHS PER ONCOLOGY NOTE Esophageal cancer 2018--chemo, radiation Armijo catheter in place History of recent pneumonia hospitalized [facility] 11/19/18-11/23/2018 Hyperlipidemia Hypertension Parkinsons disease Reflux esophagitis Ulcerative colitis Weight loss 30 POUND WEIGHT LOSS PER ONCOLOGY NOTE Surgical History History of cardioversion x2--07/2018 History of colonoscopy History of esophagogastroduodenoscopy (EGD) History of tonsillectomy History of tooth extraction all upper teeth History of vascular access device aport right side Family History Mother , at 80yo;[place], aortic valve replacement, stroke No problems noted. Father , at 88yo;"Colon problem that caused him to weaken" No problems noted. Brother No problems noted. Grandmother (Maternal) Family history of diabetes mellitus Grandfather (Maternal) Family hx of colon cancer Other No family history of adverse response to anesthesia Social History Preferred Language: [place]at[place] Communication Ability: Effective Visual Impairment: No Limitations Hearing Ability: Normal Aquaculture Director Required: No Beliefs That Will Affect Care: None marital status: Single Current Living Situation: Personal Care Facility Current Living Situation Comment: [facility] Other Information That Helps Us Care for You: No Feels Safe at Home: Yes Safety Concerns: Feels Safe At This Time Smoking Status: Never smoker Do You Dip or Chew Tobacco: No Second Hand Exposure: No Hx Alcohol Use: No Hx Substance Use: No caffeine: Yes (1 cup coffee/day;not currently since diagnosis;) during the past year weight has: increased > 10 lbs Review of Systems Review of Systems: All systems reviewed & are unremarkable except as noted in HPI & below Physical Exam Constitutional: + cachectic and + frail appearing; no acute distress Eyes: PERRL, conjunctivae normal, anicteric sclerae ENMT: Ears: no external ear abnormality Mouth: + oral mucosal abnormality (Mildly dry mucous membranes, white exudate in posterior oropharynx, buccal mucosa, and tongue); no lip abnormality Neck: trachea midline, no thyromegaly Respiratory: normal respiratory effort, lungs clear to auscultation Cardiovascular: Rate/Rhythm: regular rate and + irregularly irregular Heart Sounds: + murmur (2/6 at the left sternal border) Gastrointestinal (Abdomen): normal bowel sounds, soft, nontender, no hepatosplenomegaly Inspection/Auscultation: + scaphoid Musculoskeletal: Extremities: extremities normal to inspection; no cyanosis and no clubbing Skin: no rashes, warm and dry Neurologic: moves all extremities and awake; no focal motor deficits Psychiatric: A+Ox3, euthymic affect Genitourinary: no testicular masses, no penis abnormality (With Armijo catheter in place draining dark brown cloudy urine) Results & Data Vital Signs (Past 12 Hours) Vital Signs Temp Pulse Pulse Resp BP BP Pulse Ox 01/04/19 12:55 75 16 122/61 99 01/04/19 11:10 74 18 129/65 98 01/04/19 09:55 71 20 110/56 L 97 01/04/19 09:01 37.0 C 79 24 103/50 L 94 Laboratory Results 01/04/19 01/04/19 01/04/19 Range/Units 17:40 10:41 09:25 WBC (4.8-10.8) K/uL RBC (4.7-6.1) M/uL Hgb (14.0-18.0) g/dL Hct (42-52) % MCV (80-100) fL MCH (25-34) pg MCHC (32-36) g/dL RDW Std Deviation (36.4-46.3) fL RDW Coeff of Mikki (11.5-14.5) % Plt Count (130-400) K/uL MPV (7.4-10.4) fL Immature Gran % (Auto) % Neut % (Auto) % Lymph % (Auto) % [place] % (Auto) % Eos % (Auto) % Baso % (Auto) % Immature Gran # (Auto) (0.00-0.02) K/uL Neut # (Auto) (1.4-6.5) K/uL Lymph # (Auto) (1.2-3.4) K/uL [place] # (Auto) (0.11-0.59) K/uL Eos # (Auto) (0-0.5) K/uL Baso # (Auto) (0-0.2) K/uL PT 13.2 H (9.0-12.0) Seconds INR 1.3 H (0.9-1.1) Sodium (136-145) mmol/L Potassium (3.5-5.1) mmol/L Chloride (98-107) mmol/L Carbon Dioxide (21-32) mmol/L Anion Gap (3-11) BUN (7-18) mg/dl Creatinine (0.6-1.4) mg/dl Est Cr Clr Drug Dosing ml/min Est GFR ( Amer) Est GFR (Non-Af Amer) BUN/Creatinine Ratio (10-20) Glucose (70-99) mg/dl Calcium (8.5-10.1) mg/dl Total Bilirubin (0.2-1) mg/dl AST (15-37) U/L ALT (12-78) U/L Alkaline Phosphatase (45-117) U/L Troponin I 0.685 H* (0-0.045) ng/ml Total Protein (6.4-8.2) gm/dl Albumin (3.4-5.0) gm/dl Globulin (2.5-4.0) gm/dl Albumin/Globulin Ratio (0.9-2) Urine Color [place] Urine Appearance Turbid A (Clear) Urine pH 5.5 (4.5-7.5) Ur Specific [place] 1.021 (1.000-1.030) Urine Protein 2+ H (Negative) Urine Glucose (UA) Negative (Negative) Urine Ketones 2+ H (Negative) Urine Blood 3+ H (Negative) Urine Nitrite Positive A (Negative) Urine Bilirubin Negative (Negative) Urine Urobilinogen Negative (Negative) Ur Leukocyte Esterase 2+ H (Negative) Urine WBC (Auto) >30 H (0-5) /hpf Urine RBC (Auto) >30 H (0-4) /hpf U Hyaline Cast (Auto) 10-30 H (0-5) /lpf U Epithel Cells (Auto) >30 H (0-5) /lpf Urine Bacteria (Auto) Negative (Negative) Ur Renal Epithelial Cell Not Reportable Granular Casts 10-20 H (0) /lpf Urine Mucus Present A (None Prsent) Urine Yeast Not Reportable 01/04/19 01/04/19 Range/Units 09:25 09:25 WBC 18.12 H (4.8-10.8) K/uL RBC 3.69 L (4.7-6.1) M/uL Hgb 11.1 L (14.0-18.0) g/dL Hct 33.7 L (42-52) % MCV 91.3 (80-100) fL MCH 30.1 (25-34) pg MCHC 32.9 (32-36) g/dL RDW Std Deviation 54.5 H (36.4-46.3) fL RDW Coeff of Mikki 16.3 H (11.5-14.5) % Plt Count 147 (130-400) K/uL MPV 10.3 (7.4-10.4) fL Immature Gran % (Auto) 1.0 % Neut % (Auto) 91.0 % Lymph % (Auto) 2.3 % [place] % (Auto) 5.7 % Eos % (Auto) 0.0 % Baso % (Auto) 0.0 % Immature Gran # (Auto) 0.19 H (0.00-0.02) K/uL Neut # (Auto) 16.48 H (1.4-6.5) K/uL Lymph # (Auto) 0.42 L (1.2-3.4) K/uL [place] # (Auto) 1.03 H (0.11-0.59) K/uL Eos # (Auto) 0.00 (0-0.5) K/uL Baso # (Auto) 0.00 (0-0.2) K/uL PT (9.0-12.0) Seconds INR (0.9-1.1) Sodium 136 (136-145) mmol/L Potassium 3.3 L (3.5-5.1) mmol/L Chloride 97 L (98-107) mmol/L Carbon Dioxide 31 (21-32) mmol/L Anion Gap 8.0 (3-11) BUN 18 (7-18) mg/dl Creatinine 0.90 (0.6-1.4) mg/dl Est Cr Clr Drug Dosing 62.1 ml/min Est GFR ( Amer) 100.6 Est GFR (Non-Af Amer) 86.8 BUN/Creatinine Ratio 20.4 H (10-20) Glucose 73 (70-99) mg/dl Calcium 8.4 L (8.5-10.1) mg/dl Total Bilirubin 0.8 (0.2-1) mg/dl AST 36 (15-37) U/L ALT 10 L (12-78) U/L Alkaline Phosphatase 38 L (45-117) U/L Troponin I 0.707 H* (0-0.045) ng/ml Total Protein 5.4 L (6.4-8.2) gm/dl Albumin 2.7 L (3.4-5.0) gm/dl Globulin 2.7 (2.5-4.0) gm/dl Albumin/Globulin Ratio 1.0 (0.9-2) Urine Color Urine Appearance (Clear) Urine pH (4.5-7.5) Ur Specific [place] (1.000-1.030) Urine Protein (Negative) Urine Glucose (UA) (Negative) Urine Ketones (Negative) Urine Blood (Negative) Urine Nitrite (Negative) Urine Bilirubin (Negative) Urine Urobilinogen (Negative) Ur Leukocyte Esterase (Negative) Urine WBC (Auto) (0-5) /hpf Urine RBC (Auto) (0-4) /hpf U Hyaline Cast (Auto) (0-5) /lpf U Epithel Cells (Auto) (0-5) /lpf Urine Bacteria (Auto) (Negative) Ur Renal Epithelial Cell Granular Casts (0) /lpf Urine Mucus (None Prsent) Urine Yeast Diagnostic Findings XR chest 1V portable CLINICAL HISTORY: 68 years-old Male presenting with weakness. TECHNIQUE: Portable upright AP view of the chest was obtained. COMPARISON: 12/27/2018. FINDINGS: Right internal jugular Mediport terminates in the upper SVC. Atherosclerosis of the aortic arch. Cardiac silhouette mildly enlarged, unchanged. Architectural distortion and peripheral basilar right lung opacity similar to prior exam. Left basilar opacity similar to prior. No convincing evidence of a pneumothorax with lucencies at the costophrenic angles likely related to skin folds. Degenerative changes of the thoracic spine. Oral contrast may be present in the left upper quadrant large bowel. IMPRESSION: 1. Persistent basilar peripheral infiltrates, right greater than left. No new superimposed infiltrate. 2. Mild cardiomegaly. 3. An attempt to reduce skin folds on subsequent radiographs would benefit the accurate detection of pneumothorax. Alternatively, PA and lateral views could accomplish this is well. There is no convincing pneumothorax on the current exam. ECG Additional Comments: Atrial flutter the rate of 69 with 4:1 block Code Status & VTE Plan Code Status DNR/DNI VTE Prophylaxis Plan VTE Prophylaxis will be ordered: Yes
[2019-01-04] MEDS ORDERED: POLYETHYLENE (MIRALAX) 17 GM PACK PO PRN (14:56)
[2019-01-04] MEDS ORDERED: LEVALBUTEROL 1.25MG/0.5ML NEB INH SCH (14:56)
[2019-01-04] MEDS ORDERED: OXYBUTYNIN CHLORIDE 5 MG TAB PO PRN (14:56)
[2019-01-04] MEDS ORDERED: ACETAMINOPHEN 325 MG TAB PO PRN (14:56)
[2019-01-04] MEDS ORDERED: ONDANSETRON INJ 2 MG/ML 2 ML VIAL IV PRN (14:56)
[2019-01-04] MEDS: LEVALBUTEROL HCL 1.25 MG/3 ML NEB INH SCH ×2 (15:18→19:25)
--- NOTE | 2019-01-04 15:57 | Radiation OncologyConsultation ---
Date of Consultation January 04, 2019 Assessment & Plan (1) Adenocarcinoma of gastroesophageal junction: Assessment: Mr. Donahue is a 68-year-old gentleman with recurrent esophageal adenocarcinoma. The patient was previously treated with a course of preoperative chemotherapy and radiation therapy which was planned to be followed by surgical resection. Surgical resection was advised against due to deconditioning of the patient. After the patient was detected to have recurrent esophageal adenocarcinoma, we recommended HDR esophageal brachytherapy given the fact that he was not a good candidate for systemic therapy. The patient has received 2/5 fractions of HDR esophageal brachytherapy. He was scheduled to undergo his third fraction of HDR esophageal brachytherapy today however he was brought to the emergency room and admitted to the hospital due to poor oral intake due to potential esophageal obstruction/stenosis. We have been asked to evaluate him for continuation of radiation therapy. Recommendation: We recommend evaluation by gastroenterology while the patient is in the inpatient setting. If and when gastroenterology clears the patient for further radiation therapy, we will treat the patient with HDR brachytherapy as previously planned which may be done in either the inpatient or outpatient setting. If gastroenterology does perform a upper endoscopy, we would request that a nasogastric tube be placed at the completion of the procedure so that we may potentially utilize that for HDR brachytherapy while the patient is admitted to the hospital. Plan: 1. Hold radiation therapy until completion of gastroenterology evaluation. 2. Continue all other management as per primary medical team. Present on Admission?: Yes History of Present Illness Attending Physician: Raeann Kelley MD History of Present Illness 04/10/2018 --- upper GI endoscopy by Dr. Hernandez --- normal upper third of esophagus, completely obstructing, likely malignant esophageal tumor was found in the lower third of the esophagus. Biopsied. Medium sized hiatal hernia. Normal examined duodenum. Pathology confirms moderately differentiated adenocarcinoma. 04/11/2018 --- CT of chest/abdomen/pelvis --- IMPRESSION: 1. There is no evidence of metastatic disease in the chest, abdomen, or pelvis.2. There is circumferential wall thickening identified in the distal esophagus. This is nonspecific, but likely corresponds to the reported history of esophageal carcinoma. 3. There are large gallstones. There is mild nonspecific gallbladder wall thickening and hyperemia. No significant pericholecystic stranding is identified. Correlate clinically for evidence of acute versus chronic cholecystitis. 4. The lungs are clear. 5. Prostatomegaly. 6. Additional findings as above. 04/19/2018 --- medical oncology consultation with Dr. Jonn Brice --- Dr. Brice recommended radiation oncology consultation. Dr. Brice also recommended endoscopic ultrasound to be completed by Dr. Hernandez. Dr. Brice discussed preoperative chemotherapy and radiation therapy followed by surgical resection and has referred the patient to a thoracic surgeon. 05/03/2018. PET/CT. IMPRESSION: 1. Marked radiotracer uptake within the distal esophageal mass consistent with carcinoma. 2. No convincing evidence for metastatic disease. Heterogeneous radiotracer uptake within the liver with tiny foci of increased radiotracer uptake within the right hepatic lobe are likely artifactual. No corresponding lesions on recent contrast enhanced exams. 05/25/2018 - 07/06/2018. Preoperative chemotherapy and radiation therapy. Patient received weekly carboplatin Taxol chemotherapy underneath the supervision of Dr. Jonn Brice. Patient received 5040 cGy in 28 fractions of 180 cGy per fraction. 08/07/2018. PET/CT. IMPRESSION: 1. Long segment circumferential wall th ickening of the distal esophagus with hypermetabolic activity correlates with the patient's known distal esophageal mass. 2. No convincing evidence of metastatic disease. 3. Additional findings as above. 09/19/2018. Multidisciplinary thoracic tumor board at [facility]. Recommendations were for aborting surgical procedure due to patient performance status and condition. 11/19/2018. Patient presents to emergency room at [facility] and is admitted to hospital for further workup and evaluation. 11/20/2018. CT of chest. IMPRESSION: 1. Long segment moderate wall thickening about the mid and distal esophagus redemonstrated correlating with the patient's known esophageal carcinoma. 2. Small bilateral pleural effusions with right greater than left bibasilar predominant groundglass and consolidative opacities suggestive of multifocal pneumonia or aspiration pneumonitis with atelectasis. 3. Mild AP window adenopathy, possibly reactive. 4. There are a few new solid pulmonary nodules noted measuring up to 5 mm within the left upper lobe. Attention at follow-up recommended. 5. No evidence of pulmonary thromboembolic disease. 11/20/2018. CT of abdomen/pelvis. IMPRESSION: 1. Interval development of extensive groundglass infiltrates and consolidation at the lung bases greater on the right. The distribution and well demarcated pattern could represent post radiation change. Correlate with the planned radiation field. 2. Decreased conspicuity of prior esophageal wall thickening. 3. Interval development of hypoenhancing peripheral geographic regions in the upper pole the spleen, which are concerning for splenic infarcts. 4. Cholelithiasis. 5. Chronic bladder outlet obstruction secondary to prostatomegaly. Updated impression #3: 3. Interval development of hypoenhancing peripheral geographic regions in the upper pole the spleen, which are MOST concerning for splenic infarcts. DIFFERENTIAL CONSIDERATION INCLUDES METASTASES THOUGH THIS IS CONSIDERED LESS LIKELY. ATTENTION ON FOLLOW-UP. 11/22/2018. Upper endoscopy by Dr. Salvador. Findings include residual polypoid tissue/esophageal scar that was biopsied and was consistent with moderately differentiated invasive adenocarcinoma. 11/29/2018. Medical oncology follow-up with Dr. Brice. Dr. Brice has recommended consideration for further consideration of radiation therapy with or without systemic therapy. 12/05/2018. Radiation oncology follow-up. We recommended HDR endobronchial brachytherapy for treatment of recurrence. 12/27/2018. Upper endoscopy with Dr. Salvador with NG tube placement followed by first fraction of HDR brachytherapy. Patient received 500 cGy to 1 cm depth. 12/29/2018. Second fraction of HDR esophageal endoluminal brachytherapy. Patient received 500 cGy to 1 cm depth. 01/02/2019. Third fraction of HDR esophageal endoluminal brachytherapy aborted due to patient intolerance to NG tube placement. Treatment was rescheduled to 01/04/2019. 01/04/2019. Patient transferred from [facility] ([place], [place]) to emergency room and subsequently admitted to hospital due to poor oral intake due to potential esophageal obstruction/stenosis and potential urinary tract infection. Currently, the patient is doing relatively well. He has no significant complaints including hematemesis. Allergies Allergy/AdvReac Type Severity Reaction Status Date / Time No Known Allergies Allergy Verified 01/04/19 09:14 Home Medications Home Medications Medication Instructions Recorded Confirmed Type aspirin 81 mg PO QAM 05/19/18 01/04/19 History carbidopa-levodopa [Sinemet] 2 tab PO QID 05/19/18 01/04/19 History cholecalciferol (vitamin D3) 2,000 unit PO QAM 05/19/18 01/04/19 History [Vitamin D3] folic acid 1 mg PO HS 05/19/18 01/04/19 History simvastatin 20 mg PO PM 05/19/18 01/04/19 History sulfasalazine 500 mg PO DAILY@1200 05/19/18 01/04/19 History acetaminophen 325 mg PO Q4 PRN 10/30/18 01/04/19 History coQ10 (ubiquinol) 200 mg PO QAM 10/30/18 01/04/19 History digoxin 125 mcg PO QAM 10/30/18 01/04/19 History pantoprazole 40 mg PO QAM 10/30/18 01/04/19 History alfuzosin 10 mg PO QPM 11/19/18 01/04/19 History Eliquis 5 mg PO BID #60 tab 11/23/18 01/04/19 Rx levalbuterol HCl 1.25 mg INHALATION Q6R #30 ea 11/23/18 01/04/19 Rx sennosides [Senokot] 17.2 mg PO QAM #14 tab 11/23/18 01/04/19 Rx amiodarone 200 mg tablet 200 mg PO DAILY tab 12/05/18 01/04/19 History polyethylene glycol 3350 17 gram 17 g PO DAILY PRN ea 12/05/18 01/04/19 History oral powder packet dutasteride 0.5 mg PO DAILY 01/04/19 01/04/19 History metoprolol succinate 25 mg PO HS 01/04/19 01/04/19 History midodrine 10 mg PO TID 01/04/19 01/04/19 History oxybutynin chloride 5 mg PO TID PRN 01/04/19 01/04/19 History potassium chloride 10 meq PO DAILY 01/04/19 01/04/19 History rasagiline 1 mg PO HS 01/04/19 01/04/19 History Patient History Medical History Atrial fibrillation Dysphagia PROGRESSIVE X 2 MONTHS PER ONCOLOGY NOTE Esophageal cancer 2018--chemo, radiation Armijo catheter in place History of recent pneumonia hospitalized [facility] 11/19/18-11/23/2018 Hyperlipidemia Hypertension Parkinsons disease Reflux esophagitis Ulcerative colitis Weight loss 30 POUND WEIGHT LOSS PER ONCOLOGY NOTE Surgical History History of cardioversion x2--07/2018 History of colonoscopy History of esophagogastroduodenoscopy (EGD) History of tonsillectomy History of tooth extraction all upper teeth History of vascular access device aport right side Family History Mother , at 80yo;[place], aortic valve replacement, stroke No problems noted. Father , at 88yo;"Colon problem that caused him to weaken" No problems noted. Brother No problems noted. Grandmother (Maternal) Family history of diabetes mellitus Grandfather (Maternal) Family hx of colon cancer Other No family history of adverse response to anesthesia Social History Preferred Language: Macedonian Communication Ability: Effective Visual Impairment: No Limitations Hearing Ability: Normal Director Athletic Required: No Beliefs That Will Affect Care: None marital status: Single Current Living Situation: Personal Care Facility Current Living Situation Comment: [facility] Other Information That Helps Us Care for You: No Feels Safe at Home: Yes Safety Concerns: Feels Safe At This Time Smoking Status: Never smoker Do You Dip or Chew Tobacco: No Second Hand Exposure: No Hx Alcohol Use: No Hx Substance Use: No caffeine: Yes (1 cup coffee/day;not currently since diagnosis;) during the past year weight has: increased > 10 lbs Review of Systems Review of Systems: All systems reviewed & are unremarkable except as noted in HPI & below Physical Exam Constitutional: well developed and well nourished ENMT: external ear and nose normal, oropharynx normal Respiratory: normal respiratory effort, lungs clear to auscultation Cardiovascular: RRR, no murmur, no edema Results Additional Studies 01/04/19 09:46 ECG 12 lead EKG Stat XR chest 1V portable Stat Time Spent Attending I spent 25 minutes for this consultation, which included obtaining clinical information, performing a physical exam, recommending a plan of action and answering questions. Greater than 50% of the time spent was direct face to face interaction with the patient.
[2019-01-04] MEDS ORDERED: AVODART-ORDER AWAITING ACTION SCH (16:00)
[2019-01-04] MEDS: D5W AND 1/2NSS + 20MEQ KCL 20 MEQ/1,000 ML BAG IV SCH (16:53)
--- NOTE | 2019-01-04 17:53 | Consultation Report ---
DATE OF CONSULTATION: 01/04/2019 GASTROINTESTINAL CONSULTATION REASON FOR CONSULTATION: Esophageal cancer and inability to eat. HISTORY OF PRESENT ILLNESS: The patient is a 68-year-old male with esophageal adenocarcinoma at the GE junction, treated in the past with radiation and chemo. Following his treatments, he underwent an EGD to assess the response and was found to have a small amount of residual cancer present on biopsy. On 12/27, he underwent an EGD in the OR to benoit the area under fluoroscopy for brachytherapy. He had food and pills in his esophagus at that time that were cleared out. The distal esophagus was strictured and was dilated with an 8.5 mm balloon and the stomach was able to be entered at that time. The tumor area was marked and a nasogastric tube was passed and brachytherapy was administered. He was supposed to have another treatment yesterday but they could not pass the tube past the lower esophageal sphincter. He has only been able to drink liquids in the last 3 weeks and is getting dehydrated and malnourished. He is brought into the hospital now to evaluate this. He is willing to undergo a PEG tube after I discussed it with him. PAST MEDICAL HISTORY: Remarkable for Parkinson disease, atrial fibrillation, esophageal adenocarcinoma since 2018, hyperlipidemia, hypertension. MEDICATIONS: Per list. ALLERGIES: None. FAMILY HISTORY: Mother of heart disease and stroke and had aortic valve replacement. Father had some kind of a colon problem. His brother had no problems. SOCIAL HISTORY: The patient lives at [facility]. Does not smoke, does not use alcohol. REVIEW OF SYSTEMS: Remarkable for inability to eat solids and weakness. Remainder is negative. PHYSICAL EXAMINATION: GENERAL: The patient appears weak and cachectic, but in no acute distress. VITAL SIGNS: Blood pressure is 122/61, pulse 75, respirations 12, pulse ox on room air is 99%. CHEST: He has a central line in the right anterior chest. ABDOMEN: Soft with a lot of redundant skin from weight loss. There are no scars in the upper abdomen. NEUROLOGIC: Nonfocal. IMPRESSION AND PLAN: The patient has esophageal adenocarcinoma with stricturing and inability to eat well. I plan on scheduling him for an EGD tomorrow afternoon in the operating room. We will plan on dilating his esophagus if need be and then passing a gastrostomy tube through and putting it in place to use for nutrition.
[2019-01-04] MEDS ORDERED: ACETAMINOPHEN 1,000 MG/100 ML VIAL IV PRN (18:31)
[2019-01-04] MEDS: MIDODRINE HCL 10 MG TAB PO SCH (19:29)
[2019-01-04] MEDS: METOPROLOL TARTRATE 1 MG/ML VIAL IV SCH ×2 (19:30→23:27)
[2019-01-04] MEDS: CARBIDOPA/LEVODOPA 25/100MG TAB PO SCH ×2 (19:30→19:31)
[2019-01-04] MEDS: ALFUZOSIN HCL 10 MG TAB PO SCH (19:43)
[2019-01-04] MEDS ORDERED: SIMVASTATIN 20 MG TAB PO SCH (21:00)
[2019-01-04] MEDS ORDERED: METOPROLOL SUCC 25MG EXT REL TAB PO SCH (21:00)
[2019-01-04] MEDS ORDERED: FOLIC ACID 1 MG TAB PO SCH (21:00)
[2019-01-04] MEDS: CLOTRIMAZOLE 10 MG TROCHE BUCCAL SCH ×2 (21:12→22:07)
[2019-01-04] MEDS: FAMOTIDINE 20 MG in SYRINGE 3 ML IV SCH (22:06)
[2019-01-05] MEDS: LEVALBUTEROL HCL 1.25 MG/3 ML NEB INH SCH ×4 (01:58→19:10)
[2019-01-05] MEDS: D5W AND 1/2NSS + 20MEQ KCL 20 MEQ/1,000 ML BAG IV SCH ×2 (05:01→20:48)
[2019-01-05] MEDS: METOPROLOL TARTRATE 1 MG/ML VIAL IV SCH ×4 (05:18→23:39)
[2019-01-05 05:48] LABS: Eosinophils # (auto) 0.01 K/uL (0-0.5); Eosinophils % (auto) 0.1 %; Hematocrit (blood only) 30.8 % (42-52); Hemoglobin 10.1 g/dL (14.0-18.0); Immature Granulocytes # (auto) 0.07 K/uL (0.00-0.02); Immature Granulocytes % (auto) 0.5 %; Lymphocytes # (auto) 0.48 K/uL (1.2-3.4); Lymphocytes % (auto) 3.7 %; Mean Corpuscular Hgb Conc 32.8 g/dL (32-36); Mean Corpuscular Volume 92.2 fL (80-100); Monocytes # (auto) 0.49 K/uL (0.11-0.59); Monocytes % (auto) 3.8 %; Neutrophils # (auto) 11.95 K/uL (1.4-6.5); Neutrophils % (auto) 91.9 %; Platelet Count 120 K/uL (130-400); RDW Coefficient of Variation 16.7 % (11.5-14.5); RDW Standard Deviation 56.2 fL (36.4-46.3); Red Blood Count 3.34 M/uL (4.7-6.1)
[2019-01-05] MEDS ORDERED: CEFAZOLIN 1000MG 1,000 MG/7.5 ML SYR IV SCH (06:00)
[2019-01-05] MEDS: CLOTRIMAZOLE 10 MG TROCHE BUCCAL SCH ×5 (06:08→23:38)
[2019-01-05] MEDS: MIDODRINE HCL 10 MG TAB PO SCH ×3 (06:08→17:24)
[2019-01-05 06:22] LABS: Albumin Level 2.3 gm/dl (3.4-5.0); BUN Creatinine Ratio 28.9 (10-20); Bilirubin Direct 0.2 mg/dl (0-0.2); Calcium 7.9 mg/dl (8.5-10.1); Creatinine Clr Calc Pharmacy 91.7 ml/min; Est GFR (African American) 118.1; Est GFR (Non-African American) 101.9; Magnesium 1.6 mg/dl (1.8-2.4); Potassium 3.1 mmol/L (3.5-5.1)
[2019-01-05 06:25] LABS: Albumin Globulin Ratio 0.9 (0.9-2); Bilirubin,Total 0.6 mg/dl (0.2-1); Globulin 2.5 gm/dl (2.5-4.0); Phosphorus 2.3 mg/dl (2.5-4.9); Total Protein 4.8 gm/dl (6.4-8.2)
[2019-01-05] MEDS: CARBIDOPA/LEVODOPA 25/100MG TAB PO SCH ×4 (08:13→20:46)
[2019-01-05] MEDS: AMIODARONE 200 MG TAB PO SCH (08:13)
[2019-01-05] MEDS: SENNA 8.6 MG TAB PO SCH (08:13)
[2019-01-05] MEDS ORDERED: POTASSIUM CHLORIDE 10 MEQ TABCR PO SCH (09:00)
[2019-01-05] MEDS ORDERED: PANTOprazole 40 MG TAB PO SCH (09:00)
[2019-01-05] MEDS: FAMOTIDINE 20 MG in SYRINGE 3 ML IV SCH ×2 (10:09→20:52)
[2019-01-05] MEDS: cefTRIAXone SODIUM 1,000 MG in DEXTROSE 5% 50 ML IV SCH (10:09)
[2019-01-05] MEDS: sulfaSALAzine 500 MG TABLET PO SCH (13:20)
--- NOTE | 2019-01-05 13:25 | Anesthesiology Consultation ---
Date of Service January 05, 2019 Assessment & Plan (1) Encounter for pre-operative examination: Chart Review Chart Review: Acceptable Risk for Surgery Consults Requested none ASA ASA4 Proposed Anesthesia Anesthesia Type: MAC Risk / Benefits Reviewed With: PT / POA / Parent / Guardian, Accepts Plan and Informed Consent Obtained History Surgery Operation Date: 01/05/19 08:50 Proposed Procedures p Esophagogastroduodenoscopy with Peg Tube Placement - Favio Salvador Height/Weight Height: 5 ft 8 in Weight: 60.7 kg Allergies Allergy/AdvReac Type Severity Reaction Status Date / Time No Known Allergies Allergy Verified 01/04/19 09:14 Medications Home Medications Medication Instructions Recorded Confirmed Last Taken aspirin 81 mg PO QAM 05/19/18 01/04/19 12/25/18 08:00 carbidopa-levodopa [Sinemet] 2 tab PO QID 05/19/18 01/04/19 12/27/18 04:00 cholecalciferol (vitamin D3) 2,000 unit PO QAM 05/19/18 01/04/19 12/26/18 07:30 [Vitamin D3] folic acid 1 mg PO HS 05/19/18 01/04/19 12/26/18 07:30 simvastatin 20 mg PO PM 05/19/18 01/04/19 12/27/18 04:00 sulfasalazine 500 mg PO DAILY@1200 05/19/18 01/04/19 12/27/18 04:00 acetaminophen 325 mg PO Q4 PRN 10/30/18 01/04/19 12/25/18 coQ10 (ubiquinol) 200 mg PO QAM 10/30/18 01/04/19 12/25/18 digoxin 125 mcg PO QAM 10/30/18 01/04/19 12/26/18 04:00 pantoprazole 40 mg PO QAM 10/30/18 01/04/19 12/27/18 04:00 alfuzosin 10 mg PO QPM 11/19/18 01/04/19 12/27/18 04:00 Eliquis 5 mg PO BID #60 tab 11/23/18 01/04/19 12/25/18 19:30 levalbuterol HCl 1.25 mg INHALATION Q6R #30 ea 04/04/19 05/16/19 03/20/19 sennosides [Senokot] 17.2 mg PO QAM #14 tab 11/23/18 01/04/19 12/26/18 07:30 amiodarone 200 mg tablet 200 mg PO DAILY tab 12/05/18 01/04/19 12/27/18 04:00 polyethylene glycol 3350 17 gram 17 g PO DAILY PRN ea 12/05/18 01/04/19 12/13/18 oral powder packet dutasteride 0.5 mg PO DAILY 01/04/19 01/04/19 Unknown metoprolol succinate 25 mg PO HS 01/04/19 01/04/19 Unknown midodrine 10 mg PO TID 01/04/19 01/04/19 Unknown oxybutynin chloride 5 mg PO TID PRN 01/04/19 01/04/19 Unknown potassium chloride 10 meq PO DAILY 01/04/19 01/04/19 Unknown rasagiline 1 mg PO HS 01/04/19 01/04/19 Unknown Active Medications Generic Name Dose Route Start Last Admin Trade Name Freq PRN Reason Stop Dose Admin Alfuzosin HCl 10 mg 01/04/19 21:00 01/04/19 19:43 Uroxatral PO 02/03/19 20:59 10 mg QPM KARYN Administration Amiodarone HCl 200 mg 01/05/19 09:00 01/05/19 08:13 Cordarone PO 02/04/19 08:59 200 mg DAILY KARYN Administration Carbidopa/Levodopa 2 tab 01/04/19 17:00 01/05/19 13:20 Sinemet 25/100 Mg PO 02/03/19 16:59 2 tab QID KARYN Administration Clotrimazole 10 mg 01/04/19 20:00 01/05/19 13:20 Mycelex BUCCAL 01/14/19 19:59 Not Given [id number] KARYN Ceftriaxone Sodium 1,000 mg/ 50 mls @ 100 mls/hr 01/05/19 11:00 01/05/19 10:40 Dextrose IV 01/13/19 11:29 Infused Q24H KARYN Infusion Protocol Potassium Chloride/Dextrose/Sod Cl 20 meq in 1,000 mls @ 75 mls/hr 01/04/19 15:30 01/05/19 05:01 D5w And 1/2nss + 20meq Kcl IV 02/03/19 14:45 75 mls/hr .[id number] KARYN Administration Famotidine 20 mg/ Syringe 5 mls @ 2.5 mls/min 01/04/19 21:00 01/05/19 10:09 IV 02/03/19 20:59 2.5 mls/min Q12 KARYN Administration Magnesium Sulfate/Dextrose 1 gm in 100 mls @ 100 mls/hr 01/05/19 14:00 01/05/19 14:10 Magnesium Sulfate / D5w IV 01/05/19 15:59 100 mls/hr Q1H KARYN Administration Potassium Phosphate 15 mmol/ 255 mls @ 127 mls/hr 01/05/19 14:00 01/05/19 14:10 Sodium Chloride IV 01/05/19 16:00 127 mls/hr ONE ONE Administration Levalbuterol HCl 1.25 mg 01/04/19 16:00 01/05/19 13:39 Xopenex 1.25mg/3ml Neb INH 02/03/19 15:59 1.25 mg Q6R KARYN Administration Metoprolol Tartrate 5 mg 01/04/19 18:31 01/05/19 13:18 Lopressor IV 02/03/19 18:30 Not Given Q6 KARYN Midodrine 10 mg 01/04/19 18:00 01/05/19 13:20 Proamatine PO 02/03/19 17:59 10 mg TID@0700,1200,1800 KARYN Administration Miscellaneous 1 ea 01/04/19 16:00 01/05/19 08:07 Order Awaiting Action N/A 02/03/19 15:59 Not Given QS AKRYN Sennosides 17.2 mg 01/05/19 09:00 01/05/19 08:13 Senokot PO 02/04/19 08:59 17.2 mg QAM KARYN Administration Sulfadiazine 500 mg 01/05/19 12:00 01/05/19 13:20 Azulfidine PO 02/04/19 11:59 500 mg 1200 KARYN Administration NPO Date Last Intake of Fluids: 01/05/19 Time Last Intake of Fluids: 00:00 Date Last Intake of Solids: 01/05/19 Time Last Intake of Solids: 00:00 Past Medical History Medical History Esophageal stenosis Orthostatic hypotension Atrial fibrillation Dysphagia PROGRESSIVE X 2 MONTHS PER ONCOLOGY NOTE Esophageal cancer 2018--chemo, radiation Armijo catheter in place History of recent pneumonia hospitalized [facility] 11/19/18-11/23/2018 Hyperlipidemia Hypertension Parkinsons disease Reflux esophagitis Ulcerative colitis Weight loss 30 POUND WEIGHT LOSS PER ONCOLOGY NOTE Exercise / Class Metabolic Activity III < 4 Walking/Shop/Light housework Past Family History Family History Mother , at 80yo;[place], aortic valve replacement, stroke No problems noted. Father , at 88yo;"Colon problem that caused him to weaken" No problems noted. Brother No problems noted. Grandmother (Maternal) Family history of diabetes mellitus Grandfather (Maternal) Family hx of colon cancer Other No family history of adverse response to anesthesia Past Surgical History Surgical History History of cardioversion x2--07/2018 History of colonoscopy History of esophagogastroduodenoscopy (EGD) History of tonsillectomy History of tooth extraction all upper teeth History of vascular access device aport right side Past Anesthesia History No Hx of Anesthesia Complications and No Family Hx of Anesthesia Complications History of PONV No Hx of PONV and No Hx of Motion Sickness Social History Smoking Status: Never smoker Do You Dip or Chew Tobacco: No Hx Alcohol Use: No Hx Substance Use: No substance use type: does not use Physical Exam Vital Signs Last Vital Signs Temp 97.7 F 01/05/19 14:31 Pulse 83 01/05/19 14:31 Resp 20 01/05/19 14:31 BP 101/53 L 01/05/19 14:31 Pulse Ox 96 01/05/19 14:31 ENMT Mouth: + dentures Thyromental Distance: > or= 3.5 Finger Breadths Mallampati Class: II Neck normal visual inspection Respiratory normal respiratory effort Auscultation: lungs clear to auscultation bilaterally Cardiovascular Rate/Rhythm: regular rate and regular rhythm Testing Electrocardiogram Date: 01/04/19 Chest X-Ray Date: 01/04/19 1. Persistent basilar peripheral infiltrates, R>L. No new superimposed infiltrates 2. Mild cardiomegaly Echocardiogram Date: 06/20/18 EF: 50-55% LV Function: normal Other Findings: + LVH (Mild) Valvular Disease: + no significant valvular disease Pulmonary Function Test Date: 09/15/18 Normal baseline spirometry with slight improvement in FEF 25-75 after inhaled bronchodilator. Mild air trapping, normal DLCO
[2019-01-05] MEDS ORDERED: POTASSIUM PHOS 3 MMOL/1 ML INFUSION IV STA (13:46)
[2019-01-05] MEDS ORDERED: POTASSIUM PHOSPHATE 15 MMOL in SODIUM CHLORIDE 0.9% 250 ML IV ONE (14:00)
[2019-01-05] MEDS: MAGNESIUM SULFATE / D5W 1 GM/100 ML BAG IV SCH ×2 (14:10→17:51)
--- NOTE | 2019-01-05 14:39 | History & Physical Report ---
Date of Service January 05, 2019 History of Present Illness Chief Complaint: Inability to eat Primary Care Provider: Eriberto Turner For EGD with PEG placement Allergies Allergy/AdvReac Type Severity Reaction Status Date / Time No Known Allergies Allergy Verified 01/04/19 09:14 Home Medications Home Medications Medication Instructions Recorded Confirmed Type aspirin 81 mg PO QAM 05/19/18 01/04/19 History carbidopa-levodopa [Sinemet] 2 tab PO QID 05/19/18 01/04/19 History cholecalciferol (vitamin D3) 2,000 unit PO QAM 05/19/18 01/04/19 History [Vitamin D3] folic acid 1 mg PO HS 05/19/18 01/04/19 History simvastatin 20 mg PO PM 05/19/18 01/04/19 History sulfasalazine 500 mg PO DAILY@1200 05/19/18 01/04/19 History acetaminophen 325 mg PO Q4 PRN 10/30/18 01/04/19 History coQ10 (ubiquinol) 200 mg PO QAM 10/30/18 01/04/19 History digoxin 125 mcg PO QAM 10/30/18 01/04/19 History pantoprazole 40 mg PO QAM 10/30/18 01/04/19 History alfuzosin 10 mg PO QPM 11/19/18 01/04/19 History Eliquis 5 mg PO BID #60 tab 11/23/18 01/04/19 Rx levalbuterol HCl 1.25 mg INHALATION Q6R #30 ea 11/23/18 01/04/19 Rx sennosides [Senokot] 17.2 mg PO QAM #14 tab 11/23/18 01/04/19 Rx amiodarone 200 mg tablet 200 mg PO DAILY tab 12/05/18 01/04/19 History polyethylene glycol 3350 17 gram 17 g PO DAILY PRN ea 12/05/18 01/04/19 History oral powder packet dutasteride 0.5 mg PO DAILY 01/04/19 01/04/19 History metoprolol succinate 25 mg PO HS 01/04/19 01/04/19 History midodrine 10 mg PO TID 01/04/19 01/04/19 History oxybutynin chloride 5 mg PO TID PRN 01/04/19 01/04/19 History potassium chloride 10 meq PO DAILY 01/04/19 01/04/19 History rasagiline 1 mg PO HS 01/04/19 01/04/19 History Past Med/Surg History Medical History Esophageal stenosis Orthostatic hypotension Atrial fibrillation Dysphagia PROGRESSIVE X 2 MONTHS PER ONCOLOGY NOTE Esophageal cancer 2018--chemo, radiation Armijo catheter in place History of recent pneumonia hospitalized [facility] 11/19/18-11/23/2018 Hyperlipidemia Hypertension Parkinsons disease Reflux esophagitis Ulcerative colitis Weight loss 30 POUND WEIGHT LOSS PER ONCOLOGY NOTE Surgical History History of cardioversion x2--07/2018 History of colonoscopy History of esophagogastroduodenoscopy (EGD) History of tonsillectomy History of tooth extraction all upper teeth History of vascular access device aport right side Family History Mother , at 80yo;MO, aortic valve replacement, stroke No problems noted. Father , at 88yo;"Colon problem that caused him to weaken" No problems noted. Brother No problems noted. Grandmother (Maternal) Family history of diabetes mellitus Grandfather (Maternal) Family hx of colon cancer Other No family history of adverse response to anesthesia Social History Preferred Language: Honduran Communication Ability: Effective Visual Impairment: No Limitations Hearing Ability: Normal Performance Improvement Analyst Required: No Beliefs That Will Affect Care: None marital status: Single Current Living Situation: Personal Care Facility Current Living Situation Comment: [facility] Other Information That Helps Us Care for You: No Feels Safe at Home: Yes Safety Concerns: Feels Safe At This Time Smoking Status: Never smoker Do You Dip or Chew Tobacco: No Second Hand Exposure: No Hx Alcohol Use: No Hx Substance Use: No caffeine: Yes (1 cup coffee/day;not currently since diagnosis;) during the past year weight has: increased > 10 lbs Physical Exam Vital Signs (Past 24 Hours): Last Vital Signs Temp 36.5 C 01/05/19 14:31 Pulse 83 01/05/19 14:31 Resp 20 01/05/19 14:31 BP 101/53 L 01/05/19 14:31 Pulse Ox 96 01/05/19 14:31 Constitutional: + ill appearing and + thin Respiratory: normal respiratory effort Cardiovascular: Rate/Rhythm: regular rate and regular rhythm Gastrointestinal (Abdomen): Percussion/Palpation: abdomen soft Code Status & VTE Plan VTE Prophylaxis Plan VTE Prophylaxis will be ordered: Yes
[2019-01-05] MEDS ORDERED: ATROPINE SULFATE 0.1 MG/ML 10ML SYR IV PRN (14:58)
[2019-01-05] MEDS ORDERED: ePHEDrine sulfate 50 MG/ML AMP IV PRN (14:58)
[2019-01-05] MEDS ORDERED: fentaNYL citrate 100 MCG/2 ML VIAL IV PRN (14:58)
[2019-01-05] MEDS ORDERED: ONDANSETRON INJ 2 MG/ML 2 ML VIAL IV PRN (14:58)
[2019-01-05] MEDS ORDERED: MIDAZOLAM HCL 1 MG/ML 2ML VIAL ONE (15:23)
[2019-01-05] MEDS ORDERED: LIDOCAINE HCL 2% 2 ML VIAL/AMP(20MG/ML) INFIL ONE (15:23)
[2019-01-05] MEDS ORDERED: PROPOFOL IV EMULSION 10 MG/ML 20 ML VIAL IV ONE (15:23)
[2019-01-05] MEDS ORDERED: KETAMINE HCL INJ 50 MG/ML 10 ML VIAL ONE (15:24)
[2019-01-05] MEDS ORDERED: DIGOXIN 0.125 MG TAB PO SCH (16:00)
--- NOTE | 2019-01-05 16:16 | GI REPORT ---
Patient Name: Jericho Donahue Procedure Date: 01/05/2019 3:23 PM Date of : 1950 Admit Type: Inpatient Age: 68 Gender: Male Attending MD: Favio Salvador MD Procedure: Upper GI endoscopy Providers: Favio Salvador MD Referring MD: Raeann Kelley Md Indications: Dysphagia, Place PEG because patient is unable to eat Medicines: Midazolam 2 mg IV, Propofol total dose 60 mg IV, Ketamine 20 mg IV, Lidocaine 60 mg IV Complications: No immediate complications. Estimated Blood Loss: Estimated blood loss was minimal. Procedure: Pre-Anesthesia Assessment: - Prior to the procedure, a History and Physical was performed, and patient medications, allergies and sensitivities were reviewed. The patient's tolerance of previous anesthesia was reviewed. - The risks and benefits of the procedure and the sedation options and risks were discussed with the patient. All questions were answered and informed consent was obtained. After obtaining informed consent, the endoscope was passed under direct vision. Throughout the procedure, the patient's blood pressure, pulse, and oxygen saturations were monitored continuously. The Scope was introduced through the mouth, and advanced to the antrum of the stomach. The upper GI endoscopy was accomplished without difficulty. The patient tolerated the procedure well. Findings: One superficial esophageal ulcer with scarring from prior treatment and no stigmata of recent bleeding was found. The entire examined stomach was normal. Placement of an externally removable PEG with no T-fasteners was successfully completed. The external bumper was at the 6.0 cm marking on the tube. Estimated blood loss was minimal. Impression: - Esophageal ulcer. - Normal stomach. - An externally removable PEG placement was successfully completed. - No specimens collected. Recommendation: - Return patient to [facility] care. Favio Salvador M.D. Favio Salvador MD 01/05/2019 4:16:42 PM This report has been signed electronically. Note Initiated On: 01/05/2019 3:23 PM Number of Addenda: 0 I attest to the content of the Intraoperative Record and orders documented therein, exceptions below {[id number]}
--- NOTE | 2019-01-05 17:03 | Anesthesiology Progress Note ---
Date of Service January 05, 2019 Anesthesia Post Procedure Vital Signs Vital Signs: Temp Pulse Pulse Pulse Pulse Resp BP 01/05/19 16:51 99.9 F H 63 20 01/05/19 16:40 63 25 H 01/05/19 16:30 63 18 01/05/19 16:20 98.6 F 63 24 01/05/19 14:31 97.7 F 83 83 20 01/05/19 13:40 66 16 01/05/19 11:59 97.5 F L 68 18 01/05/19 09:43 67 01/05/19 07:29 97.5 F L 66 17 01/05/19 07:14 67 16 01/05/19 05:18 70 110/66 01/05/19 04:09 97.7 F 72 16 01/05/19 01:58 66 16 01/05/19 00:08 68 01/04/19 23:27 76 98/60 L 01/04/19 23:00 98.2 F 68 17 01/04/19 19:55 78 16 01/04/19 19:47 67 01/04/19 19:30 76 103/50 L 01/04/19 19:22 98.1 F 81 20 01/04/19 18:30 98.1 F 77 18 BP BP Pulse Ox 01/05/19 16:51 99/55 L 95 01/05/19 16:40 99/51 L 96 01/05/19 16:30 88/49 L 99 01/05/19 16:20 89/51 L 99 01/05/19 14:31 101/53 L 96 01/05/19 13:40 97 01/05/19 11:59 93/52 L 97 01/05/19 09:43 01/05/19 07:29 113/80 92 01/05/19 07:14 97 01/05/19 05:18 01/05/19 04:09 106/54 L 97 01/05/19 01:58 98 01/05/19 00:08 01/04/19 23:27 01/04/19 23:00 98/60 L 96 01/04/19 19:55 95 01/04/19 19:47 94/52 L 01/04/19 19:30 01/04/19 19:22 103/50 L 97 01/04/19 18:30 104/62 97 Transfer of Care Handoff Completed per policy Notes Mental Status: alert / awake / arousable and participated in evaluation Patient Amnestic to Procedure: Yes Nausea / Vomiting: adequately controlled Pain: adequately controlled Airway Patency, RR, SpO2: stable & adequate BP & HR: stable & adequate Hydration State: stable & adequate Anesthetic Complications: no major complications apparent and Pt Satisfied with anesthetic care
[2019-01-05] MEDS: DIGOXIN 125 MCG in SYRINGE 9.5 ML IV SCH (17:23)
--- NOTE | 2019-01-05 17:47 | Hospitalist Progress Note ---
Date of Service January 05, 2019 Assessment & Plan (1) Esophageal stenosis: - Consult GI - Plan for EGD and PEG tube today - Keep n.p.o. except for necessary meds that cannot be changed to IV - Hold Eliquis for procedure - Restart once cleared by GI (2) Acute UTI (urinary tract infection): UTI due to indwelling Armijo catheter. Streptococcus species and Staphylococcus species growing on urine culture, UA is obviously abnormal. - Armijo catheter was exchanged in the ER upon admission - Continue Rocephin 1 g IV every 24 hours and await final urine culture results - Leukocytosis at 18 on admission could be from infection versus stress response from severe malnutrition - Follow CBC in the morning (3) Severe protein-calorie malnutrition: With 9 kg weight loss in the last month, pre-albumin severely low at 13, secondary to esophageal cancer and stenosis with poor p.o. intake - PEG tube placement today - Consulted nutrition for feeding recommendations - Watch for refeeding syndrome - Per nutrition started IV thiamine and repleted Mg/Phos. He is at high risk. - Follow daily CBC, CMP, phosphorus, magnesium (4) Elevated troponin: Troponin mildly elevated at 0.7 upon admission, this is been elevated in the past, is likely myocardial demand ischemia. He has no chest pain or pressure at all and is asymptomatic, ECG is with no definite ischemic changes - Serial troponins ordered - Stable at 0.7. (5) Hyperlipidemia: - Hold statin to minimize p.o. meds (6) Parkinsons disease: Sinemet is ordered but unclear if he will be able to tolerate the p.o. meds - Restart as able with PEG tube. (7) Reflux esophagitis: Hold p.o. PPI and give Pepcid 20 mg IV twice daily (8) Hypertension: Blood pressures on the low side. - Maintained on metoprolol for rate control for atrial flutter (9) Esophageal cancer: With preoperative chemotherapy and XRT performed late in 2018, he was then not a surgical candidate for esophagectomy due to comorbidities. He then was found to have recurrence in the scar of the esophagus on EGD in 11/2017. Currently undergoing HDR brachytherapy-was supposed to have a treatment today - Radiation oncology reports they will hold treatment until cleared from PEG tube issues. - Plans for possible systemic chemotherapy are pending-the patient is I believe to have a repeat PET scan (10) Weight loss: As above, secondary to esophageal stenosis and cancer (11) Ulcerative colitis: Not currently active -Holding p.o. sulfadiazine to minimize p.o. meds (12) Atrial fibrillation: In atrial flutter at the time of admission, rate controlled. - Holding p.o. metoprolol we will give scheduled IV Lopressor 5 mg every 6 - Holding Eliquis for PEG tube placement - Convert p.o. digoxin to IV digoxin - Monitor on telemetry (13) Armijo catheter in place: Placed for urinary retention. UTI due to indwelling Armijo catheter. - Holding home dutasteride to minimize p.o. meds - Continue alfuzosin if can tolerate, however he does have a Armijo catheter in place and would be okay to hold alfuzosin if necessary - Armijo catheter was exchanged on admission in the ER on 01/04/2019 (14) Orthostatic hypotension: Started on midodrine last admission for orthostasis which is likely secondary to Parkinson's, Sinemet, alfuzosin -Follow blood pressures (15) Oral candidiasis: Start clotrimazole trouches x14-day course (16) DVT prophylaxis: Holding chemical means due to recent procedure, will provide SCDs only at this time -Admit to medical floor with telemetry Subjective In no distress. No pain. Review of Systems Review of Systems: All systems reviewed & are unremarkable except as noted in HPI & below Physical Exam Constitutional: + cachectic and + frail appearing; no acute distress Eyes: PERRL, conjunctivae normal, anicteric sclerae ENMT: external ear and nose normal, oropharynx normal Ears: no external ear abnormality Mouth: + oral mucosal abnormality (Mildly dry mucous membranes, white exudate in posterior oropharynx, buccal mucosa, and tongue); no lip abnormality Neck: trachea midline, no thyromegaly Respiratory: normal respiratory effort, lungs clear to auscultation Cardiovascular: RRR, no murmur, no edema Rate/Rhythm: regular rate and + irregularly irregular Heart Sounds: + murmur (2/6 at the left sternal border) Gastrointestinal (Abdomen): normal bowel sounds, soft, nontender, no hepatosplenomegaly Inspection/Auscultation: + scaphoid Musculoskeletal: Extremities: extremities normal to inspection; no cyanosis and no clubbing Skin: no rashes, warm and dry Neurologic: moves all extremities and awake; no focal motor deficits Psychiatric: A+Ox3, euthymic affect Genitourinary: no testicular masses, no penis abnormality (With Armijo catheter in place draining dark brown cloudy urine) Results & Data Vital Signs (Past 12 Hours) Vital Signs Temp Pulse Pulse Pulse Pulse Resp BP 01/05/19 17:29 36.4 C L 74 18 01/05/19 17:23 65 92/53 L 01/05/19 17:15 36.5 C 65 18 01/05/19 16:51 37.7 C H 63 20 01/05/19 16:40 63 25 H 01/05/19 16:30 63 18 01/05/19 16:20 37 C 63 24 01/05/19 14:31 36.5 C 83 83 20 01/05/19 13:40 66 16 01/05/19 11:59 36.4 C L 68 18 01/05/19 09:43 67 01/05/19 07:29 36.4 C L 66 17 01/05/19 07:14 67 16 BP BP Pulse Ox 01/05/19 17:29 100/60 95 01/05/19 17:23 01/05/19 17:15 92/53 L 96 01/05/19 16:51 99/55 L 95 01/05/19 16:40 99/51 L 96 01/05/19 16:30 88/49 L 99 01/05/19 16:20 89/51 L 99 01/05/19 14:31 101/53 L 96 01/05/19 13:40 97 01/05/19 11:59 93/52 L 97 01/05/19 09:43 01/05/19 07:29 113/80 92 01/05/19 07:14 97
[2019-01-05] MEDS: SODIUM CHLORIDE 0.9% 1000ML 1,000 ML IV SCH (17:51)
[2019-01-05] MEDS: ALFUZOSIN HCL 10 MG TAB PO SCH (20:47)
[2019-01-05] MEDS: THIAMINE HCL 100 MG in SYRINGE 9 ML IV SCH (20:47)
[2019-01-06] MEDS ORDERED: HEPARIN 100 UNIT/ML 5ML FLUSH FLUSH PRN (00:15)
[2019-01-06] MEDS: LEVALBUTEROL HCL 1.25 MG/3 ML NEB INH SCH ×2 (02:04→07:35)
[2019-01-06] MEDS: METOPROLOL TARTRATE 1 MG/ML VIAL IV SCH ×2 (05:23→11:28)
[2019-01-06] MEDS: MIDODRINE HCL 10 MG TAB PO SCH ×3 (06:22→18:08)
[2019-01-06] MEDS: CLOTRIMAZOLE 10 MG TROCHE BUCCAL SCH ×5 (06:22→22:14)
[2019-01-06 06:52] LABS: Hematocrit (blood only) 31.4 % (42-52); Hemoglobin 10.6 g/dL (14.0-18.0); Mean Corpuscular Hgb Conc 33.8 g/dL (32-36); Mean Corpuscular Volume 91.3 fL (80-100); Mean Platelet Volume 10.3 fL (7.4-10.4); Platelet Count 113 K/uL (130-400); RDW Coefficient of Variation 16.3 % (11.5-14.5); RDW Standard Deviation 54.5 fL (36.4-46.3); Red Blood Count 3.44 M/uL (4.7-6.1); White Blood Count 8.47 K/uL (4.8-10.8)
[2019-01-06 07:22] LABS: BUN Creatinine Ratio 24.2 (10-20); Est GFR (African American) 128.2; Est GFR (Non-African American) 110.6; Potassium 3.4 mmol/L (3.5-5.1)
[2019-01-06 07:23] LABS: Phosphorus 2.3 mg/dl (2.5-4.9)
[2019-01-06] MEDS: SENNA 8.6 MG TAB PO SCH (08:03)
[2019-01-06] MEDS: D5W AND 1/2NSS + 20MEQ KCL 20 MEQ/1,000 ML BAG IV SCH ×2 (08:03→20:55)
[2019-01-06] MEDS: FAMOTIDINE 20 MG in SYRINGE 3 ML IV SCH (08:03)
[2019-01-06] MEDS: CARBIDOPA/LEVODOPA 25/100MG TAB PO SCH ×3 (08:03→21:44)
[2019-01-06] MEDS: AMIODARONE 200 MG TAB PO SCH (08:03)
[2019-01-06] MEDS: THIAMINE HCL 100 MG in SYRINGE 9 ML IV SCH ×2 (08:03→20:57)
--- NOTE | 2019-01-06 10:03 | Family Medicine Progress Note ---
Date of Service January 06, 2019 Assessment & Plan (1) Esophageal stenosis: 68M with esophageal CA with recurrence in 11/2018 admitted for inability to eat. Lives at [facility] in [facility]. EGD and PEG placement by Dr. Salvador on 01/05/2019. Esophageal stenosis EGD and PEG tube placed 01/05/2019. Progress to PEG tube feedings today. Restarting Eliquis today. Acute UTI (urinary tract infection) UTI due to indwelling Armijo catheter. Streptococcus species and Staphylococcus species growing on urine culture, UA is obviously abnormal. Armijo catheter was exchanged in the ER upon admission Continue Rocephin 1 g IV every 24 hours and await final urine culture results Severe protein-calorie malnutrition With 9 kg weight loss in the last month, pre-albumin severely low at 13, secondary to esophageal cancer and stenosis with poor p.o. intake Will DC with nutrition recs (see note) Watch for refeeding syndrome - Per nutrition started IV thiamine and repleted Mg/Phos. He is at high risk. Follow daily CBC, CMP, phosphorus, magnesium Elevated troponin Troponin mildly elevated at 0.7 upon admission, this is been elevated in the past, is likely myocardial demand ischemia. He has no chest pain or pressure at all and is asymptomatic, ECG is with no definite ischemic changes Serial troponins ordered - Stable at 0.7. Hyperlipidemia continue Simvastatin on DC. Parkinsons disease Sinemet via PEG tube. Reflux esophagitis Per GI, change H2 raj to PPI. Esophageal cancer With preoperative chemotherapy and XRT performed late in 2017, he was then not a surgical candidate for esophagectomy due to comorbidities. He then was found to have recurrence in the scar of the esophagus on EGD in 11/2017. Currently undergoing HDR brachytherapy. Radiation oncology reports they will hold treatment until cleared from PEG tube issues. Plans for possible systemic chemotherapy are pending-the patient may have a repeat PET scan Ulcerative colitis Not currently active restarting sulfadiazine via PEG. Atrial fibrillation In atrial flutter at the time of admission, rate controlled. Restart PO Metoprolol to 12.5mg BID. Restart Eliquis. will convert IV digoxin to PO. Monitor on telemetry Armijo catheter in place Placed for urinary retention. UTI due to indwelling Armijo catheter. will restart home dutasteride Continue alfuzosin Armijo catheter was exchanged on admission in the ER on 01/04/2019 Orthostatic hypotension Started on midodrine last admission for orthostasis which is likely secondary to Parkinson's, Sinemet, alfuzosin -Follow blood pressures Oral candidiasis c/w clotrimazole trouches x14-day course DVT prophylaxis Eliquis as above. Admit to medical floor with telemetry Dispo: [place] to [facility] ([facility]) DNR/DNI (2) Acute UTI (urinary tract infection): (3) Severe protein-calorie malnutrition: (4) Elevated troponin: (5) Hyperlipidemia: (6) Parkinsons disease: (7) Reflux esophagitis: (8) Hypertension: (9) Esophageal cancer: (10) Weight loss: (11) Ulcerative colitis: (12) Atrial fibrillation: (13) Armijo catheter in place: (14) Orthostatic hypotension: (15) Oral candidiasis: (16) DVT prophylaxis: Supervising Physician Co-Signing Physician Notes I personally examined the patient and verified all zabala points of history and exam, discussed case, and agree with decision making with Dr Gramajo. Feeling okay. Ready to start tube feeds. Has had some fluids through tube and is gone well. Outlined symptoms to watch for with refeeding syndrome. Vitals noted, in general he is awake and alert pleasant no distress. HEENT normocephalic atraumatic mucous members moist. Breathing unlabored no accessory muscle use good effort. Skin shows no rashes no pallor or icterus. Malnutrition�now has PEG tube in. Start tube feeds slowly and cautiously, follow for refeeding syndrome Otherwise as above Subjective Pt was seen and examined at bedside. Pt had his PEG tube and EGD yesterday. Pt is currently NPO except meds with IVF infusing. HPI reviewed: pt came in with dysphagia and lightheadedness. He is eager to return to [facility] ([facility] No acute overnight events. Telemetry showed A flutter with PVCs in the 70s. Pt's wondering what will happen with Metoprolol and Midodrine. Pt has been ambulating with a walker. ROS: No chest pain, no SOB, no dyspnea on exertion, no palpitations, no fevers, no chills, no nausea, no vomiting, no diarrhea, no dysuria, no rash. Physical Exam Constitutional: + ill appearing, + cachectic and + frail appearing; no acute distress Eyes: PERRL, conjunctivae normal, anicteric sclerae ENMT: Mouth: + dentures Neck: normal visual inspection Respiratory: normal respiratory effort, lungs clear to auscultation Auscultation: lungs clear to auscultation bilaterally Cardiovascular: Rate/Rhythm: + irregularly irregular Heart Sounds: + murmur (2/6 at the left sternal border) Chest (Breasts): Chest: + vascular access device or port Gastrointestinal (Abdomen): Inspection/Auscultation: + abdominal surgical incision (non tender, non erythematous PEG tube) Percussion/Palpation: abdomen soft; abdomen nontender and no guarding Musculoskeletal: Extremities: extremities normal to inspection (tremor in the RLE. ); no cyanosis and no clubbing Skin: no rashes, warm and dry Neurologic: moves all extremities and awake; no focal motor deficits Psychiatric: A+Ox3, euthymic affect Results & Data Vital Signs (Past 12 Hours) Vital Signs Temp Pulse Pulse Pulse Resp BP BP 01/06/19 08:00 82 01/06/19 07:35 76 18 01/06/19 06:47 36.6 C 64 18 108/66 01/06/19 05:23 64 95/51 L 01/06/19 04:11 36.6 C 84 18 95/51 L 01/06/19 02:05 74 18 01/05/19 23:42 36.5 C 68 18 105/67 01/05/19 23:39 59 L 90/56 L 01/05/19 23:16 78 Pulse Ox 01/06/19 08:00 01/06/19 07:35 98 01/06/19 06:47 98 01/06/19 05:23 01/06/19 04:11 96 01/06/19 02:05 96 01/05/19 23:42 93 01/05/19 23:39 01/05/19 23:16 Resident Activity Tracking Resident Involvement: Resident Care Provided Care Provided: Adult Hospital Medicine
[2019-01-06] MEDS: cefTRIAXone SODIUM 1,000 MG in DEXTROSE 5% 50 ML IV SCH (11:27)
[2019-01-06] MEDS: sulfaSALAzine 500 MG TABLET PO SCH (11:28)
[2019-01-06] MEDS ORDERED: LEVALBUTEROL HCL 1.25 MG/3 ML NEB INH PRN (13:31)
[2019-01-06] MEDS: SODIUM CHLORIDE 0.9% 1000ML 1,000 ML IV SCH (13:46)
[2019-01-06] MEDS: DIGOXIN 125 MCG in SYRINGE 9.5 ML IV SCH (16:11)
--- NOTE | 2019-01-06 16:41 | Gastroenterology Progress Note ---
Date of Service January 06, 2019 Assessment & Plan (1) Esophageal obstruction: dysphagia ersosive esophagitis Ok to use PEG tube for meds and tube feeds today. Recommend PPI through PEG instead of H2 raj. Ok to restart anticoagulation. Will sign off. Please call for further questions. Subjective CC f/u dysphagiaHe HPI EGD yesterday with esophageal erosion and PEG placed by DR Salvador. Pt states just minor discomfort at PEG site. Review of Systems Cardiovascular: no chest pain Gastrointestinal: no abdominal pain Physical Exam Respiratory: normal respiratory effort, lungs clear to auscultation Cardiovascular: Heart Sounds: normal, physiologic split S2 Gastrointestinal (Abdomen): PEG site dry, no evidence of infection, pos bs ,soft, no guardign nor rebound Results & Data Vital Signs (Past 12 Hours) Vital Signs Temp Pulse Pulse Pulse Resp BP BP 01/06/19 16:11 62 01/06/19 16:10 62 105/67 01/06/19 15:31 64 01/06/19 15:28 01/06/19 15:20 36.5 C 66 14 01/06/19 11:28 82 115/74 01/06/19 11:15 36.7 C 62 15 01/06/19 08:00 82 01/06/19 07:35 76 18 01/06/19 06:47 36.6 C 64 18 108/66 01/06/19 05:23 64 95/51 L BP Pulse Ox 01/06/19 16:11 01/06/19 16:10 98/60 L 01/06/19 15:31 01/06/19 15:28 94/54 L 01/06/19 15:20 92/54 L 97 01/06/19 11:28 01/06/19 11:15 115/74 95 01/06/19 08:00 01/06/19 07:35 98 01/06/19 06:47 98 01/06/19 05:23
[2019-01-06] MEDS: LANSOPRAZOLE 30 MG SOLTAB GT SCH (17:10)
[2019-01-06] MEDS ORDERED: POLYETHYLENE (MIRALAX) 17 GM PACK PEG PRN (17:41)
[2019-01-06] MEDS: CARBIDOPA/LEVODOPA 25/100MG TAB PEG SCH ×2 (18:07→20:56)
[2019-01-06] MEDS: FIBERSOURCE HN 1.2 CAL 1000 ML BAG GT SCH ×6 (18:08→22:19)
[2019-01-06] MEDS: METOPROLOL TARTRATE 25 MG TAB PO SCH (20:55)
[2019-01-06] MEDS: ALFUZOSIN HCL 10 MG TAB PO SCH (20:57)
[2019-01-07] MEDS: MIDODRINE HCL 10 MG TAB PO SCH ×3 (06:24→17:37)
[2019-01-07] MEDS: CLOTRIMAZOLE 10 MG TROCHE BUCCAL SCH ×5 (06:24→21:10)
[2019-01-07 06:31] LABS: Eosinophils # (auto) 0.02 K/uL (0-0.5); Eosinophils % (auto) 0.3 %; Hematocrit (blood only) 34.8 % (42-52); Hemoglobin 11.6 g/dL (14.0-18.0); Immature Granulocytes # (auto) 0.02 K/uL (0.00-0.02); Immature Granulocytes % (auto) 0.3 %; Lymphocytes # (auto) 0.13 K/uL (1.2-3.4); Lymphocytes % (auto) 1.8 %; Mean Corpuscular Hgb Conc 33.3 g/dL (32-36); Mean Corpuscular Volume 90.6 fL (80-100); Mean Platelet Volume 10.2 fL (7.4-10.4); Monocytes # (auto) 0.68 K/uL (0.11-0.59); Monocytes % (auto) 9.3 %; Neutrophils # (auto) 6.44 K/uL (1.4-6.5); Neutrophils % (auto) 88.3 %; Platelet Count 120 K/uL (130-400); RDW Coefficient of Variation 16.1 % (11.5-14.5); RDW Standard Deviation 53.8 fL (36.4-46.3); Red Blood Count 3.84 M/uL (4.7-6.1); White Blood Count 7.29 K/uL (4.8-10.8)
[2019-01-07] MEDS: FIBERSOURCE HN 1.2 CAL 1000 ML BAG GT SCH ×5 (06:54→16:04)
[2019-01-07 07:14] LABS: BUN Creatinine Ratio 14.5 (10-20); Creatinine Clr Calc Pharmacy 131.3 ml/min; Est GFR (African American) 130.3; Est GFR (Non-African American) 112.4; Magnesium 1.8 mg/dl (1.8-2.4); Phosphorus 1.9 mg/dl (2.5-4.9); Potassium 3.7 mmol/L (3.5-5.1)
[2019-01-07] MEDS: METOPROLOL TARTRATE 25 MG TAB PO SCH ×2 (08:13→21:09)
[2019-01-07] MEDS: MAGNESIUM SULFATE / D5W 1 GM/100 ML BAG IV SCH ×2 (08:30→09:35)
[2019-01-07] MEDS: LANSOPRAZOLE 30 MG SOLTAB GT SCH (08:30)
[2019-01-07] MEDS: AMIODARONE 200 MG TAB PO SCH (08:30)
[2019-01-07] MEDS: SENNA 8.6 MG TAB PO SCH (08:30)
[2019-01-07] MEDS: APIXABAN 5 MG TABLET PO SCH ×2 (08:30→21:10)
[2019-01-07] MEDS: THIAMINE HCL 100 MG in SYRINGE 9 ML IV SCH ×2 (08:31→21:11)
[2019-01-07] MEDS: CARBIDOPA/LEVODOPA 25/100MG TAB PEG SCH ×4 (08:31→21:10)
[2019-01-07] MEDS: POT PHOSPHATE MONOBASIC W/ SOD TAB PO SCH ×4 (08:31→21:10)
[2019-01-07] MEDS ORDERED: FIBERSOURCE HN 1.2 CAL 1000 ML BAG GT SCH (09:00)
[2019-01-07] MEDS: D5W AND 1/2NSS + 20MEQ KCL 20 MEQ/1,000 ML BAG IV SCH ×2 (09:35→23:11)
[2019-01-07] MEDS: cefTRIAXone SODIUM 1,000 MG in DEXTROSE 5% 50 ML IV SCH (10:37)
[2019-01-07] MEDS: SODIUM CHLORIDE 0.9% 1000ML 1,000 ML IV SCH (12:33)
[2019-01-07] MEDS: sulfaSALAzine 500 MG TABLET PO SCH (12:34)
--- NOTE | 2019-01-07 14:41 | Family Medicine Progress Note ---
Date of Service January 07, 2019 Assessment & Plan (1) Esophageal stenosis: 68M with esophageal CA with recurrence admitted for inability to eat 2/2 to esophageal stenosis. Lives at [facility] in [facility]. EGD and PEG placement by Dr. Salvador on 01/05/2019. Started using the PEG tube on 01/06/19, will advance per straightedge worker recommendations while monitoring for refeeding syndrome. Esophageal stenosis EGD and PEG tube placed 01/05/2019. GI has signed off. Tolerating 20mls/hr on PEG, will advance slowly to 40mls/hr, goal rate of 60mls/hr per straightedge worker note. Once at goal rate pt can be ready for DC, likely Tuesday. If Dr. Dsouza is comfortable titrating up PEG feeds possible DC Tuesday. Will monitor Phos and Mg and replete and necessary due to concerns about refeeding syndrome. Pt is technically NPO, all meds through PEG tube. Acute UTI (urinary tract infection) UTI due to indwelling Armijo catheter. Streptococcus species and Staphylococcus species growing on urine culture, UA is obviously abnormal. Armijo catheter was exchanged in the ER upon admission Continue Rocephin 1 g IV every 24 hours. Urine culture likely contaminate. Severe protein-calorie malnutrition With 9 kg weight loss in the last month, pre-albumin severely low at 13, secondary to esophageal cancer and stenosis with poor p.o. intake Will DC with nutrition recs (see note) Per nutrition started IV thiamine and repleted Mg/Phos. Follow daily CMP, phosphorus, magnesium Elevated troponin Troponin mildly elevated at 0.7 upon admission, this is been elevated in the past, is likely myocardial demand ischemia. He has no chest pain or pressure at all and is asymptomatic, ECG is with no definite ischemic changes Serial troponins ordered - Stable at 0.7. Hyperlipidemia continue Simvastatin on DC. Parkinsons disease Sinemet via PEG tube. Reflux esophagitis Per GI, change H2 raj to PPI. Esophageal cancer History Currently undergoing HDR brachytherapy. Radiation oncology reports they will hold treatment until cleared from PEG tube issues. Plans for possible systemic chemotherapy are pending-the patient may have a repeat PET scan Ulcerative colitis Not currently active restarting sulfadiazine via PEG. Atrial fibrillation In atrial flutter at the time of admission, rate controlled. Restarted PO Metoprolol to 12.5mg BID. Restarted Eliquis after PEG placement. will convert IV digoxin to PO via PEG. Monitor on telemetry Armijo catheter in place Placed for urinary retention. UTI due to indwelling Armijo catheter. will restart home dutasteride Continue alfuzosin Armijo catheter was exchanged on admission in the ER on 01/04/2019 Orthostatic hypotension Started on midodrine last admission for orthostasis which is likely secondary to Parkinson's, Sinemet, alfuzosin -Follow blood pressures Oral candidiasis c/w clotrimazole trouches x14-day course DVT prophylaxis Eliquis as above. Admit to medical floor with telemetry Dispo: [facility] to [facility] ([facility]) DNR/DNI (2) Acute UTI (urinary tract infection): (3) Severe protein-calorie malnutrition: (4) Elevated troponin: (5) Hyperlipidemia: (6) Parkinsons disease: (7) Reflux esophagitis: (8) Hypertension: (9) Esophageal cancer: (10) Weight loss: (11) Ulcerative colitis: (12) Atrial fibrillation: (13) Armijo catheter in place: (14) Orthostatic hypotension: (15) Oral candidiasis: (16) DVT prophylaxis: Supervising Physician Co-Signing Physician Notes I personally examined the patient and verified all zabala points of history and exam, discussed case, and agree with decision making with Dr Gramajo. Tolerating start of tube feeds okay, did feel full easily but no nausea or abdominal pain, labs noted. Vitals noted, in general he is awake and alert pleasant no distress. HEENT normocephalic atraumatic mucous members moist. Breathing unlabored no accessory muscle use good effort. Skin shows no rashes no pallor or icterus. Malnutrition�now has PEG tube in. Tolerating tube feeds overall well, mag en face noted and will continue to replace, but given symptoms and only a mild shifting of labs, appears safe to gently increase his rate today. Continue to follow closely, return to [facility] once he is tolerating food more. Otherwise as above Subjective seen and examined at bedside. Tele showed A flutter in the 70s with occasional PVCs Pt has not complaints, PEG tube infusing, says he feels "full" passing gas, but no BM ROS: no vomiting, No chest pain, no SOB, no dyspnea on exertion, no palpitations, no fevers, no chills, no nausea, no diarrhea, no dysuria, no rash. Physical Exam Constitutional: + cachectic and + frail appearing; no acute distress Eyes: PERRL, conjunctivae normal, anicteric sclerae ENMT: Mouth: + dentures Neck: normal visual inspection Respiratory: normal respiratory effort, lungs clear to auscultation Auscultation: lungs clear to auscultation bilaterally Cardiovascular: Rate/Rhythm: + irregularly irregular Heart Sounds: + murmur (2/6 at the left sternal border) Chest (Breasts): Chest: + vascular access device or port Gastrointestinal (Abdomen): normal bowel sounds, soft, nontender, no hepatosplenomegaly Inspection/Auscultation: + abdominal surgical incision (non tender, non erythematous PEG tube) Percussion/Palpation: abdomen soft; abdomen nontender and no guarding Musculoskeletal: Extremities: extremities normal to inspection (tremor in the RLE. ); no cyanosis and no clubbing Skin: no rashes, warm and dry Neurologic: moves all extremities and awake; no focal motor deficits Psychiatric: A+Ox3, euthymic affect Results & Data Vital Signs (Past 12 Hours) Vital Signs Temp Pulse Pulse Resp BP BP Pulse Ox 01/07/19 09:00 69 01/07/19 07:10 36.9 C 82 18 99/64 L 95 01/07/19 04:12 36.6 C 71 18 112/72 99 Resident Activity Tracking Resident Involvement: Resident Care Provided Care Provided: Adult Hospital Medicine
[2019-01-07] MEDS: DIGOXIN 125 MCG in SYRINGE 9.5 ML IV SCH (15:54)
[2019-01-07] MEDS: ALFUZOSIN HCL 10 MG TAB PO SCH (21:10)
[2019-01-07] MEDS ORDERED: SODIUM CHLORIDE 0.65% NA SOLN 45 ML (OCEAN) PRN (21:10)
[2019-01-07] MEDS ORDERED: TRIAMCINOLONE ACET 0.1% CR 80 GM TUBE EXT PRN (22:04)
[2019-01-08] MEDS: CLOTRIMAZOLE 10 MG TROCHE BUCCAL SCH ×5 (06:12→21:13)
[2019-01-08] MEDS: MIDODRINE HCL 10 MG TAB PO SCH ×3 (06:12→18:14)
[2019-01-08 07:00] LABS: BUN Creatinine Ratio 12.3 (10-20); Calcium 7.8 mg/dl (8.5-10.1); Creatinine Clr Calc Pharmacy 126.6 ml/min; Est GFR (African American) 128.2; Est GFR (Non-African American) 110.6; Phosphorus 2.1 mg/dl (2.5-4.9); Potassium 3.7 mmol/L (3.5-5.1)
[2019-01-08] MEDS: CARBIDOPA/LEVODOPA 25/100MG TAB PEG SCH ×4 (08:33→21:16)
[2019-01-08] MEDS: POT PHOSPHATE MONOBASIC W/ SOD TAB PO SCH ×4 (08:33→21:15)
[2019-01-08] MEDS: THIAMINE HCL 100 MG in SYRINGE 9 ML IV SCH (08:33)
[2019-01-08] MEDS: APIXABAN 5 MG TABLET PO SCH ×2 (08:33→21:15)
[2019-01-08] MEDS: AMIODARONE 200 MG TAB PO SCH (08:33)
[2019-01-08] MEDS: METOPROLOL TARTRATE 25 MG TAB PO SCH ×2 (08:33→21:13)
[2019-01-08] MEDS: SENNA 8.6 MG TAB PO SCH (08:33)
[2019-01-08] MEDS: LANSOPRAZOLE 30 MG SOLTAB GT SCH (08:33)
--- NOTE | 2019-01-08 08:58 | Radiation Oncology Progress Nt ---
Date of Service January 08, 2019 Assessment & Plan (1) Primary cancer of lower third of esophagus: Today, I saw Mr. Donahue at bedside. We spoke about his recent upper endoscopy. After a lengthy discussion, we have agreed to proceed with completion of his course of HDR brachytherapy. I did also have the opportunity speak with Dr. Salvador from gastroenterology who performed his upper endoscopy on Tuesday who is in agreement to proceed with HDR brachytherapy. If the patient remains in the hospital tomorrow, we can administer his third fraction of HDR brachytherapy. Otherwise we will coordinate his care in the outpatient setting. The patient was comfortable with either approach. Please call us with any further questions or concerns. Present on Admission?: Yes
[2019-01-08] MEDS: cefTRIAXone SODIUM 1,000 MG in DEXTROSE 5% 50 ML IV SCH (10:30)
[2019-01-08] MEDS: SODIUM CHLORIDE 0.9% 1000ML 1,000 ML IV SCH (11:43)
[2019-01-08] MEDS: D5W AND 1/2NSS + 20MEQ KCL 20 MEQ/1,000 ML BAG IV SCH (12:25)
[2019-01-08] MEDS: sulfaSALAzine 500 MG TABLET PO SCH (12:25)
[2019-01-08] MEDS: DIGOXIN 0.125 MG TAB PO SCH (16:33)
[2019-01-08] MEDS: cephALEXin 500 MG CAP PO SCH ×2 (16:34→21:16)
--- NOTE | 2019-01-08 17:43 | Family Medicine Progress Note ---
Date of Service January 08, 2019 Assessment & Plan (1) Esophageal stenosis: 68M with esophageal CA with recurrence admitted for inability to eat 2/2 to esophageal stenosis. Lives at [facility] in [facility]. EGD and PEG placement by Dr. Salvador on 01/05/2019. Started using the PEG tube on 01/06/19, will advance per solder cream maker recommendations while monitoring for refeeding syndrome. Esophageal stenosis EGD and PEG tube placed 01/05/2019. GI has signed off. Tolerating 40mls/hr on PEG, will advance slowly to goal rate of 60mls/hr, per solder cream maker note. Once at goal rate pt can be ready for DC, likely 01/09. Will monitor Phos and Mg and replete and necessary due to concerns about refeeding syndrome. Pt is technically NPO, all meds through PEG tube. Acute UTI (urinary tract infection) UTI due to indwelling Armijo catheter. Streptococcus species and Staphylococcus species growing on urine culture, UA is obviously abnormal. Armijo catheter was exchanged in the ER upon admission Converted rocephin to keflex QID via peg, to be DCd 01/13 Urine culture likely contaminate. Severe protein-calorie malnutrition With 9 kg weight loss in the last month, pre-albumin severely low at 13, secondary to esophageal cancer and stenosis with poor p.o. intake Will DC with nutrition recs (see note) Per nutrition started IV thiamine and repleted Mg/Phos. Follow daily CMP, phosphorus, magnesium Elevated troponin Troponin mildly elevated at 0.7 upon admission, this is been elevated in the past, is likely myocardial demand ischemia. He has no chest pain or pressure at all and is asymptomatic, ECG is with no definite ischemic changes Serial troponins ordered - Stable at 0.7. Hyperlipidemia continue Simvastatin on DC. Parkinsons disease Sinemet via PEG tube. Reflux esophagitis Per GI, change H2 raj to PPI. Esophageal cancer History Currently undergoing HDR brachytherapy. -Pt to receive radiation on 01/09 at 1300. Plans for possible systemic chemotherapy are pending-the patient may have a repeat PET scan Ulcerative colitis Not currently active restarting sulfadiazine via PEG. Atrial fibrillation In atrial flutter at the time of admission, rate controlled. Restarted PO Metoprolol to 12.5mg BID. Restarted Eliquis after PEG placement. Converted IV digoxin to PO via PEG. Monitor on telemetry Armijo catheter in place Placed for urinary retention. UTI due to indwelling Armijo catheter. will restart home dutasteride Continue alfuzosin Armijo catheter was exchanged on admission in the ER on 01/04/2019 Orthostatic hypotension Started on midodrine last admission for orthostasis which is likely secondary to Parkinson's, Sinemet, alfuzosin -Follow blood pressures Oral candidiasis c/w clotrimazole trouches x14-day course DVT prophylaxis Eliquis as above. Admit to medical floor with telemetry Dispo: DC to [facility] ([facility] DNR/DNI (2) Acute UTI (urinary tract infection): (3) Severe protein-calorie malnutrition: (4) Elevated troponin: (5) Hyperlipidemia: (6) Parkinsons disease: (7) Reflux esophagitis: (8) Hypertension: (9) Esophageal cancer: (10) Weight loss: (11) Ulcerative colitis: (12) Atrial fibrillation: (13) Armijo catheter in place: (14) Orthostatic hypotension: (15) Oral candidiasis: (16) DVT prophylaxis: Supervising Physician Co-Signing Physician Notes I saw the patient along with the resident physician this morning. I confirmed zabala portions of the history and physical exam. I agree with the impression and plan as noted above. Esophageal stenosis, Secondary to esophageal cancer EGD and PEG tube placed 01/05/2019. Advance slowly to goal rate of 60mls/hr, per solder cream maker note. Monitor BMP, magnesium, and phosphorus Acute UTI (urinary tract infection) Keflex Atrial fibrillation Metoprolol, Eliquis, digoxin. Other diagnoses as noted above Subjective Patient has no complaints this morning. Not bothered by feeding tube. Notes he is passing gas but no BM yet. Reports last BM was 01/05/19. Eager to return [facility]. Review of Systems Review of Systems: All systems reviewed & are unremarkable except as noted in HPI & below Physical Exam Constitutional: well developed, well nourished, + thin, + cachectic and + frail appearing; no acute distress Eyes: PERRL, conjunctivae normal, anicteric sclerae Neck: trachea midline, no thyromegaly normal visual inspection Respiratory: normal respiratory effort, lungs clear to auscultation normal respiratory effort Auscultation: lungs clear to auscultation bilaterally Cardiovascular: RRR, no murmur, no edema Rate/Rhythm: regular rate, regular rhythm and + irregularly irregular Heart Sounds: normal, physiologic split S2 and + murmur (2/6 at the left sternal border) Chest (Breasts): Chest: + vascular access device or port Gastrointestinal (Abdomen): normal bowel sounds, soft, nontender, no hepatosplenomegaly Inspection/Auscultation: + scaphoid and + abdominal surgical incision (non tender, non erythematous PEG tube) Percussion/Palpation: abdomen soft; abdomen nontender and no guarding Musculoskeletal: Extremities: extremities normal to inspection (tremor in the RLE. ); no cyanosis and no clubbing Skin: no rashes, warm and dry Neurologic: moves all extremities and awake; no focal motor deficits Psychiatric: A+Ox3, euthymic affect Results & Data Vital Signs (Past 12 Hours) Vital Signs Temp Pulse Pulse Pulse Resp BP Pulse Ox 01/08/19 16:33 87 01/08/19 15:22 36.7 C 67 16 95/59 L 98 01/08/19 11:46 36.7 C 71 18 128/55 L 97 01/08/19 08:00 78 01/08/19 07:47 37.3 C 18 113/67 94 Laboratory Results 01/08/19 01/08/19 01/08/19 Range/Units 11:58 07:42 06:08 Sodium 133 L (136-145) mmol/L Potassium 3.7 (3.5-5.1) mmol/L Chloride 98 (98-107) mmol/L Carbon Dioxide 32 (21-32) mmol/L Anion Gap 3.0 (3-11) BUN 6 L (7-18) mg/dl Creatinine 0.50 L (0.6-1.4) mg/dl Est Cr Clr Drug Dosing 126.6 ml/min Est GFR ( Amer) 128.2 Est GFR (Non-Af Amer) 110.6 BUN/Creatinine Ratio 12.3 (10-20) Glucose 126 H (70-99) mg/dl POC Glucose 120 H 130 H (70-99) Calcium 7.8 L (8.5-10.1) mg/dl Phosphorus 2.1 L (2.5-4.9) mg/dl Magnesium 2.0 (1.8-2.4) mg/dl 01/08/19 01/07/19 Range/Units 01:03 19:36 Sodium (136-145) mmol/L Potassium (3.5-5.1) mmol/L Chloride (98-107) mmol/L Carbon Dioxide (21-32) mmol/L Anion Gap (3-11) BUN (7-18) mg/dl Creatinine (0.6-1.4) mg/dl Est Cr Clr Drug Dosing ml/min Est GFR ( Amer) Est GFR (Non-Af Amer) BUN/Creatinine Ratio (10-20) Glucose (70-99) mg/dl POC Glucose 134 H 128 H (70-99) Calcium (8.5-10.1) mg/dl Phosphorus (2.5-4.9) mg/dl Magnesium (1.8-2.4) mg/dl Medications Administered Current Inpatient Medications Alfuzosin HCl (Uroxatral) 10 mg PO QPM KARYN Stop: 02/03/19 20:59 Last Admin: 01/07/19 21:10 Dose: 10 mg Documented by: Amiodarone HCl (Cordarone) 200 mg PO DAILY KARYN Stop: 02/04/19 08:59 Last Admin: 01/08/19 08:33 Dose: 200 mg Documented by: Apixaban (Eliquis) 5 mg PO BID KARYN Stop: 02/06/19 08:59 Last Admin: 01/08/19 08:33 Dose: 5 mg Documented by: Carbidopa/Levodopa (Sinemet 25/100 Mg) 2 tab PEG QID KARYN Stop: 02/05/19 20:59 Last Admin: 01/08/19 16:35 Dose: 2 tab Documented by: Cephalexin HCl (Keflex) 500 mg PO QID KARYN Stop: 01/13/19 16:59 Last Admin: 01/08/19 16:34 Dose: 500 mg Documented by: Clotrimazole (Mycelex) 10 mg BUCCAL [id number] [facility] Stop: 01/14/19 19:59 Last Admin: 01/08/19 16:23 Dose: 10 mg Documented by: Digoxin (Lanoxin) 0.125 mg PO DAILY@1600 [facility] Stop: 02/07/19 15:59 Last Admin: 01/08/19 16:33 Dose: 0.125 mg Documented by: Enteral Nutritional Formula (Fibersource Hn 1.2 Jeovanny Liquid) 0 ml GT UD KARYN; Protocol Stop: 02/05/19 17:14 Last Admin: 01/07/19 16:04 Dose: 40 ml Documented by: Heparin Sodium (Porcine) (Heparin Sod 100 Unit/Ml Flush) 5 ml FLUSH PRN PRN PRN Reason: Flush Stop: 02/05/19 00:14 Potassium Chloride/Dextrose/Sod Cl (D5w And 1/2nss + 20meq Kcl) 20 meq in 1,000 mls @ 75 mls/hr IV .[id number] KARYN Stop: 02/03/19 14:45 Last Admin: 01/08/19 12:25 Dose: 75 mls/hr Documented by: Acetaminophen (Ofirmev) 1,000 mg in 100 mls @ 400 mls/hr IV Q8H PRN PRN Reason: Pain or Fever Stop: 02/03/19 18:30 Last Infusion: 01/06/19 02:43 Dose: Infused Documented by: Sodium Chloride (Nss 1000ml) 1,000 mls @ 15 mls/hr IV .Q24H [facility] Stop: 02/04/19 14:44 Last Admin: 01/08/19 11:43 Dose: Not Given Documented by: Lansoprazole (Prevacid) 30 mg GT QAM [facility] Stop: 02/05/19 16:44 Last Admin: 01/08/19 08:33 Dose: 30 mg Documented by: Levalbuterol HCl (Xopenex 1.25mg/3ml Neb) 1.25 mg INH Q6R PRN PRN Reason: Wheezing Stop: 02/03/19 15:59 Metoprolol Tartrate (Lopressor) 12.5 mg PO BID KARYN Stop: 02/05/19 20:59 Last Admin: 01/08/19 08:33 Dose: 12.5 mg Documented by: Midodrine (Proamatine) 10 mg PO TID@0700,1200,1800 [facility] Stop: 02/03/19 17:59 Last Admin: 01/08/19 12:25 Dose: 10 mg Documented by: Miscellaneous (Order Awaiting Action) 1 ea N/A QS [facility] Stop: 02/03/19 15:59 Last Admin: 01/08/19 16:25 Dose: Not Given Documented by: Ondansetron HCl (Zofran) 4 mg IV Q6H PRN PRN Reason: Nausea Stop: 02/03/19 14:55 Oxybutynin Chloride (Ditropan) 5 mg PO TID PRN PRN Reason: Bladder Spasms Stop: 02/03/19 14:55 Polyethylene Glycol (Miralax Powder Packet) 17 gm PEG DAILY PRN PRN Reason: constipation Stop: 02/03/19 14:55 Potassium Phosphate (Phospha 250 Neutral 155-852-130 Mg) 1 tab PO QID KARYN Stop: 02/06/19 08:59 Last Admin: 01/08/19 16:34 Dose: 1 tab Documented by: Sennosides (Senokot) 17.2 mg PO QAM KARYN Stop: 02/04/19 08:59 Last Admin: 01/08/19 08:33 Dose: 17.2 mg Documented by: Sodium Chloride ([place] Nasal) 1 sprays NA PRN PRN PRN Reason: Dryness Stop: 02/06/19 21:09 Sulfadiazine (Azulfidine) 500 mg PO 1200 KARYN Stop: 02/04/19 11:59 Last Admin: 01/08/19 12:25 Dose: 500 mg Documented by: Triamcinolone Acetonide (Aristocort 0.1%) 1 appln EXT TID PRN PRN Reason: Itching Stop: 02/06/19 22:03 Resident Activity Tracking Resident Involvement: Resident Care Provided Care Provided: Adult Hospital Medicine
[2019-01-08] MEDS: FIBERSOURCE HN 1.2 CAL 1000 ML BAG GT SCH (18:37)
[2019-01-08] MEDS: ALFUZOSIN HCL 10 MG TAB PO SCH (22:01)
[2019-01-09] MEDS ORDERED: FIBERSOURCE HN 1.2 CAL 1000 ML BAG PO SCH
[2019-01-09] MEDS: D5W AND 1/2NSS + 20MEQ KCL 20 MEQ/1,000 ML BAG IV SCH ×2 (00:49→13:54)
[2019-01-09] MEDS ORDERED: NURSING DECISION MEDICATION PRN (04:13)
[2019-01-09] MEDS ORDERED: COUGH DROP (SUGAR FREE) LOZ 24 LOZ/1 BOX BUCCAL PRN (04:49)
[2019-01-09] MEDS: MIDODRINE HCL 10 MG TAB PO SCH ×3 (05:21→17:10)
[2019-01-09] MEDS: CLOTRIMAZOLE 10 MG TROCHE BUCCAL SCH ×5 (05:22→22:30)
[2019-01-09 07:32] LABS: BUN Creatinine Ratio 13.5 (10-20); Calcium 7.6 mg/dl (8.5-10.1); Creatinine Clr Calc Pharmacy 124.1 ml/min; Est GFR (African American) 127.1; Est GFR (Non-African American) 109.7; Magnesium 1.7 mg/dl (1.8-2.4); Phosphorus 2.3 mg/dl (2.5-4.9); Potassium 3.8 mmol/L (3.5-5.1)
[2019-01-09] MEDS ORDERED: LORazepam 0.5 MG TAB SL STA (07:33)
[2019-01-09] MEDS ORDERED: LIDOCAINE HCL 4% w/ Afrin 4 ML VIAL STA (07:44)
[2019-01-09] MEDS: LANSOPRAZOLE 30 MG SOLTAB GT SCH (10:26)
[2019-01-09] MEDS: METOPROLOL TARTRATE 25 MG TAB PO SCH ×2 (10:26→21:10)
[2019-01-09] MEDS: APIXABAN 5 MG TABLET PO SCH ×2 (10:26→21:12)
[2019-01-09] MEDS: POT PHOSPHATE MONOBASIC W/ SOD TAB PO SCH ×4 (10:26→21:12)
[2019-01-09] MEDS: cephALEXin 500 MG CAP PO SCH ×4 (10:26→21:11)
[2019-01-09] MEDS: AMIODARONE 200 MG TAB PO SCH (10:26)
[2019-01-09] MEDS: SENNA 8.6 MG TAB PO SCH (10:27)
[2019-01-09] MEDS: CARBIDOPA/LEVODOPA 25/100MG TAB PEG SCH ×4 (10:27→21:11)
[2019-01-09] MEDS: sulfaSALAzine 500 MG TABLET PO SCH (13:19)
--- NOTE | 2019-01-09 13:44 | Family Medicine Progress Note ---
Date of Service January 09, 2019 Assessment & Plan (1) Esophageal stenosis: 68M with esophageal CA with recurrence admitted for inability to eat 2/2 to esophageal stenosis. Lives at [facility] in [facility]. EGD and PEG placement by Dr. aSlvador on 01/05/2019. Started using the PEG tube on 01/06/19, will advance per mail clerk recommendations while monitoring for refeeding syndrome. Esophageal stenosis EGD and PEG tube placed 01/05/2019. GI has signed off. Tolerating goal of 60mls/hr on PEG. PATIENT MAY USE 80ML/HR X 18 HRS/DAY. Discharge 01/10 Continue to monitor Phos and Mg and replete as necessary due to concerns about refeeding syndrome. Pt is technically NPO, all meds through PEG tube. Acute UTI (urinary tract infection) UTI due to indwelling Armijo catheter. Streptococcus species and Staphylococcus species growing on urine culture, +UA Armijo catheter was exchanged in the ER upon admission Converted rocephin to keflex TID via peg, to be DCd 01/13. Severe protein-calorie malnutrition With 9 kg weight loss in last month, pre-albumin low at 13, secondary to esophageal cancer and stenosis with poor p.o. intake Will DC with nutrition recs (see above) Per nutrition started IV thiamine and repleted Mg/Phos. Follow CMP, phosphorus, magnesium Elevated troponin Troponin mildly elevated at 0.7 upon admission, this is been elevated in the past, is likely myocardial demand ischemia. He has no chest pain or pressure at all and is asymptomatic, ECG is with no definite ischemic changes Serial troponins reviewed - Stable at 0.7. Hyperlipidemia continue Simvastatin on DC. Parkinsons disease Sinemet via PEG tube. Reflux esophagitis Per GI, changed H2 raj to PPI. Esophageal cancer History Currently undergoing HDR brachytherapy. -Pt received radiation on 01/09 at 1000. Plans for possible systemic chemotherapy are pending-the patient may have a repeat PET scan Ulcerative colitis Not currently active restarted sulfadiazine via PEG. Atrial fibrillation In atrial flutter at the time of admission, rate controlled. Restarted PO Metoprolol to 12.5mg BID. Restarted Eliquis after PEG placement. Converted IV digoxin to PO via PEG. Monitor on telemetry Armijo catheter in place Placed for urinary retention. UTI due to indwelling Armijo catheter. Restarted home dutasteride Continue alfuzosin Armijo catheter was exchanged on admission in the ER on 01/04/2019 Orthostatic hypotension Started on midodrine last admission for orthostasis which is likely secondary to Parkinson's, Sinemet, alfuzosin -Follow blood pressures Oral candidiasis c/w clotrimazole trouches x14-day course DVT prophylaxis Eliquis as above. Admit to medical floor with telemetry Dispo: [facility] DNR/DNI (2) Acute UTI (urinary tract infection): (3) Severe protein-calorie malnutrition: (4) Elevated troponin: (5) Hyperlipidemia: (6) Parkinsons disease: (7) Reflux esophagitis: (8) Hypertension: (9) Esophageal cancer: (10) Weight loss: (11) Ulcerative colitis: (12) Atrial fibrillation: (13) Armijo catheter in place: (14) Orthostatic hypotension: (15) Oral candidiasis: (16) DVT prophylaxis: Supervising Physician Co-Signing Physician Notes I saw the patient along with the resident physician this morning. I confirmed zabala portions of the history and physical exam. I agree with the impression and plan as noted above. Esophageal stenosis, Secondary to esophageal cancer He is at his goal rate of 60 mL's per hour Once he returns home, this can be adjusted to 80 mL's per hour for 18 hours a day to make appointments and therapy/outings easier Monitor BMP, magnesium, and phosphorus Acute UTI (urinary tract infection) Keflex 3 times daily via PEG Atrial fibrillation Metoprolol, Eliquis, digoxin. Other diagnoses as noted above Subjective Interviewed patient after radiation this morning. Has no concerns. Is very much ready to return to home/facility. Has no complaints, no lightheadedness, chest pain, dizziness, somnolence, abdominal pain. Tolerating feeds well. Review of Systems Review of Systems: All systems reviewed & are unremarkable except as noted in HPI & below Constitutional: no fever and no body aches Gastrointestinal: no abdominal pain and no nausea Physical Exam Constitutional: well developed, well nourished, + thin, + cachectic and + frail appearing; no acute distress Eyes: PERRL, conjunctivae normal, anicteric sclerae Neck: trachea midline, no thyromegaly normal visual inspection Respiratory: normal respiratory effort, lungs clear to auscultation normal respiratory effort Auscultation: lungs clear to auscultation bilaterally Cardiovascular: RRR, no murmur, no edema Rate/Rhythm: regular rate, regular rhythm and + irregularly irregular Heart Sounds: normal, physiologic split S2 and + murmur (2/6 at the left sternal border) Chest (Breasts): Chest: + vascular access device or port Gastrointestinal (Abdomen): normal bowel sounds, soft, nontender, no hepatosplenomegaly Inspection/Auscultation: + scaphoid and + abdominal surgical incision (non tender, non erythematous PEG tube) Percussion/Palpation: abdomen soft; abdomen nontender and no guarding Musculoskeletal: Extremities: extremities normal to inspection (tremor in the RLE. ); no cyanosis and no clubbing Skin: no rashes, warm and dry Neurologic: moves all extremities and awake; no focal motor deficits Psychiatric: A+Ox3, euthymic affect Results & Data Vital Signs (Past 12 Hours) Vital Signs Temp Pulse Pulse Resp BP Pulse Ox 01/09/19 07:06 67 01/09/19 07:00 36.9 C 72 16 128/82 97 Laboratory Results 01/09/19 01/09/19 01/08/19 Range/Units 06:04 05:55 23:43 Sodium 133 L (136-145) mmol/L Potassium 3.8 (3.5-5.1) mmol/L Chloride 96 L (98-107) mmol/L Carbon Dioxide 31 (21-32) mmol/L Anion Gap 6.0 (3-11) BUN 7 (7-18) mg/dl Creatinine 0.51 L (0.6-1.4) mg/dl Est Cr Clr Drug Dosing 124.1 ml/min Est GFR ( Amer) 127.1 Est GFR (Non-Af Amer) 109.7 BUN/Creatinine Ratio 13.5 (10-20) Glucose 114 H (70-99) mg/dl POC Glucose 122 H 112 H (70-99) Calcium 7.6 L (8.5-10.1) mg/dl Phosphorus 2.3 L (2.5-4.9) mg/dl Magnesium 1.7 L (1.8-2.4) mg/dl Medications Administered Current Inpatient Medications Alfuzosin HCl (Uroxatral) 10 mg PO QPM KARYN Stop: 02/03/19 20:59 Last Admin: 01/08/19 22:01 Dose: 10 mg Documented by: Amiodarone HCl (Cordarone) 200 mg PO DAILY [facility] Stop: 02/04/19 08:59 Last Admin: 01/09/19 10:26 Dose: Not Given Documented by: Apixaban (Eliquis) 5 mg PO BID [facility] Stop: 02/06/19 08:59 Last Admin: 01/09/19 10:26 Dose: Not Given Documented by: Carbidopa/Levodopa (Sinemet 25/100 Mg) 2 tab PEG QID [facility] Stop: 02/05/19 20:59 Last Admin: 01/09/19 13:18 Dose: 2 tab Documented by: Cephalexin HCl (Keflex) 500 mg PO QID [facility] Stop: 01/13/19 16:59 Last Admin: 01/09/19 13:19 Dose: 500 mg Documented by: Clotrimazole (Mycelex) 10 mg BUCCAL [id number] [facility] Stop: 01/14/19 19:59 Last Admin: 01/09/19 11:02 Dose: Not Given Documented by: Digoxin (Lanoxin) 0.125 mg PO DAILY@1600 [facility] Stop: 02/07/19 15:59 Last Admin: 01/08/19 16:33 Dose: 0.125 mg Documented by: Enteral Nutritional Formula (Fibersource Hn 1.2 Jeovanny Liquid) 0 ml GT UD [facility]; Protocol Stop: 02/05/19 17:14 Last Admin: 01/08/19 18:37 Dose: 1,000 ml Documented by: Enteral Nutritional Formula (Fibersource Hn 1.2 Jeovanny Liquid) 1,000 ml PO DAILY Stop: 01/10/19 23:59 Heparin Sodium (Porcine) (Heparin Sod 100 Unit/Ml Flush) 5 ml FLUSH PRN PRN PRN Reason: Flush Stop: 02/05/19 00:14 Potassium Chloride/Dextrose/Sod Cl (D5w And 1/2nss + 20meq Kcl) 20 meq in 1,000 mls @ 75 mls/hr IV .[id number] [facility] Stop: 02/03/19 14:45 Last Admin: 01/09/19 00:49 Dose: 75 mls/hr Documented by: Acetaminophen (Ofirmev) 1,000 mg in 100 mls @ 400 mls/hr IV Q8H PRN PRN Reason: Pain or Fever Stop: 02/03/19 18:30 Last Infusion: 01/06/19 02:43 Dose: Infused Documented by: Sodium Chloride (Nss 1000ml) 1,000 mls @ 15 mls/hr IV .Q24H [facility] Stop: 02/04/19 14:44 Last Admin: 01/08/19 11:43 Dose: Not Given Documented by: Lansoprazole (Prevacid) 30 mg GT QAM [facility] Stop: 02/05/19 16:44 Last Admin: 01/09/19 10:26 Dose: Not Given Documented by: Levalbuterol HCl (Xopenex 1.25mg/3ml Neb) 1.25 mg INH Q6R PRN PRN Reason: Wheezing Stop: 02/03/19 15:59 Menthol (Nice) 1 milad BUCCAL PRN PRN PRN Reason: SORE THROAT Stop: 02/08/19 04:48 Metoprolol Tartrate (Lopressor) 12.5 mg PO BID [facility] Stop: 02/05/19 20:59 Last Admin: 01/09/19 10:26 Dose: Not Given Documented by: Midodrine (Proamatine) 10 mg PO TID@0700,1200,1800 [facility] Stop: 02/03/19 17:59 Last Admin: 01/09/19 13:18 Dose: 10 mg Documented by: Miscellaneous (Order Awaiting Action) 1 ea N/A QS [facility] Stop: 02/03/19 15:59 Last Admin: 01/09/19 10:26 Dose: Not Given Documented by: Ondansetron HCl (Zofran) 4 mg IV Q6H PRN PRN Reason: Nausea Stop: 02/03/19 14:55 Oxybutynin Chloride (Ditropan) 5 mg PO TID PRN PRN Reason: Bladder Spasms Stop: 02/03/19 14:55 Polyethylene Glycol (Miralax Powder Packet) 17 gm PEG DAILY PRN PRN Reason: constipation Stop: 02/03/19 14:55 Potassium Phosphate (Phospha 250 Neutral 155-852-130 Mg) 1 tab PO QID [facility] Stop: 02/06/19 08:59 Last Admin: 01/09/19 13:19 Dose: 1 tab Documented by: Sennosides (Senokot) 17.2 mg PO QAM [facility] Stop: 02/04/19 08:59 Last Admin: 01/09/19 10:27 Dose: Not Given Documented by: Sodium Chloride ([place] Nasal) 1 sprays NA PRN PRN PRN Reason: Dryness Stop: 02/06/19 21:09 Sulfadiazine (Azulfidine) 500 mg PO 1200 KARYN Stop: 02/04/19 11:59 Last Admin: 01/09/19 13:19 Dose: 500 mg Documented by: Triamcinolone Acetonide (Aristocort 0.1%) 1 appln EXT TID PRN PRN Reason: Itching Stop: 02/06/19 22:03 Resident Activity Tracking Resident Involvement: Resident Care Provided Care Provided: Adult Hospital Medicine
[2019-01-09] MEDS: FIBERSOURCE HN 1.2 CAL 1000 ML BAG GT SCH (17:02)
[2019-01-09] MEDS: DIGOXIN 0.125 MG TAB PO SCH (18:04)
[2019-01-09] MEDS: SODIUM CHLORIDE 0.9% 1000ML 1,000 ML IV SCH (18:05)
[2019-01-09] MEDS: ALFUZOSIN HCL 10 MG TAB PO SCH (21:10)
[2019-01-10] MEDS: D5W AND 1/2NSS + 20MEQ KCL 20 MEQ/1,000 ML BAG IV SCH (02:43)
[2019-01-10] MEDS: CLOTRIMAZOLE 10 MG TROCHE BUCCAL SCH ×2 (05:47→11:00)
[2019-01-10] MEDS: MIDODRINE HCL 10 MG TAB PO SCH ×2 (05:47→11:25)
[2019-01-10 07:26] VITALS: TEMP 97.9; O2SAT 90
[2019-01-10] MEDS ORDERED: cephALEXin 500 MG CAP PO SCH (09:00)
[2019-01-10 09:04] LABS: BUN Creatinine Ratio 17.7 (10-20); Calcium 7.9 mg/dl (8.5-10.1); Creatinine Clr Calc Pharmacy 119.4 ml/min; Est GFR (African American) 125.1; Magnesium 1.7 mg/dl (1.8-2.4); Phosphorus 2.6 mg/dl (2.5-4.9); Potassium 4.3 mmol/L (3.5-5.1)
[2019-01-10] MEDS: LANSOPRAZOLE 30 MG SOLTAB GT SCH (09:05)
[2019-01-10] MEDS: CARBIDOPA/LEVODOPA 25/100MG TAB PEG SCH (09:06)
[2019-01-10] MEDS: SENNA 8.6 MG TAB PO SCH (09:06)
[2019-01-10] MEDS: METOPROLOL TARTRATE 25 MG TAB PO SCH (09:07)
[2019-01-10] MEDS: AMIODARONE 200 MG TAB PO SCH (09:07)
[2019-01-10] MEDS: cephALEXin 500 MG CAP PO SCH (09:07)
[2019-01-10] MEDS: POT PHOSPHATE MONOBASIC W/ SOD TAB PO SCH (09:07)
[2019-01-10] MEDS: APIXABAN 5 MG TABLET PO SCH (09:36)
[2019-01-10] MEDS: sulfaSALAzine 500 MG TABLET PO SCH (11:25)
[2019-01-10 11:37] VITALS: BP 106/63; PULSE 83
--- NOTE | 2019-01-10 18:13 | Discharge Summary ---
Date of Service January 10, 2019 Admission HPI Per Admitting Provider For EGD with PEG placement Principal Diagnosis Esophageal stenosis 2/2 esophageal cancer Discharge Exam Constitutional well developed, + thin, + cachectic and + frail appearing; no acute distress Eyes PERRL, conjunctivae normal, anicteric sclerae Neck trachea midline, no thyromegaly normal visual inspection Respiratory normal respiratory effort, lungs clear to auscultation Auscultation: lungs clear to auscultation bilaterally Cardiovascular RRR, no murmur, no edema Rate/Rhythm: regular rate and regular rhythm Heart Sounds: normal, physiologic split S2 and + murmur (2/6 at the left sternal border) Chest (Breasts) Chest: + vascular access device or port Gastrointestinal (Abdomen) normal bowel sounds, soft, nontender, no hepatosplenomegaly Inspection/Auscultation: + scaphoid and + abdominal surgical incision (non tender, non erythematous PEG tube) Percussion/Palpation: abdomen soft; abdomen nontender and no guarding Musculoskeletal Extremities: extremities normal to inspection (tremor in the RLE. ); no cyanosis and no clubbing Skin no rashes, warm and dry Neurologic moves all extremities and awake; no focal motor deficits Psychiatric A+Ox3, euthymic affect Discharge Data Allergies Allergy/AdvReac Type Severity Reaction Status Date / Time No Known Allergies Allergy Verified 01/04/19 09:14 Consultations 01/04/19 12:14 ED Decision to Admit Stat 01/04/19 14:56 Consult Case Management - Discharge Planning Routine Consult Gastroenterology Routine Consult Radiation Oncology Routine Procedures Performed Operation Date: 01/05/19 08:50 Actual Procedures p Esophagogastroduodenoscopy with Peg Tube Placement - Favio Arteaga [facility] Course (1) Esophageal obstruction: Esophageal stenosis: 68M with esophageal CA with recurrence admitted for inability to eat 2/2 to esophageal stenosis. Lives at [facility] in [facility]. EGD and PEG placement by Dr. Salvador on 01/05/2019. Started using the PEG tube on 01/06/19, advanced per incident handler recommendations while monitoring for refeeding syndrome. Esophageal stenosis EGD and PEG tube placed 01/05/2019. Tolerating goal of 60mls/hr on PEG. PATIENT MAY USE 80ML/HR X 18 HRS/DAY. (6 hours off for therapy, QOL, etc--140mL free H2O flushes QID) Continue to monitor Phos and Mg and replete as necessary due to concerns about refeeding syndrome. Pt is technically NPO, all meds through PEG tube. Electrolytes stable. Acute UTI (urinary tract infection) UTI due to indwelling Armijo catheter. Streptococcus species and Staphylococcus species growing on urine culture, +UA Armijo catheter was exchanged in the ER upon admission (01/04) Converted rocephin to keflex TID via peg, to be DCd 01/13. Severe protein-calorie malnutrition With 9 kg weight loss in last month, pre-albumin low at 13, secondary to esophageal cancer and stenosis with poor p.o. intake Will DC with nutrition recs (see above) Per nutrition gave IV thiamine and repleted Mg/Phos. Follow CMP, phosphorus, magnesium prn Elevated troponin Troponin mildly elevated at 0.7 upon admission, this is been elevated in the past, is likely myocardial demand ischemia. No chest pain or pressure/is asymptomatic, ECG with no definite ischemic changes Serial troponins reviewed - Stable at 0.7. Hyperlipidemia continue Simvastatin on DC. Parkinsons disease Sinemet via PEG tube. Reflux esophagitis Per GI, changed H2 raj to PPI. Esophageal cancer History Currently undergoing HDR brachytherapy. -Pt received radiation on 01/09 at 1000. Plans for possible systemic chemotherapy are pending-the patient may have a repeat PET scan Ulcerative colitis Not currently active restarted sulfadiazine via PEG. Atrial fibrillation In atrial flutter at the time of admission, rate controlled. Restarted PO Metoprolol to 12.5mg BID. Restarted Eliquis after PEG placement. Converted IV digoxin to PO via PEG. Monitor on telemetry WILL HOLD ASA. MAY DISCUSS FURTHER PROS/CONS WITH PATIENT Armijo catheter in place Placed for urinary retention. UTI due to indwelling Armijo catheter. Restarted home dutasteride Continue alfuzosin Armijo catheter was exchanged on admission in the ER on 01/04/2019 Orthostatic hypotension Started on midodrine last admission for orthostasis which is likely secondary to Parkinson's, Sinemet, alfuzosin -Follow blood pressures Oral candidiasis c/w clotrimazole troches x14-day course DNR/DNI (2) Acute UTI (urinary tract infection): (3) Severe protein-calorie malnutrition: (4) Elevated troponin: (5) Hyperlipidemia: (6) Parkinsons disease: (7) Reflux esophagitis: (8) Hypertension: (9) Esophageal cancer: (10) Weight loss: (11) Ulcerative colitis: (12) Atrial fibrillation: (13) Armijo catheter in place: (14) Orthostatic hypotension: (15) Oral candidiasis: (16) DVT prophylaxis: (2) Primary cancer of lower third of esophagus: (3) Parkinson disease: (4) Acute UTI (urinary tract infection): (5) HTN (hypertension): (6) Severe protein-calorie malnutrition: Total Time Total Time Spent Total Time Spent (In Minutes): >30 min Discharge Plan Discharge Items Patient Disposition: Transfer Assisted Fac Reason For Visit: ESOPHAGEAL OBSTRUCTION, UTI Discharge Diagnosis: Esophageal stricture Discharge Goals: Decrease discomfort, Improve disease control, Increase independence, Improve nutritional status and Therapeutic intervention Activity: Per 'Additional Instructions' section Non-emergency contact: Primary Care Provider Call non-emergency contact if: you have any medication questions, your symptoms worsen and you have a fever Follow-up/Referrals: [facility] [Primary Care Provider] - Diet: Enteral nutrition Diet Comment: Strict NPO Addtl Provider Instructions: Esophageal stenosis: 68M with esophageal CA with recurrence admitted for inability to eat 2/2 to esophageal stenosis. Lives at [facility] in [facility]. EGD and PEG placement by Dr. Salvador on 01/05/2019. Started using the PEG tube on 01/06/19, advanced per incident handler recommendations while monitoring for refeeding syndrome. Esophageal stenosis EGD and PEG tube placed 01/05/2019. Tolerating goal of 60mls/hr on PEG. PATIENT MAY USE 80ML/HR X 18 HRS/DAY. (6 hours off for therapy, QOL, etc--140mL free H2O flushes QID) Continue to monitor Phos and Mg and replete as necessary due to concerns about refeeding syndrome. Pt is technically NPO, all meds through PEG tube. Electrolytes stable. Acute UTI (urinary tract infection) UTI due to indwelling Armijo catheter. Streptococcus species and Staphylococcus species growing on urine culture, +UA Armijo catheter was exchanged in the ER upon admission (01/04) Converted rocephin to keflex TID via peg, to be DCd 01/13. Severe protein-calorie malnutrition With 9 kg weight loss in last month, pre-albumin low at 13, secondary to esophageal cancer and stenosis with poor p.o. intake Will DC with nutrition recs (see above) Per nutrition gave IV thiamine and repleted Mg/Phos. Follow CMP, phosphorus, magnesium prn Elevated troponin Troponin mildly elevated at 0.7 upon admission, this is been elevated in the past, is likely myocardial demand ischemia. No chest pain or pressure/is asymptomatic, ECG with no definite ischemic changes Serial troponins reviewed - Stable at 0.7. Hyperlipidemia continue Simvastatin on DC. Parkinsons disease Sinemet via PEG tube. Reflux esophagitis Per GI, changed H2 raj to PPI. Esophageal cancer History Currently undergoing HDR brachytherapy. -Pt received radiation on 01/09 at 1000. Plans for possible systemic chemotherapy are pending-the patient may have a repeat PET scan Ulcerative colitis Not currently active restarted sulfadiazine via PEG. Atrial fibrillation In atrial flutter at the time of admission, rate controlled. Restarted PO Metoprolol to 12.5mg BID. Restarted Eliquis after PEG placement. Converted IV digoxin to PO via PEG. Monitor on telemetry WILL HOLD ASA. MAY DISCUSS FURTHER PROS/CONS WITH PATIENT Armijo catheter in place Placed for urinary retention. UTI due to indwelling Armijo catheter. Restarted home dutasteride Continue alfuzosin Armijo catheter was exchanged on admission in the ER on 01/04/2019 Orthostatic hypotension Started on midodrine last admission for orthostasis which is likely secondary to Parkinson's, Sinemet, alfuzosin -Follow blood pressures Oral candidiasis c/w clotrimazole troches x14-day course Dispo: [facility] DNR/DNI (2) Acute UTI (urinary tract infection): (3) Severe protein-calorie malnutrition: (4) Elevated troponin: (5) Hyperlipidemia: (6) Parkinsons disease: (7) Reflux esophagitis: (8) Hypertension: (9) Esophageal cancer: (10) Weight loss: (11) Ulcerative colitis: (12) Atrial fibrillation: (13) Armijo catheter in place: (14) Orthostatic hypotension: (15) Oral candidiasis: (16) DVT prophylaxis: Prescriptions: New cephalexin 500 mg Capsule 500 mg PO TID 4 Days Qty: 12 RF: 0 Phospha 250 Neutral 250 mg Tablet 1 tab PO QID 15 Days Qty: 60 RF: 0 metoprolol tartrate 25 mg Tablet 12.5 mg PO BID 30 Days Qty: 30 RF: 0 Fibersource HN 0.05 gram- 1.2 kcal/mL Liquid 60 ea G-tube UD 1 Days Qty: 1440 RF: 0 clotrimazole 10 mg Daljit 10 mg buccal [id number] 8 Days Qty: 40 RF: 0 triamcinolone acetonide 0.1 % Cream 1 applic EXT TID PRN (Reason: skin irritation) 30 Days Qty: 30 RF: 0 lansoprazole [Prevacid SoluTab] 30 mg Tablet,Disintegrat, Delay Rel 30 mg G-tube QAM 30 Days Qty: 30 RF: 0 Continued polyethylene glycol 3350 [Miralax] 17 gram powder in packet 17 g PO DAILY PRN (Reason: constipation) RF: 0 alfuzosin 10 mg tablet extended release 24 hr 10 mg PO QPM RF: 0 levalbuterol HCl 1.25 mg/0.5 mL Solution For Nebulization 1.25 mg inhalation Q6R Qty: 30 RF: 0 sennosides [Senokot] 8.6 mg Tablet 17.2 mg PO QAM Qty: 14 RF: 0 Eliquis 5 mg Tablet 5 mg PO BID Qty: 60 RF: 0 sulfasalazine 500 mg Tablet 500 mg PO DAILY@1200 RF: 0 simvastatin 20 mg Tablet 20 mg PO PM RF: 0 folic acid 1 mg Tablet 1 mg PO HS RF: 0 carbidopa-levodopa [Sinemet] 25-100 mg Tablet 2 tab PO QID RF: 0 cholecalciferol (vitamin D3) [Vitamin D3] 1,000 unit Capsule 2,000 unit PO QAM RF: 0 acetaminophen 325 mg Tablet 325 mg PO Q4 PRN (Reason: pain/fever) RF: 0 digoxin 125 mcg Tablet 125 mcg PO QAM RF: 0 coQ10 (ubiquinol) 200 mg Capsule 200 mg PO QAM RF: 0 amiodarone 200 mg tablet 200 mg PO DAILY RF: 0 potassium chloride 10 mEq tablet extended release 10 meq PO DAILY RF: 0 midodrine 10 mg tablet 10 mg PO TID RF: 0 dutasteride 0.5 mg capsule 0.5 mg PO DAILY RF: 0 oxybutynin chloride 5 mg tablet 5 mg PO TID PRN (Reason: Bladder Spasms) RF: 0 rasagiline 1 mg tablet 1 mg PO HS RF: 0 Discontinued aspirin 81 mg Tablet,Delayed Release (Dr/Ec) 81 mg PO QAM RF: 0 pantoprazole 40 mg Tablet,Delayed Release (Dr/Ec) 40 mg PO QAM RF: 0 metoprolol succinate 25 mg tablet extended release 24 hr 25 mg PO HS RF: 0 Stand-Alone Forms: My [facility] Discharge Orders: Discharge Order (Routine); Ordered 01/10/19 Ordered By: Samantha Mcdonough Skilled Items Patient informed of condition?: Yes DNR: Yes Discharge Level of Care: Skilled Communicable Disease: No Discharge Prognosis: Improving Admission Data Admit Date/Time: 01/04/19 13:50 Attending Provider: Phillip Fox Admit Provider: Raeann Kelley Primary Care Provider: [facility] Other Providers: German Napier ; Raeann Kelley ; Favio Salvador ; Michael Marsh Service: Telemetry Medical Other Interventions: Discharge Summary Assessment (RN) Last Done: 01/10/19 11:36 DC Date/Time DO NOT enter until pt leaves facility: 01/10/19 12:28 Supervising Physician Co-Signing Physician Notes I saw the patient with the resident physician. He has no complaints today and is eager for discharge. He is tolerating his tube feeds without difficulty. All questions regarding medications were reviewed with the patient. Arrangements have been made for the patient continues to feeds at [facility]. Resident Activity Tracking Resident Involvement: Resident Care Provided Care Provided: Adult Hospital Medicine
== END 2019-01-10 12:28 | DRG 374 ==
LOC: ED 08:49 → SUATTDRO 13:50 → 3W 13:50 → 2N 17:00

== ENCOUNTER 2019-01-14 05:02 | Observation (INO) ==
[2019-01-14] MEDS ORDERED: ASPIRIN 81 MG CHEW GT STA (05:12)
[2019-01-14] MEDS ORDERED: SODIUM CHLORIDE 0.9% 1000ML 500 ML IV ONE (05:13)
--- NOTE | 2019-01-14 05:19 | Emergency Department Note ---
ED Provider Note Name: Jericho Donahue Age: 68 Arrives Via: EMS Informant: Pt CC: Chest Pain HPI: 68 male arrives for evaluation of chest pain. Substernal chest pressure starting yesterday. On and off though worse this morning. No improvement with Tylenol. No radiation of pain. No nausea, vomiting, palpitations, lightheaded, syncope. Notes there is some shortness of breath. Deep breath does seem to make it a bit worse. Patient received SLNTG by EMS with complete resolution of pain. Patient states he is feeling better currently. he notes history of A- flutter with need for previous cardioversion. Chronically on Eliquis. He denies CAD history with nor previous stenting. ROS: See above HPI for pertinent positives & negatives. A total of 10 systems reviewed and were otherwise negative. Past Medical History: Esophageal CA, HTN, GERD, Parkinson Past Surgical History: PEG tube Family History: CAD, Colon CA, DMII Social History: Retired, , lives at [facility], nonsmoker, no etoh, no drugs Home Medications: See Below Allergies None Physical: Vitals: BP 121/77, P 79, R 16, T 37.4, O2 97% RA Exam: GENERAL: Patient is chronically unwell and cachectic appearing and in no acute distress. EYES: No scleral icterus, unremarkable pupils. ENT: Mucous membranes dry, no nasal congestion. NECK: No masses appreciated, no meningismus, trachea is midline. RESPIRATORY: No dyspnea. Clear to auscultation and equal bilaterally. No wheeze, no rhonchi. CARDIOVASCULAR: Regular rate and rhythm. No murmurs, rubs, gallops appreciated. GASTROINTESTINAL: PEG tube in place without erythema surrounding nor discharge. Abdomen soft, non-tender, no peritonitis. Bowel sounds positive. No masses appreciated. BACK: No midline tenderness, no CVA tenderness EXTREMITIES: Normal motion all extremities, no cyanosis, no edema. NEUROLOGIC: Alert and oriented, no acute motor or sensory deficits, no focal weakness, cranial nerves grossly intact. SKIN: No rash, no jaundice, no diaphoresis. ED Course: Prior Medical Record, Triage/Nursing Notes, Medications, Allergies reviewed by Me Vital Signs: reviewed and remarkable for Labs: Reviewed and remarkable for positive trop at his baseline Interventions: SLNTG, ASA 324mg GT, Nitro Paste Imaging: X ray results are stated below per my interpretation: Chest: 1 view: No infiltrate, no effusion, normal cardiac border. Mediport in place. Gtube epigastrium. Air under diaphragm right which is new from 01/09/19. Unclear if this is bowel or free air under diaphragm. EKG: Per My Interpretation: Indication - Chest Pain: Aflutter 65 bmp without ischemia. Similar to 01/04/2019 EKG Consults: Dr Michael - [facility] Hospitalist - Requests CT PE study be done on patient and will extend in to Abdo/pelv given cxr findings. Reassessments/Times: Return of CP and then resolution after further chest pain Blood pressure: Normal. No Referral necessary Disposition: Hospitalization Differentials: Differential: Cardiac Ischemia (STEMI, NSTEMI, Unstable Angina, etc), Aortic Dissection, Arrhythmia, Pulmonary Embolism, Pneumonia, Pneumothorax, MSK, Infectious, Pericarditis/Myocarditis, Esophageal Rupture, Gastrointestinal, amongst other pathologies entertained.. Medical Decision Makin yr old male with esophageal cancer post radiation recently with placement of gtube due to inability to eat arrives with acute chest pain relieved with sltng. Initial trop is at his .4 baseline. EKG without ischemia with aflutter. He had return CP again relieved with SLTNG and paste. Other labs oK. CXR with concern free air under diaphragm though he has no ttp whatsover to abdomen nor abdominal pain. He was evaluated by Hospitalist who asked that ct imaging be done given his history which was ordered. Patient stable and will be admitted to hospitalist service. Impression: Substernal Chest Pain Kenrick Bui MD Impression & Plan Substernal chest pain Past Med/Surg History Social History Preferred Language: Austrian Communication Ability: Effective Visual Impairment: No Limitations Hearing Ability: Normal Beliefs That Will Affect Care: None marital status: Single Current Living Situation: Personal Care Facility Current Living Situation Comment: [facility] Feels Safe at Home: Yes Smoking Status: Never smoker Second Hand Exposure: No Hx Alcohol Use: No Hx Substance Use: No caffeine: Yes (1 cup coffee/day;not currently since diagnosis;) during the past year weight has: increased > 10 lbs Results & Data Vital Signs Vital Signs - 24 hr 01/14/19 05:23 01/14/19 05:58 01/14/19 06:03 Temperature 37.4 C Temperature Source Oral Sepsis Recent Fever Within 48 Hours No Sepsis New/Unexplained Change in Mental Status No Sepsis Action Taken by Nursing No Action Required Pulse Rate 68 Pulse Rate [Apical] 75 Pulse Rhythm Regular Pulse Rhythm [Apical] Irregular Respiratory Rate 18 16 Respiratory Effort / Characteristics Non-Labored Spontaneous Non-Labored Respiratory Depth Normal Normal Respiratory Pattern Regular Regular Blood Pressure 117/69 Blood Pressure [Right Arm] 136/95 Blood Pressure Mean 85 Blood Pressure Mean [Right Arm] 108 Pulse Oximetry 98 99 96 Oxygen Delivery Method Room Air Room Air BiPAP Fraction of Inspired Oxygen 40 SaO2/FiO2 Ratio 240 01/14/19 06:13 01/14/19 06:44 Temperature Temperature Source Sepsis Recent Fever Within 48 Hours Sepsis New/Unexplained Change in Mental Status Sepsis Action Taken by Nursing Pulse Rate Pulse Rate [Apical] 85 79 Pulse Rhythm Pulse Rhythm [Apical] Irregular Irregular Respiratory Rate 18 16 Respiratory Effort / Characteristics Non-Labored Spontaneous Non-Labored Spontaneous Respiratory Depth Normal Normal Respiratory Pattern Regular Regular Blood Pressure Blood Pressure [Right Arm] 134/86 121/77 Blood Pressure Mean Blood Pressure Mean [Right Arm] 102 91 Pulse Oximetry 93 97 Oxygen Delivery Method Room Air Room Air Fraction of Inspired Oxygen SaO2/FiO2 Ratio Laboratory Data Result diagrams: 01/14/19 05:08 01/14/19 05:08 Lab Results 01/14/19 01/14/19 01/14/19 Range/Units 05:08 05:08 05:08 WBC 9.88 (4.8-10.8) K/uL RBC 3.72 L (4.7-6.1) M/uL Hgb 11.4 L (14.0-18.0) g/dL Hct 34.3 L (42-52) % MCV 92.2 (80-100) fL MCH 30.6 (25-34) pg MCHC 33.2 (32-36) g/dL RDW Std Deviation 57.6 H (36.4-46.3) fL RDW Coeff of Mikki 17.1 H (11.5-14.5) % Plt Count 234 (130-400) K/uL MPV 9.8 (7.4-10.4) fL Immature Gran % (Auto) 0.2 % Neut % (Auto) 85.8 % Lymph % (Auto) 6.1 % Pershing % (Auto) 7.6 % Eos % (Auto) 0.2 % Baso % (Auto) 0.1 % Immature Gran # (Auto) 0.02 (0.00-0.02) K/uL Neut # (Auto) 8.48 H (1.4-6.5) K/uL Lymph # (Auto) 0.60 L (1.2-3.4) K/uL Pershing # (Auto) 0.75 H (0.11-0.59) K/uL Eos # (Auto) 0.02 (0-0.5) K/uL Baso # (Auto) 0.01 (0-0.2) K/uL PT 11.9 (9.0-12.0) Seconds INR 1.2 H (0.9-1.1) APTT 41.2 H (21.0-31.0) Seconds PTT Ratio 1.5 Sodium 134 L (136-145) mmol/L Potassium 4.3 (3.5-5.1) mmol/L Chloride 97 L (98-107) mmol/L Carbon Dioxide 32 (21-32) mmol/L Anion Gap 5.0 (3-11) BUN 19 H (7-18) mg/dl Creatinine 0.67 (0.6-1.4) mg/dl Est Cr Clr Drug Dosing 97.3 ml/min Est GFR ( Amer) 113.6 Est GFR (Non-Af Amer) 98.0 BUN/Creatinine Ratio 28.4 H (10-20) Glucose 103 H (70-99) mg/dl Calcium 8.0 L (8.5-10.1) mg/dl Magnesium 1.8 (1.8-2.4) mg/dl Total Bilirubin 0.5 (0.2-1) mg/dl Direct Bilirubin 0.2 (0-0.2) mg/dl AST 18 (15-37) U/L ALT 13 (12-78) U/L Alkaline Phosphatase 49 (45-117) U/L Troponin I 0.432 H* (0-0.045) ng/ml Total Protein 6.0 L (6.4-8.2) gm/dl Albumin 2.5 L (3.4-5.0) gm/dl Lipase 59 L (73-393) U/L Digoxin (0.8-2.0) ng/ml 01/14/19 Range/Units 05:08 WBC (4.8-10.8) K/uL RBC (4.7-6.1) M/uL Hgb (14.0-18.0) g/dL Hct (42-52) % MCV (80-100) fL MCH (25-34) pg MCHC (32-36) g/dL RDW Std Deviation (36.4-46.3) fL RDW Coeff of Mikki (11.5-14.5) % Plt Count (130-400) K/uL MPV (7.4-10.4) fL Immature Gran % (Auto) % Neut % (Auto) % Lymph % (Auto) % Pershing % (Auto) % Eos % (Auto) % Baso % (Auto) % Immature Gran # (Auto) (0.00-0.02) K/uL Neut # (Auto) (1.4-6.5) K/uL Lymph # (Auto) (1.2-3.4) K/uL Pershing # (Auto) (0.11-0.59) K/uL Eos # (Auto) (0-0.5) K/uL Baso # (Auto) (0-0.2) K/uL PT (9.0-12.0) Seconds INR (0.9-1.1) APTT (21.0-31.0) Seconds PTT Ratio Sodium (136-145) mmol/L Potassium (3.5-5.1) mmol/L Chloride (98-107) mmol/L Carbon Dioxide (21-32) mmol/L Anion Gap (3-11) BUN (7-18) mg/dl Creatinine (0.6-1.4) mg/dl Est Cr Clr Drug Dosing ml/min Est GFR ( Amer) Est GFR (Non-Af Amer) BUN/Creatinine Ratio (10-20) Glucose (70-99) mg/dl Calcium (8.5-10.1) mg/dl Magnesium (1.8-2.4) mg/dl Total Bilirubin (0.2-1) mg/dl Direct Bilirubin (0-0.2) mg/dl AST (15-37) U/L ALT (12-78) U/L Alkaline Phosphatase (45-117) U/L Troponin I (0-0.045) ng/ml Total Protein (6.4-8.2) gm/dl Albumin (3.4-5.0) gm/dl Lipase (73-393) U/L Digoxin 0.9 (0.8-2.0) ng/ml Administered Medications Discontinued Medications Aspirin (Aspirin Chew) 324 mg GT NOW STA Stop: 01/14/19 05:13 Last Admin: 01/14/19 05:35 Dose: 324 mg Documented by: [id number] Sodium Chloride (Nss 1000ml) 500 mls @ 999 mls/hr IV .Q31M ONE Stop: 01/14/19 05:43 Last Infusion: 01/14/19 06:09 Dose: 0 mls/hr Documented by: [id number] Admin: 01/14/19 05:35 Dose: 999 mls/hr Documented by: [id number] Nitroglycerin (Nitro-Bid 2%) 1 inch EXT NOW ONE Stop: 01/14/19 06:09 Last Admin: 01/14/19 06:14 Dose: 1 inch Documented by: [id number] Nitroglycerin (Nitrostat) 0.4 mg SL NOW STA Stop: 01/14/19 06:09 Last Admin: 01/14/19 06:14 Dose: 0.4 mg Documented by: [id number] Discharge Plan Visit Data Chief Complaint: Chest Pain Stated Complaint: chest pain, a-flutter ED Provider: Kenrick Bui Discharge Problem: Substernal chest pain Patient Disposition: Admitted As Inpatient Discharge Instructions Interventions: ED Discharge Assessment Last Done: 01/14/19 07:11 Forms Stand Alone Forms: Call Back Authorization, [facility] Prescriptions Prescriptions: No Action alfuzosin 10 mg tablet extended release 24 hr 10 mg PO QPM RF: 0 sulfasalazine 500 mg Tablet 500 mg PO DAILY@1200 RF: 0 folic acid 1 mg Tablet 1 mg PO HS RF: 0 carbidopa-levodopa [Sinemet] 25-100 mg Tablet 2 tab feeding tube QID RF: 0 acetaminophen 325 mg Tablet 325 mg feeding tube Q4 PRN (Reason: pain/fever) RF: 0 digoxin 125 mcg Tablet 125 mcg feeding tube QAM RF: 0 amiodarone 200 mg tablet 200 mg feeding tube DAILY RF: 0 potassium chloride 10 mEq tablet extended release 10 meq PO DAILY RF: 0 midodrine 10 mg tablet 10 mg feeding tube TID RF: 0 dutasteride 0.5 mg capsule 0.5 mg PO DAILY RF: 0 oxybutynin chloride 5 mg tablet 5 mg PO TID PRN (Reason: Bladder Spasms) RF: 0 rasagiline 1 mg tablet 1 mg feeding tube HS RF: 0 lansoprazole [Prevacid SoluTab] 30 mg Tablet,Disintegrat, Delay Rel 30 mg G-tube QAM 30 Days Qty: 30 RF: 0 fluconazole [Diflucan] 200 mg Tablet 200 mg feeding tube DAILY RF: 0 Eliquis 5 mg tablet 5 mg feeding tube BID RF: 0 levalbuterol HCl 1.25 mg/0.5 mL solution for nebulization 1.25 mg inhalation Q6H RF: 0 metoprolol tartrate 25 mg tablet 12.5 mg feeding tube BID RF: 0 Phospha 250 Neutral 250 mg tablet 1 tab feeding tube QID RF: 0 sennosides [Senokot] 8.6 mg tablet 17.2 mg PO QAM PRN (Reason: Constipation) RF: 0 Referrals Referrals: Eriberto Turner [Primary Care Provider] -
[2019-01-14 05:24] LABS: Basophils # (auto) 0.01 K/uL (0-0.2); Basophils % (auto) 0.1 %; Eosinophils # (auto) 0.02 K/uL (0-0.5); Eosinophils % (auto) 0.2 %; Hematocrit (blood only) 34.3 % (42-52); Hemoglobin 11.4 g/dL (14.0-18.0); Immature Granulocytes # (auto) 0.02 K/uL (0.00-0.02); Immature Granulocytes % (auto) 0.2 %; Lymphocytes % (auto) 6.1 %; Mean Corpuscular Hgb Conc 33.2 g/dL (32-36); Mean Corpuscular Volume 92.2 fL (80-100); Mean Platelet Volume 9.8 fL (7.4-10.4); Monocytes # (auto) 0.75 K/uL (0.11-0.59); Monocytes % (auto) 7.6 %; Neutrophils # (auto) 8.48 K/uL (1.4-6.5); Neutrophils % (auto) 85.8 %; Platelet Count 234 K/uL (130-400); RDW Coefficient of Variation 17.1 % (11.5-14.5); RDW Standard Deviation 57.6 fL (36.4-46.3); Red Blood Count 3.72 M/uL (4.7-6.1); White Blood Count 9.88 K/uL (4.8-10.8)
[2019-01-14 05:34] LABS: INR 1.2 (0.9-1.1); Partial Thromboplastin Ratio 1.5; Partial Thromboplastin Time 41.2 Seconds (21.0-31.0); Prothrombin Time 11.9 Seconds (9.0-12.0)
[2019-01-14 05:41] LABS: Albumin Level 2.5 gm/dl (3.4-5.0); BUN Creatinine Ratio 28.4 (10-20); Bilirubin Direct 0.2 mg/dl (0-0.2); Creatinine Clr Calc Pharmacy 97.3 ml/min; Est GFR (African American) 113.6; Magnesium 1.8 mg/dl (1.8-2.4); Potassium 4.3 mmol/L (3.5-5.1)
[2019-01-14 05:50] LABS: Bilirubin,Total 0.5 mg/dl (0.2-1); Troponin I 0.432 ng/ml (0-0.045)
[2019-01-14] MEDS ORDERED: NITROGLYCERIN SL 0.4 MG/TAB TAB SL STA (06:08)
[2019-01-14] MEDS ORDERED: NITROGLYCERIN 2% OINTMENT 30GM TUBE EXT ONE (06:08)
--- NOTE | 2019-01-14 06:41 | History & Physical Report ---
Date of Service January 14, 2019 Assessment & Plan (1) Chest pain: 68 y/o M Hx esophageal CA, A flutter, Parkinson's, UC, HTN, HLD, GERD, chronically elevated trop, peg tube due to esophageal stenosis. Presenting with BL upper CP which is worsened with inspiration. He has not had nausea, vomiting or diaphoresis. He does report minimal SOB. An initial troponin is below baseline and an EKG does not support acute ischemia. He states that the pain resolved with NTG. The pt completed chemotherapy and radiation. 1) CP - resolved with NTG - will trend enzymes and consult cardiology by pt's request. CP is largely pleuritic and we have ordered a CTA as he is at risk of PE despite Eliquis use. Will add ASA to regimen. Cont statin. 2) Parkinson's - poorly controlled - cont Sinemet - can f/u with neuro as outpt. 3) Flutter - rate is controlled - cont Amio, Dig, Metoprolol. 4) UC - cont Mesalamine 5) Esophageal CA - recently completed chemo/radiation - status of CA unclear - f/u with H/O as outpt. Full code - Eliquis prophylaxis Total time for this admit including review of labs, meds, imaging, records - discussion with pt and ER attending - 39 min Present on Admission?: Yes History of Present Illness Chief Complaint: Chest pain Primary Care Provider: [facility] 68 y/o M Hx esophageal CA, A flutter, Parkinson's, UC, HTN, HLD, GERD, chronically elevated trop, peg tube due to esophageal stenosis. Presenting with BL upper CP which is worsened with inspiration. He has not had nausea, vomiting or diaphoresis. He does report minimal SOB. An initial troponin is below baseline and an EKG does not support acute ischemia. He states that the pain resolved with NTG. The pt completed chemotherapy and radiation. PMH: 1) Esophageal cancer with esophageal stenosis and PEG tube placement. 2) HTN 3) HLD 4) Parkinson'e disease 5) Paroxysmal atrial flutter 6) Chornically elevated troponin 7) Ulcerative colitis 8) GERD Surgical: Port-a-cath, tonsillectomy Social: No history of smoking Minimal ETOH intake Family: Mother with history of CAD/OK Allergies Allergy/AdvReac Type Severity Reaction Status Date / Time No Known Allergies Allergy Verified 01/14/19 06:21 Home Medications Home Medications Medication Instructions Recorded Confirmed Type carbidopa-levodopa [Sinemet] 2 tab FEEDING TUBE QID 05/19/18 01/14/19 History folic acid 1 mg PO HS 05/19/18 01/04/19 History sulfasalazine 500 mg PO DAILY@1200 05/19/18 01/04/19 History acetaminophen 325 mg FEEDING TUBE Q4 PRN 10/30/18 01/14/19 History digoxin 125 mcg FEEDING TUBE QAM 10/30/18 01/14/19 History alfuzosin 10 mg PO QPM 11/19/18 01/04/19 History amiodarone 200 mg tablet 200 mg FEEDING TUBE DAILY tab 12/05/18 01/14/19 History dutasteride 0.5 mg PO DAILY 01/04/19 01/04/19 History midodrine 10 mg FEEDING TUBE TID 01/04/19 01/14/19 History oxybutynin chloride 5 mg PO TID PRN 01/04/19 01/14/19 History potassium chloride 10 meq PO DAILY 01/04/19 01/14/19 History rasagiline 1 mg FEEDING TUBE HS 01/04/19 01/14/19 History lansoprazole [Prevacid SoluTab] 30 mg G-TUBE QAM 30 Days #30 tab 01/10/19 01/14/19 Rx Eliquis 5 mg FEEDING TUBE BID 01/14/19 01/14/19 History fluconazole [Diflucan] 200 mg FEEDING TUBE DAILY 01/14/19 01/14/19 History levalbuterol HCl 1.25 mg INHALATION Q6H 01/14/19 01/14/19 History metoprolol tartrate 12.5 mg FEEDING TUBE BID 01/14/19 01/14/19 History sennosides [Senokot] 17.2 mg PO QAM PRN 01/14/19 01/14/19 History sod phos di, mono-K phos mono 1 tab FEEDING TUBE QID 01/14/19 01/14/19 History [Phospha 250 Neutral] Past Med/Surg History Social History Preferred Language: French Communication Ability: Effective Visual Impairment: No Limitations Hearing Ability: Normal Beliefs That Will Affect Care: None marital status: Single Current Living Situation: Personal Care Facility Current Living Situation Comment: [facility] Feels Safe at Home: Yes Smoking Status: Never smoker Second Hand Exposure: No Hx Alcohol Use: No Hx Substance Use: No caffeine: Yes (1 cup coffee/day;not currently since diagnosis;) during the past year weight has: increased > 10 lbs Review of Systems Review of Systems: Gen: Denies fevers, night sweats, rigors, fatigue, malaise, weight loss/gain ENT: Denies congestion or hearing loss Eyes: Denies acute visual changes CV: Pleuritic CP as above Pulmonary: + SOB - no cough, wheezing GI: Denies N/V, diarrhea, constipation Neuro: Denies acute or unilateral weakness, acute gait impairment, headache or acute visual changes Musculoskeletal: Denies joint pain, inflammation Endocrine: Denies polydipsia, polyuria Skin: Denies acute rashes or ulcers Physical Exam Physical Exam: General: AAO x 3, no distress ENT: No erythema or exudates, no thrush Eyes: DOMI, EOMI Head and neck: Normocephalic, atraumatic, No JVD, neck is supple. Chest/heart: Nontender, S1,2, irr, 2/6 systolic murmur Lungs: CTAB, no wheezing or crackles Abdomen: Nontender - PEG in place Neuro: AAO x 3 - persistent R tremor - speech is clear, no unilateral weakness or loss of sensation, coordination intact Musculoskeletal: No joint inflammation, muscle tenderness, FROM Skin: No acute rashes or ulcers Extremities: No clubbing, cyanosis, edema Results & Data Vital Signs (Past 12 Hours) Vital Signs Temp Pulse Pulse Resp BP BP Pulse Ox 01/14/19 06:13 85 18 134/86 93 01/14/19 06:03 96 01/14/19 05:58 75 16 136/95 99 01/14/19 05:23 99.3 F 68 18 117/69 98
[2019-01-14] MEDS ORDERED: OPTIRAY 320 125ml IV PRN (07:30)
[2019-01-14] MEDS ORDERED: SENNA 8.6 MG TAB PO PRN (07:52)
[2019-01-14] MEDS ORDERED: ACETAMINOPHEN 325 MG TAB PO PRN (07:52)
[2019-01-14] MEDS ORDERED: OXYBUTYNIN CHLORIDE 5 MG TAB PO PRN (07:52)
[2019-01-14] MEDS ORDERED: POLYETHYLENE (MIRALAX) 17 GM PACK PO PRN (07:52)
--- NOTE | 2019-01-14 07:52 | CT Scan Report ---
CHEST CTA for PULMONARY ARTERIES CT DOSE: HISTORY: Pleuritic chest pain. TECHNIQUE: Multiaxial CT images of the chest were performed following the intravenous administration of contrast to evaluate the pulmonary arteries. Maximal intensity projection images were also obtaine d. A dose lowering technique was utilized adhering to the principles of ALARA. COMPARISON STUDY: Chest CTA 11/20/2018. FINDINGS: Mild thickening of the mid to distal esophagus, unchanged. This is consistent with the dwight ent's known history of esophageal malignancy. Small bilateral pleural effusions, right greater than l eft have increased in size. No mediastinal or hilar lymphadenopathy. The heart is mildly enlarged. Ri ght jugular Port-A-Cath terminates in the SVC/brachiocephalic junction. No suspicious lytic or blasti c osseous lesions within the chest. No pneumothorax. The central airways are patent. Increase in size in bilateral upper lobe pulmonary nodules. There are greater than 5 total pulmonary nodules identifi ed. Dominant nodule within the left lung apex on image 225 measures 7 mm, previous measuring 5 mm. Th erefore, this is consistent with metastatic disease. Groundglass densities within the lung bases, rig ht. The left. This could represent atelectasis or pneumonia. No evidence for an aortic dissection. Th e heart is mildly enlarged. No filling defects within the pulmonary arteries to suggest pulmonary emb olus. Pneumoperitoneum. IMPRESSION: 1. No evidence for pulmonary embolus. 2. Increase in size in the bilateral pulmonary nodules consistent with metastatic disease. 3. Increase in size in the bilateral pleural effusions. 4. Groundglass densities at the lung bases. This could represent atelectasis or pneumonia. 5. Mild thickening of the mid to distal esophagus is again noted. This is consistent with the patient 's history of esophageal malignancy. 6. Pneumoperitoneum. This is better appreciated on the same day abdomen and pelvis CT. Electronically signed by: Adam Moreira M.D. 01/14/2019 7:50 AM
--- NOTE | 2019-01-14 08:05 | CT Scan Report ---
ABDOMEN AND PELVIS CT WITH IV CONTRAST CT DOSE: 585.06 mGy.cm HISTORY: Atypical Chest pain, concern free air under diaph on CXR TECHNIQUE: Multiaxial CT images of the abdomen and pelvis were performed following the use of intrave nous contrast. A dose lowering technique was utilized adhering to the principles of ALARA. COMPARISON STUDY: Abdomen and pelvis CT 11/20/2018. Radiation oncology CT 12/29/2018. FINDINGS: Small bilateral pleural effusions have increased in size. Small to moderate amount of pneum operitoneum within the upper abdomen. There has been interval placement of a percutaneous gastrostomy tube which appears in good position. No suspicious lytic or blastic osseous lesions. No hepatic or s plenic masses. Mild adrenal gland thickening, unchanged. The pancreas is unremarkable. Bilateral morro l cysts remain unchanged. No hydronephrosis. No retroperitoneal lymphadenopathy. Cholelithiasis with a distended gallbladder. This remains unchanged. Bladder is decompressed by a Armijo catheter. The pro state gland remains enlarged. Trace pelvic free fluid. Mild body wall edema. Moderate well-formed sto ol within the colon. No definite bowel wall thickening. A few borderline dilated gas and fluid-filled loops of small bowel within the deep pelvis. These measure up to 3 cm diameter. No clear transition point. Therefore, this could represent a gastroenteritis or low-grade partial small bowel obstruction . IMPRESSION: 1. Small to moderate amount of pneumoperitoneum within the upper abdomen. This can be seen the settin g of bowel perforation. However, an exact source is not identified at this time. In addition, given t he recent percutaneous gastrostomy tube placement, this could be postprocedural. Clinical recommended . 2. Small bilateral pleural effusions. 3. Cholelithiasis with a distended gallbladder, unchanged. 4. Moderate well-formed stool within the colon. 5. A few borderline dilated gas and fluid-filled loops of small bowel within the deep pelvis. No sonny r transition point. Therefore, this could represent an ileus, gastroenteritis or low-grade partial sm all bowel obstruction. Electronically signed by: Adam Moreira M.D. 01/14/2019 8:03 AM
--- NOTE | 2019-01-14 08:21 | XRay Report ---
XR chest 1V portable HISTORY: substernal chest pressure COMPARISON: Chest 01/09/2019. FINDINGS: Right jugular Port-A-Cath terminates at the proximal SVC. No pneumothorax. Pneumoperitoneum . Bibasilar airspace opacities. The heart is mildly enlarged. No evidence for pulmonary edema. IMPRESSION: 1. Pneumoperitoneum. This could be postprocedural given the recent percutaneous gastrostomy tube plac ement. Clinical correlation recommended. 2. Bibasilar airspace opacities. Electronically signed by: Adam Moreira M.D. 01/14/2019 8:20 AM
[2019-01-14] MEDS: D5W AND NSS 1,000 ML IV SCH ×2 (08:30→20:42)
[2019-01-14] MEDS ORDERED: NON-FORMULARY MEDICATION (Dutasteride 0.5 MG) PO SCH (09:00)
[2019-01-14] MEDS: LEVALBUTEROL HCL 1.25 MG/3 ML NEB INH SCH ×3 (09:18→18:50)
[2019-01-14] MEDS: MIDODRINE HCL 10 MG TAB PO SCH ×3 (09:39→20:39)
[2019-01-14] MEDS: METOPROLOL TARTRATE 25 MG TAB PO SCH ×2 (09:48→20:40)
[2019-01-14] MEDS: CARBIDOPA/LEVODOPA 25/100MG TAB PEG SCH ×4 (09:49→20:37)
[2019-01-14] MEDS: AMIODARONE 200 MG TAB PO SCH (09:49)
[2019-01-14] MEDS: LANSOPRAZOLE 30 MG SOLTAB GT SCH (09:50)
[2019-01-14] MEDS: APIXABAN 5 MG TABLET PO SCH ×2 (09:50→20:39)
[2019-01-14] MEDS: POTASSIUM CHLORIDE 10 MEQ TABCR PO SCH (09:51)
[2019-01-14] MEDS: POT PHOSPHATE MONOBASIC W/ SOD TAB PO SCH ×4 (09:51→20:39)
[2019-01-14] MEDS: FLUCONAZOLE 200 MG/5 ML UDP PEG SCH (09:53)
[2019-01-14] MEDS: sulfaSALAzine 500 MG TABLET PO SCH (12:47)
--- NOTE | 2019-01-14 14:57 | Cardiology Consultation ---
Date of Consultation January 14, 2019 Assessment & Plan (1) Chest pain: Etiology of his chest discomfort is uncertain, however there is no indication of an acute cardiac process. His ECG is unremarkable and troponins are flat (chronically elevated). Given the response to sublingual nitroglycer in, there could have been an element of esophageal spasm. Less likely, but possible, he has a loud murmur versus rub at the left lower sternal border, pericardial involvement with his metastatic disease could cause pleuritic pain, but would expect to see ECG manifestations and have persistent or positional pain rather than episodic symptoms which resolved with nitroglycerin. Recommend monitoring overnight for any recurrence of his symptoms. If he does have noncardiac symptoms which resolved with nitroglycerin, could consider nitroglycerin patch for palliative care of presumed esophageal spasm. (2) Atrial flutter with controlled response: Rate well controlled on amiodarone, metoprolol, and digoxin. Defer to his primary pulmonary fellow (Dr. Ahumada) in regards to remaining on amiodarone for possible future attempts at cardioversion. (3) Adenocarcinoma of gastroesophageal junction: (4) Elevated troponin: Chronic. No peak indicate noted. Possibly from metastatic involvement of his myocardium. (5) Esophageal obstruction: Any medications (other than sublingual nitroglycerin) would need to be administered via PEG tube. History of Present Illness Attending Physician: Ellis Pena History of Present Illness 68-year-old man with esophageal cancer (PEG tube), chronic atrial flutter, chronically elevated troponin, no other medical problems was admitted after an episode of atypical chest pain. He noted bilateral upper chest and shoulder discomfort which worsened on inspiration and resolved after sublingual nitroglycerin. CT of the chest showed no pulmonary embolism, troponin curve is flat and at baseline, ECG did not show any ischemia. His chest discomfort resolved completely and has not recurred. Currently, he is comfortable, with no chest or abdominal discomfort, dyspnea, palpitations, or other complaints. Allergies Allergy/AdvReac Type Severity Reaction Status Date / Time No Known Allergies Allergy Verified 01/14/19 06:21 Home Medications Home Medications Medication Instructions Recorded Confirmed Type carbidopa-levodopa [Sinemet] 2 tab FEEDING TUBE QID 05/19/18 01/14/19 History folic acid 1 mg PO HS 05/19/18 01/14/19 History sulfasalazine 500 mg PO DAILY@1200 05/19/18 01/14/19 History acetaminophen 325 mg FEEDING TUBE Q4 PRN 10/30/18 01/14/19 History digoxin 125 mcg FEEDING TUBE QAM 10/30/18 01/14/19 History alfuzosin 10 mg PO QPM 11/19/18 01/14/19 History amiodarone 200 mg tablet 200 mg FEEDING TUBE DAILY tab 12/05/18 01/14/19 History dutasteride 0.5 mg PO DAILY 01/04/19 01/14/19 History midodrine 10 mg FEEDING TUBE TID 01/04/19 01/14/19 History oxybutynin chloride 5 mg PO TID PRN 01/04/19 01/14/19 History potassium chloride 10 meq PO DAILY 01/04/19 01/14/19 History rasagiline 1 mg FEEDING TUBE HS 01/04/19 01/14/19 History lansoprazole [Prevacid SoluTab] 30 mg G-TUBE QAM 30 Days #30 tab 01/10/19 01/14/19 Rx Eliquis 5 mg FEEDING TUBE BID 01/14/19 01/14/19 History fluconazole [Diflucan] 200 mg FEEDING TUBE DAILY 01/14/19 01/14/19 History levalbuterol HCl 1.25 mg INHALATION Q6H 01/14/19 01/14/19 History metoprolol tartrate 12.5 mg FEEDING TUBE BID 01/14/19 01/14/19 History sennosides [Senokot] 17.2 mg PO QAM PRN 01/14/19 01/14/19 History sod phos di, mono-K phos mono 1 tab FEEDING TUBE QID 01/14/19 01/14/19 History [Phospha 250 Neutral] Patient History Social History Preferred Language: Kyrgyz Communication Ability: Effective Visual Impairment: No Limitations Hearing Ability: Normal [employer]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 Beliefs That Will Affect Care: None marital status: Single Current Living Situation: Personal Care Facility Current Living Situation Comment: [facility] Other Information That Helps Us Care for You: No Feels Safe at Home: Yes Safety Concerns: Feels Safe At This Time Smoking Status: Never smoker Do You Dip or Chew Tobacco: No Second Hand Exposure: No Tobacco Cessation Education Requested by Patient: No Hx Alcohol Use: No Hx Substance Use: No caffeine: Yes (1 cup coffee/day;not currently since diagnosis;) during the past year weight has: increased > 10 lbs Review of Systems Review of Systems: All systems reviewed & are unremarkable except as noted in HPI & below Constitutional: no fever and no chills Eyes: no problem reported Ear, Nose, Mouth, Throat: no problem reported Respiratory: + pain on inspiration; no cough and no dyspnea Cardiovascular: as per Subjective / HPI Gastrointestinal: no abdominal pain Musculoskeletal: no myalgia Neurologic: no localized weakness Physical Exam Physical Exam: No distress. Skin: No unusual lesions or ecchymosis. HEENT: Unremarkable. Neck: Jugular venous pulse at the clavicle at 90, no carotid bruits. Lungs: Mildly diminished breath sounds but clear. No wheezing or crackles. Chest wall: No focal tenderness. Cardiac: Irregular rhythm with 3/6 somewhat harsh systolic murmur left sternal border, no diastolic murmur or distinct gallop. Abdomen: Soft and nontender. Extremities: Nontender without edema. Intact peripheral pulses. Neurologic: Normal affect, nonfocal Results & Data Vital Signs (Past 12 Hours) Vital Signs Temp Pulse Pulse Pulse Resp BP BP 01/14/19 14:30 69 16 01/14/19 11:51 36.7 C 64 19 87/49 L 01/14/19 09:20 84 16 01/14/19 08:00 36.9 C 83 16 130/78 01/14/19 06:44 79 16 121/77 01/14/19 06:13 85 18 134/86 01/14/19 06:03 01/14/19 05:58 75 16 136/95 01/14/19 05:23 37.4 C 68 18 117/69 Pulse Ox 01/14/19 14:30 95 01/14/19 11:51 94 01/14/19 09:20 97 01/14/19 08:00 98 01/14/19 06:44 97 01/14/19 06:13 93 01/14/19 06:03 96 01/14/19 05:58 99 01/14/19 05:23 98 Laboratory Results Laboratory Tests 01/14/19 01/14/19 01/14/19 05:08 05:08 08:42 WBC 9.88 Hgb 11.4 L Plt Count 234 BUN 19 H Creatinine 0.67 Troponin I 0.432 H* 0.402 H* Diagnostic Findings Chest CT results: 1. No evidence for pulmonary embolus. 2. Increase in size in the bilateral pulmonary nodules consistent with metastatic disease. 3. Increase in size in the bilateral pleural effusions. 4. Groundglass densities at the lung bases. This could represent atelectasis or pneumonia. 5. Mild thickening of the mid to distal esophagus is again noted. This is consistent with the patient's history of esophageal malignancy. 6. Pneumoperitoneum. This is better appreciated on the same day abdomen and pelvis CT. Serial ECGs showed atrial flutter with controlled ventricular response (60s), incomplete right bundle branch block, no significant ST dynamic changes. (1) Chest pain Chest pain type: chest pain on breathing Qualified Code(s): R07.1 - Chest pain on breathing; R07.81 - Pleurodynia
[2019-01-14] MEDS ORDERED: DIGOXIN 0.125 MG TAB PO SCH (16:00)
[2019-01-14] MEDS ORDERED: FIBERSOURCE HN 1.2 CAL 1000 ML BAG GT SCH (16:45)
--- NOTE | 2019-01-14 19:54 | Hospitalist Progress Note ---
Date of Service January 14, 2019 Assessment & Plan (1) Chest pain: All troponins dating back to 2018 have been elevated in the 0.1 to 1 range. The troponins during this admission are stable at 0.4. Significance is uncertain. He had an element of pleuritic pain with his episode but no PEs were seen on CTA. Nothing by way of history or exam to suggest pericarditis. This may have been esophageal spasm. Esophageal spasm would have responded to SL nitro. Echo 2018 was largely normal. Will repeat the echo to see if there is any wall motion abnormality or pericardial effusion. Observe on tele to see if any rapid a. flutter that would have contributed to his symptoms. Cardiology consult appreciated. (2) GERD (gastroesophageal reflux disease): continue PPI (3) Adenocarcinoma of gastroesophageal junction: (4) S/P percutaneous endoscopic gastrostomy (PEG) tube placement: recently placed during prior admission by [facility]. I spoke with GI today and small amount of pneumoperitoneum is likely due to the actual PEG tube placement itself. He is having NO peritoneal signs. No abdominal pain. Will resume tube feedings. Fibersource 1.2 -- 60cc/hr. (5) Hypotension: appears chronic. cont midodrine 10mg TID. (6) Atrial flutter with controlled response: eliquis amiodarone digoxin metoprolol controlled Subjective Saw patient this am. Since admission no recurrent chest symptoms. He had an element of pleuritic pain when the chest pain occurred -- no recurrent pleuritic pain. No cough, wheeze. He had been tolerating his tube feedings at home without any abd pain, nausea, or emesis. He overall feels good today. Mother from [place]. He has never had stress test. Physical Exam Constitutional: + thin; no acute distress ENMT: external ear and nose normal, oropharynx normal Respiratory: normal respiratory effort, lungs clear to auscultation Auscultation: + diminished lung sounds (bases) Cardiovascular: Vessels: posterior tibial pulses present and dorsalis pedis pulses present; no JVD irregular, s1, s2, 2/6 systolic murmur LLSB Gastrointestinal (Abdomen): normal bowel sounds, soft, nontender, no hepatosplenomegaly PEG tube site clean and dry NO PERITONEAL SIGNS Skin: no rashes, warm and dry Neurologic: TREMORS PRESENT Psychiatric: A+Ox3, euthymic affect Results & Data Vital Signs (Past 12 Hours) Vital Signs Temp Pulse Pulse Pulse Resp BP Pulse Ox 01/14/19 19:09 37.1 C 76 17 105/63 98 01/14/19 18:50 66 16 98 01/14/19 16:57 88 01/14/19 15:45 36.8 C 62 17 115/70 94 01/14/19 14:30 69 16 95 01/14/19 11:51 36.7 C 64 19 87/49 L 94 01/14/19 09:20 84 16 97 01/14/19 08:00 36.9 C 83 16 130/78 98 Laboratory Results Laboratory Results - last 24 hr 01/14/19 01/14/19 01/14/19 05:08 05:08 05:08 WBC 9.88 RBC 3.72 L Hgb 11.4 L Hct 34.3 L MCV 92.2 MCH 30.6 MCHC 33.2 RDW Std Deviation 57.6 H RDW Coeff of Mikki 17.1 H Plt Count 234 MPV 9.8 Immature Gran % (Auto) 0.2 Neut % (Auto) 85.8 Lymph % (Auto) 6.1 [place] % (Auto) 7.6 Eos % (Auto) 0.2 Baso % (Auto) 0.1 Immature Gran # (Auto) 0.02 Neut # (Auto) 8.48 H Lymph # (Auto) 0.60 L [place] # (Auto) 0.75 H Eos # (Auto) 0.02 Baso # (Auto) 0.01 PT 11.9 INR 1.2 H APTT 41.2 H PTT Ratio 1.5 Sodium 134 L Potassium 4.3 Chloride 97 L Carbon Dioxide 32 Anion Gap 5.0 BUN 19 H Creatinine 0.67 Est Cr Clr Drug Dosing 97.3 Est GFR ( Amer) 113.6 Est GFR (Non-Af Amer) 98.0 BUN/Creatinine Ratio 28.4 H Glucose 103 H Calcium 8.0 L Magnesium 1.8 Total Bilirubin 0.5 Direct Bilirubin 0.2 AST 18 ALT 13 Alkaline Phosphatase 49 Troponin I 0.432 H* Total Protein 6.0 L Albumin 2.5 L Lipase 59 L Nasal Screen MRSA (PCR) Digoxin 01/14/19 01/14/19 01/14/19 05:08 07:50 08:42 WBC RBC Hgb Hct MCV MCH MCHC RDW Std Deviation RDW Coeff of Mikki Plt Count MPV Immature Gran % (Auto) Neut % (Auto) Lymph % (Auto) [place] % (Auto) Eos % (Auto) Baso % (Auto) Immature Gran # (Auto) Neut # (Auto) Lymph # (Auto) [place] # (Auto) Eos # (Auto) Baso # (Auto) PT INR APTT PTT Ratio Sodium Potassium Chloride Carbon Dioxide Anion Gap BUN Creatinine Est Cr Clr Drug Dosing Est GFR ( Amer) Est GFR (Non-Af Amer) BUN/Creatinine Ratio Glucose Calcium Magnesium Total Bilirubin Direct Bilirubin AST ALT Alkaline Phosphatase Troponin I 0.402 H* Total Protein Albumin Lipase Nasal Screen MRSA (PCR) Negative Digoxin 0.9 (1) Chest pain Chest pain type: chest pain on breathing Qualified Code(s): R07.1 - Chest pain on breathing; R07.81 - Pleurodynia (2) GERD (gastroesophageal reflux disease) Esophagitis presence: esophagitis presence not specified Qualified Code(s): K21.9 - Gastro-esophageal reflux disease without esophagitis (3) Hypotension Hypotension type: other hypotension type Qualified Code(s): I95.89 - Other hypotension
[2019-01-14] MEDS ORDERED: ALFUZOSIN HCL 10 MG TAB PO SCH (21:00)
[2019-01-14] MEDS ORDERED: FOLIC ACID 1 MG TAB PO SCH (21:00)
[2019-01-14] MEDS ORDERED: RASAGILINE 1 MG feeding tube SCH (21:00)
[2019-01-14] MEDS ORDERED: SIMVASTATIN 20 MG TAB PO SCH (21:00)
[2019-01-14] MEDS ORDERED: TRIAMCINOLONE ACET 0.1% CR 15 GM TUBE EXT PRN (23:26)
[2019-01-15] MEDS: LEVALBUTEROL HCL 1.25 MG/3 ML NEB INH SCH ×2 (01:48→07:00)
[2019-01-15 07:22] VITALS: TEMP 98.1; O2SAT 98
[2019-01-15] MEDS: D5W AND NSS 1,000 ML IV SCH (07:49)
[2019-01-15] MEDS: POT PHOSPHATE MONOBASIC W/ SOD TAB PO SCH ×2 (07:49→12:30)
[2019-01-15] MEDS: AMIODARONE 200 MG TAB PO SCH (07:50)
[2019-01-15] MEDS: MIDODRINE HCL 10 MG TAB PO SCH ×2 (07:50→12:30)
[2019-01-15] MEDS: CARBIDOPA/LEVODOPA 25/100MG TAB PEG SCH ×2 (07:50→12:30)
[2019-01-15] MEDS: APIXABAN 5 MG TABLET PO SCH (07:51)
[2019-01-15] MEDS: LANSOPRAZOLE 30 MG SOLTAB GT SCH (07:51)
[2019-01-15] MEDS: METOPROLOL TARTRATE 25 MG TAB PO SCH (07:51)
[2019-01-15] MEDS: POTASSIUM CHLORIDE 10 MEQ TABCR PO SCH (07:51)
[2019-01-15] MEDS: FLUCONAZOLE 200 MG/5 ML UDP PEG SCH (07:52)
--- NOTE | 2019-01-15 11:18 | Cardiology Progress Note ---
Date of Service January 15, 2019 Assessment & Plan (1) Chest pain: Etiology of his chest discomfort is uncertain, however there is no indication of an acute cardiac process. His ECG is unremarkable and troponins are flat (chronically elevated). His echocardiogram does not show any focal wall motion abnormalities (mildly reduced systolic function is likely related to chronic atrial flutter). Given the response to sublingual nitroglycerin, there could have been an element of esophageal spasm. No further cardiac workup planned in the absence of recurrent or progressive symptoms (2) Atrial flutter with controlled response: Rate well controlled on amiodarone, metoprolol, and digoxin. 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 Ahumada) in regards to remaining on amiodarone for possible future attempts at cardioversion. (3) Adenocarcinoma of gastroesophageal junction: (4) Elevated troponin: Chronic. Flat curve with no peak and decay. Possibly from metastatic involvement of his myocardium. (5) Esophageal obstruction: Any medications (other than sublingual nitroglycerin) would need to be administered via PEG tube. Subjective 68-year-old man with apparently metastatic esophageal cancer (PEG tube), chronic atrial flutter, chronically elevated troponin, no other medical problems was admitted after an episode of atypical chest pain. He noted bilateral upper chest and shoulder discomfort which worsened on inspiration and resolved after sublingual nitroglycerin. CT of the chest showed no pulmonary embolism, troponin curve is flat and at baseline, ECG did not show any ischemia. His chest discomfort resolved completely and has not recurred since his admission over 24 hours ago. Currently, he is comfortable, with no chest or abdominal discomfort, dyspnea, palpitations, or other complaints. Review of Systems Constitutional: no fever and no chills Respiratory: no dyspnea Cardiovascular: no chest pain Gastrointestinal: no abdominal pain and no vomiting Physical Exam Physical Exam: No distress. Skin: No unusual lesions or ecchymosis. HEENT: Unremarkable. Neck: Jugular venous pulse at the clavicle at 90, no carotid bruits. Lungs: Mildly diminished breath sounds but clear. No wheezing or crackles. Chest wall: No focal tenderness. Cardiac: Irregular rhythm with 3/6 somewhat harsh systolic murmur left sternal border, no diastolic murmur or distinct gallop. Abdomen: Soft and nontender. Extremities: Nontender without edema. Intact peripheral pulses. Neurologic: Normal affect, nonfocal Results & Data Vital Signs (Past 12 Hours) Vital Signs Temp Pulse Resp BP Pulse Ox 01/15/19 07:21 36.7 C 92 H 18 112/69 98 01/15/19 07:00 92 H 16 97 01/15/19 03:50 36.6 C 84 19 133/51 L 98 01/15/19 01:48 64 16 93 01/14/19 23:26 36.6 C 65 17 82/45 L 96 Laboratory Results Laboratory Tests 01/14/19 01/14/19 01/14/19 05:08 05:08 08:42 WBC 9.88 Hgb 11.4 L BUN 19 H Creatinine 0.67 Troponin I 0.432 H* 0.402 H* Diagnostic Findings Echocardiogram showed normal left ventricular size with mildly reduced systolic function (EF= 45-50 %), mild global hypokinesis, mild tricuspid regurgitation with normal are the systolic pressure. No pericardial effusion. (1) Chest pain Chest pain type: chest pain on breathing Qualified Code(s): R07.1 - Chest pain on breathing; R07.81 - Pleurodynia
[2019-01-15 11:40] VITALS: BP 92/51
--- NOTE | 2019-01-15 11:43 | Discharge Summary ---
Date of Service January 15, 2019 Admission HPI Per Admitting Provider 68 y/o M Hx esophageal CA, A flutter, Parkinson's, UC, HTN, HLD, GERD, chronically elevated trop, peg tube due to esophageal stenosis. Presenting with BL upper CP which is worsened with inspiration. He has not had nausea, vomiting or diaphoresis. He does report minimal SOB. An initial troponin is below baseline and an EKG does not support acute ischemia. He states that the pain resolved with NTG. The pt completed chemotherapy and radiation. PMH: 1) Esophageal cancer with esophageal stenosis and PEG tube placement. 2) HTN 3) HLD 4) Parkinson'e disease 5) Paroxysmal atrial flutter 6) Chornically elevated troponin 7) Ulcerative colitis 8) GERD Surgical: Port-a-cath, tonsillectomy Social: No history of smoking Minimal ETOH intake Family: Mother with history of CAD/MS Admission Exam Per Admitting Provider General: AAO x 3, no distress ENT: No erythema or exudates, no thrush Eyes: DOMI, EOMI Head and neck: Normocephalic, atraumatic, No JVD, neck is supple. Chest/heart: Nontender, S1,2, irr, 2/6 systolic murmur Lungs: CTAB, no wheezing or crackles Abdomen: Nontender - PEG in place Neuro: AAO x 3 - persistent R tremor - speech is clear, no unilateral weakness or loss of sensation, coordination intact Musculoskeletal: No joint inflammation, muscle tenderness, FROM Skin: No acute rashes or ulcers Extremities: No clubbing, cyanosis, edema Principal Diagnosis Chest pain, presumed to be due to esophageal spasm Discharge Exam Constitutional WD/WN, vitals as above Eyes PERRL, conjunctivae normal, anicteric sclerae ENMT external ear and nose normal, oropharynx normal Neck trachea midline, no thyromegaly Respiratory normal respiratory effort, lungs clear to auscultation Cardiovascular RRR, no murmur, no edema Gastrointestinal (Abdomen) normal bowel sounds, soft, nontender, no hepatosplenomegaly (PEG tube in place) Musculoskeletal no cyanosis or clubbing, extremities motor strength 5/5 Skin no rashes, warm and dry Neurologic patellar DTR's 2+ bilat, sensation intact and PERRL, EOMI, accommodation nl, no face palsy, no dysarthria Psychiatric A+Ox3, euthymic affect Genitourinary no testicular masses, no penis abnormality (chronic navarro in place) Lymphatic no cervical or axillary lymphadenopathy Discharge Data Allergies Allergy/AdvReac Type Severity Reaction Status Date / Time No Known Allergies Allergy Verified 01/14/19 06:21 Consultations 01/14/19 06:22 ED Decision to Admit Stat 01/14/19 07:02 Consult Cardiology Stat Ordered Studies 01/14/19 06:22 CT abd pelvis IV con only Stat CT angio chest PE protocol Stat Hospital Course (1) Chest pain: no ischemic changes on EKG All troponins dating back to 2018 have been elevated in the 0.1 to 1 range. The troponins during this admission are stable at 0.4. no significance per cardiology He had an element of pleuritic pain with his episode but no PEs were seen on CTA. Nothing by way of history or exam to suggest pericarditis, echo without abnormalities in the pericardium no arrhythmias on the monitor working diagnosis is that this could be esophageal spasms since he had relief with Nitro SL will provide script for Nitro SL to use PRN (2) GERD (gastroesophageal reflux disease): continue PPI (3) Adenocarcinoma of gastroesophageal junction: has follow up scheduled with Dr. Brice (4) S/P percutaneous endoscopic gastrostomy (PEG) tube placement: recently placed during prior admission by [facility]. Will continue tube feedings. Fibersource 1.2 -- 60cc/hr. (5) Hypotension: appears chronic. cont midodrine 10mg TID. (6) Atrial flutter with controlled response: eliquis amiodarone digoxin metoprolol controlled Total Time Total Time Spent Total Time Spent (In Minutes): 25 minutes Total Time Includes: Examination of the Patient, Discharge Planning, Medication Reconciliation and Communication With Other Providers Discharge Plan Discharge Items Patient Disposition: Transfer Custodial Fac Reason For Visit: CHEST PAIN Discharge Diagnosis: Chest pain, non-cardiac possible esophageal spasm Condition: Good Discharge Goals: Decrease discomfort and Improve disease control Activity: Resume your previous activity Non-emergency contact: Primary Care Provider and Oncologist Call non-emergency contact if: you have any medication questions, your symptoms worsen, your pain is not controlled and you have a fever Follow-up/Referrals: Eriberto Turner [Primary Care Provider] - Diet: Enteral nutrition Addtl Provider Instructions: Medications: - NITROGLYCERIN: use sublingually as needed for any chest pressure or pain, this is to treat potential esophageal spasms Chest pain: no evidence that this is due to cardiac ischemia troponin chronically elevated at 0.4, was elevated x 3 readings, stable no dynamic EKG changes echocardiogram without pericardial changes or effusion to suggest pericarditis CT chest without evidence of pulmonary embolism or other lung pathology since pain got better with nitroglycerin, consider esophageal spasm as strong possible cause of pain will provide script for Nitro SL to use as needed for any future pain Esophageal cancer: follow up with Dr. Johnston as scheduled Urinary retention with catheter: follow up with Dr. Mejia as scheduled Atrial flutter and mild systolic dysfunction: follow up with Dr. Ahumada as scheduled Prescriptions: New nitroglycerin 0.4 mg tablet, sublingual 0.4 mg sublingual Q8 PRN (Reason: chest pain) Qty: 60 RF: 1 Continued alfuzosin 10 mg tablet extended release 24 hr 10 mg PO QPM RF: 0 sulfasalazine 500 mg Tablet 500 mg PO DAILY@1200 RF: 0 folic acid 1 mg Tablet 1 mg PO HS RF: 0 carbidopa-levodopa [Sinemet] 25-100 mg Tablet 2 tab feeding tube QID RF: 0 acetaminophen 325 mg Tablet 325 mg feeding tube Q4 PRN (Reason: pain/fever) RF: 0 digoxin 125 mcg Tablet 125 mcg feeding tube QAM RF: 0 amiodarone 200 mg tablet 200 mg feeding tube DAILY RF: 0 potassium chloride 10 mEq tablet extended release 10 meq PO DAILY RF: 0 midodrine 10 mg tablet 10 mg feeding tube TID RF: 0 dutasteride 0.5 mg capsule 0.5 mg PO DAILY RF: 0 oxybutynin chloride 5 mg tablet 5 mg PO TID PRN (Reason: Bladder Spasms) RF: 0 rasagiline 1 mg tablet 1 mg feeding tube HS RF: 0 lansoprazole [Prevacid SoluTab] 30 mg Tablet,Disintegrat, Delay Rel 30 mg G-tube QAM 30 Days Qty: 30 RF: 0 fluconazole [Diflucan] 200 mg Tablet 200 mg feeding tube DAILY RF: 0 Eliquis 5 mg tablet 5 mg feeding tube BID RF: 0 levalbuterol HCl 1.25 mg/0.5 mL solution for nebulization 1.25 mg inhalation Q6H RF: 0 metoprolol tartrate 25 mg tablet 12.5 mg feeding tube BID RF: 0 Phospha 250 Neutral 250 mg tablet 1 tab feeding tube QID RF: 0 sennosides [Senokot] 8.6 mg tablet 17.2 mg PO QAM PRN (Reason: Constipation) RF: 0 Stand-Alone Forms: Call Back Authorization, [facility] Discharge Orders: Discharge Order (Routine); Ordered 01/15/19 Ordered By: Kevin Herrera Skilled Items Patient informed of condition?: Yes DNR: No Discharge Level of Care: Skilled Communicable Disease: No Discharge Prognosis: Stable Admission Data Admit Date/Time: 01/14/19 06:33 Attending Provider: Kevin Herrera Admit Provider: Silvio Michael Primary Care Provider: Eriberto Turner Other Providers: Silvio Michael ; Samuel Ahumada Service: Telemetry Other Interventions: Discharge Summary Assessment (RN) Last Done: 01/15/19 12:52 DC Date/Time DO NOT enter until pt leaves facility: 01/15/19 13:03
[2019-01-15] MEDS: sulfaSALAzine 500 MG TABLET PO SCH (12:31)
[2019-01-15 12:53] VITALS: PULSE 83
== END 2019-01-15 13:03 ==
LOC: 2S 05:02 → ED 05:02 → SUATTDRO 06:33 → 2S 07:11

== ENCOUNTER 2019-01-26 21:45 | Inpatient (IN) ==
--- NOTE | 2019-01-26 22:36 | XRay Report ---
XR chest 1V portable HISTORY: 68 years-old Male chest pain acute atypical chest pain COMPARISON: CTA of the chest and chest radiograph 01/14/2019 TECHNIQUE: Portable AP view of the chest FINDINGS: Stable positioning of the right pectoral [id number] catheter. Cardiac silhouette is mildly enlarge d, unchanged. No pneumothorax. Subsegmental atelectasis about the left lung base redemonstrated. Unch anged right pleural effusion with right lung base opacities. Degenerative changes of the shoulders an d spine. Resolution of the previously described pneumoperitoneum. IMPRESSION: 1. Cardiomegaly without overt pulmonary edema. 2. Unchanged right pleural effusion with right lung base opacities. The above report was generated using voice recognition software. It may contain grammatical, syntax o r spelling errors. Electronically signed by: Mike Varner M.D. 01/26/2019 10:35 PM
[2019-01-26] MEDS ORDERED: KETOROLAC TROMETHAMINE 15 MG/ML VIAL IV ONE (22:41)
[2019-01-26] MEDS ORDERED: SODIUM CHLORIDE 0.9% 1000ML 500 ML IV ONE (22:41)
[2019-01-26 22:44] LABS: BUN Creatinine Ratio 27.2 (10-20); Creatinine Clr Calc Pharmacy 81.7 ml/min; Est GFR (African American) 109.7; Est GFR (Non-African American) 94.6; Potassium 4.6 mmol/L (3.5-5.1)
--- NOTE | 2019-01-26 22:45 | Emergency Department Note ---
Entered by Lou Estrada acting as a scribe for Deon Mota MD History of Present Illness General Chief complaint: Chest Pain Stated complaint: CHEST TIGHTNESS, SOB Time Seen by Provider: 01/26/19 22:31 Source: patient Mode of arrival: ambulatory Limitations: no limitations History of Present Illness Onset (ago): hour(s) 6 Location: chest Radiation: non-radiation Pain Consistency: + constant Maximum Pain Intensity: 8 Current Pain Intensity: 8 Quality: + sharp Relieved By: + none Exacerbated By: + other (breathing) Associated symptoms: + other (-hematochezia); no fever/chills Treatments prior to arrival: other (Nitroglycerin) The patient is a 68 year old male who presents to the ED with complaints of aisha st pain since 1600 today. He was brought to the ED via EMS. He rates his pain as an 8/10 in severity. He states that deep inspiration worsens his pain. He describes the pain as feeling "sharp" in nature. He was given Nitroglycerin in the field but states it provided no relief. He denies any recent fevers. The patient has a history of esophageal cancer but states he is done with chemotherapy and radiation. He does take Eliquiis for a history of atrial fibrillation. He denies any recent hematochezia. He has a peg tube in place and notes he does not take in any food by mouth. Home Medications Home Medications Medication Instructions Recorded Confirmed Type carbidopa-levodopa [Sinemet] 2 tab FEEDING TUBE QID 05/19/18 01/26/19 History sulfasalazine 500 mg FEEDING TUBE DAILY 05/19/18 01/26/19 History acetaminophen 325 mg FEEDING TUBE Q4 PRN 10/30/18 01/26/19 History digoxin 125 mcg FEEDING TUBE QAM 10/30/18 01/26/19 History amiodarone 200 mg tablet 200 mg FEEDING TUBE QAM tab 12/05/18 01/26/19 History midodrine 10 mg FEEDING TUBE TID 01/04/19 01/26/19 History rasagiline 1 mg FEEDING TUBE QPM 01/04/19 01/26/19 History Eliquis 5 mg FEEDING TUBE BID 01/14/19 01/26/19 History Phospha 250 Neutral 1 tab FEEDING TUBE QID 01/14/19 01/26/19 History levalbuterol HCl 1.25 mg INHALATION Q8 PRN 01/14/19 01/26/19 History nitroglycerin 0.4 mg SUBLINGUAL Q8 PRN #60 tab 01/15/19 01/26/19 Rx Atropine Sulfate Solution 1 drp PO Q4H PRN 01/19/19 01/26/19 History Potassium Chloride Solution 7.5 ml PO QAM 01/19/19 01/26/19 History guaifenesin 400 mg TID PRN 01/19/19 01/26/19 History lansoprazole [Prevacid SoluTab] 30 mg PO QAM 01/19/19 01/26/19 History metoprolol tartrate 12.5 mg FEEDING TUBE BID 01/19/19 01/26/19 History bisacodyl [Dulcolax (bisacodyl)] 10 mg NE DAILY PRN 01/26/19 01/26/19 History Allergies Allergy/AdvReac Type Severity Reaction Status Date / Time No Known Allergies Allergy Verified 01/19/19 10:33 Past Med/Surg History Medical History Atrial fibrillation Dysphagia PROGRESSIVE X 2 MONTHS PER ONCOLOGY NOTE Esophageal cancer 2018--chemo, radiation Esophageal stenosis Armijo catheter in place History of recent pneumonia hospitalized [facility] 11/19/18-11/23/2018 Hyperlipidemia Hypertension Orthostatic hypotension Parkinsons disease Reflux esophagitis Ulcerative colitis Weight loss 30 POUND WEIGHT LOSS PER ONCOLOGY NOTE Surgical History History of cardioversion x2--07/2018 History of colonoscopy History of esophagogastroduodenoscopy (EGD) History of tonsillectomy History of tooth extraction all upper teeth History of vascular access device aport right side Family History Mother , at 80yo;NE, aortic valve replacement, stroke No problems noted. Father , at 88yo;"Colon problem that caused him to weaken" No problems noted. Brother No problems noted. Grandmother (Maternal) Family history of diabetes mellitus Grandfather (Maternal) Family hx of colon cancer Other No family history of adverse response to anesthesia Social History Preferred Language: Italian Communication Ability: Effective Visual Impairment: No Limitations Hearing Ability: Normal Beliefs That Will Affect Care: None marital status: Single Current Living Situation: Personal Care Facility Current Living Situation Comment: [facility] Feels Safe at Home: Yes Smoking Status: Never smoker Second Hand Exposure: No Hx Alcohol Use: No Hx Substance Use: No caffeine: Yes (1 cup coffee/day;not currently since diagnosis;) during the past year weight has: increased > 10 lbs Review of Systems See HPI for pertinent positives & negatives. and A total of 10 systems reviewed and were otherwise negative Physical Exam Vital Signs Vital Signs - 24 hr 01/26/19 21:44 01/26/19 23:18 Temperature 36.5 C Temperature Source Oral Sepsis Recent Fever Within 48 Hours No Sepsis Action Taken by Nursing No Action Required Pulse Rate 108 H Pulse Rate [Finger] 110 H Respiratory Rate 22 18 Respiratory Effort / Characteristics Non-Labored Respiratory Depth Normal Blood Pressure 121/72 Blood Pressure [Left Arm] 116/76 Blood Pressure Mean 88 Blood Pressure Mean [Left Arm] 89 Blood Pressure Position Lying Pulse Oximetry 96 97 Oxygen Delivery Method Room Air Room Air General: Cachectic older male who is shaking from his Parkinson's, he answers all questions appropriately, appears to be in no respiratory distress. HEENT: Normal cephalic atraumatic. Pupils are equal round and reactive to light. Extraocular movements are intact. Oropharynx is pink with moist mucous membranes. No swelling of the mouth lips or tongue. Neck: Supple with a midline trachea. No meningeal signs or stiffness, no JVD or bruits. No Stridor. Chest: Clear to auscultation bilaterally. No wheezes or rhonchi. No increased work of breathing. Heart: regular rate and rhythm. Abdomen: Peg tube in abdomen. Soft nontender, nondistended without rebound guarding or rigidity. Extremities: No cyanosis clubbing or edema. No calf tenderness or asymmetry Spine/Back. Non tender to palpation. No CVA tenderness Skin: Good turgor without rashes. Neurologic exam: Cranial nerves two through 12 are intact. Motor and sensation are intact and symmetrical throughout. Course 2231: The patient was evaluated in room C10 and a complete history and physical were performed. 2238: His BP was 53 systolic, but nursing tells me when she holds his arm still, it is 110. 0: I reevaluated the patient. His blood pressure is normal. He is requesting more medication for pain. 2350: I reevaluated the patient. He is resting comfortably. I discussed my recommendation he remain in the hospital for further evaluation and management and he verbalized complete understanding and agreement. 2356: I discussed the patients case with [facility]ist. The patient will be further evaluated. Consultations Consultation #1: I discussed the patients case with [facility] Hospitalist. The patient will be further evaluated. Time: 23:56 Administered Medications Discontinued Medications Sodium Chloride (Nss 1000ml) 500 mls @ 999 mls/hr IV .Q31M ONE Stop: 01/26/19 23:11 Last Infusion: 01/26/19 23:29 Dose: 0 mls/hr Documented by: [id number] Admin: 01/26/19 22:50 Dose: 999 mls/hr Documented by: [id number] Ketorolac Tromethamine (Toradol) 15 mg IV NOW ONE Stop: 01/26/19 22:42 Last Admin: 01/26/19 22:50 Dose: 15 mg Documented by: [id number] Morphine Sulfate (Morphine Sulfate) 2 mg IV NOW STA Stop: 01/26/19 23:16 Last Admin: 01/26/19 23:20 Dose: 2 mg Documented by: [id number] Ondansetron HCl (Zofran) 4 mg IV NOW STA Stop: 01/26/19 23:16 Last Admin: 01/26/19 23:21 Dose: 4 mg Documented by: [id number] Medical Decision Making Differential Diagnosis The differential diagnoses considered include: cardiac disease, atrial fibrillation, sepsis, dehydration, PE and pneumonia. Medical Records Attestation: I reviewed the patient's medical records. Home Medications Current Medication List: was personally reviewed by me Laboratory Data Attestation: I reviewed the patient's lab results. Result diagrams: 01/26/19 21:55 01/26/19 21:55 Lab Results 01/26/19 01/26/19 01/26/19 Range/Units 21:55 21:55 22:13 WBC 8.56 (4.8-10.8) K/uL RBC 3.97 L (4.7-6.1) M/uL Hgb 11.8 L (14.0-18.0) g/dL Hct 37.7 L (42-52) % MCV 95.0 (80-100) fL MCH 29.7 (25-34) pg MCHC 31.3 L (32-36) g/dL RDW Std Deviation 58.9 H (36.4-46.3) fL RDW Coeff of Mikki 17.0 H (11.5-14.5) % Plt Count 299 (130-400) K/uL MPV 10.1 (7.4-10.4) fL Immature Gran % (Auto) 0.1 % Neut % (Auto) 77.9 % Lymph % (Auto) 10.4 % [place] % (Auto) 11.0 % Eos % (Auto) 0.4 % Baso % (Auto) 0.2 % Immature Gran # (Auto) 0.01 (0.00-0.02) K/uL Neut # (Auto) 6.67 H (1.4-6.5) K/uL Lymph # (Auto) 0.89 L (1.2-3.4) K/uL [place] # (Auto) 0.94 H (0.11-0.59) K/uL Eos # (Auto) 0.03 (0-0.5) K/uL Baso # (Auto) 0.02 (0-0.2) K/uL PT 11.0 (9.0-12.0) Seconds INR 1.1 (0.9-1.1) APTT 29.3 (21.0-31.0) Seconds PTT Ratio 1.1 Sodium 137 (136-145) mmol/L Potassium 4.6 (3.5-5.1) mmol/L Chloride 98 (98-107) mmol/L Carbon Dioxide 33 H (21-32) mmol/L Anion Gap 6.0 (3-11) BUN 20 H (7-18) mg/dl Creatinine 0.73 (0.6-1.4) mg/dl Est Cr Clr Drug Dosing 81.7 ml/min Est GFR ( Amer) 109.7 Est GFR (Non-Af Amer) 94.6 BUN/Creatinine Ratio 27.2 H (10-20) Glucose 95 (70-99) mg/dl Calcium 9.0 (8.5-10.1) mg/dl Total Bilirubin 0.5 (0.2-1) mg/dl AST 28 (15-37) U/L ALT 7 L (12-78) U/L Alkaline Phosphatase 44 L (45-117) U/L Troponin I 0.365 H* (0-0.045) ng/ml Total Protein 6.3 L (6.4-8.2) gm/dl Albumin 3.0 L (3.4-5.0) gm/dl Globulin 3.3 (2.5-4.0) gm/dl Albumin/Globulin Ratio 0.9 (0.9-2) Imaging Data Radiologist's Impression: Radiology results as stated below per my review and the radiologist's interpretation: XR chest 1V portable HISTORY: 68 years-old Male chest pain acute atypical chest pain COMPARISON: CTA of the chest and chest radiograph 01/14/2019 TECHNIQUE: Portable AP view of the chest FINDINGS: Stable positioning of the right pectoral [id number]-i-[id number] catheter. Cardiac silhouette is mildly enlarged, unchanged. No pneumothorax. Subsegmental atel ectasis about the left lung base redemonstrated. Unchanged right pleural effusion with right lung base opacities. Degenerative changes of the shoulders and spine. Resolution of the previously described pneumoperitoneum. IMPRESSION: 1. Cardiomegaly without overt pulmonary edema. 2. Unchanged right pleural effusion with right lung base opacities. The above report was generated using voice recognition software. It may contain grammatical, syntax or spelling errors. Electronically signed by: Mike Varner M.D. 01/26/2019 10:35 PM ECG Data Attestation: I personally reviewed and interpreted this ECG as follows: Indication: chest pain Rate (beats per minute): 109 Rhythm: atrial fibrillation (Poor baseline, but suspect atrial fibrillation) Findings: no acute ischemic change Comparison ECG Date: from (01/14/2019) Change: no significant change Blood Pressure Blood Pressure Findings: Normal blood pressure Blood Pressure Disposition: did not require urgent referral MDM Narrative This patient comes in as described above. He has had chest pain and shortness of breath. He was seen here about a week ago with similar complaints. At the time nitro helped him and they ultimately thought he had esophageal spasm he does have esophageal cancer and has obstruction and gets his only sustenance through the PEG tube. At the time he had a negative CAT scan for PE and does have some esophageal findings as well as pulmonary mets. He says it hurts when he takes a deep breath. it is pleuritic. EKG is difficult to interpret due to his shaking and Parkinson's but there is no definite ischemia, I think it is A. fib that slightly rapid. His blood pressure was low however when he holds still it is normal. He was given a fluid bolus. Chest x-ray was obtained and shows chronic findings without any pneumothorax. Multiple blood testing was obtained. He was asking for something for pain, he was given Toradol 15 mg IV. This helped a little bit. His troponin was elevated although he is chronically elevated. He has no significant right or metabolic abnormalities he was still having some pain he was given morphine 2 mgs IV and Zofran 4 mgs IV and seems much more comfortable. his heart rates down as well and he is remained stable. I do not think is likely PE and given the fact that a CAT scan for similar symptoms about a week ago I do not think you need to repeat the CAT scan. I do think he needs to be admitted/observe for pain management and further evaluation. I think is most likely related his esophagus. He is scheduled be scoped on Tuesday. I have consulted Dr. Marquis and she will see him in the ER for these measures. Impression & Plan Chest pain, Elevated troponin, Esophageal cancer, Parkinson disease Discharge Plan Visit Data Chief Complaint: Chest Pain Stated Complaint: CHEST TIGHTNESS, SOB ED Provider: Deon Mota Discharge Problem: Chest pain, Elevated troponin, Esophageal cancer, Parkinson disease Patient Disposition: Being Evaluated by Hospitalist Forms Stand Alone Forms: Call Back Authorization, My [facility] Prescriptions Prescriptions: No Action bisacodyl [Dulcolax (bisacodyl)] 10 mg Suppository 10 mg NE DAILY PRN (Reason: Constipation) RF: 0 sulfasalazine 500 mg Tablet 500 mg feeding tube DAILY RF: 0 carbidopa-levodopa [Sinemet] 25-100 mg Tablet 2 tab feeding tube QID RF: 0 acetaminophen 325 mg Tablet 325 mg feeding tube Q4 PRN (Reason: pain/fever) RF: 0 digoxin 125 mcg Tablet 125 mcg feeding tube QAM RF: 0 amiodarone 200 mg tablet 200 mg feeding tube QAM RF: 0 Atropine Sulfate Solution 1 drp PO Q4H PRN (Reason: excess oral secretions) RF: 0 guaifenesin 400 mg Tablet 400 mg TID PRN (Reason: congestion/thick secretions) RF: 0 metoprolol tartrate 25 mg Tablet 12.5 mg feeding tube BID RF: 0 Potassium Chloride Solution 7.5 ml PO QAM RF: 0 lansoprazole [Prevacid SoluTab] 30 mg tablet,disintegrat, delay rel 30 mg PO QAM RF: 0 midodrine 10 mg tablet 10 mg feeding tube TID RF: 0 rasagiline 1 mg tablet 1 mg feeding tube QPM RF: 0 Eliquis 5 mg tablet 5 mg feeding tube BID RF: 0 levalbuterol HCl 1.25 mg/0.5 mL solution for nebulization 1.25 mg inhalation Q8 PRN (Reason: Shortness Of Breath) RF: 0 Phospha 250 Neutral 250 mg tablet 1 tab feeding tube QID RF: 0 nitroglycerin 0.4 mg tablet, sublingual 0.4 mg sublingual Q8 PRN (Reason: chest pain) Qty: 60 RF: 1 Referrals Referrals: Eriberto Turner [Primary Care Provider] - The scribe's documentation has been prepared under my direction and personally reviewed by me in its entirety. I confirm that the note above accurately reflects all work, treatment, procedures, and medical decision making performed by me.
[2019-01-26 22:47] LABS: INR 1.1 (0.9-1.1); Partial Thromboplastin Ratio 1.1; Partial Thromboplastin Time 29.3 Seconds (21.0-31.0)
[2019-01-26 22:48] LABS: Basophils # (auto) 0.02 K/uL (0-0.2); Basophils % (auto) 0.2 %; Eosinophils # (auto) 0.03 K/uL (0-0.5); Eosinophils % (auto) 0.4 %; Hematocrit (blood only) 37.7 % (42-52); Hemoglobin 11.8 g/dL (14.0-18.0); Immature Granulocytes # (auto) 0.01 K/uL (0.00-0.02); Immature Granulocytes % (auto) 0.1 %; Lymphocytes # (auto) 0.89 K/uL (1.2-3.4); Lymphocytes % (auto) 10.4 %; Mean Corpuscular Hgb Conc 31.3 g/dL (32-36); Mean Platelet Volume 10.1 fL (7.4-10.4); Monocytes # (auto) 0.94 K/uL (0.11-0.59); Neutrophils # (auto) 6.67 K/uL (1.4-6.5); Neutrophils % (auto) 77.9 %; Platelet Count 299 K/uL (130-400); RDW Standard Deviation 58.9 fL (36.4-46.3); Red Blood Count 3.97 M/uL (4.7-6.1); White Blood Count 8.56 K/uL (4.8-10.8)
[2019-01-26 22:59] LABS: Albumin Globulin Ratio 0.9 (0.9-2); Bilirubin,Total 0.5 mg/dl (0.2-1); Globulin 3.3 gm/dl (2.5-4.0); Total Protein 6.3 gm/dl (6.4-8.2); Troponin I 0.365 ng/ml (0-0.045)
[2019-01-26] MEDS ORDERED: MoRPHine SULFATE 2 MG/ML CARP IV STA (23:15)
[2019-01-26] MEDS ORDERED: ONDANSETRON INJ 2 MG/ML 2 ML VIAL IV STA (23:15)
[2019-01-27] MEDS ORDERED: Heparin IV Standard *NO* Bolus IV ONE (00:42)
[2019-01-27] MEDS ORDERED: HEPARIN 25000 UNIT/500 ML D5W IV ONE (00:51)
[2019-01-27 01:12] LABS: D Dimer 1110 ug/L FEU (0-500)
[2019-01-27] MEDS ORDERED: Heparin Adult STANDARD Wt-Based Dextrose 5% 25,000 units/500 mL IV SCH (01:15)
--- NOTE | 2019-01-27 01:19 | History & Physical Report ---
Date of Service January 27, 2019 Assessment & Plan (1) Chest pain: Pleuritic chest pain unrelieved with Nitro. Patient also with complaint of SOB during PT today as well as tachycardia on arrival. Saturations are within normal limits, no supplemental O2. Moderate risk by Wells Score - D. dimer obtained which was elevated at 1110. Patient had been on Eliquis for AF which was held for an upcoming procedure - last dose 01/25/19 evening dose. Suspect GI source over PE or cardiac -Will check CTA to rule out PE -Morphine PRN -Telemetry monitoring Present on Admission?: Yes (2) Elevated troponin: Chronically elevated, currently at baseline -Check in AM to document trend (3) Esophageal cancer: Patient NPO, all medications and feeds through PEG. He is to have EGD performed on Tuesday to reassess cancer status -Keep NPO -Aspiration precautions -Continue Atropine drops and Guaifenasin for secretion management Present on Admission?: Yes (4) Parkinson disease: Chronic. Stable -Continue Carbidopa/Levodopa QID Present on Admission?: Yes (5) GERD (gastroesophageal reflux disease): Chronic. Stable -Continue Lansoprazole Present on Admission?: Yes (6) Urinary retention: Armijo in place -Routine care q shift (7) HTN (hypertension): Blood pressure well controlled at present -Continue Metoprolol -Continue to monitor (8) Atrial flutter with controlled response: Patient slighlty tachycardic, appears to be in atrial arrhythmia -Continue Amiodarone -Continue Metoprolol -Continue Digoxin -Heparin gtt F//E/N - NSS at 80mL/hr, monitor electrolytes, continue PO K and PO4 at home doses, TF Ppx - Prevacid Code - DNR/DNI Dispo - Med-tele History of Present Illness Chief Complaint: pleuritic chest pain Primary Care Provider: [facility] Mr. Jericho Donahue is a 68yo C male with history of PD, esophageal cancer s/p XRT and chemotherapy, HTN, HLP, Atrial flutter on Eliquis anticoagulation and UC presenting with pleuritic chest discomfort that started yesterday evening. Patient completed physical therapy around 16:00 and felt more short of breath than usual. His therapist also commented that he was breathing quite heavily. He was able to complete therapy. Around 19:00 he developed pleuritic chest pain in the upper chest, 8-9/10 in severity. He was given a Nitro en route with no improvement in pain (of note, patient had pleuritic CP prior, relieved with Nitro, thought to be secondary to esophageal spasm). Patient was administered Morphine in the ER with improvement in chest pain, presently 5/10. Patient did not experience diaphoresis, dizziness, lightheadedness. No complaint of LE edema/pain, cough/hemoptysis. He is scheduled to have an EGD performed on Tuesday to assess his esophageal cancer and his Eliquis has been put on hold. Last dose was 01/25/18 PM dose. Patient with no prior history of PE/DVT. ER Course: Toradol, Morphine, Zofran, NSS x 500mL Allergies Allergy/AdvReac Type Severity Reaction Status Date / Time No Known Allergies Allergy Verified 01/19/19 10:33 Home Medications Home Medications Medication Instructions Recorded Confirmed Type carbidopa-levodopa [Sinemet] 2 tab FEEDING TUBE QID 05/19/18 01/26/19 History sulfasalazine 500 mg FEEDING TUBE DAILY 05/19/18 01/26/19 History acetaminophen 325 mg FEEDING TUBE Q4 PRN 10/30/18 01/26/19 History digoxin 125 mcg FEEDING TUBE QAM 10/30/18 01/26/19 History amiodarone 200 mg tablet 200 mg FEEDING TUBE QAM tab 12/05/18 01/26/19 History midodrine 10 mg FEEDING TUBE TID 01/04/19 01/26/19 History rasagiline 1 mg FEEDING TUBE QPM 01/04/19 01/26/19 History Eliquis 5 mg FEEDING TUBE BID 01/14/19 01/26/19 History Phospha 250 Neutral 1 tab FEEDING TUBE QID 01/14/19 01/26/19 History levalbuterol HCl 1.25 mg INHALATION Q8 PRN 01/14/19 01/26/19 History nitroglycerin 0.4 mg SUBLINGUAL Q8 PRN #60 tab 01/15/19 01/26/19 Rx Atropine Sulfate Solution 1 drp PO Q4H PRN 01/19/19 01/26/19 History Potassium Chloride Solution 7.5 ml PO QAM 01/19/19 01/26/19 History guaifenesin 400 mg TID PRN 01/19/19 01/26/19 History lansoprazole [Prevacid SoluTab] 30 mg PO QAM 01/19/19 01/26/19 History metoprolol tartrate 12.5 mg FEEDING TUBE BID 01/19/19 01/26/19 History bisacodyl [Dulcolax (bisacodyl)] 10 mg ND DAILY PRN 01/26/19 01/26/19 History Past Med/Surg History Medical History Atrial fibrillation Dysphagia PROGRESSIVE X 2 MONTHS PER ONCOLOGY NOTE Esophageal cancer 2018--chemo, radiation Esophageal stenosis Armijo catheter in place History of recent pneumonia hospitalized [facility] 11/19/18-11/23/2018 Hyperlipidemia Hypertension Orthostatic hypotension Parkinsons disease Reflux esophagitis Ulcerative colitis Weight loss 30 POUND WEIGHT LOSS PER ONCOLOGY NOTE Surgical History History of cardioversion x2--07/2018 History of colonoscopy History of esophagogastroduodenoscopy (EGD) History of tonsillectomy History of tooth extraction all upper teeth History of vascular access device aport right side Family History Mother , at 80yo;CT, aortic valve replacement, stroke No problems noted. Father , at 88yo;"Colon problem that caused him to weaken" No problems noted. Brother No problems noted. Grandmother (Maternal) Family history of diabetes mellitus Grandfather (Maternal) Family hx of colon cancer Other No family history of adverse response to anesthesia Social History Preferred Language: Tristanian Communication Ability: Effective Visual Impairment: No Limitations Hearing Ability: Normal Beliefs That Will Affect Care: Roman Catholic Roman Catholic Beliefs: Mormon marital status: Single Current Living Situation: Personal Care Facility Current Living Situation Comment: [facility] Other Information That Helps Us Care for You: No Feels Safe at Home: Yes Safety Concerns: Feels Safe At This Time Smoking Status: Never smoker Do You Dip or Chew Tobacco: No Second Hand Exposure: No Hx Alcohol Use: Yes Hx Substance Use: No caffeine: Yes (1 cup coffee/day;not currently since diagnosis;) during the past year weight has: increased > 10 lbs Review of Systems Review of Systems: All systems reviewed & are unremarkable except as noted in HPI & below Physical Exam Physical Exam: General: cachectic, chronically ill in appearance, NAD, nontoxic, pleasant and AA&O x 4 Skin: warm, dry, intact, no rashes or lesions HEENT: NC/AT, PERRL, EOMI, anicteric sclera, conjunctiva without injection, external ear normal to inspection and nontender, nares patent, moist mucus membranes, poor dentition, no oropharyngeal lesions, neck supple, trachea midline, no LAD, no thyromegaly, no JVD Heart: +S1/S2, regularly regular, no m/r/g Lungs: equal air entry bilaterally, no rhonchi/wheezes, crackles present in right base Abd: +BS, soft, NT/ND, no masses/organomegaly/ascites, PEG tube in site, no erythema/edema/discharge Ext: warm, 2+ pulses in UE/LE bilaterally, no clubbing/cyanosis or edema, Armijo catheter in place Neuro: nonfocal, patient AA&O x 4, speech intact, no facial droop, moving all extremities on command with equal strength 5/5, right sided tremor Results & Data Vital Signs (Past 12 Hours) Vital Signs Temp Pulse Pulse Resp BP BP Pulse Ox 01/27/19 00:52 96 H 18 116/72 98 01/26/19 23:18 110 H 18 116/76 97 01/26/19 21:44 36.5 C 108 H 22 121/72 96 Laboratory Results Lab Results 01/26/19 01/26/19 01/26/19 Range/Units 21:55 21:55 22:13 WBC 8.56 (4.8-10.8) K/uL RBC 3.97 L (4.7-6.1) M/uL Hgb 11.8 L (14.0-18.0) g/dL Hct 37.7 L (42-52) % MCV 95.0 (80-100) fL MCH 29.7 (25-34) pg MCHC 31.3 L (32-36) g/dL RDW Std Deviation 58.9 H (36.4-46.3) fL RDW Coeff of Mikki 17.0 H (11.5-14.5) % Plt Count 299 (130-400) K/uL MPV 10.1 (7.4-10.4) fL Immature Gran % (Auto) 0.1 % Neut % (Auto) 77.9 % Lymph % (Auto) 10.4 % Swift % (Auto) 11.0 % Eos % (Auto) 0.4 % Baso % (Auto) 0.2 % Immature Gran # (Auto) 0.01 (0.00-0.02) K/uL Neut # (Auto) 6.67 H (1.4-6.5) K/uL Lymph # (Auto) 0.89 L (1.2-3.4) K/uL Swift # (Auto) 0.94 H (0.11-0.59) K/uL Eos # (Auto) 0.03 (0-0.5) K/uL Baso # (Auto) 0.02 (0-0.2) K/uL PT 11.0 (9.0-12.0) Seconds INR 1.1 (0.9-1.1) APTT 29.3 (21.0-31.0) Seconds PTT Ratio 1.1 D-Dimer (0-500) ug/L FEU Sodium 137 (136-145) mmol/L Potassium 4.6 (3.5-5.1) mmol/L Chloride 98 (98-107) mmol/L Carbon Dioxide 33 H (21-32) mmol/L Anion Gap 6.0 (3-11) BUN 20 H (7-18) mg/dl Creatinine 0.73 (0.6-1.4) mg/dl Est Cr Clr Drug Dosing 81.7 ml/min Est GFR ( Amer) 109.7 Est GFR (Non-Af Amer) 94.6 BUN/Creatinine Ratio 27.2 H (10-20) Glucose 95 (70-99) mg/dl Calcium 9.0 (8.5-10.1) mg/dl Total Bilirubin 0.5 (0.2-1) mg/dl AST 28 (15-37) U/L ALT 7 L (12-78) U/L Alkaline Phosphatase 44 L (45-117) U/L Troponin I 0.365 H* (0-0.045) ng/ml Total Protein 6.3 L (6.4-8.2) gm/dl Albumin 3.0 L (3.4-5.0) gm/dl Globulin 3.3 (2.5-4.0) gm/dl Albumin/Globulin Ratio 0.9 (0.9-2) 01/26/19 Range/Units 22:13 WBC (4.8-10.8) K/uL RBC (4.7-6.1) M/uL Hgb (14.0-18.0) g/dL Hct (42-52) % MCV (80-100) fL MCH (25-34) pg MCHC (32-36) g/dL RDW Std Deviation (36.4-46.3) fL RDW Coeff of Mikki (11.5-14.5) % Plt Count (130-400) K/uL MPV (7.4-10.4) fL Immature Gran % (Auto) % Neut % (Auto) % Lymph % (Auto) % Swift % (Auto) % Eos % (Auto) % Baso % (Auto) % Immature Gran # (Auto) (0.00-0.02) K/uL Neut # (Auto) (1.4-6.5) K/uL Lymph # (Auto) (1.2-3.4) K/uL Swift # (Auto) (0.11-0.59) K/uL Eos # (Auto) (0-0.5) K/uL Baso # (Auto) (0-0.2) K/uL PT (9.0-12.0) Seconds INR (0.9-1.1) APTT (21.0-31.0) Seconds PTT Ratio D-Dimer 1110 H* (0-500) ug/L FEU Sodium (136-145) mmol/L Potassium (3.5-5.1) mmol/L Chloride (98-107) mmol/L Carbon Dioxide (21-32) mmol/L Anion Gap (3-11) BUN (7-18) mg/dl Creatinine (0.6-1.4) mg/dl Est Cr Clr Drug Dosing ml/min Est GFR ( Amer) Est GFR (Non-Af Amer) BUN/Creatinine Ratio (10-20) Glucose (70-99) mg/dl Calcium (8.5-10.1) mg/dl Total Bilirubin (0.2-1) mg/dl AST (15-37) U/L ALT (12-78) U/L Alkaline Phosphatase (45-117) U/L Troponin I (0-0.045) ng/ml Total Protein (6.4-8.2) gm/dl Albumin (3.4-5.0) gm/dl Globulin (2.5-4.0) gm/dl Albumin/Globulin Ratio (0.9-2) Diagnostic Findings XR chest 1V portable HISTORY: 68 years-old Male chest pain acute atypical chest pain COMPARISON: CTA of the chest and chest radiograph 01/14/2019 TECHNIQUE: Portable AP view of the chest FINDINGS: Stable positioning of the right pectoral [place]-h-Rmhi catheter. Cardiac silhouette is mildly enlarged, unchanged. No pneumothorax. Subsegmental atelectasis about the left lung base redemonstrated. Unchanged right pleural effusion with right lung base opacities. Degenerative changes of the shoulders and spine. Resolution of the previously described pneumoperitoneum. IMPRESSION: 1. Cardiomegaly without overt pulmonary edema. 2. Unchanged right pleural effusion with right lung base opacities. The above report was generated using voice recognition software. It may contain grammatical, syntax or spelling errors. Electronically signed by: Mike Varner M.D. 01/26/2019 10:35 PM Dictated: 01/26/192231 Transcribed: 01/26/192231 ECG Additional Comments: Narrow complex, grouped beating, appears to be NSR with PACs, no acute ischemic changes Code Status & VTE Plan Code Status DNR (1) Esophageal cancer Malignant neoplasm of esophagus location: unspecified location Qualified Code(s): C15.9 - Malignant neoplasm of esophagus, unspecified (2) GERD (gastroesophageal reflux disease) Esophagitis presence: esophagitis presence not specified Qualified Code(s): K21.9 - Gastro-esophageal reflux disease without esophagitis (3) Chest pain Chest pain type: unspecified Qualified Code(s): R07.9 - Chest pain, unspecified (4) HTN (hypertension) Hypertension type: essential hypertension Qualified Code(s): I10 - Essential (primary) hypertension
[2019-01-27] MEDS ORDERED: BISACODYL 10 MG SUPP PR PRN (01:36)
[2019-01-27] MEDS ORDERED: ONDANSETRON INJ 2 MG/ML 2 ML VIAL IV PRN (01:36)
[2019-01-27] MEDS: SODIUM CHLORIDE 0.9% 1000ML 1,000 ML IV SCH ×2 (02:07→14:09)
[2019-01-27] MEDS: MoRPHine SULFATE 2 MG/ML CARP IV PRN ×3 (02:18→21:15)
[2019-01-27] MEDS ORDERED: ACETAMINOPHEN SOL 650 MG/20.3 ML UDC PEG PRN (02:52)
[2019-01-27] MEDS ORDERED: OPTIRAY 320 125ml IV PRN (03:00)
[2019-01-27] MEDS: HEPARIN 100 UNIT/ML 5ML FLUSH FLUSH PRN (06:47)
--- NOTE | 2019-01-27 06:52 | CT Scan Report ---
CT angio chest PE protocol CLINICAL HISTORY: 68 years-old Male presenting with elevated d-dimer, atypical chest pain, clinical c oncern for pulmonary embolus, known metastatic disease, history of esophageal malignancy. TECHNIQUE: Multidetector CT angiography of the chest was performed after administration of intravenou s contrast. 3-D volumetric and/or maximum intensity projection (MIP) images were subsequently reconst ructed for review. IV contrast: 71 mL of Optiray 320. One or more dose lowering techniques were used consistent with the principles of ALARA (as low as reasonably achievable), including automatic exposu re control, mA or kV adjustment to individual patient size, and/or use of iterative reconstruction. COMPARISON: Chest x-ray from the previous day and CTA chest from 01/14/2019. CT DOSE (mGy.cm): The estimated cumulative dose is 350.72 mGy.cm. FINDINGS: Track Helper topogram: Right internal jugular Mediport terminates in the lower SVC. Pulmonary vasculature: The study is adequate for assessment of the pulmonary vascular tree. No filling defect within the pul monary arteries to suggest embolus. Main pulmonary artery is not enlarged. No flattening of the inter ventricular septum. No intracardiac filling defect. No reflux of contrast into the hepatic veins. Remaining chest: Soft tissues: Normal thyroid and thoracic inlet. No axillary, supraclavicular, mediastinal, or hilar lymphadenopathy. Atherosclerosis of the aorta. Mild multichamber enlargement of the heart. Coronary a rtery and aortic valve calcification. Small pericardial effusion without louis soft tissue nodularity of the pericardium. Moderate simple appearing right pleural effusion. This has slightly increased in size from prior. Trace left pleural effusion. Circumferential esophageal wall thickening suggested i n the mid to distal portion with small amount of fluid and gas in the upper to midportion. Lungs and airways: No pneumothorax. Mild bronchial wall thickening in the right lower lobe similar to prior. Central airways patent. Pulmonary arteries are not significantly enlarged relative to adjacen t bronchi. Patchy reticular and groundglass opacities in the right lower lobe predominantly in the de pendent portions as well as in the subpleural lateral segment of the right middle lobe. This is uncha nged. Groundglass nodules in the right upper lobe along the major fissure are new from prior (for exa mple series 4 image 164). Small cluster of solid 4 mm nodules in the anterior segment of the right up per lobe (series 4 images 167, 169, and 172. The most lateral nodule has increased in size from prior . Added density in the right perihilar region unchanged from prior. Redemonstration of the solid 6 mm nodule at the left apex (series 4 image 219). 2 small solid nodules in the left upper lobe similar t o prior and marked on images. Mild subpleural reticulonodular and groundglass opacities in the depend ent portions of the left lower lobe are stable to slightly increased from prior. Partially calcified multilobular 2.3 cm nodule in the lateral basal left lower lobe is now better defined or as on prior exam atelectatic change obscured this nodule. This has been increasing in size when compared to nondi agnostic CT from 12/29/2018. Musculoskeletal: Degenerative changes of the spine. No destructive osseous lesion. IMPRESSION: 1. Partially calcified 2.3 cm left lower lobe nodule now apparent where as on prior exam this was li elizabet obscured due to more extensive left lower lobe atelectasis. This has been increasing in size ove r time. Similar increased size over time of the left apical nodule, additional left upper lobe nodule s, and right upper lobe cluster of solid nodules. These are all concerning for metastatic disease. 2. Interval development of multifocal groundglass nodules in the right upper lobe along the major fi ssure. These are most concerning for an infectious etiology. Atypical infections including fungal inf ections not excluded. Attention on follow-up. 3. No evidence of pulmonary embolism. 4. Post radiation changes suspected in the right hilum and right lung base. 5. Moderate right pleural effusion increased in size from prior. This likely also post radiation harry nge. 6. Trace left pleural effusion. 7. Carotid megaly. 8. Circumferential wall thickening of the esophagus may relate to the primary underlying malignancy. No gross lymphadenopathy. The report will be called/faxed according to standard departmental protocol. Electronically signed by: Saurav Foley M.D. 01/27/2019 6:50 AM
[2019-01-27 07:37] LABS: Partial Thromboplastin Ratio 4.6
[2019-01-27 07:42] LABS: Partial Thromboplastin Time 124.9 Seconds (21.0-31.0)
[2019-01-27] MEDS: POT PHOSPHATE MONOBASIC W/ SOD TAB PO SCH ×4 (08:47→20:58)
[2019-01-27] MEDS: METOPROLOL TARTRATE 25 MG TAB PO SCH ×2 (08:47→21:02)
[2019-01-27] MEDS: LANSOPRAZOLE 30 MG SOLTAB PEG SCH (08:50)
[2019-01-27] MEDS: CARBIDOPA/LEVODOPA 25/100MG TAB PEG SCH ×4 (08:50→20:58)
[2019-01-27] MEDS: MIDODRINE HCL 10 MG TAB PO SCH ×3 (08:51→16:04)
[2019-01-27] MEDS: AMIODARONE 200 MG TAB PO SCH (08:51)
[2019-01-27] MEDS: sulfaSALAzine 500 MG TABLET PO SCH (08:51)
[2019-01-27] MEDS: POTASSIUM CHLORIDE 20 MEQ/15 ML UDC PEG SCH (08:52)
--- NOTE | 2019-01-27 09:58 | XRay Report ---
XR chest 1V portable CLINICAL HISTORY: 68 years-old Male presenting with S/P Thoracentesis. TECHNIQUE: Portable upright AP view of the chest was obtained. COMPARISON: 01/26/2019. FINDINGS: Right internal jugular Mediport terminates in the upper SVC. Atherosclerosis of the aortic arch. Card iac silhouette enlarged. Interval decrease in size of the right pleural effusion, which is now trace. A moderate right pneumothorax is suspected with lucency along the paramediastinal region suggesting a possible anterior pneumothorax. Overall volume of the right hemithorax is unchanged. Persistent sma ll left pleural effusion and minimal left basilar opacity. Degenerative changes of the thoracic spine . Upper abdomen normal. IMPRESSION: 1. Moderate anterior right pneumothorax suspected status post right thoracentesis. Only trace right pleural effusion remains. 2. Small left pleural effusion and left basilar atelectasis. 3. Underlying multifocal nodules best appreciated on recent CT 01/27/2019. The report will be called/faxed according to standard departmental protocol for a critical finding. Electronically signed by: Saurav Foley M.D. 01/27/2019 9:57 AM
[2019-01-27 10:11] LABS: Glucose Pleural Fluid 93 mg/dl
[2019-01-27 10:22] LABS: Appearance Pleural Fluid HAZY; Color Pleural Fluid YELLOW; Mononuclear WBC Pleural 34.7 %; Polynuclear WBC Pleural 65.3 %; RBC Pleural Fluid (A) 3000 /uL; Source Pleural Fluid RIGHT LUNG; WBC Pleural Fluid (A) 695 /uL
[2019-01-27 10:30] LABS: Amylase Pleural Fluid 10 U/L; LDH Pleural Fluid 127 U/L; Total Protein Pleural Fluid 2.5 g/dl
--- NOTE | 2019-01-27 10:37 | Consultation Report ---
DATE OF CONSULTATION: 01/27/2019 REASON FOR CONSULTATION: Enlarging right pleural effusion in a patient with esophageal carcinoma. 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 The patient developed chest pain, actually in both the right and left sides. He also complained of shortness of breath and has been bringing up fluid that he coughs. He states it is not a cough, but he was spitting a yellow-white fluid while I was interviewing him. He denied fevers. He has received chemotherapy and radiation for esophageal cancer. He also has Parkinson's, hypertension, hyperlipidemia, atrial flutter. He has been on Eliquis and now on a heparin which was just stopped. I was asked to see the patient about this enlarging right pleural effusion as his shortness of breath and dyspnea on exertion has increased. I was asked to evaluate him for this pleural effusion. PAST MEDICAL HISTORY: 1. Esophageal cancer, diagnosed last year, received chemotherapy and radiation. 2. Esophageal stenosis from esophageal cancer with progressive dysphasia. 3. Atrial fibrillation. 4. Indwelling Armijo catheter. 5. Hyperlipidemia. 6. History of pneumonia. 7. Hypertension. 8. Parkinson's disease. 9. Ulcerative colitis. 10. Reflux esophagitis. PAST SURGICAL HISTORY: 1. Esophagogastroduodenoscopy. 2. Colonoscopy. 3. Tonsillectomy. 4. Port-A-Cath insertion. 5. Teeth extractions. 6. Cardioversion. ALLERGIES: No known drug allergies. SOCIAL HISTORY: The patient has no children. 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 He taught [employer] in the [employer] district. He retired here and is at [employer]. He has been in [employer] for several years. He is a long-term resident at [employer]. FAMILY MEDICAL HISTORY: The patient has a brother who lives in [place], who is healthy. His mother at 80 and had an aortic valve replacement at age 60. She also had coronary artery disease. Father at 88 and although he had some GI issues, the patient stated that he simply of "old age." REVIEW OF SYSTEMS: The patient continues to lose weight. He has lost 30 pounds. He has dysphagia. He has a Armijo catheter in place. He has a PEG tube in place for feeding. He denies peripheral edema. He has had this cough with shortness of breath, but denies fevers or chills. The pain in his chest has been most disconcerting for him. He has had no neurologic changes and has had no visual or auditory changes, but does have significant tremor from his Parkinson's. He denies any focal deficits. He has had no skin breakdown. PHYSICAL EXAMINATION: GENERAL: This is a cachectic-appearing male who appears older than his stated age of 68. He is awake and alert. HEENT: His sclerae are pale. He has temporal wasting. His pupils are equal, round and reactive. His oral mucosa is a bit dry and his teeth are in poor repair. His tongue is midline. He has no evidence of candidiasis. NECK: Thin, but supple. I detect no supraclavicular or cervical lymphadenopathy, carotid bruits, or tracheal deviation. He has no neck vein distention. HEART: He actually has a regular rate and rhythm of his heart now. It does not appear he is in atrial fibrillation. LUNGS: He has decreased breath sounds on the right with some upper airway rhonchi and a few rales. He has a PEG tube in place. He has a Armijo catheter in place. ABDOMEN: Actually fairly soft. No evidence of ascites. He has no peripheral edema. He has peripheral pulses, but he does have muscle wasting in the upper and lower extremities. He has no joint effusion. NEUROLOGICAL: Except for his tremor, he has no focal deficits. ASSESSMENT AND PLAN: Enlarging right pleural effusion. I discussed this case with Dr. Pena. It is quite possible we are dealing with a malignant effusion. We will perform a thoracentesis today.
--- NOTE | 2019-01-27 12:23 | Operative Report ---
DATE OF OPERATION: 01/27/2019 PREOPERATIVE DIAGNOSIS: Large right pleural effusion. POSTOPERATIVE DIAGNOSIS: Large right pleural effusion. PROCEDURE PERFORMED: Ultrasound-guided right thoracentesis. SURGEON: Aren Estrada MD ANESTHESIA: Local. DESCRIPTION OF PROCEDURE: The patient was in upright position, after appropriate consent had been obtained, we evaluated his right chest. He did indeed have fluid. A window was marked with an indelible ink. He was prepped and draped in usual sterile fashion. A 25-gauge needle, 1% Xylocaine used to anesthetize the skin and subcutaneous tissues. A large bore needle was used to anesthetize the deeper tissues and pleura. We got free flowing yellowish fluid. Guidewire was inserted through the needle and the needle removed and a triple lumen catheter slid in 17 cm in length and the guidewire removed. Approximately 1000 mL of a yellow fluid was drained. The pH was 7.47. The site had no bleeding. He had some reexpansion coughing and I removed the catheter. There was no bleeding and I placed an antimicrobial dressing. Chest x-ray is pending at this time. He tolerated it quite well. I attest to the content of the Intraoperative Record and any orders documented therein. Any exception s are noted below.
[2019-01-27] MEDS: DIGOXIN 0.125 MG/2.5 ML UDP PEG SCH (16:04)
[2019-01-27] MEDS: FIBERSOURCE HN 1.2 CAL 1000 ML BAG GT SCH (16:50)
--- NOTE | 2019-01-27 18:49 | Hospitalist Progress Note ---
Date of Service January 27, 2019 Assessment & Plan (1) Pleural effusion: right sided s/p thoracentesis today by Dr Estrada with significant improvement in pulmonary symptoms. 1000cc of clear, yellow fluid obtained. initial studies not c/w infection and NOT exudative by lite's criteria. cytologies sent. post-procedural cxr w/ ?pneumothorax -- will repeat cxr in am. appreciate Dr Estrada's consult. (2) Chest pain: Suspect 2nd to pleural effusion. Other possibilities - infiltrates in right lung vs musculoskeletal vs GI vs cardiac. Doubt cardiac (no evidence of pericardial effusion). Trop is chronically elevated. Recent echo was normal. Continue to follow. (3) Elevated troponin: Chronically elevated, currently at baseline No evidence of ACS (4) Esophageal cancer: Stage 4 s/p chemo/xrt in past. No esophagectomy in past. Patient NPO, all medications and feeds through PEG. He is to have EGD performed on Tuesday to reassess cancer status by Dr Salvador. Continue Atropine drops for secretion management. (5) Parkinson disease: Continue Carbidopa/Levodopa QID (6) GERD (gastroesophageal reflux disease): Continue Lansoprazole (7) Urinary retention: Navarro in place 2nd to BPH He was supposed to be on flomax but couldn't take it because it is capsule and couldn't be placed through PEG Cardura comes in tablet form - can be crushed - will order Cont navarro (8) BPH (benign prostatic hyperplasia): start cardura 1mg daily navarro (9) HTN (hypertension): stable (10) Atrial flutter with controlled response: Continue Amiodarone, continue Metoprolol, Continue Digoxin HOLD heparin drip for thoracentesis and upcoming EGD Can resume anticoagulation post-EGD on Tuesday (11) Abnormal chest CT: possible xrt pneumonitis on right? RUL infiltrate - suspect aspiration pneumonitis as well but patient w/o significant symptoms from these processes monitor (12) S/P percutaneous endoscopic gastrostomy (PEG) tube placement: resume PEG tube feedings with fibersource HN 60cc/hr continuously with QID free h2o flushes (13) DVT prophylaxis: hold heparin drip would use SC heparin while awaiting procedures Subjective patient was seen by Dr Estrada and had right-sided thoracentesis with 1000cc of clear/yellow fluid out. he felt MUCH BETTER following the procedure with less dyspnea and no pleuritic chest pain. he reports he uses his PEG tube for tube feedings from 3-4pm until 9am the next day. he has been tolerating this. he has copious oral secretions and uses atropine drops prn to help w/ this. he has continued to lose weight. just had additional radiation treatments in the last couple of weeks. Review of Systems Constitutional: + weight loss; no fever Respiratory: + dyspnea and + pain on inspiration; no cough and no hemoptysis Cardiovascular: as per Subjective / HPI; no orthopnea, no paroxysmal nocturnal dyspnea and no edema Gastrointestinal: no abdominal pain Physical Exam Constitutional: + thin and + frail appearing; no acute distress ENMT: external ear and nose normal, oropharynx normal Respiratory: no labored breathing and no retractions Auscultation: + diminished lung sounds (right base); no crackles Cardiovascular: Rate/Rhythm: regular rate and + irregularly irregular Heart Sounds: normal S1 and normal S2; no murmur Vessels: posterior tibial pulses present and dorsalis pedis pulses present; no JVD Gastrointestinal (Abdomen): normal bowel sounds, soft, nontender, no hepatosplenomegaly PEG tube in place Neurologic: PD tremors Psychiatric: A+Ox3, euthymic affect Results & Data Vital Signs (Past 12 Hours) Vital Signs Temp Pulse Pulse Resp BP Pulse Ox 01/27/19 17:00 72 01/27/19 15:49 36.7 C 78 18 103/56 L 97 01/27/19 12:00 36.9 C 65 20 107/75 95 01/27/19 07:49 36.7 C 85 18 110/68 94 (1) Chest pain Chest pain type: unspecified Qualified Code(s): R07.9 - Chest pain, unspecifi ed (2) Esophageal cancer Malignant neoplasm of esophagus location: unspecified location Qualified Code(s): C15.9 - Malignant neoplasm of esophagus, unspecified (3) GERD (gastroesophageal reflux disease) Esophagitis presence: esophagitis presence not specified Qualified Code(s): K21.9 - Gastro-esophageal reflux disease without esophagitis (4) HTN (hypertension) Hypertension type: essential hypertension Qualified Code(s): I10 - Essential (primary) hypertension (5) BPH (benign prostatic hyperplasia) Lower urinary tract symptom presence: symptoms present Lower urinary tract symptom detail: incomplete bladder emptying Qualified Code(s): N40.1 - Benign prostatic hyperplasia with lower urinary tract symptoms; R39.14 - Feeling of incomplete bladder emptying
[2019-01-27] MEDS: DOXAZOSIN MESYLATE 1 MG TAB PEG SCH (20:57)
[2019-01-27] MEDS ORDERED: SODIUM CHLORIDE 0.65% NA SOLN 45 ML (OCEAN) PRN (23:04)
[2019-01-28] MEDS: SODIUM CHLORIDE 0.9% 1000ML 1,000 ML IV SCH ×2 (02:07→14:50)
[2019-01-28] MEDS: FIBERSOURCE HN 1.2 CAL 1000 ML BAG GT SCH ×2 (04:31→14:50)
[2019-01-28] MEDS: HEPARIN 100 UNIT/ML 5ML FLUSH FLUSH PRN (06:23)
[2019-01-28 06:46] LABS: Basophils # (auto) 0.01 K/uL (0-0.2); Basophils % (auto) 0.2 %; Eosinophils # (auto) 0.02 K/uL (0-0.5); Eosinophils % (auto) 0.3 %; Hematocrit (blood only) 31.6 % (42-52); Immature Granulocytes # (auto) 0.02 K/uL (0.00-0.02); Immature Granulocytes % (auto) 0.3 %; Lymphocytes # (auto) 0.55 K/uL (1.2-3.4); Lymphocytes % (auto) 8.6 %; Mean Corpuscular Hgb Conc 31.6 g/dL (32-36); Mean Platelet Volume 9.8 fL (7.4-10.4); Monocytes # (auto) 0.83 K/uL (0.11-0.59); Neutrophils # (auto) 4.95 K/uL (1.4-6.5); Neutrophils % (auto) 77.6 %; Platelet Count 203 K/uL (130-400); RDW Coefficient of Variation 17.2 % (11.5-14.5); RDW Standard Deviation 60.7 fL (36.4-46.3); Red Blood Count 3.29 M/uL (4.7-6.1); White Blood Count 6.38 K/uL (4.8-10.8)
--- NOTE | 2019-01-28 07:05 | XRay Report ---
XR chest 1V portable HISTORY: 68 years-old Male pleural effusion follow-up study in a patient with right pleural effusion COMPARISON: Chest radiograph 01/27/2019, CTA chest 01/27/2019 TECHNIQUE: Portable AP view of the chest FINDINGS: Right internal jugular [id number]-Utuf catheter is unchanged. Cardiac silhouette is enlarged, also unch anged. Small right pleural effusion has mildly increased in size from comparison. Trace left pleural effusion is suggested. Bilateral pulmonary nodules are better appreciated on comparison chest CT. Inc reased right lung base opacities with unchanged left basilar atelectasis. The previously described ri ght pneumothorax is not definitively seen on today's study. IMPRESSION: 1. Previously described right pneumothorax is not definitively seen on today's study. Continued follo w-up recommended. 2. Increased size of right pleural effusion with progressed right lung base opacities. 3. Unchanged trace left pleural effusion with left basilar atelectasis. 4. Cardiomegaly. The above report was generated using voice recognition software. It may contain grammatical, syntax o r spelling errors. Electronically signed by: Mike Varner M.D. 01/28/2019 7:04 AM
[2019-01-28 07:14] LABS: BUN Creatinine Ratio 35.4 (10-20); Calcium 7.7 mg/dl (8.5-10.1); Creatinine Clr Calc Pharmacy 98.3 ml/min; Est GFR (African American) 119.7; Est GFR (Non-African American) 103.3; Potassium 4.1 mmol/L (3.5-5.1)
[2019-01-28] MEDS: POTASSIUM CHLORIDE 20 MEQ/15 ML UDC PEG SCH (08:37)
[2019-01-28] MEDS: sulfaSALAzine 500 MG TABLET PO SCH (08:38)
[2019-01-28] MEDS: AMIODARONE 200 MG TAB PO SCH (08:38)
[2019-01-28] MEDS: POT PHOSPHATE MONOBASIC W/ SOD TAB PO SCH ×4 (08:38→20:11)
[2019-01-28] MEDS: CARBIDOPA/LEVODOPA 25/100MG TAB PEG SCH ×4 (08:38→20:10)
[2019-01-28] MEDS: LANSOPRAZOLE 30 MG SOLTAB PEG SCH (08:38)
[2019-01-28] MEDS: METOPROLOL TARTRATE 25 MG TAB PO SCH ×2 (08:38→20:14)
[2019-01-28] MEDS: MIDODRINE HCL 10 MG TAB PO SCH ×3 (08:38→16:19)
--- NOTE | 2019-01-28 11:13 | Progress Note ---
DATE: 01/28/2019 The patient was seen today on 01/28/2019. I did a thoracentesis yesterday and he is better from a pulmonary standpoint. X-ray shows he had some reaccumulation of fluid, but by and large he is improved. This fluid is a borderline exudate with an LDH of 127. Gram stain showed no evidence of organisms. In addition, his pH was 7.47 and the glucose was 93. It should be noted, his amylase is also 10, which would argue against a leak from his esophagus. The patient is having regurgitation most likely due to the cancer of his esophagus. He has asked that his atropine sulfate be given and I will order that today. He is scheduled for an endoscopy in the near future. ELVIRA
[2019-01-28] MEDS: HEPARIN SOD 5,000 UNIT/0.5 ML VIAL SQ SCH ×2 (11:21→20:11)
[2019-01-28] MEDS: ATROPINE SULFATE 1% OP SOLN 5 ML BTL SL PRN (11:57)
[2019-01-28] MEDS: DIGOXIN 0.125 MG/2.5 ML UDP PEG SCH (16:19)
--- NOTE | 2019-01-28 17:38 | Gastrointestinal Consultation ---
Date of Consultation January 28, 2019 Assessment & Plan (1) Esophageal cancer: Hold tube feeds after MN. Will check with DR Salvador in am to make sure can proceed with EGD as scheduled. Explained EGD proc and risks which include but not limited to med reaction, bleeding, perforation, aspiration. hx of UC--on sulfasalazine History of Present Illness Reason for Consultation: esophageal cancer with mets, scheduled for EGD Requesting Physician: DR Pena Attending Physician: Ellis Pena History of Present Illness cc admit with chest pain HPI Pt with esophageal cancer s/p XRT and chemo. Known to GI from last admit during which he had EGD/PEG 01/05/19 for inabiliaty to eat. That showed esophageal ulcer. He can drink liquids but has not tried pills or food since PEG placed. Per [facility] EMR radiation oncology spoke with DR Salvador about doing staging EGD as outpt and that apparently schedule for tomorrow with Elquis on hold since 01/25/19. Pt denies abd pain. He was admitted for pleurtic chest pain and had pleural effusion tapped with [address] Pena pt stable for EGD as planned Allergies Allergy/AdvReac Type Severity Reaction Status Date / Time No Known Allergies Allergy Verified 01/19/19 10:33 Home Medications Home Medications Medication Instructions Recorded Confirmed Type carbidopa-levodopa [Sinemet] 2 tab FEEDING TUBE QID 05/19/18 01/26/19 History sulfasalazine 500 mg FEEDING TUBE DAILY 05/19/18 01/26/19 History acetaminophen 325 mg FEEDING TUBE Q4 PRN 10/30/18 01/26/19 History digoxin 125 mcg FEEDING TUBE QAM 10/30/18 01/26/19 History amiodarone 200 mg tablet 200 mg FEEDING TUBE QAM tab 12/05/18 01/26/19 History midodrine 10 mg FEEDING TUBE TID 01/04/19 01/26/19 History rasagiline 1 mg FEEDING TUBE QPM 01/04/19 01/26/19 History Eliquis 5 mg FEEDING TUBE BID 01/14/19 01/26/19 History Phospha 250 Neutral 1 tab FEEDING TUBE QID 01/14/19 01/26/19 History levalbuterol HCl 1.25 mg INHALATION Q8 PRN 01/14/19 01/26/19 History nitroglycerin 0.4 mg SUBLINGUAL Q8 PRN #60 tab 01/15/19 01/26/19 Rx Atropine Sulfate Solution 1 drp PO Q4H PRN 01/19/19 01/26/19 History Potassium Chloride Solution 7.5 ml PO QAM 01/19/19 01/26/19 History guaifenesin 400 mg TID PRN 01/19/19 01/26/19 History lansoprazole [Prevacid SoluTab] 30 mg PO QAM 01/19/19 01/26/19 History metoprolol tartrate 12.5 mg FEEDING TUBE BID 01/19/19 01/26/19 History bisacodyl [Dulcolax (bisacodyl)] 10 mg [place] DAILY PRN 01/26/19 01/26/19 History Patient History Medical History Atrial fibrillation Dysphagia PROGRESSIVE X 2 MONTHS PER ONCOLOGY NOTE Esophageal cancer 2018--chemo, radiation Esophageal stenosis Armijo catheter in place History of recent pneumonia hospitalized [facility] 11/19/18-11/23/2018 Hyperlipidemia Hypertension Orthostatic hypotension Parkinsons disease Reflux esophagitis Ulcerative colitis Weight loss 30 POUND WEIGHT LOSS PER ONCOLOGY NOTE Surgical History History of cardioversion x2--07/2018 History of colonoscopy History of esophagogastroduodenoscopy (EGD) History of tonsillectomy History of tooth extraction all upper teeth History of vascular access device aport right side Family History Mother , at 80yo;[place], aortic valve replacement, stroke No problems noted. Father , at 88yo;"Colon problem that caused him to weaken" No problems noted. Brother No problems noted. Grandmother (Maternal) Family history of diabetes mellitus Grandfather (Maternal) Family hx of colon cancer Other No family history of adverse response to anesthesia Social History Preferred Language: Syrian Communication Ability: Effective Visual Impairment: No Limitations Hearing Ability: Normal Beliefs That Will Affect Care: Hindu Hindu Beliefs: Rastafarian marital status: Single Current Living Situation: Personal Care Facility Current Living Situation Comment: [facility] Other Information That Helps Us Care for You: No Feels Safe at Home: Yes Safety Concerns: Feels Safe At This Time Smoking Status: Never smoker Do You Dip or Chew Tobacco: No Second Hand Exposure: No Hx Alcohol Use: Yes Hx Substance Use: No caffeine: Yes (1 cup coffee/day;not currently since diagnosis;) during the past year weight has: increased > 10 lbs Review of Systems Review of Systems: All systems reviewed & are unremarkable except as noted in HPI & below Physical Exam Constitutional: WD/WN, vitals as above Eyes: PERRL, conjunctivae normal, anicteric sclerae ENMT: external ear and nose normal, oropharynx normal Neck: normal visual inspection and trachea midline Respiratory: normal respiratory effort, lungs clear to auscultation Cardiovascular: Extremities: no edema irregulary irregular Gastrointestinal (Abdomen): normal bowel sounds, soft, nontender, no hepatosplenomegaly PEG in place with no evidence of infection Skin: normal turgor Neurologic: PERRL, EOMI, accommodation nl, no face palsy, no dysarthria Psychiatric: A+Ox3, euthymic affect Results & Data Vital Signs (Past 12 Hours) Vital Signs Temp Pulse Pulse Resp BP Pulse Ox 01/28/19 16:00 89 01/28/19 15:21 37 C 88 18 100/63 95 01/28/19 11:59 36.7 C 89 18 87/50 L 95 01/28/19 08:00 36.9 C 89 88 18 92/56 L 94 (1) Esophageal cancer Malignant neoplasm of esophagus location: unspecified location Qualified Code(s): C15.9 - Malignant neoplasm of esophagus, unspecified
[2019-01-28] MEDS: DOXAZOSIN MESYLATE 1 MG TAB PEG SCH (20:11)
--- NOTE | 2019-01-28 21:36 | Hospitalist Progress Note ---
Date of Service January 28, 2019 Assessment & Plan (1) Pleural effusion: right sided - s/p thoracentesis by Dr Estrada with significant improvement in pulmonary symptoms. 1000cc of clear, yellow fluid obtained. initial studies not c/w infection and NOT exudative by lite's criteria. cytologies sent. post-procedural cxr w/ ?pneumothorax -- repeat cxr today with no pneumothorax but some reaccumulation of fluid -- follow. cultures from thoracentesis thus far negative. appreciate Dr Estrada's consult. await the cytologies. (2) Chest pain: Suspect 2nd to pleural effusion. Other possibilities - infiltrates in right lung vs musculoskeletal vs GI vs cardiac. Doubt cardiac (no evidence of pericardial effusion). Trop is chronically elevated. Recent echo was normal. Continue to follow. Pain has not recurred. (3) Elevated troponin: Chronically elevated, currently at baseline No evidence of ACS (4) Esophageal cancer: Stage 4 s/p chemo/xrt in past. No esophagectomy in past. Patient NPO, all medications and feeds through PEG. He is to have EGD performed on Tuesday to reassess cancer status by Dr Salvador. Continue Atropine drops for secretion management. I consulted Dr Mazariegos from [facility] to ensure patient is on schedule for tomorrow. HOLD tube feedings starting at midnight tonight. (5) Parkinson disease: Continue Carbidopa/Levodopa QID (6) GERD (gastroesophageal reflux disease): Continue Lansoprazole (7) Urinary retention: Navarro in place 2nd to BPH He was supposed to be on flomax but couldn't take it because it is a capsule and couldn't be placed through PEG Cardura comes in tablet form - can be crushed Thus started cardura Cont navarro (8) BPH (benign prostatic hyperplasia): cardura 1mg daily navarro needs f/u with urology post-discharge for voiding trial (9) HTN (hypertension): stable (10) Atrial flutter with controlled response: Continue Amiodarone, continue Metoprolol, Continue Digoxin All systemic anticoagulation on hold for EGD tomorrow resume eliquis post-EGD when ok w/ GI (11) Abnormal chest CT: possible xrt pneumonitis on right? RUL infiltrate - suspect aspiration pneumonitis as well but patient w/o significant symptoms from these processes monitor (12) S/P percutaneous endoscopic gastrostomy (PEG) tube placement: resumed PEG tube feedings with fibersource HN 60cc/hr continuously with QID free h2o flushes these will need to be held starting at Midnight Tonight (13) DVT prophylaxis: holding all systemic anticoagulation in preparation for EGD on Tuesday but using SC heparin for DVT proph while awaiting procedures Subjective feels good today. no pleuritic cp. denies substernal cp. no dyspnea or [place]. no cough. watching [employer] reruns on TV. tele with rate controlled afib/flutter overnight tolerating tube feedings. Review of Systems Constitutional: no fever and no chills Respiratory: no cough and no hemoptysis Cardiovascular: no chest pain, no orthopnea and no paroxysmal nocturnal dyspnea Gastrointestinal: no abdominal pain, no nausea, no vomiting and no constipation Physical Exam Constitutional: + thin and + frail appearing; no acute distress ENMT: external ear and nose normal, oropharynx normal Respiratory: no labored breathing and no retractions Auscultation: + diminished lung sounds (right base); no crackles Cardiovascular: Rate/Rhythm: regular rate and + irregularly irregular Heart Sounds: normal S1 and normal S2; no murmur Vessels: posterior tibial pulses present and dorsalis pedis pulses present; no JVD Gastrointestinal (Abdomen): normal bowel sounds, soft, nontender, no hepatosplenomegaly PEG tube in place; clean Psychiatric: A+Ox3, euthymic affect Results & Data Vital Signs (Past 12 Hours) Vital Signs Temp Pulse Pulse Resp BP Pulse Ox 01/28/19 19:39 36.8 C 88 20 103/66 96 01/28/19 16:00 89 01/28/19 15:21 37 C 88 18 100/63 95 01/28/19 11:59 36.7 C 89 18 87/50 L 95 Laboratory Results Laboratory Results - last 24 hr 01/28/19 01/28/19 06:30 06:30 WBC 6.38 RBC 3.29 L Hgb 10.0 L Hct 31.6 L MCV 96.0 MCH 30.4 MCHC 31.6 L RDW Std Deviation 60.7 H RDW Coeff of Mikki 17.2 H Plt Count 203 MPV 9.8 Immature Gran % (Auto) 0.3 Neut % (Auto) 77.6 Lymph % (Auto) 8.6 [place] % (Auto) 13.0 Eos % (Auto) 0.3 Baso % (Auto) 0.2 Immature Gran # (Auto) 0.02 Neut # (Auto) 4.95 Lymph # (Auto) 0.55 L [place] # (Auto) 0.83 H Eos # (Auto) 0.02 Baso # (Auto) 0.01 Sodium 139 Potassium 4.1 Chloride 103 Carbon Dioxide 29 Anion Gap 7.0 BUN 21 H Creatinine 0.59 L Est Cr Clr Drug Dosing 98.3 Est GFR ( Amer) 119.7 Est GFR (Non-Af Amer) 103.3 BUN/Creatinine Ratio 35.4 H Glucose 148 H Calcium 7.7 L (1) BPH (benign prostatic hyperplasia) Lower urinary tract symptom detail: incomplete bladder emptying Lower urinary tract symptom presence: symptoms present Qualified Code(s): N40.1 - Benign prostatic hyperplasia with lower urinary tract symptoms; R39.14 - Feeling of incomplete bladder emptying (2) Esophageal cancer Malignant neoplasm of esophagus location: unspecified location Qualified Code(s): C15.9 - Malignant neoplasm of esophagus, unspecified (3) GERD (gastroesophageal reflux disease) Esophagitis presence: esophagitis presence not specified Qualified Code(s): K21.9 - Gastro-esophageal reflux disease without esophagitis (4) Chest pain Chest pain type: unspecified Qualified Code(s): R07.9 - Chest pain, unspecified (5) HTN (hypertension) Hypertension type: essential hypertension Qualified Code(s): I10 - Essential (primary) hypertension
[2019-01-29] MEDS: HEPARIN 100 UNIT/ML 5ML FLUSH FLUSH PRN ×2 (06:12→14:54)
[2019-01-29 06:39] LABS: Hematocrit (blood only) 30.9 % (42-52); Hemoglobin 9.9 g/dL (14.0-18.0); Mean Corpuscular Volume 95.4 fL (80-100); Platelet Count 208 K/uL (130-400); RDW Coefficient of Variation 16.9 % (11.5-14.5); RDW Standard Deviation 59.3 fL (36.4-46.3); Red Blood Count 3.24 M/uL (4.7-6.1)
[2019-01-29 07:07] LABS: Partial Thromboplastin Ratio 2.6
[2019-01-29 07:14] LABS: BUN Creatinine Ratio 36.5 (10-20); Calcium 8.1 mg/dl (8.5-10.1); Creatinine Clr Calc Pharmacy 137.2 ml/min; Est GFR (African American) 135.1; Est GFR (Non-African American) 116.5
[2019-01-29 07:15] LABS: Partial Thromboplastin Time 69.3 Seconds (21.0-31.0)
--- NOTE | 2019-01-29 08:55 | Hospitalist Progress Note ---
Date of Service January 29, 2019 Assessment & Plan (1) Pleural effusion: right sided - s/p thoracentesis by Dr Estrada with significant improvement in pulmonary symptoms. 1000cc of clear, yellow fluid obtained. initial studies not c/w infection and NOT exudative by lite's criteria. cytologies sent. post-procedural cxr w/ ?pneumothorax -- repeat cxr with no pneumothorax but some reaccumulation of fluid cultures from thoracentesis negative. pathology is pending appreciate Dr Estrada's consult. await the cytologies. (2) Chest pain: Suspect 2nd to pleural effusion as resolved after being tapped. Other possibilities - infiltrates in right lung vs musculoskeletal vs GI vs cardiac. Doubt cardiac (no evidence of pericardial effusion). Trop is chronically elevated. Recent echo was normal. Pain has not recurred. (3) Elevated troponin: Chronically elevated, currently at baseline No evidence of ACS (4) Esophageal cancer: Stage 4 s/p chemo/xrt in past. No esophagectomy in past. Patient NPO, all medications and feeds through PEG. He is to have EGD performed on Tuesday to reassess cancer status by Dr Salvador. Continue Atropine drops for secretion management. EGD only shows area of stricture, that was passed by scope, will start TF again, and discuss with GI med if should restart Oral feeding (5) Parkinson disease: Continue Carbidopa/Levodopa QID (6) GERD (gastroesophageal reflux disease): Continue Lansoprazole (7) Urinary retention: Navarro in place 2nd to BPH He was supposed to be on flomax but couldn't take it because it is a capsule and couldn't be placed through PEG Cardura comes in tablet form - can be crushed Thus started cardura Cont navarro (8) BPH (benign prostatic hyperplasia): cardura 1mg daily navarro needs f/u with urology post-discharge for voiding trial (9) HTN (hypertension): stable (10) Atrial flutter with controlled response: Continue Amiodarone, continue Metoprolol, Continue Digoxin All systemic anticoagulation on hold for EGD tomorrow resume eliquis post-EGD when ok w/ GI (11) Abnormal chest CT: possible xrt pneumonitis on right? RUL infiltrate - suspect aspiration pneumonitis as well but patient w/o significant symptoms from these processes monitor (12) S/P percutaneous endoscopic gastrostomy (PEG) tube placement: resumed PEG tube feedings with fibersource HN 80cc/hr continuously with Q4 free h2o flushes (13) DVT prophylaxis: holding all systemic anticoagulation in preparation for EGD on Tuesday but using SC heparin for DVT proph while awaiting procedures Subjective pt was without distress awaiting EGD to evaluate progress of cancer from recent treatment, pt states that his pain resolved after thoracentesis, gi medicine recommends resuming his tube feeds. Now with a relatively good EGD consideration of origin of pleural effusion ? if from radiation. Review of Systems Review of Systems: ROS: thin and fatigued No double vision blurry vision hoarse voice and not taking po No palpitations, chest pain or pressure No Wheezing or breathing issues since paracentesis No abdominal pain nausea vomiting diarrhea changes in appetite or weight No burning urine urine frequency or changes in color No focal joint pain or muscle pain No skin rashes or oral lesions No unusual bruising or bleeding No focused back pain or numbness or loss of strength No changes in memory or confusion Physical Exam Physical Exam: The patient appeared well nourished and normally developed. Vital signs as documented. Head exam is unremarkable. normocephalic, atraumatic Neck is without jugular venous distension, thyromegaly, or lymphademopathy Lungs are dull at left base with some concern for reaccumulation of effusion Cardiac exam reveals Rhythm is regular. First and second heart sounds normal. Abdominal exam reveals normal bowel sounds, no masses, no organomegaly, peg tube is in place Extremities are nonedematous and both pedal pulses are present Neurologic exam is A&Ox3, no focal deficits, strength is equal bilateral Psychologically seems neither anxious or depressed Skin is warm Dry Results & Data Vital Signs (Past 12 Hours) Vital Signs Temp Pulse Pulse Resp BP BP Pulse Ox 01/29/19 08:00 89 01/29/19 07:03 36.9 C 84 18 106/67 94 01/29/19 03:25 36.5 C 80 18 102/63 96 01/29/19 00:18 36.6 C 70 18 94/59 L 97 (1) BPH (benign prostatic hyperplasia) Lower urinary tract symptom detail: incomplete bladder emptying Lower urinary tract symptom presence: symptoms present Qualified Code(s): N40.1 - Benign prostatic hyperplasia with lower urinary tract symptoms; R39.14 - Feeling of incomplete bladder emptying (2) Esophageal cancer Malignant neoplasm of esophagus location: unspecified location Qualified Code(s): C15.9 - Malignant neoplasm of esophagus, unspecified (3) GERD (gastroesophageal reflux disease) Esophagitis presence: esophagitis presence not specified Qualified Code(s): K21.9 - Gastro-esophageal reflux disease without esophagitis (4) Chest pain Chest pain type: unspecified Qualified Code(s): R07.9 - Chest pain, unspecified (5) HTN (hypertension) Hypertension type: essential hypertension Qualified Code(s): I10 - Essential (primary) hypertension
[2019-01-29] MEDS: MIDODRINE HCL 10 MG TAB PO SCH ×3 (10:41→15:24)
[2019-01-29] MEDS: POT PHOSPHATE MONOBASIC W/ SOD TAB PO SCH ×4 (10:42→21:33)
[2019-01-29] MEDS: METOPROLOL TARTRATE 25 MG TAB PO SCH ×2 (10:42→21:33)
[2019-01-29] MEDS: CARBIDOPA/LEVODOPA 25/100MG TAB PEG SCH ×4 (10:42→21:32)
--- NOTE | 2019-01-29 13:07 | Progress Note ---
DATE: 01/29/2019 Mr. Donahue was scheduled to undergo an upper endoscopy by Dr. Favio Salvador later today. He remains on room air with good saturations. The cytology is still pending from this pleural fluid. 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 One of the other big problem he has is just an inability to swallow. Dr. Salvador is going to perform an upper endoscopy to see if this can be addressed somewhat today.
--- NOTE | 2019-01-29 13:13 | Anesthesiology Consultation ---
Date of Service January 29, 2019 Assessment & Plan (1) Encounter for pre-operative examination: History Surgery Operation Date: 01/29/19 13:30 Proposed Procedures p Esophagogastroduodenoscopy Dr Modesto Salvador Height/Weight Height: 5 ft 8 in Weight: 61.2 kg Allergies Allergy/AdvReac Type Severity Reaction Status Date / Time No Known Allergies Allergy Verified 01/19/19 10:33 Medications Home Medications Medication Instructions Recorded Confirmed Last Taken carbidopa-levodopa [Sinemet] 2 tab FEEDING TUBE QID 05/19/18 01/26/19 12/27/18 04:00 sulfasalazine 500 mg FEEDING TUBE DAILY 05/19/18 01/26/19 12/27/18 04:00 acetaminophen 325 mg FEEDING TUBE Q4 PRN 10/30/18 01/26/19 12/25/18 digoxin 125 mcg FEEDING TUBE QAM 10/30/18 01/26/19 12/26/18 04:00 amiodarone 200 mg tablet 200 mg FEEDING TUBE QAM tab 12/05/18 01/26/19 12/27/18 04:00 midodrine 10 mg FEEDING TUBE TID 01/04/19 01/26/19 Unknown rasagiline 1 mg FEEDING TUBE QPM 01/04/19 01/26/19 Unknown Eliquis 5 mg FEEDING TUBE BID 01/14/19 01/26/19 Unknown Phospha 250 Neutral 1 tab FEEDING TUBE QID 01/14/19 01/26/19 Unknown levalbuterol HCl 1.25 mg INHALATION Q8 PRN 01/14/19 01/26/19 Unknown nitroglycerin 0.4 mg SUBLINGUAL Q8 PRN #60 tab 01/15/19 01/26/19 Unknown Atropine Sulfate Solution 1 drp PO Q4H PRN 01/19/19 01/26/19 Unknown Potassium Chloride Solution 7.5 ml PO QAM 01/19/19 01/26/19 Unknown guaifenesin 400 mg TID PRN 01/19/19 01/26/19 Unknown lansoprazole [Prevacid SoluTab] 30 mg PO QAM 01/19/19 01/26/19 Unknown metoprolol tartrate 12.5 mg FEEDING TUBE BID 01/19/19 01/26/19 Unknown bisacodyl [Dulcolax (bisacodyl)] 10 mg [place] DAILY PRN 01/26/19 01/26/19 Unknown Active Medications Generic Name Dose Route Start Last Admin Trade Name Manjit PRN Reason Stop Dose Admin Amiodarone HCl 200 mg 01/27/19 09:00 01/28/19 08:38 Cordarone PO 02/26/19 08:59 200 mg QAM KARYN Administration Atropine Sulfate 1 drops 01/27/19 01:36 01/28/19 11:57 Atropine Sulfate 1% Oph SL 02/26/19 01:35 1 drops Q4H PRN Administration excess oral secretions Carbidopa/Levodopa 2 tab 01/27/19 09:00 01/29/19 10:42 Sinemet 25/100 Mg PEG 02/26/19 08:59 Not Given QID KARYN Digoxin 0.125 mg 01/27/19 16:00 01/28/19 16:19 Lanoxin PEG 02/26/19 15:59 0.125 mg DAILY@1600 KARYN Administration Doxazosin Mesylate 1 mg 01/27/19 21:00 01/28/19 20:11 Cardura PEG 02/26/19 20:59 1 mg HS KARYN Administration Enteral Nutritional Formula 1,000 ml 01/27/19 01:45 01/28/19 14:50 Fibersource Hn 1.2 Jeovanny Liquid GT 02/26/19 01:44 1,000 ml UD KARYN Administration Protocol Heparin Sodium (Porcine) 5 ml 01/27/19 02:19 01/29/19 06:12 Heparin Sod 100 Unit/Ml Flush FLUSH 02/26/19 02:29 5 ml PRN PRN Administration Flush Heparin Sodium (Porcine) 5,000 units 01/28/19 09:00 01/28/19 20:11 Heparin Sodium (Porcine) SQ 02/27/19 08:59 5,000 units Q12 KARYN Administration Ioversol 71 ml 01/27/19 03:00 01/27/19 03:01 Optiray 320 125ml IV 01/31/19 02:59 71 ml ONCE PRN Administration Interaction Checking Lansoprazole 30 mg 01/27/19 09:00 01/28/19 08:38 Prevacid PEG 02/26/19 08:59 30 mg QAM KARYN Administration Metoprolol Tartrate 12.5 mg 01/27/19 09:00 01/29/19 10:42 Lopressor PO 02/26/19 08:59 Not Given BID KARYN Midodrine 10 mg 01/27/19 08:00 01/29/19 10:41 Proamatine PO 02/26/19 07:59 Not Given TID@0800,1200,1600 KARYN Miscellaneous 1 ea 01/27/19 08:00 01/29/19 07:29 Order Awaiting Action N/A 02/26/19 07:59 Not Given QS KARYN Morphine Sulfate 2 mg 01/27/19 02:02 01/27/19 21:15 Morphine Sulfate IV 02/10/19 02:01 2 mg Q4H PRN Administration Pain Potassium Chloride 10 meq 01/27/19 09:00 01/28/19 08:37 Hali Ciel Elix PEG 02/26/19 08:59 10 meq DAILY KARYN Administration Potassium Phosphate 1 tab 01/27/19 09:00 01/29/19 10:42 Phospha 250 Neutral 155-852-130 Mg PO 02/26/19 08:59 Not Given QID KARYN Sulfadiazine 500 mg 01/27/19 09:00 01/28/19 08:38 Azulfidine PO 02/26/19 08:59 500 mg DAILY KARYN Administration Past Medical History Medical History Atrial fibrillation Dysphagia PROGRESSIVE X 2 MONTHS PER ONCOLOGY NOTE Esophageal cancer 2018--chemo, radiation Esophageal stenosis Armijo catheter in place History of recent pneumonia hospitalized [facility] 11/19/18-11/23/2018 Hyperlipidemia Hypertension Orthostatic hypotension Parkinsons disease Reflux esophagitis Ulcerative colitis Weight loss 30 POUND WEIGHT LOSS PER ONCOLOGY NOTE Past Family History Family History Mother , at 80yo;[place], aortic valve replacement, stroke No problems noted. Father , at 88yo;"Colon problem that caused him to weaken" No problems noted. Brother No problems noted. Grandmother (Maternal) Family history of diabetes mellitus Grandfather (Maternal) Family hx of colon cancer Other No family history of adverse response to anesthesia Past Surgical History Surgical History History of cardioversion x2--07/2018 History of colonoscopy History of esophagogastroduodenoscopy (EGD) History of tonsillectomy History of tooth extraction all upper teeth History of vascular access device aport right side Social History Smoking Status: Never smoker Do You Dip or Chew Tobacco: No Hx Alcohol Use: Yes alcohol intake frequency: holidays/special occasions only Hx Substance Use: No substance use type: does not use Physical Exam Vital Signs Last Vital Signs Temp 37.2 C 01/29/19 11:22 Pulse 74 01/29/19 11:22 Resp 18 01/29/19 11:22 BP 111/71 01/29/19 11:22 Pulse Ox 96 01/29/19 11:22
[2019-01-29] MEDS ORDERED: PROPOFOL IV EMULSION 10 MG/ML 20 ML VIAL IV ONE (13:58)
[2019-01-29] MEDS ORDERED: BENZOCAIN/TETRACA/BUTAM SPRAY 200 APPLN/20 GM SPRY EXT ONE (13:58)
[2019-01-29] MEDS ORDERED: LIDOCAINE HCL 2% 2 ML VIAL/AMP(20MG/ML) INFIL ONE (13:58)
--- NOTE | 2019-01-29 14:02 | History & Physical Report ---
Date of Service January 29, 2019 History of Present Illness Chief Complaint: esophageal cancer Primary Care Provider: Eriberto Turner For EGD reassessment Allergies Allergy/AdvReac Type Severity Reaction Status Date / Time No Known Allergies Allergy Verified 01/19/19 10:33 Home Medications Home Medications Medication Instructions Recorded Confirmed Type carbidopa-levodopa [Sinemet] 2 tab FEEDING TUBE QID 05/19/18 01/26/19 History sulfasalazine 500 mg FEEDING TUBE DAILY 05/19/18 01/26/19 History acetaminophen 325 mg FEEDING TUBE Q4 PRN 10/30/18 01/26/19 History digoxin 125 mcg FEEDING TUBE QAM 10/30/18 01/26/19 History amiodarone 200 mg tablet 200 mg FEEDING TUBE QAM tab 12/05/18 01/26/19 History midodrine 10 mg FEEDING TUBE TID 01/04/19 01/26/19 History rasagiline 1 mg FEEDING TUBE QPM 01/04/19 01/26/19 History Eliquis 5 mg FEEDING TUBE BID 01/14/19 01/26/19 History Phospha 250 Neutral 1 tab FEEDING TUBE QID 01/14/19 01/26/19 History levalbuterol HCl 1.25 mg INHALATION Q8 PRN 01/14/19 01/26/19 History nitroglycerin 0.4 mg SUBLINGUAL Q8 PRN #60 tab 01/15/19 01/26/19 Rx Atropine Sulfate Solution 1 drp PO Q4H PRN 01/19/19 01/26/19 History Potassium Chloride Solution 7.5 ml PO QAM 01/19/19 01/26/19 History guaifenesin 400 mg TID PRN 01/19/19 01/26/19 History lansoprazole [Prevacid SoluTab] 30 mg PO QAM 01/19/19 01/26/19 History metoprolol tartrate 12.5 mg FEEDING TUBE BID 01/19/19 01/26/19 History bisacodyl [Dulcolax (bisacodyl)] 10 mg SD DAILY PRN 01/26/19 01/26/19 History Past Med/Surg History Medical History Atrial fibrillation Dysphagia PROGRESSIVE X 2 MONTHS PER ONCOLOGY NOTE Esophageal cancer 2018--chemo, radiation Esophageal stenosis Armijo catheter in place History of recent pneumonia hospitalized [facility] 11/19/18-11/23/2018 Hyperlipidemia Hypertension Orthostatic hypotension Parkinsons disease Reflux esophagitis Ulcerative colitis Weight loss 30 POUND WEIGHT LOSS PER ONCOLOGY NOTE Surgical History History of cardioversion x2--07/2018 History of colonoscopy History of esophagogastroduodenoscopy (EGD) History of tonsillectomy History of tooth extraction all upper teeth History of vascular access device aport right side Family History Mother , at 80yo;[place], aortic valve replacement, stroke No problems noted. Father , at 88yo;"Colon problem that caused him to weaken" No problems noted. Brother No problems noted. Grandmother (Maternal) Family history of diabetes mellitus Grandfather (Maternal) Family hx of colon cancer Other No family history of adverse response to anesthesia Social History Preferred Language: Serbian Communication Ability: Effective Visual Impairment: No Limitations Hearing Ability: Normal Beliefs That Will Affect Care: Yazidism Yazidism Beliefs: Episcopal marital status: Single Current Living Situation: Personal Care Facility Current Living Situation Comment: [facility] Other Information That Helps Us Care for You: No Feels Safe at Home: Yes Safety Concerns: Feels Safe At This Time Smoking Status: Never smoker Do You Dip or Chew Tobacco: No Second Hand Exposure: No Hx Alcohol Use: Yes Hx Substance Use: No caffeine: Yes (1 cup coffee/day;not currently since diagnosis;) during the past year weight has: increased > 10 lbs Physical Exam Constitutional: + thin and + frail appearing Respiratory: normal respiratory effort Cardiovascular: Rate/Rhythm: regular rate and regular rhythm Gastrointestinal (Abdomen): Percussion/Palpation: abdomen soft Results & Data Vital Signs (Past 12 Hours) Vital Signs Temp Pulse Pulse Resp BP BP Pulse Ox 01/29/19 13:05 36.8 C 107 H 18 122/85 95 01/29/19 11:22 37.2 C 74 18 111/71 96 01/29/19 08:00 89 01/29/19 07:03 36.9 C 84 18 106/67 94 01/29/19 03:25 36.5 C 80 18 102/63 96
[2019-01-29] MEDS ORDERED: SODIUM CHLORIDE 0.9% 1000ML 1,000 ML IV SCH (14:15)
[2019-01-29] MEDS ORDERED: ESMOLOL HCL INJ 10 MG/ML 10ML VIAL IV ONE (14:19)
--- NOTE | 2019-01-29 14:29 | GI REPORT ---
Patient Name: Jericho Donahue Procedure Date: 01/29/2019 2:12 PM Date of : 1950 Admit Type: Inpatient Age: 68 Gender: Male Attending MD: Favio Salvador MD Procedure: Upper GI endoscopy Providers: Favio Salvador MD Referring MD: Referred Javier Vences Indications: Follow-up of malignant esophageal adenocarcinoma Medicines: Propofol total dose 60 mg IV, Cetacaine spray, Lidocaine 40 mg IV Complications: No immediate complications. Estimated Blood Loss: Estimated blood loss: none. Procedure: Pre-Anesthesia Assessment: - Prior to the procedure, a History and Physical was performed, and patient medications, allergies and sensitivities were reviewed. The patient's tolerance of previous anesthesia was reviewed. - The risks and benefits of the procedure and the sedation options and risks were discussed with the patient. All questions were answered and informed consent was obtained. After obtaining informed consent, the endoscope was passed under direct vision. Throughout the procedure, the patient's blood pressure, pulse, and oxygen saturations were monitored continuously. The Endoscope was introduced through the mouth, and advanced to the second part of duodenum. The upper GI endoscopy was accomplished without difficulty. The patient tolerated the procedure well. Findings: The Z-line was regular and was found 39 cm from the incisors. A 4 mm post radiation was found in the lower third of the esophagus, 35 cm from the incisors. The scar was unremarkable in appearance. One benign-appearing, intrinsic moderate stenosis was found 35 cm from the incisors. This stenosis measured 4 cm (in length). The stenosis was traversed. There was evidence of an intact gastrostomy with a patent G-tube present in the gastric antrum. This was characterized by healthy appearing mucosa. The examined duodenum was normal. Impression: - Z-line regular, 39 cm from the incisors. - Scar in the lower third of the esophagus. - Benign-appearing esophageal stenosis. - Intact gastrostomy with a patent G-tube present characterized by healthy appearing mucosa. - Normal examined duodenum. - No specimens collected. Recommendation: - Return patient to [facility] for ongoing care. Favio Salvador M.D. Favio Salvador MD 01/29/2019 2:29:25 PM This report has been signed electronically. Note Initiated On: 01/29/2019 2:12 PM Number of Addenda: 0 I attest to the content of the Intraoperative Record and orders documented therein, exceptions below {[id number]}
--- NOTE | 2019-01-29 15:16 | Progress Note ---
DATE: 01/29/2019 The patient underwent an EGD today to reassess the status of his esophageal cancer following brachytherapy from radiation. The procedure showed that he had a radiation scar from 35-39 cm in his esophagus. There was no sign of any residual cancer. The residual radiation injury caused some stricturing, but I was able to get the scope to proceed through the narrowed area with a little popping feeling. The stomach showed the presence of his gastrostomy tube, which was in good position. Duodenum was normal. IMPRESSION: The patient has some radiation scarring, but no sign of any residual cancer. There is some residual stenosis of the esophagus which was able to be traversed with the endoscope. The patient will return to the hospital floor for continued care.
[2019-01-29] MEDS: LANSOPRAZOLE 30 MG SOLTAB PEG SCH (15:24)
[2019-01-29] MEDS: AMIODARONE 200 MG TAB PO SCH (15:24)
[2019-01-29] MEDS: POTASSIUM CHLORIDE 20 MEQ/15 ML UDC PEG SCH (15:25)
[2019-01-29] MEDS: sulfaSALAzine 500 MG TABLET PO SCH (15:25)
[2019-01-29] MEDS: FIBERSOURCE HN 1.2 CAL 1000 ML BAG GT SCH (15:34)
--- NOTE | 2019-01-29 15:34 | Anesthesiology Progress Note ---
Date of Service January 29, 2019 Anesthesia Post Procedure Vital Signs Vital Signs: Temp Pulse Pulse Resp BP BP Pulse Ox 01/29/19 15:31 36.8 C 109 H 20 135/75 93 01/29/19 15:04 98 H 18 117/77 94 01/29/19 14:50 96 H 18 123/89 94 01/29/19 14:35 36.9 C 96 H 18 111/73 96 01/29/19 13:05 36.8 C 107 H 18 122/85 95 01/29/19 11:22 37.2 C 74 18 111/71 96 01/29/19 08:00 89 01/29/19 07:03 36.9 C 84 18 106/67 94 01/29/19 03:25 36.5 C 80 18 102/63 96 01/29/19 00:18 36.6 C 70 18 94/59 L 97 01/28/19 19:39 36.8 C 88 20 103/66 96 01/28/19 16:00 89 Pain Intensity Upper Chest: Pain Intensity: 3 Transfer of Care Handoff Completed per policy Notes Mental Status: alert / awake / arousable and participated in evaluation Patient Amnestic to Procedure: Yes Nausea / Vomiting: adequately controlled Pain: adequately controlled Airway Patency, RR, SpO2: stable & adequate BP & HR: stable & adequate Hydration State: stable & adequate Anesthetic Complications: no major complications apparent and Pt Satisfied with anesthetic care
[2019-01-29] MEDS: ATROPINE SULFATE 1% OP SOLN 5 ML BTL SL PRN (16:23)
[2019-01-29] MEDS: DIGOXIN 0.125 MG/2.5 ML UDP PEG SCH (17:04)
[2019-01-29] MEDS: guaiFENesin SUGAR FREE 200 MG/10 ML UDC PEG PRN (21:13)
[2019-01-29] MEDS: DOXAZOSIN MESYLATE 1 MG TAB PEG SCH (21:33)
[2019-01-30] MEDS: guaiFENesin SUGAR FREE 200 MG/10 ML UDC PEG PRN ×3 (02:08→13:51)
[2019-01-30] MEDS: FIBERSOURCE HN 1.2 CAL 1000 ML BAG GT SCH (04:20)
[2019-01-30] MEDS: HEPARIN 100 UNIT/ML 5ML FLUSH FLUSH PRN (07:28)
[2019-01-30 07:39] LABS: Hematocrit (blood only) 31.7 % (42-52); Hemoglobin 10.4 g/dL (14.0-18.0); Mean Corpuscular Hgb Conc 32.8 g/dL (32-36); Mean Corpuscular Volume 94.3 fL (80-100); Mean Platelet Volume 9.1 fL (7.4-10.4); Platelet Count 215 K/uL (130-400); RDW Coefficient of Variation 16.4 % (11.5-14.5); RDW Standard Deviation 57.6 fL (36.4-46.3); Red Blood Count 3.36 M/uL (4.7-6.1); White Blood Count 7.06 K/uL (4.8-10.8)
--- NOTE | 2019-01-30 07:58 | Anesthesiology Progress Note ---
Date of Service January 30, 2019 Anesthesia Post Procedure Vital Signs Vital Signs: Temp Pulse Pulse Resp BP BP Pulse Ox 01/30/19 04:20 36.8 C 85 16 92/59 L 95 01/30/19 00:00 76 01/29/19 23:20 36.9 C 83 18 97/57 L 92 01/29/19 18:39 36.6 C 114 H 18 114/74 95 01/29/19 17:21 111 H 01/29/19 15:31 36.8 C 109 H 20 135/75 93 01/29/19 15:04 98 H 18 117/77 94 01/29/19 14:50 96 H 18 123/89 94 01/29/19 14:35 36.9 C 96 H 18 111/73 96 01/29/19 13:05 36.8 C 107 H 18 122/85 95 01/29/19 11:22 37.2 C 74 18 111/71 96 01/29/19 08:00 89 Notes Mental Status: alert / awake / arousable and participated in evaluation Nausea / Vomiting: adequately controlled Pain: adequately controlled Airway Patency, RR, SpO2: stable & adequate BP & HR: stable & adequate Hydration State: stable & adequate
[2019-01-30] MEDS: CARBIDOPA/LEVODOPA 25/100MG TAB PEG SCH ×2 (08:54→13:50)
[2019-01-30] MEDS: AMIODARONE 200 MG TAB PO SCH (08:54)
[2019-01-30] MEDS: MIDODRINE HCL 10 MG TAB PO SCH ×2 (08:54→13:50)
[2019-01-30] MEDS: POTASSIUM CHLORIDE 20 MEQ/15 ML UDC PEG SCH (08:55)
[2019-01-30] MEDS: METOPROLOL TARTRATE 25 MG TAB PO SCH (08:55)
[2019-01-30] MEDS: LANSOPRAZOLE 30 MG SOLTAB PEG SCH (08:55)
[2019-01-30] MEDS: POT PHOSPHATE MONOBASIC W/ SOD TAB PO SCH ×2 (08:55→13:51)
[2019-01-30] MEDS: sulfaSALAzine 500 MG TABLET PO SCH (08:55)
--- NOTE | 2019-01-30 10:27 | XRay Report ---
XR chest 2V routine HISTORY: 68 years-old Male eval reaccumulation of effusion follow-up study in a patient with pleural effusion COMPARISON: Chest radiograph 01/28/2019 TECHNIQUE: AP and lateral views of the chest. FINDINGS: Cardiomediastinal and hilar silhouettes are unchanged. No pneumothorax. Increased size of the right p leural effusion, now small to moderate. Persistent bibasilar opacities. No overt pulmonary edema. Sta ble positioning of the right internal jugular [id number]-Ivst catheter. Degenerative changes of the roselyn ulders and spine. IMPRESSION: 1. Increased size of the right pleural effusion, now small to moderate. 2. Right greater than left bibasilar opacities. 3. Cardiomegaly. 4. No pneumothorax identified. The above report was generated using voice recognition software. It may contain grammatical, syntax o r spelling errors. Electronically signed by: Mike Varner M.D. 01/30/2019 10:26 AM
[2019-01-30 11:23] VITALS: PULSE 75; TEMP 98.2; O2SAT 97
[2019-01-30 13:03] VITALS: BP 108/67
--- NOTE | 2019-01-30 13:44 | Progress Note ---
DATE: 01/30/2019 Mr. Donahue was seen today. He underwent an upper endoscopy by Dr. Salvador today. No structural abnormalities or strictures noted. The fluid that we drained a few days ago has negative cytology. He has reaccumulated some on today's film. I discussed this with Dr. Pascal. This patient can be discharged. I will see him back next week in the office to see if he reaccumulates this fluid. If it reaccumulates, we will consider placing a PleurX catheter to control this effusion. We will make that decision next week. ELVIRA
--- NOTE | 2019-01-30 19:15 | Discharge Summary ---
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, non occlusive Discharge Exam Eyes no conjunctival abnormality and no scleral abnormality Neck normal visual inspection and trachea midline Cardiovascular RRR, no murmur, no edema Gastrointestinal (Abdomen) normal bowel sounds, soft, nontender, no hepatosplenomegaly Discharge Data Allergies Allergy/AdvReac Type Severity Reaction Status Date / Time No Known Allergies Allergy Verified 01/19/19 10:33 Consultations 01/26/19 23:58 ED Decision to Admit Stat 01/27/19 08:15 Consult Thoracic Surgery Routine 01/28/19 16:25 Consult Gastroenterology Routine Procedures Performed Operation Date: 01/29/19 13:30 Actual Procedures p Esophagogastroduodenoscopy - Favio White Ordered Studies 01/27/19 01:36 CT angio chest PE protocol Urgent Hospital Course (1) Pleural effusion: right sided - s/p thoracentesis by Dr Estrada with significant improvement in pulmonary symptoms. 1000cc of clear, yellow fluid obtained. initial studies not c/w infection and NOT exudative by lite's criteria. cytologies negative for malignancy post-procedural cxr w/ ?pneumothorax -- repeat cxr with no pneumothorax but some reaccumulation of fluid cultures from thoracentesis negative. pathology is pending appreciate Dr Estrada's consult will follow up as an outpt if a pleurex is needed (2) Chest pain: Suspect 2nd to pleural effusion as resolved after being tapped. Other possibilities - infiltrates in right lung vs musculoskeletal vs GI vs cardiac. Doubt cardiac (no evidence of pericardial effusion). Trop is chronically elevated. Recent echo was normal. Pain has not recurred. (3) Elevated troponin: Chronically elevated, currently at baseline No evidence of ACS (4) Esophageal cancer: Stage 4 s/p chemo/xrt in past. No esophagectomy in past. Patient NPO, all medications and feeds through PEG. He is to have EGD performed on Tuesday to reassess cancer status by Dr White. Continue Atropine drops for secretion management. EGD only shows area of stricture, that was passed by scope, will start TF again, and discuss with GI med if should restart Oral feeding (5) Parkinson disease: Continue Carbidopa/Levodopa QID (6) GERD (gastroesophageal reflux disease): Continue Lansoprazole (7) Urinary retention: Navarro in place 2nd to BPH He was supposed to be on flomax but couldn't take it because it is a capsule and couldn't be placed through PEG Cardura comes in tablet form - can be crushed will be ordered at discharge Cont navarro (8) BPH (benign prostatic hyperplasia): cardura 1mg daily navarro needs f/u with urology post-discharge for voiding trial (9) HTN (hypertension): stable (10) Atrial flutter with controlled response: Continue Amiodarone, continue Metoprolol, Continue Digoxin resume eliquis post-EGD (11) Abnormal chest CT: possible xrt pneumonitis on right (12) S/P percutaneous endoscopic gastrostomy (PEG) tube placement: resumed PEG tube feedings with fibersource HN 80cc/hr continuously with Q4 free h2o flushes, Dr white states can have small amounts of clears or soft foods, pt will follow up with Dr white Total Time Total Time Spent Total Time Spent (In Minutes): greater than 30 minutes were required to prepare discharge Discharge Plan Discharge Items Patient Disposition[facility] Reason For Visit: PLEURITIC CHEST PAIN Discharge Diagnosis: pleural effusion 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 Estrada's office will call you with the date and time for the chest x-ray to be completed prior to this scheduled appointment. Please call his office with any questions or concerns. ) Deon Mazariegos [Physician] - Eriberto Turner [Primary Care Provider] - Diet: Enteral nutrition Addtl Provider Instructions: please follow up with DR Estrada for surveillance of your lung fluid, so far results are good, no cancer seen Please also follow up with Dr White, your 'scope showed no signs of cancer but there is a narrowed section from your radiation treatment, Dr White was able to pass the 'scope through this area and you maybe albe to tolerate small sips of liquid, but do not start food until you have clearance from Dr White Prescriptions: New doxazosin [Cardura] 1 mg Tablet 1 mg PEG HS Qty: 30 RF: 4 Continued bisacodyl [Dulcolax (bisacodyl)] 10 mg Suppository 10 mg MT DAILY PRN (Reason: Constipation) RF: 0 sulfasalazine 500 mg Tablet 500 mg feeding tube DAILY RF: 0 carbidopa-levodopa [Sinemet] 25-100 mg Tablet 2 tab feeding tube QID RF: 0 acetaminophen 325 mg Tablet 325 mg feeding tube Q4 PRN (Reason: pain/fever) RF: 0 digoxin 125 mcg Tablet 125 mcg feeding tube QAM RF: 0 amiodarone 200 mg tablet 200 mg feeding tube QAM RF: 0 Atropine Sulfate Solution 1 drp PO Q4H PRN (Reason: excess oral secretions) RF: 0 guaifenesin 400 mg Tablet 400 mg TID PRN (Reason: congestion/thick secretions) RF: 0 metoprolol tartrate 25 mg Tablet 12.5 mg feeding tube BID RF: 0 Potassium Chloride Solution 7.5 ml PO QAM RF: 0 lansoprazole [Prevacid SoluTab] 30 mg tablet,disintegrat, delay rel 30 mg PO QAM RF: 0 midodrine 10 mg tablet 10 mg feeding tube TID RF: 0 rasagiline 1 mg tablet 1 mg feeding tube QPM RF: 0 Eliquis 5 mg tablet 5 mg feeding tube BID RF: 0 levalbuterol HCl 1.25 mg/0.5 mL solution for nebulization 1.25 mg inhalation Q8 PRN (Reason: Shortness Of Breath) RF: 0 Phospha 250 Neutral 250 mg tablet 1 tab feeding tube QID RF: 0 nitroglycerin 0.4 mg tablet, sublingual 0.4 mg sublingual Q8 PRN (Reason: chest pain) Qty: 60 RF: 1 Stand-Alone Forms: Call Back Authorization, [facility] Discharge Orders: Discharge Order (Routine); Ordered 01/30/19 Ordered By: Javier Pascal Skilled Items Patient informed of condition?: Yes DNR: Yes Discharge Level of Care: Skilled Communicable Disease: No Discharge Prognosis: Stable Admission Data Admit Date/Time: 01/27/19 18:26 Attending Provider: Javier Pascal Admit Provider: Mary Marquis Primary Care Provider: Eriberto Turner Other Providers: Mary Marquis ; Aren Estrada ; Deon Mazariegos ; Ellis Pena Service: Telemetry Medical Other Interventions: Discharge Summary Assessment (RN) Last Done: 01/30/19 13:02 DC Date/Time DO NOT enter until pt leaves facility: 01/30/19 14:45
--- NOTE | 2019-02-01 14:05 | Coding Query ---
CODING QUERY To promote full compliance with coding requirements relating to patient care, provider participation is requested in all cases of claims technician uncertainty. Please assist us with the question(s) below: Coding Question(s): Patient admitted with esophageal cancer admitted for pleural effusions. Thoracentesis done during this admission negative for metastasis. 01/29 progress note mentions possible aspiration pneumonitis. Please check below the statement that describes the pneumonitis. Thank you . Yuniel Hudson SENIOR ELECTRONICS ENGINEER [facility] Physician's Response(s): Aspiration pneumonitis was treated during the course of this Inpatient Stay. ____xxx____ Aspiration pnumonitis was not treated during this Inpatient Stay.. Cannot clinically correlate if the aspiration pneumonitis was treated during this Inpatient Stay Please document: Principal Diagnosis: "�that condition established after study, to be chiefly responsible for occasioning the admission of the patient to the hospital for care." Co-Existing Principal Diagnosis: "�when two or more diagnoses equally meet the criteria for principal diagnosis as determined by the circumstances of admission, diagnostic work up, and/or therapy provided, and the Alphabetic Index, Tabular List, or another coding guideline does not provide sequencing direction, any one of the diagnoses may be sequenced first." "When the physician has documented what appears to be a current diagnosis in the body of the record, but has not included the diagnosis in the final diagnostic statement, the physician should be asked whether the diagnosis should be added." (Source Coding [facility] 2 QTR90. p3-4) ERNESTOD
== END 2019-01-30 14:45 | DRG 187 ==
LOC: ED 21:45 → 2N 21:45 → SUATTDRO 01-27 00:40 → 2N 01-27 01:15 → SUATTDRO 01-27 18:26

== ENCOUNTER 2019-03-22 13:17 | Inpatient (IN) ==
[2019-03-22 14:22] LABS: Basophils # (auto) 0.01 K/uL (0-0.2); Basophils % (auto) 0.1 %; Eosinophils # (auto) 0.02 K/uL (0-0.5); Eosinophils % (auto) 0.2 %; Hematocrit (blood only) 34.3 % (42-52); Hemoglobin 11.5 g/dL (14.0-18.0); Immature Granulocytes # (auto) 0.02 K/uL (0.00-0.02); Immature Granulocytes % (auto) 0.2 %; Lymphocytes # (auto) 0.68 K/uL (1.2-3.4); Lymphocytes % (auto) 5.9 %; Mean Corpuscular Volume 86.4 fL (80-100); Mean Platelet Volume 9.4 fL (7.4-10.4); Monocytes % (auto) 8.7 %; Neutrophils # (auto) 9.74 K/uL (1.4-6.5); Neutrophils % (auto) 84.9 %; Platelet Count 257 K/uL (130-400); RDW Standard Deviation 47.8 fL (36.4-46.3); Red Blood Count 3.97 M/uL (4.7-6.1); White Blood Count 11.47 K/uL (4.8-10.8)
[2019-03-22 14:28] LABS: Mean Corpuscular Hgb Conc 33.5 g/dL (32-36)
[2019-03-22 14:45] LABS: BUN Creatinine Ratio 35.1 (10-20); Blood Urea Nitrogen 17 mg/dl (7-18); Calcium 8.5 mg/dl (8.5-10.1); Carbon Dioxide 31 mmol/L (21-32); Chloride 87 mmol/L (98-107); Est GFR (African American) 129.2; Est GFR (Non-African American) 111.5; Glucose 104 mg/dl (70-99); Potassium 4.4 mmol/L (3.5-5.1); Sodium 126 mmol/L (136-145)
[2019-03-22] MEDS ORDERED: ACETAMINOPHEN 325 MG TAB PEG PRN (15:20)
[2019-03-22] MEDS ORDERED: COENZYME Q10 PO SCH (15:30)
[2019-03-22] MEDS ORDERED: DEXTROMETHORPHAN PO PRN (15:47)
[2019-03-22] MEDS ORDERED: GUAIFENESIN PO PRN (15:47)
[2019-03-22] MEDS: DORNASE ALFA 5 ML in SYRINGE 25 ML IPL SCH (16:06)
[2019-03-22] MEDS: OXYCODONE HCL IR 5 MG TAB (IMMEDIATE RELEASE) PEG PRN ×2 (16:16→21:50)
[2019-03-22 16:44] LABS: Appearance Urine Cloudy (Clear); Bacteria Urine Automated 1+ (Negative); Bilirubin Urine Negative (Negative); Blood Urine 3+ (Negative); Color Urine Dark Yellow; Epithelial Cell Urine Auto 0-5 /lpf (0-5); Glucose Urine UA Negative (Negative); Ketones Urine Negative (Negative); Leukocyte Esterase Urine 3+ (Negative); Nitrite Urine Positive (Negative); RBC Urine Automated >30 /hpf (0-4); Specific Gravity Urine 1.015 (1.000-1.030); Urobilinogen Urine Positive (Negative); WBC Urine Automated >30 /hpf (0-5)
[2019-03-22 16:47] LABS: Protein Urine Trace (Negative)
--- NOTE | 2019-03-22 17:00 | Hospitalist Consultation ---
Date of Consultation March 22, 2019 Assessment & Plan (1) Hyponatremia: Patient's hyponatremia on intake labs is most likely be hypovolemic hyponatremia however a serum Osm & urine sodium are pending. If this were to be the case the patient calculates have a fairly significant sodium deficit and intravenous normal saline will be initiated. If his laboratory test come back with a different direction we will consider the excess fluid he gets to be from his tube feeds. We are holding his free water flushes at this point in time. We will attempt to correct his sodium slowly less than 0.5 mEq/h. I will only order 2 L of normal saline at this time with reassessment of his sodium in the morning Seems to be no new initiating medications or situations that may cause this. (2) Esophageal cancer: During his last endoscopy in January there was no visible evidence of recurrence of esophageal cancer (pathology was also negative) and most of his dysmotility was felt to be from radiation esophagitis. However since that time the patient's been unable to take anything by mouth oral or liquid and occasionally has problems swallowing mucus. The patient believes he supposed to see Dr. Salvador in this week sometime it may be of interest if he is going to have a more longer hospital stay to have Dr. Salvador reevaluate him for possible endoscopy to see if possible dilatation could help the patient swallow (3) Atrial fibrillation: Patient has atrial fibrillation rate controlled with amiodarone 200 a day metoprolol 12.5 twice daily and digoxin 0.125 a day. The patient has his anticoagulation with Eliquis 5 twice daily and because of blood pressure she is takes midodrine to help tolerate his beta-blockers. This should all be continued (4) Ulcerative colitis: Patient is not on any medications for this he is listed sulfadiazine which sounds like sulfasalazine however this is on his med rec and this is usually medication to treat her prophylaxis urinary tract infections he does have a chronic indwelling Armijo catheter as mentioned in HPI during his last stay he did have Klebsiella and Pseudomonas in his urine but currently is without urinary symptoms (5) Parkinsons disease: Patient takes Sinemet for his Parkinson's disease via his PEG tube to 4 times a day (6) Reflux esophagitis: Patient is on Prevacid via his PEG for history reflux esophagitis he said no recent problems with it History of Present Illness Attending Physician: Zeeshan Roca MD History of Present Illness 68-year-old male history of stage IV esophageal cancer status post radiation treatment with recent endoscopy showing no recurrence of disease but with esophageal stricture preventing oral intake who presents with progressive shortness of breath from malfunctioning Pleurx catheter. Pleurx catheter was put in proxy 1 week ago due to previous issues with difficulty draining. Patient has progressive shortness of breath and is felt the catheter is once again malfunctioning attempt of dornase infusion will be undertaken (alteplase was not chosen because the patient is chronically anticoagulated with Eliquis). Upon intake the patient was found to be hyponatremic this most likely is hypovolemic hyponatremia as the patient is completely dependent upon PEG tube feeding and water flushes and physically looks to be with mild to moderate protein calorie malnutrition. Patient is on any new medications with the exception that he was treated with Augmentin for a urinary tract infection at the discharge of his last admission 1 week prior so. Patient states his biggest problems are shortness of breath he also suffers from chronic hypotension which limits some of his treatment for his atrial fibrillation this is try to be mitigated by using midodrine. Currently pending are serum osmolality and a random urine sodium Allergies Allergy/AdvReac Type Severity Reaction Status Date / Time No Known Allergies Allergy Verified 03/22/19 12:45 Home Medications Home Medications Medication Instructions Recorded Confirmed Type acetaminophen 325 mg FEEDING TUBE Q4 PRN 10/30/18 03/22/19 History levalbuterol HCl 1.25 mg INHALATION Q8 PRN 01/14/19 03/22/19 History guaifenesin 400 mg TID PRN 01/19/19 03/22/19 History metoprolol tartrate 12.5 mg FEEDING TUBE BID 01/19/19 03/22/19 History amiodarone 200 mg tablet 200 mg FEEDING TUBE DAILY tab 03/14/19 03/22/19 History apixaban 5 mg tablet 5 mg FEEDING TUBE BID 03/14/19 03/22/19 History carbidopa 25 mg-levodopa 100 mg 2 tab FEEDING TUBE QID 03/14/19 03/22/19 History tablet digoxin 125 mcg tablet 125 mcg FEEDING TUBE DAILY tab 03/14/19 03/22/19 History doxazosin 1 mg tablet 1 mg FEEDING TUBE DAILY tab 03/14/19 03/22/19 History lansoprazole 30 mg delayed 30 mg FEEDING TUBE DAILY tab 03/14/19 03/22/19 History release,disintegrating tablet finasteride 5 mg tablet 5 mg FEEDING TUBE DAILY 03/15/19 03/22/19 History midodrine 10 mg tablet 10 mg FEEDING TUBE TID tab 03/15/19 03/22/19 History nitroglycerin 0.4 mg sublingual 0.4 mg .ROUTE .COMPLEX PRN tab 03/15/19 03/22/19 History tablet rasagiline 1 mg tablet 1 mg FEEDING TUBE DAILY tab 03/15/19 03/22/19 History sodium di- and 1 tab FEEDING TUBE QID 03/15/19 03/22/19 History monophosphate-potassium phos monobasic 250 mg tablet sulfasalazine 500 mg tablet 500 mg FEEDING TUBE DAILY 03/15/19 03/22/19 History glycopyrrolate 1 mg FEEDING TUBE BID 03/16/19 03/22/19 History lactulose 15 ml FEEDING TUBE DAILY 03/16/19 03/22/19 History potassium chloride 10 meq FEEDING TUBE DAILY 03/16/19 03/22/19 History tramadol [Ultram] 50 mg PO Q4H PRN #15 tab 03/16/19 03/22/19 Rx alfuzosin ER 10 mg tablet,extended PO .TAKE 1 TABLET Daily #90 tab 03/22/19 03/22/19 History release 24 hr aspirin 81 mg tablet,delayed PO .TAKE 1 TABLET DAILY. tab 03/22/19 03/22/19 History release cholecalciferol (vitamin D3) 2,000 1 PO .Take 1 tablet daily tab 03/22/19 03/22/19 History unit tablet coenzyme Q10 200 mg capsule 1 PO .TAKE 1 CAPSULE DAILY cap 03/22/19 03/22/19 History folic acid 1 mg tablet PO .TAKE 2 TABLETS DAILY tab 03/22/19 03/22/19 History food supplement, lactose-reduced ea PO ml 03/22/19 03/22/19 History oral liquid ondansetron HCl 4 mg tablet 4 mg PO DAILY #20 tab 03/22/19 03/22/19 History pantoprazole 40 mg tablet,delayed 40 mg PO DAILY tab 03/22/19 03/22/19 History release simvastatin 20 mg tablet PO .TAKE 1 TABLET DAILY tab 03/22/19 03/22/19 History Patient History Medical History DVT prophylaxis On enteral nutrition Encounter for feeding tube placement (Acute) Atrial fibrillation Dysphagia PROGRESSIVE X 2 MONTHS PER ONCOLOGY NOTE Esophageal cancer 2018--chemo, radiation Esophageal stenosis Armijo catheter in place History of recent pneumonia hospitalized [facility] 11/19/18-11/23/2018 Hyperlipidemia Hypertension Orthostatic hypotension Parkinsons disease Reflux esophagitis Ulcerative colitis Weight loss 30 POUND WEIGHT LOSS PER ONCOLOGY NOTE Surgical History History of cardioversion x2--07/2018 History of colonoscopy History of esophagogastroduodenoscopy (EGD) History of tonsillectomy History of tooth extraction all upper teeth History of vascular access device aport right side Social History Preferred Language: Samoan Communication Ability: Effective Visual Impairment: No Limitations Hearing Ability: Normal [employer] Chief Required: No Beliefs That Will Affect Care: Pentecostal Pentec[employer]al Beliefs: Episcopal marital status: Single Current Living Situation: Personal Care Facility Current Living Situation Comment: [facility] Feels Safe at Home: Yes Safety Concerns: Feels Safe At This Time Smoking Status: Never smoker Second Hand Exposure: No Hx Alcohol Use: Yes Hx Substance Use: No caffeine: Yes (1 cup coffee/day;not currently since diagnosis;) during the past year weight has: increased > 10 lbs Review of Systems Review of Systems: ROS: Patient is thin frail and weak complains of getting weaker over the last few days No double vision blurry vision She cannot swallow sometimes even having challenges with his own saliva No palpitations, chest pain or pressure No Wheezing dyspnea at rest and exertion No abdominal pain nausea vomiting PEG tube site is not been an issue Chronic indwelling Armijo catheter No focal joint pain or muscle pain No skin rashes or oral lesions No unusual bruising or bleeding No focused back pain or radicular symptoms No changes in memory or confusion Physical Exam Physical Exam: The patient appeared chronically ill slightly malnourished Vital signs as documented. Head exam is unremarkable. normocephalic, atraumatic Neck is without jugular venous distension, thyromegaly, or lymphademopathy no stridor trachea is midline Lungs right lung is dullness approximately two th[address] way up left lung is with good air movement Pleurx is in his right chest wall Cardiac exam reveals irregular and rate controlled Abdominal exam reveals normal bowel sounds, no masses, no organomegaly PEG tube in his left abdomen is without erythema or abnormalities Extremities are nonedematous and both pedal pulses are present Neurologic exam is A&Ox3, weak to movement Psychologically seems depressed Skin is warm Dry without bruises or lesions Results & Data Vital Signs (Past 12 Hours) Vital Signs Temp Pulse Resp BP Pulse Ox 03/22/19 15:42 97 H 109/67 96 03/22/19 15:08 36.8 C 96 H 16 94/56 L 96 03/22/19 14:03 36.8 C 96 H 18 123/77 97 March 22 chest x-ray1. Pleural fluid now occupies the right basilar pneumothorax region previously described. 2. Small persistent right apical pneumothorax. 3. Increased density overlying the right hilum possibly secondary to fluid withi n the fissure based on the lateral projection. PG Care Time/CCT Total # of Minutes Spent Total Time Spent with Patient: Total time spent is greater than 50% in coordination of care (as documented) at patient's floor/unit and/or counseling patient:
[2019-03-22] MEDS: FIBERSOURCE HN 1.2 CAL 1000 ML BAG PO SCH (17:17)
[2019-03-22] MEDS: POT PHOSPHATE MONOBASIC W/ SOD TAB PO SCH ×2 (17:34→21:29)
[2019-03-22] MEDS: CARBIDOPA/LEVODOPA 25/100MG TAB PEG SCH ×2 (17:35→21:30)
[2019-03-22] MEDS: SODIUM CHLORIDE 0.9% 500 ML IV SCH ×2 (18:04→23:40)
--- NOTE | 2019-03-22 18:28 | History and Physical Report ---
DATE OF ADMISSION: 03/22/2019 REASON FOR ADMISSION: Loculated pleural effusion. HISTORY OF PRESENT ILLNESS: This 68-year-old male with numerous medical problems who is known to Dr. Estrada. The patient has had a recurrent right pleural effusion. It is noteworthy to mention that the patient had a right thoracentesis on January 27 of this year. His fluid recurred and patient required a repeat right thoracentesis on March 09 of this year. It should be noteworthy to mention that the patient had cytology checked that was negative for malignancy each time as well as cultures were checked and were negative for growth at each time. His fluid recurred third time, the patient underwent a right PleurX catheter insertion on 03/09/2019. He was initially doing well; however, we were notified by his [facility] quarters that the patient had decreased drainage over the last 2 days. He is complaining of some worsening shortness of breath particularly with activity, so he came to the office. Prior to coming into the office, a chest x-ray was performed that showed the patient had increasing right pleural effusion when compared previously. In the office, the patient did have a PleurX catheter, suction bottle was placed to his PleurX and the tube was stripped and we are unable to obtain a meaningful amount of fluid. It was therefore felt that the patient would benefit from admission. Concerning other symptomatology, he has not had any fever, shakes, chills, falls or head injuries. He denies any new visual changes, tinnitus or sore throat. He denies any neck pain. He denies any chest pain. He does note shortness of breath with activity. He denies any abdominal pain. At the time we saw the patient in the office and we visited him again in the hospital, he was resting comfortably in bed and did not appear to be in any distress. PAST MEDICAL HISTORY: Includes the followin. Parkinson's. 2. Reflux esophagitis. 3. Hypertension. 4. Esophageal cancer. 5. Hyperlipidemia. 6. Ulcerative colitis. 7. Atrial fibrillation. 8. Orthostatic hypotension. 9. Esophageal stenosis. PAST SURGICAL HISTORY: Includes: 1. Tonsillectomy. 2. EGD. 3. Colonoscopy. 4. Cardioversion. 5. History of teeth extractions. 6. Feeding tube placement. 7. Thoracentesis and PleurX catheter as noted above. SOCIAL HISTORY: The patient lives in [facility]. FAMILY HISTORY: There is a family history positive for diabetes. ALLERGIES: None. OUTPATIENT MEDICATIONS: Include: 1. Tylenol 325 mg every 4 hours as needed. 2. Alfuzosin 10 mg by mouth every 24 hours. 3. Amiodarone 200 mg via feeding tube daily. 4. Eliquis 5 mg via feeding tube twice daily. 5. Aspirin 81 mg by mouth daily. 6. Carbidopa 25/levodopa 100 mg 2 tablets via feeding tube 4 times daily. 7. Vitamin D3 2000 units daily by mouth. 8. Coenzyme Q10 200 mg daily by mouth. 9. Digoxin 0.125 mg daily via feeding tube. 10. Doxazosin 1 mg daily via feeding tube. 11. Finasteride 5 mg daily via feeding tube. 12. Folic acid 2 mg daily by mouth. 13. Glycopyrrolate 1 mg via feeding tube twice daily. 14. Lactulose 15 mL via feeding tube daily. 15. Prevacid 30 mg via feeding tube daily. 16. Levalbuterol inhaler every 8 hours as needed. 17. Metoprolol 12.5 mg via feeding tube twice daily. 18. Midodrine 10 mg via feeding tube 3 times daily. 19. Sublingual nitroglycerin as needed. 20. Zofran as needed. 21. Potassium chloride 10 mEq via feeding tube daily. 22. Rasagiline 1 mg via feeding tube daily. 23. Zocor 20 mg daily by mouth. 24. Sulfasalazine 500 mg via feeding tube daily. REVIEW OF SYSTEMS: As noted above. PHYSICAL EXAMINATION: VITAL SIGNS: Blood pressure is 94/56, pulse 96 and regular, respirations are 16 unlabored. Temperature 36.8, oxygen saturation is 96% on room air. GENERAL: The patient is alert and oriented x3, in no distress. HEAD: Atraumatic, normocephalic. EYES: He does wear corrective lenses. EARS: Auditory acuity is grossly intact. NOSE: Nasal patency was intact. MOUTH: Has dry mucous membranes. NECK: Shows no tracheal shift. CARDIOVASCULAR: Regular rate and rhythm. LUNGS: Revealed decreased breath sounds at the right base. He has a PleurX catheter insertion with well-healed incisions without signs of infection. ABDOMEN: Soft and nontender, nondistended. He had a feeding tube in place. GENITOURINARY: Revealed he did have a Armijo catheter in place. EXTREMITIES: Revealed no cyanosis or clubbing. NEUROLOGIC: Revealed patient had a resting tremor. He did not have any focal deficits. DIAGNOSTIC DATA: Labs today showed a white blood cell count 11.4, hemoglobin and hematocrit 11.5 and 34.3, platelet count is 257,000. Sodium is 126, potassium is 4.4. His BUN and creatinine are 17 and 0.4. IMPRESSION: A 68-year-old male with a loculated pleural effusion. PLAN: We will admit the patient to the hospital. We will initiate the MIST-2 protocol, but modifying it by not using alteplase as he takes Eliquis. We will instill Dornase 5 mg every 12 hours, draining the PleurX 1 hour after administration each time. I have administered the first dose at approximately 2:15 p.m. today. We will monitor serial chest x-rays. Additional recommendations will be made based on his clinical course and radiographs in the hospital. ELVIRA
[2019-03-22] MEDS: METOPROLOL TARTRATE 25 MG TAB PO SCH (21:28)
[2019-03-22] MEDS: APIXABAN 5 MG TABLET PO SCH (21:30)
[2019-03-22] MEDS: MIDODRINE HCL 10 MG TAB PO SCH (21:30)
[2019-03-22] MEDS: GLYCOPYRROLATE 1 MG TAB PO SCH (21:31)
[2019-03-22] MEDS: GUAIFENESIN/DEXTROM SYRUP 100MG/10MG 5ML UDC PO PRN (21:47)
[2019-03-23] MEDS: DORNASE ALFA 5 ML in SYRINGE 25 ML IPL SCH ×2 (02:06→13:41)
[2019-03-23] MEDS: SODIUM CHLORIDE 0.9% 500 ML IV SCH ×2 (03:52→08:59)
[2019-03-23] MEDS: OXYCODONE HCL IR 5 MG TAB (IMMEDIATE RELEASE) PEG PRN ×3 (04:44→17:59)
[2019-03-23 06:59] LABS: BUN Creatinine Ratio 31.4 (10-20); Blood Urea Nitrogen 15 mg/dl (7-18); Calcium 8.3 mg/dl (8.5-10.1); Carbon Dioxide 32 mmol/L (21-32); Chloride 92 mmol/L (98-107); Est GFR (African American) 132.6; Est GFR (Non-African American) 114.4; Glucose 123 mg/dl (70-99); Potassium 4.3 mmol/L (3.5-5.1); Sodium 130 mmol/L (136-145)
--- NOTE | 2019-03-23 07:29 | XRay Report ---
XR chest 1V portable CLINICAL HISTORY: effusion COMPARISON STUDY: 03/22/2019 FINDINGS: The heart is enlarged. There is a right-sided A-Port catheter. There is a 14 mm right apica l pneumothorax. There is slight decrease in the size the right pleural effusion with decreased intraf issural fluid. There is a right basilar pleural drainage catheter. There are associated right basilar airspace opacities. There are minor left basilar atelectatic changes. There is a trace left pleural effusion.[ IMPRESSION: 1. 14 mm right apical pneumothorax 2. Very slight interval decrease in the size the right pleural effusion 3. Trace left pleural effusion 4. No change in the position of the right Pleurx catheter 5. Persistent left basilar atelectatic change and right basilar airspace opacities Electronically signed by: Ovidio Woosdon M.D. 03/23/2019 7:27 AM
[2019-03-23] MEDS: GLYCOPYRROLATE 1 MG TAB PO SCH ×2 (07:43→22:08)
[2019-03-23] MEDS: CARBIDOPA/LEVODOPA 25/100MG TAB PEG SCH ×4 (07:43→22:08)
[2019-03-23] MEDS: DIGOXIN 0.125 MG TAB PO SCH (07:44)
[2019-03-23] MEDS: ASPIRIN 81 MG CHEW PEG SCH (07:44)
[2019-03-23] MEDS: CHOLECALCIFEROL 1,000 UNITS TAB PEG SCH (07:44)
[2019-03-23] MEDS: POT PHOSPHATE MONOBASIC W/ SOD TAB PO SCH ×4 (07:45→22:08)
[2019-03-23] MEDS: LANSOPRAZOLE 30 MG SOLTAB PEG SCH (07:45)
[2019-03-23] MEDS: FOLIC ACID 1 MG TAB PO SCH (07:45)
[2019-03-23] MEDS: SIMVASTATIN 20 MG TAB PO SCH (07:45)
[2019-03-23] MEDS: MIDODRINE HCL 10 MG TAB PO SCH ×3 (07:46→22:08)
[2019-03-23] MEDS: APIXABAN 5 MG TABLET PO SCH ×2 (07:46→22:08)
[2019-03-23] MEDS: ONDANSETRON 4 MG TAB PO SCH (07:46)
[2019-03-23] MEDS: sulfaSALAzine 500 MG TABLET PO SCH (07:46)
[2019-03-23] MEDS: FINASTERIDE 5 MG TAB PEG SCH (07:46)
[2019-03-23] MEDS: METOPROLOL TARTRATE 25 MG TAB PO SCH ×3 (07:46→22:08)
[2019-03-23] MEDS: LACTULOSE SYRUP 10 GM/15 ML BTL 473 ML PEG SCH (07:47)
[2019-03-23] MEDS: AMIODARONE 200 MG TAB PO SCH (07:47)
[2019-03-23] MEDS ORDERED: ASPIRIN 81 MG ECTAB PO SCH (09:00)
[2019-03-23] MEDS ORDERED: DOXAZOSIN MESYLATE 1 MG TAB PEG SCH (09:00)
[2019-03-23] MEDS ORDERED: ALFUZOSIN HCL 10 MG TAB PO SCH (09:00)
--- NOTE | 2019-03-23 09:43 | Surgery Progress Note ---
Date of Service March 23, 2019 Assessment & Plan (1) Hyponatremia: -improved with interventions as outlined by medicine service (2) Indwelling Armijo catheter present: -pt. had recent UTI and was treated as outpt. with course of antibiotics -repeat urine culture is pending (3) Pleural effusion: -pt. has had thoracentesis x 2 and subsequent placement of right pleurex catheter -pt. admitted due to minimal drainage from pleurex and worsening pleural effusion on CXR -MIST-2 protocol initiated on 03/22/19 (using only dornase; no alteplase as pt. takes Eliquis) -RN reports only minimal drainage from pleurex -as CXR shows some improvement of pleural effusion, will continue MIST-2 protocol with dornase and follow serial CXR Subjective Pt. notes he is feeling better this morning with less SOB. No fevers, shakes, chills. He denies pain with drainage of pleurex. He is tolerating TFs at goal rate. No abdominal pain. Review of Systems Constitutional: no fever Respiratory: no cough and no dyspnea Cardiovascular: no chest pain Gastrointestinal: no abdominal pain, no nausea and no vomiting Results & Data Vital Signs (Past 12 Hours) Vital Signs Temp Pulse Pulse Pulse Resp BP Pulse Ox 03/23/19 07:51 36.5 C 88 18 130/72 96 03/23/19 07:44 88 03/22/19 22:54 36.7 C 73 18 93/62 L 97
[2019-03-23] MEDS: POTASSIUM CHLORIDE 20MEQ/15ML 473ML PEG SCH (09:53)
[2019-03-23] MEDS: HEPARIN 100 UNIT/ML 5ML FLUSH FLUSH PRN ×2 (14:11→19:51)
[2019-03-23] MEDS: FIBERSOURCE HN 1.2 CAL 1000 ML BAG PO SCH (17:57)
--- NOTE | 2019-03-23 18:32 | Hospitalist Progress Note ---
Date of Service March 23, 2019 Assessment & Plan (1) Hyponatremia: Hyponatremia is improved up to 130 today from 126 with giving 2 L of normal saline Urine sodium is 56, urine osmolarity has not been done It is possible that this was from excess free water from free water flushes, but could have just been hypovolemic hyponatremia -Continue tube feeds -Continue to hold free water flushes -DC normal saline -Follow BMP (2) Esophageal cancer: Status post XRT/chemo -Has not had surgery During his last endoscopy in January there was no visible evidence of recurrence of esophageal cancer (pathology was also negative) and most of his dysmotility was felt to be from radiation esophagitis. However since that time he has been unable to take anything by mouth as far as solid food, can have liquids, occasionally has problems swallowing mucus. -Consult GI to see about doing EGD this admission (3) Atrial fibrillation: Patient has chronic atrial fibrillation and flutter that is rate controlled -Continue amiodarone 200 MG daily -Continue metoprolol 12.5 twice daily and digoxin 0.125 a day -Continue anticoagulation with Eliquis 5 twice daily (4) Ulcerative colitis: This is been quiescent Of note, he is supposed to be on sulfasalazine, and not sulfadiazine-this correction was made on the home med rec and here in the hospital (5) Parkinsons disease: -Continue Sinemet for his Parkinson's disease via his PEG tube 4 times a day (6) Reflux esophagitis: -Continue Prevacid via his PEG for history reflux esophagitis (7) Esophageal stricture: Secondary to radiation scarring and esophageal cancer now in remission -Consulting GI to see about EGD with dilation (8) Indwelling Armijo catheter present: Armijo in place 2nd to BPH Has both alfuzosin and Cardura on his home medication list but he cannot recall taking either of these He also has midorine that he takes for low blood pressures-it does not make sense to be on alpha blockers and alpha agonist -We will discontinue alfuzosin and Cardura -Continue midodrine -Maintain Armijo catheter and follow-up with urology as an outpatient -Continue finasteride to replace home dutasteride (9) Pleural effusion: Loculated, previously diagnostic as a transudate of effusion Management as per thoracic surgery His Pleurx catheter in place and performing MIST-2 protocol minus the alteplase as he is on Eliquis -If not improving, need to consider decortication-defer management to primary team/thoracic surgery (10) BPH (benign prostatic hyperplasia): Armijo catheter in place -Continue finasteride and replacement of dutasteride -He cannot tolerate alpha blockers-have discontinued alfuzocin and doxazosin which were both ordered here. (11) Hypotension: Likely secondary to autonomic dysfunction and Parkinson's disease as well as alpha blockers -DC alpha blockers as above -Continue midodrine (12) UTI (urinary tract infection) due to urinary indwelling Armijo catheter: Urine culture growing both Klebsiella pneumoniae and Pseudomonas resistant for quinolones -Start cefepime IV -Follow-up sensitivities -Has indwelling Armijo-will need to be exchanged this admission (13) DVT prophylaxis: Eliquis Disposition-remain hospitalized Hospitalist service will continue to follow along Subjective Pt still feels a little SOB. Has some pain in right mid back with taking a deep breath. Is very happy that a side effect of the oxycodone is dry mouth because his excessive oral secretions are finally improved. Denies abd pain. States he does not think he is taking Cardura or alfuzosin at home, but he's not sure-says [facility] can send over his med list. Review of Systems Review of Systems: All systems reviewed & are unremarkable except as noted in HPI & below Physical Exam Constitutional: + cachectic and + frail appearing; no acute distress temporal wasting ENMT: Ears: no hearing impairment Neck: trachea midline, no thyromegaly Respiratory: normal respiratory effort (+dressing in place over PleurX with drain coming out) Auscultation: + diminished lung sounds (at right base and middle lung field) Cardiovascular: RRR, no murmur, no edema Gastrointestinal (Abdomen): normal bowel sounds, soft, nontender, no hepatosplenomegaly Musculoskeletal: Extremities: + extremities abnormal to inspection (diffuse sarcopenia), no cyanosis and no clubbing Skin: no rashes, warm and dry Neurologic: moves all extremities and awake; no focal motor deficits Psychiatric: A+Ox3, euthymic affect Results & Data Vital Signs (Past 12 Hours) Vital Signs Temp Pulse Pulse Pulse Resp BP BP 03/23/19 15:31 36.9 C 99 H 18 93/59 L 03/23/19 11:30 116/73 03/23/19 09:55 94/58 L 03/23/19 07:51 36.5 C 88 18 130/72 03/23/19 07:44 88 Pulse Ox 03/23/19 15:31 96 03/23/19 11:30 03/23/19 09:55 03/23/19 07:51 96 03/23/19 07:44 Laboratory Results 03/23/19 03/23/19 03/23/19 Range/Units 18:20 12:07 06:16 Sodium (136-145) mmol/L Potassium (3.5-5.1) mmol/L Chloride (98-107) mmol/L Carbon Dioxide (21-32) mmol/L Anion Gap (3-11) BUN (7-18) mg/dl Creatinine (0.6-1.4) mg/dl Est Cr Clr Drug Dosing Est GFR ( Amer) Est GFR (Non-Af Amer) BUN/Creatinine Ratio (10-20) Glucose (70-99) mg/dl POC Glucose 96 106 H 129 H (70-99) Calcium (8.5-10.1) mg/dl Nasal Screen MRSA (PCR) (Negative) 03/23/19 03/23/19 03/22/19 Range/Units 06:04 00:07 20:00 Sodium 130 L (136-145) mmol/L Potassium 4.3 (3.5-5.1) mmol/L Chloride 92 L (98-107) mmol/L Carbon Dioxide 32 (21-32) mmol/L Anion Gap 6.0 (3-11) BUN 15 (7-18) mg/dl Creatinine 0.46 L (0.6-1.4) mg/dl Est Cr Clr Drug Dosing Not Reportable Est GFR ( Amer) 132.6 Est GFR (Non-Af Amer) 114.4 BUN/Creatinine Ratio 31.4 H (10-20) Glucose 123 H (70-99) mg/dl POC Glucose 110 H (70-99) Calcium 8.3 L (8.5-10.1) mg/dl Nasal Screen MRSA (PCR) Negative (Negative) 03/22/19 Range/Units 18:15 Sodium (136-145) mmol/L Potassium (3.5-5.1) mmol/L Chloride (98-107) mmol/L Carbon Dioxide (21-32) mmol/L Anion Gap (3-11) BUN (7-18) mg/dl Creatinine (0.6-1.4) mg/dl Est Cr Clr Drug Dosing Est GFR ( Amer) Est GFR (Non-Af Amer) BUN/Creatinine Ratio (10-20) Glucose (70-99) mg/dl POC Glucose 109 H (70-99) Calcium (8.5-10.1) mg/dl Nasal Screen MRSA (PCR) (Negative) Diagnostic Findings CXR image personally reviewed by me and agree with the following report: XR chest 1V portable CLINICAL HISTORY: effusion COMPARISON STUDY: 03/22/2019 FINDINGS: The heart is enlarged. There is a right-sided A-Port catheter. There is a 14 mm right apical pneumothorax. There is slight decrease in the size the right pleural effusion with decreased intrafissural fluid. There is a right basilar pleural drainage catheter. There are associated right basilar airspace opacities. There are minor left basilar atelectatic changes. There is a trace left pleural effusion.[ IMPRESSION: 1. 14 mm right apical pneumothorax 2. Very slight interval decrease in the size the right pleural effusion 3. Trace left pleural effusion 4. No change in the position of the right Pleurx catheter 5. Persistent left basilar atelectatic change and right basilar airspace opac ities PG Care Time/CCT Total # of Minutes Spent Total Time Spent with Patient: Total time spent is greater than 50% in coordination of care (as documented) at patient's floor/unit and/or counseling patient: (1) BPH (benign prostatic hyperplasia) Lower urinary tract symptom detail: incomplete bladder emptying Lower urinary tract symptom presence: symptoms present Qualified Code(s): N40.1 - Benign prostatic hyperplasia with lower urinary tract symptoms; R39.14 - Feeling of incomplete bladder emptying (2) Hypotension Hypotension type: other hypotension type Qualified Code(s): I95.89 - Other h ypotension
[2019-03-23] MEDS: CEFEPIME 1,000 MG in SYRINGE 0 ML IV SCH (19:51)
[2019-03-24] MEDS: DORNASE ALFA 5 ML in SYRINGE 25 ML IPL SCH ×3 (02:02→13:42)
[2019-03-24] MEDS: OXYCODONE HCL IR 5 MG TAB (IMMEDIATE RELEASE) PEG PRN ×4 (02:37→23:48)
[2019-03-24] MEDS: CEFEPIME 1,000 MG in SYRINGE 0 ML IV SCH ×3 (03:00→20:05)
[2019-03-24] MEDS: HEPARIN 100 UNIT/ML 5ML FLUSH FLUSH PRN ×4 (03:02→20:05)
[2019-03-24] MEDS: FIBERSOURCE HN 1.2 CAL 1000 ML BAG PO SCH ×2 (03:18→16:16)
[2019-03-24 06:05] LABS: Basophils # (auto) 0.02 K/uL (0-0.2); Basophils % (auto) 0.2 %; Eosinophils # (auto) 0.06 K/uL (0-0.5); Eosinophils % (auto) 0.7 %; Hematocrit (blood only) 32.3 % (42-52); Hemoglobin 10.4 g/dL (14.0-18.0); Immature Granulocytes # (auto) 0.02 K/uL (0.00-0.02); Immature Granulocytes % (auto) 0.2 %; Lymphocytes # (auto) 0.46 K/uL (1.2-3.4); Lymphocytes % (auto) 5.2 %; Mean Corpuscular Hgb Conc 32.2 g/dL (32-36); Mean Platelet Volume 9.6 fL (7.4-10.4); Monocytes # (auto) 1.01 K/uL (0.11-0.59); Monocytes % (auto) 11.5 %; Neutrophils # (auto) 7.21 K/uL (1.4-6.5); Neutrophils % (auto) 82.2 %; Platelet Count 271 K/uL (130-400); RDW Coefficient of Variation 15.2 % (11.5-14.5); RDW Standard Deviation 48.9 fL (36.4-46.3); Red Blood Count 3.67 M/uL (4.7-6.1); White Blood Count 8.78 K/uL (4.8-10.8)
[2019-03-24 06:33] LABS: BUN Creatinine Ratio 37.6 (10-20); Calcium 7.8 mg/dl (8.5-10.1); Creatinine Clr Calc Pharmacy 137.4 ml/min; Est GFR (African American) 133.8; Est GFR (Non-African American) 115.5; Potassium 4.7 mmol/L (3.5-5.1)
--- NOTE | 2019-03-24 08:43 | XRay Report ---
XR chest 1V portable HISTORY: effusion COMPARISON: Chest 03/23/2019. FINDINGS: Right jugular Port-A-Cath terminates at the proximal SVC. Right basilar pleural catheter is unchanged in position. Small right hydropneumothorax remains unchanged. There appears to be a trace left pleural effusion, unchanged. The heart remains mildly enlarged. Bibasilar densities persist. Thi s may represent atelectasis. IMPRESSION: Satisfactory support line placement. No change in the small right hydropneumothorax and trace left pl eural effusion. Electronically signed by: Adam Moreira M.D. 03/24/2019 8:41 AM
[2019-03-24] MEDS: ONDANSETRON 4 MG TAB PO SCH (09:04)
[2019-03-24] MEDS: METOPROLOL TARTRATE 25 MG TAB PO SCH ×2 (09:04→21:12)
[2019-03-24] MEDS: SIMVASTATIN 20 MG TAB PO SCH (09:05)
[2019-03-24] MEDS: FOLIC ACID 1 MG TAB PO SCH (09:05)
[2019-03-24] MEDS: FINASTERIDE 5 MG TAB PEG SCH (09:05)
[2019-03-24] MEDS: CHOLECALCIFEROL 1,000 UNITS TAB PEG SCH (09:06)
[2019-03-24] MEDS: CARBIDOPA/LEVODOPA 25/100MG TAB PEG SCH ×4 (09:06→21:11)
[2019-03-24] MEDS: LANSOPRAZOLE 30 MG SOLTAB PEG SCH (09:06)
[2019-03-24] MEDS: APIXABAN 5 MG TABLET PO SCH (09:06)
[2019-03-24] MEDS: GLYCOPYRROLATE 1 MG TAB PO SCH ×2 (09:06→21:12)
[2019-03-24] MEDS: DIGOXIN 0.125 MG TAB PO SCH (09:07)
[2019-03-24] MEDS: sulfaSALAzine 500 MG TABLET PO SCH ×2 (09:07→17:50)
[2019-03-24] MEDS: ASPIRIN 81 MG CHEW PEG SCH (09:07)
[2019-03-24] MEDS: AMIODARONE 200 MG TAB PO SCH (09:07)
[2019-03-24] MEDS: MIDODRINE HCL 10 MG TAB PO SCH ×3 (09:07→21:13)
[2019-03-24] MEDS: POTASSIUM CHLORIDE 20MEQ/15ML 473ML PEG SCH (09:08)
[2019-03-24] MEDS: POT PHOSPHATE MONOBASIC W/ SOD TAB PO SCH ×4 (09:08→21:11)
[2019-03-24] MEDS: LACTULOSE SYRUP 10 GM/15 ML BTL 473 ML PEG SCH (09:08)
--- NOTE | 2019-03-24 12:20 | Surgery Progress Note ---
Date of Service March 24, 2019 Assessment & Plan (1) Hyponatremia: -uncertain as of cause bit improved since admission -continue to monitor (2) Indwelling Armijo catheter present: -pt. had recent UTI and was treated as outpt. with course of antibiotics (augmentin) -repeat urine culture again shows Klebsiella and Pseudomonas -discussed with IM service and they have initiated IV cefepime (3) Pleural effusion: -pt. has had thoracentesis x 2 and subsequent placement of right pleurex catheter -pt. admitted due to minimal drainage from pleurex and worsening pleural effusion on CXR along with subjective SOB -MIST-2 protocol initiated on 03/22/19 (using only dornase; no alteplase as pt. takes Eliquis) -CXR has shown small improvement despite minimal drainage from pleurex -will continue MIST-2 protocol with dornase (this will conclude with 2 am dose on 03/25/19 -once MIST protocol completed will plan on draining pleurex and obtaining a non-contrast chest CT scan to better evaluate the nature and extent of pleural effusion Subjective Pt. notes he feels better since admission. No fevers, shakes, chills. He denies pain with drainage of pleurex. He is tolerating TFs at goal rate. No abdominal pain. He denies burning at urinary catheter that was present prior to admission. Physical Exam Constitutional: + thin; no acute distress Respiratory: normal respiratory effort; no respiratory distress, no labored breathing and does not use accessory muscles Air movement noted at right base but BS are decreased. Results & Data Vital Signs (Past 12 Hours) Vital Signs Temp Pulse Pulse Resp BP Pulse Ox 03/24/19 09:07 85 03/24/19 07:15 36.5 C 87 19 117/60 96
[2019-03-24] MEDS: GUAIFENESIN/DEXTROM SYRUP 100MG/10MG 5ML UDC PO PRN (14:31)
[2019-03-24] MEDS ORDERED: MAGNESIUM CITRATE 296 ML/BTL PEG STA (15:34)
--- NOTE | 2019-03-24 15:38 | Gastrointestinal Consultation ---
Date of Consultation March 24, 2019 Assessment & Plan (1) Esophageal stricture: pt with solid food dysphagia. Discussed with patient plan EGD with prn dilatation on tuesday. Proc and risks explained which include but not limited to med reaction, bleeding perforation, and aspiration. He is at increased risk of bleeding and perforation with dilatation and also explained success may be limited given length and type of stricture. Discussed wiht DR Kelley holding ASA and Elliquis and bridging if needed. dysphagia--from stricture LLQ pain--perhaps from constipation so give mag citrate constipation--as above. History of Present Illness Reason for Consultation: dysphagia, ? need for esophageal dilatation Requesting Physician: Raeann Kelley MD Attending Physician: Zeeshan Roca MD History of Present Illness CC dysphagia HPI Pt known to our service with esophageal cancer s/p XRT and chemo. Had PEG placed 01/05/19 for dysphagia. Had last EGD by DR Salvador 01/29/19 scarring noted and lumen diameter smaller than scope with slight dilatation done with scope. Pt states he can tolerate thin liquids. Thick liquids go down esophagus slowly and solid food hangs up and obstructs. Some LLQ pain at present and he is constipated on narcotics and has not move in bowels in 2-3 days. He is in the hospital for recurrent pleural effusion. He is on ASA and Elliquis. Allergies Allergy/AdvReac Type Severity Reaction Status Date / Time No Known Allergies Allergy Verified 03/22/19 12:45 Home Medications Home Medications Medication Instructions Recorded Confirmed Type acetaminophen 325 mg FEEDING TUBE Q4 PRN 10/30/18 03/22/19 History levalbuterol HCl 1.25 mg INHALATION Q8 PRN 01/14/19 03/22/19 History guaifenesin 400 mg TID PRN 01/19/19 03/22/19 History metoprolol tartrate 12.5 mg FEEDING TUBE BID 01/19/19 03/22/19 History amiodarone 200 mg tablet 200 mg FEEDING TUBE DAILY tab 03/14/19 03/22/19 History apixaban 5 mg tablet 5 mg FEEDING TUBE BID 03/14/19 03/22/19 History carbidopa 25 mg-levodopa 100 mg 2 tab FEEDING TUBE QID 03/14/19 03/22/19 History tablet digoxin 125 mcg tablet 125 mcg FEEDING TUBE DAILY tab 03/14/19 03/22/19 History doxazosin 1 mg tablet 1 mg FEEDING TUBE DAILY tab 03/14/19 03/22/19 History lansoprazole 30 mg delayed 30 mg FEEDING TUBE DAILY tab 03/14/19 03/22/19 His tory release,disintegrating tablet finasteride 5 mg tablet 5 mg FEEDING TUBE DAILY 03/15/19 03/22/19 History midodrine 10 mg tablet 10 mg FEEDING TUBE TID tab 03/15/19 03/22/19 History nitroglycerin 0.4 mg sublingual 0.4 mg .ROUTE .COMPLEX PRN tab 03/15/19 03/22/19 History tablet rasagiline 1 mg tablet 1 mg FEEDING TUBE DAILY tab 03/15/19 03/22/19 History sodium di- and 1 tab FEEDING TUBE QID 03/15/19 03/22/19 History monophosphate-potassium phos monobasic 250 mg tablet sulfasalazine 500 mg tablet 500 mg FEEDING TUBE DAILY 03/15/19 03/22/19 History glycopyrrolate 1 mg FEEDING TUBE BID 03/16/19 03/22/19 History lactulose 15 ml FEEDING TUBE DAILY 03/16/19 03/22/19 History potassium chloride 10 meq FEEDING TUBE DAILY 03/16/19 03/22/19 History tramadol [Ultram] 50 mg PO Q4H PRN #15 tab 03/16/19 03/22/19 Rx alfuzosin ER 10 mg tablet,extended PO .TAKE 1 TABLET Daily #90 tab 03/22/19 03/22/19 History release 24 hr aspirin 81 mg tablet,delayed PO .TAKE 1 TABLET DAILY. tab 03/22/19 03/22/19 History release cholecalciferol (vitamin D3) 2,000 1 PO .Take 1 tablet daily tab 03/22/19 03/22/19 History unit tablet coenzyme Q10 200 mg capsule 1 PO .TAKE 1 CAPSULE DAILY cap 03/22/19 03/22/19 History folic acid 1 mg tablet PO .TAKE 2 TABLETS DAILY tab 03/22/19 03/22/19 History food supplement, lactose-reduced ea PO ml 03/22/19 03/22/19 History oral liquid ondansetron HCl 4 mg tablet 4 mg PO DAILY #20 tab 03/22/19 03/22/19 History pantoprazole 40 mg tablet,delayed 40 mg PO DAILY tab 03/22/19 03/22/19 History release simvastatin 20 mg tablet PO .TAKE 1 TABLET DAILY tab 03/22/19 03/22/19 History Free Water Flushes 210 ml PEG QID 03/24/19 03/24/19 History acetaminophen 650 mg FEEDING TUBE QID PRN 03/24/19 03/24/19 History amino ac-protein hydr-whey pro 30 HS 03/24/19 History [Prosource TF] bisacodyl [Dulcolax (bisacodyl)] 10 mg CO DAILY PRN 03/24/19 03/24/19 History glycopyrrolate 1 mg FEEDING TUBE BID 03/24/19 03/24/19 History lactulose 10 g PO HS 03/24/19 03/24/19 History lansoprazole 30 mg FEEDING TUBE BID 03/24/19 03/24/19 History melatonin 1 mg FEEDING TUBE HS 03/24/19 03/24/19 History nutrition [id number] See Rx Instructions .ROUTE .COMPLEX 03/24/19 03/24/19 History [Fibersource HN] oxycodone 5 mg FEEDING TUBE QID 03/24/19 03/24/19 History polyethylene glycol 3350 [Miralax] 17 g FEEDING TUBE DAILY PRN 03/24/19 03/24/19 History soft lens rinse,store solution 03/24/19 03/24/19 History [Saline Solution] Patient History Medical History DVT prophylaxis On enteral nutrition Encounter for feeding tube placement (Acute) Atrial fibrillation Dysphagia PROGRESSIVE X 2 MONTHS PER ONCOLOGY NOTE Esophageal cancer 2017--chemo, radiation Esophageal stenosis Armijo catheter in place History of recent pneumonia hospitalized [facility] 11/19/18-11/23/2018 Hyperlipidemia Hypertension Orthostatic hypotension Parkinsons disease Reflux esophagitis Ulcerative colitis Weight loss 30 POUND WEIGHT LOSS PER ONCOLOGY NOTE Surgical History History of cardioversion x2--07/2018 History of colonoscopy History of esophagogastroduodenoscopy (EGD) History of tonsillectomy History of tooth extraction all upper teeth History of vascular access device aport right side Family History Mother , at 80yo;[place], aortic valve replacement, stroke No problems noted. Father , at 88yo;"Colon problem that caused him to weaken" No problems noted. Brother No problems noted. Grandmother (Maternal) Family history of diabetes mellitus Grandfather (Maternal) Family hx of colon cancer Other No family history of adverse response to anesthesia Social History Preferred Language: Scottish Communication Ability: Effective Visual Impairment: No Limitations Hearing Ability: Normal Vessel Operator Required: No Beliefs That Will Affect Care: Yazidi Yazidi Beliefs: Restorationism marital status: Single Current Living Situation: Personal Care Facility Current Living Situation Comment: [facility] Feels Safe at Home: Yes Safety Concerns: Feels Safe At This Time Smoking Status: Never smoker Second Hand Exposure: No ; Hx Alcohol Use: Yes Hx Substance Use: No caffeine: Yes (1 cup coffee/day;not currently since diagnosis;) during the past year weight has: increased > 10 lbs Review of Systems Review of Systems: All systems reviewed & are unremarkable except as noted in HPI & below Physical Exam Constitutional: well developed and + thin Eyes: PERRL, conjunctivae normal, anicteric sclerae ENMT: Ears: no hearing impairment Neck: normal visual inspection and trachea midline Respiratory: normal respiratory effort, lungs clear to auscultation Cardiovascular: Heart Sounds: normal, physiologic split S2 Gastrointestinal (Abdomen): PEG tube in position with no obvious infection, pos bs, soft, no guarding nor rebound Musculoskeletal: Head/Neck/Chest: normocephalic and head atraumatic Neurologic: PERRL, EOMI, accommodation nl, no face palsy, no dysarthria Psychiatric: A+Ox3, euthymic affect Results & Data Vital Signs (Past 12 Hours) Vital Signs Temp Pulse Pulse Resp BP BP Pulse Ox 03/24/19 15:17 36.4 C L 96 H 18 127/77 97 03/24/19 09:07 85 03/24/19 07:15 36.5 C 87 19 117/60 96
--- NOTE | 2019-03-24 16:49 | Hospitalist Progress Note ---
Date of Service March 24, 2019 Assessment & Plan (1) Hyponatremia: Hyponatremia is improved up to 131 today from 126 with giving 2 L of normal saline Urine sodium is 56, urine osmolarity has not been done It is possible that this was from excess free water from free water flushes, but could have just been hypovolemic hyponatremia -Continue tube feeds -Continue to hold free water flushes -DCd normal saline -Follow BMP (2) Esophageal cancer: Status post XRT/chemo -Has not had surgery During his last endoscopy in January there was no visible evidence of recurrence of esophageal cancer (pathology was also negative) and most of his dysmotility was felt to be from radiation esophagitis. However since that time he has been unable to take anything by mouth as far as solid food, can have liquids, occasionally has problems swallowing mucus. -Consult GI to see about doing EGD this admission-appreciate consultation, plan for EGD with possible dilatation on Tuesday -Hold Eliquis and aspirin for procedure (3) Atrial fibrillation: Patient has chronic atrial fibrillation and flutter that is rate controlled -Continue amiodarone 200 MG daily -Continue metoprolol 12.5 twice daily and digoxin 0.125 a day -Will now hold anticoagulation with Eliquis 5 twice daily for procedure on Tuesday (4) Ulcerative colitis: This is been quiescent Of note, he is on sulfasalazine, and not sulfadiazine-this correction was made on the home med rec and here in the hospital, however there is a glitch in the medication list in this EMR that continues to show that he is on sulfadiazine and the medication list. I confirmed with the pharmacist that he is actually receiving sulfasalazine (5) Parkinsons disease: -Continue Sinemet for his Parkinson's disease via his PEG tube 4 times a day (6) Reflux esophagitis: -Continue Prevacid via his PEG for history reflux esophagitis (7) Esophageal stricture: Secondary to radiation scarring and esophageal cancer now in remission -Consulting GI to see about EGD with dilation-plan for EGD Tuesday -Continue tube feeds for nutrition We will hold tube feeds on Tuesday evening for EGD (8) Indwelling Armijo catheter present: Armijo in place 2nd to BPH Has both alfuzosin and Cardura on his home medication list but he cannot recall taking either of these He also has midorine that he takes for low blood pressures-it does not make sense to be on alpha blockers and alpha agonist -I have since discontinued alfuzosin and Cardura -Continue midodrine -Maintain Armijo catheter and follow-up with urology as an outpatient -Continue finasteride to replace home dutasteride (9) Pleural effusion: Loculated, previously diagnostic as a transudate of effusion Management as per thoracic surgery Not improving so far His Pleurx catheter in place and performing MIST-2 protocol minus the alteplase as he is on Eliquis, however as Eliquis is now discontinued, will start alteplase on Tuesday once thoracic surgery is back just in case he has bleeding complications in the thoracic cavity as per my discussion with thoracic surgery PA -If not improving, need to consider decortication-defer management to primary team/thoracic surgery Follow chest x-ray (10) BPH (benign prostatic hyperplasia): Armijo catheter in place -Continue finasteride and replacement of dutasteride -He cannot tolerate alpha blockers-have discontinued alfuzosin and doxazosin which were both ordered here. (11) Hypotension: Likely secondary to autonomic dysfunction and Parkinson's disease as well as alpha blockers -DC alpha blockers as above -Continue midodrine (12) UTI (urinary tract infection) due to urinary indwelling Armijo catheter: Urine culture growing both Klebsiella pneumoniae and Pseudomonas resistant for quinolones Leukocytosis now improved today -Continue cefepime IV and will need 7 to 10-day course of IV antibiotics -Has indwelling Armijo-will need to be exchanged this admission-we will do this today (13) DVT prophylaxis: Eliquis but will now be on hold We will give 1 dose of Lovenox 40 subcu tomorrow in the morning for DVT prophylaxis Disposition-remain hospitalized Hospitalist service will continue to follow along Subjective Feeling better today, not short of breath. Having some lower crampy abdominal pain off and on and has not moved his bowels several days. Discussed his care with GI and thoracic surgery Review of Systems Review of Systems: All systems reviewed & are unremarkable except as noted in HPI & below Physical Exam Constitutional: + cachectic and + frail appearing; no acute distress ENMT: Ears: no hearing impairment Neck: trachea midline, no thyromegaly Respiratory: normal respiratory effort (+dressing in place over PleurX with drain coming out) Auscultation: + diminished lung sounds (at right base and middle lung field) Cardiovascular: RRR, no murmur, no edema Gastrointestinal (Abdomen): normal bowel sounds, soft, nontender, no hepatosplenomegaly Musculoskeletal: Extremities: + extremities abnormal to inspection (diffuse sarcopenia), no cyanosis and no clubbing Skin: no rashes, warm and dry Neurologic: moves all extremities and awake; no focal motor deficits Psychiatric: A+Ox3, euthymic affect Results & Data Vital Signs (Past 12 Hours) Vital Signs Temp Pulse Pulse Resp BP BP Pulse Ox 03/24/19 15:17 36.4 C L 96 H 18 127/77 97 03/24/19 09:07 85 03/24/19 07:15 36.5 C 87 19 117/60 96 Laboratory Results Labs reviewed Diagnostic Findings Chest x-ray image reviewed PG Care Time/CCT Total # of Minutes Spent Total Time Spent with Patient: Total time spent is greater than 50% in coordination of care (as documented) at patient's floor/unit and/or counseling patient: (1) BPH (benign prostatic hyperplasia) Lower urinary tract symptom detail: incomplete bladder emptying Lower urinary tract symptom presence: symptoms present Qualified Code(s): N40.1 - Benign prostatic hyperplasia with lower urinary tract symptoms; R39.14 - Feeling of incomplete bladder emptying (2) Hypotension Hypotension type: other hypotension type Qualified Code(s): I95.89 - Other hypotension
[2019-03-25] MEDS: FIBERSOURCE HN 1.2 CAL 1000 ML BAG PO SCH ×2 (00:41→17:21)
[2019-03-25] MEDS: DORNASE ALFA 5 ML in SYRINGE 25 ML IPL SCH (02:07)
[2019-03-25] MEDS: CEFEPIME 1,000 MG in SYRINGE 0 ML IV SCH ×3 (03:06→17:56)
[2019-03-25] MEDS: HEPARIN 100 UNIT/ML 5ML FLUSH FLUSH PRN ×2 (03:06→04:50)
[2019-03-25] MEDS: LEVALBUTEROL 1.25MG/0.5ML NEB INH PRN (03:50)
[2019-03-25] MEDS: NITROGLYCERIN SL 0.4 MG/TAB TAB SL PRN ×4 (03:56→09:43)
[2019-03-25] MEDS: OXYCODONE HCL IR 5 MG TAB (IMMEDIATE RELEASE) PEG PRN ×3 (04:24→19:38)
--- NOTE | 2019-03-25 04:57 | Progress Note ---
Date of Service March 25, 2019 Subjective Patient with chest pain, pleuritic similar to previous chest pain since admission, but more intense. Relieved with Oxycodone. EKG did show new t wave inversions in V1, 2, 3. CXR did not show significant changes. Plan; Repeat EKG in AM and with chest pain Follow troponin, x3 ordered Results & Data Vital Signs (Past 12 Hours) Vital Signs Temp Pulse Resp BP Pulse Ox 03/25/19 03:50 100 H 16 98 03/25/19 03:48 36.8 C 91 H 19 121/72 97 03/25/19 03:41 98 03/24/19 23:13 36.6 C 89 18 91/43 L 96 PG Care Time/CCT Total # of Minutes Spent Total Time Spent with Patient: Total time spent is greater than 50% in coordination of care (as documented) at patient's floor/unit and/or counseling patient: Resident Activity Tracking Resident Involvement: Resident Care Provided Care Provided: Adult Hospital Medicine
[2019-03-25 05:06] LABS: Basophils # (auto) 0.02 K/uL (0-0.2); Basophils % (auto) 0.2 %; Eosinophils # (auto) 0.06 K/uL (0-0.5); Eosinophils % (auto) 0.5 %; Hematocrit (blood only) 33.6 % (42-52); Hemoglobin 10.9 g/dL (14.0-18.0); Immature Granulocytes # (auto) 0.04 K/uL (0.00-0.02); Immature Granulocytes % (auto) 0.4 %; Lymphocytes # (auto) 0.74 K/uL (1.2-3.4); Lymphocytes % (auto) 6.8 %; Mean Corpuscular Hgb Conc 32.4 g/dL (32-36); Mean Corpuscular Volume 88.2 fL (80-100); Mean Platelet Volume 9.4 fL (7.4-10.4); Monocytes % (auto) 8.2 %; Neutrophils # (auto) 9.16 K/uL (1.4-6.5); Neutrophils % (auto) 83.9 %; Platelet Count 309 K/uL (130-400); RDW Standard Deviation 48.6 fL (36.4-46.3); Red Blood Count 3.81 M/uL (4.7-6.1); White Blood Count 10.92 K/uL (4.8-10.8)
[2019-03-25 05:29] LABS: INR 1.2 (0.9-1.1); Partial Thromboplastin Ratio 2.7; Prothrombin Time 11.7 Seconds (9.0-12.0)
[2019-03-25 05:31] LABS: Albumin Level 2.2 gm/dl (3.4-5.0); BUN Creatinine Ratio 41.3 (10-20); Calcium 7.9 mg/dl (8.5-10.1); Creatinine Clr Calc Pharmacy 126.2 ml/min; Est GFR (African American) 129.2; Est GFR (Non-African American) 111.5; Potassium 5.1 mmol/L (3.5-5.1)
[2019-03-25 05:37] LABS: Albumin Globulin Ratio 0.6 (0.9-2); Bilirubin,Total 0.6 mg/dl (0.2-1); Globulin 3.6 gm/dl (2.5-4.0); Partial Thromboplastin Time 74.3 Seconds (21.0-31.0); Total Protein 5.8 gm/dl (6.4-8.2); Troponin I 0.298 ng/ml (0-0.045)
[2019-03-25] MEDS ORDERED: ENOXAPARIN INJ 40 MG/0.4 ML SYR SQ ONE (07:45)
--- NOTE | 2019-03-25 08:01 | Surgery Progress Note ---
Date of Service March 25, 2019 Assessment & Plan (1) Esophageal stricture: -GI has seen pt. this admission and tent. plans for EGD +/- dilation tomorrow (2) UTI (urinary tract infection) due to urinary indwelling Armijo catheter: -pt. noted to have Klebsiella and Pseudomonas infection resistant to quinolones -he was treated as outpt. with augmentin but repeat culture continued to have bacterial growth so he has been started on Cefepime (3) Hyponatremia: -improved since admission (4) Chest pain: -EKG performed and showed A-flutter with new T-wave inversion in V3, V4, V5 -discussed case with cardiology (Dr. Romeo) who will see pt. in consult -will increase lopressor to 25 mg bid -transfer to [facility] for continuous cardiac monitoring -check serial cardiac enzymes -pt. initially seen at 7:30 am -revisited at 10:00 and CP had improved -pt. revisited at 10:00 pm and pain had resolved and pt. reported he was comfortable -discussed with Dr. Roca and he was to consider performing thoracentesis, however on labs, PTT markedly elevated so procedure not performed as pt. was stable: -RN has noted the possibility that those who jarad the labs may have done so immediately after a heparin flush was administered causing this lab abnormality -attempts to manually aspirate catheter were unsuccessful -will plan on repeating labs again later today -will repeat CXR in am -case also discussed with Dr. Estrada and he notes that the like;y cause of issue if fibrin collected around catheter: -he will be back tomorrow and we will consider placing alteplase through catheter (5) Pleural effusion: -pt. has had thoracentesis x 2 in the past with recurrence of fluid -pleurex catheter inserted about 1 week ago -pleurex has since stopped draining fluid -MIST-2 protocol started and completed using only dornase (no Alteplase as pt. takes Eliquis and did not want to precipitate bleeding into chest) -small amount of improvement noted in CXR initially, however CXR this am shows worsening pleural effusion -discussed with Dr. Estrada and plans tent. to resume MIST protocol with Alteplase on 03/26/19 if medical services feel we can hold Eliquis -discussed with IM yesterday and Eliquis has been on hold since yesterday due to plans for EGD Subjective Pt. reported substernal chest pressure this morning around 4:30 am. He says he felt diaphoretic. The pain did not radiate down his arm. In addition he felt some worsening SOB. He was given sub lingual NTG x 2 with some relief of the pain. Discussed with RN and pt. completed course of MIST-2 protocol using only dornase--following administration of this medication only minimal (5-10 cc of fluid drained) Physical Exam Constitutional: no acute distress and not thin Respiratory: no respiratory distress and no labored breathing BS are noted to be decreased on right side. Pleurex examined and no signs of infection noted at insertion site/incisions. Pleurex was accessed by myself and attempted to drain with no fluid obtained. Cardiovascular: Rate/Rhythm: regular rate Results & Data Vital Signs (Past 12 Hours) Vital Signs Temp Pulse Resp BP BP Pulse Ox 03/25/19 07:38 89 120/71 03/25/19 07:24 111/67 03/25/19 07:02 36.6 C 97 H 20 119/72 96 03/25/19 03:50 100 H 16 98 03/25/19 03:48 36.8 C 91 H 19 121/72 97 03/25/19 03:41 98 03/24/19 23:13 36.6 C 89 18 91/43 L 96 (1) Chest pain Chest pain type: chest pain on breathing Qualified Code(s): R07.1 - Chest pain on breathing; R07.81 - Pleurodynia
[2019-03-25] MEDS: LACTULOSE SYRUP 10 GM/15 ML BTL 473 ML PEG SCH (08:22)
[2019-03-25] MEDS: POTASSIUM CHLORIDE 20MEQ/15ML 473ML PEG SCH (08:22)
[2019-03-25] MEDS: SIMVASTATIN 20 MG TAB PO SCH (08:22)
[2019-03-25] MEDS: CHOLECALCIFEROL 1,000 UNITS TAB PEG SCH (08:22)
[2019-03-25] MEDS: LANSOPRAZOLE 30 MG SOLTAB PEG SCH (08:22)
[2019-03-25] MEDS: POT PHOSPHATE MONOBASIC W/ SOD TAB PO SCH ×4 (08:23→19:39)
[2019-03-25] MEDS: FINASTERIDE 5 MG TAB PEG SCH (08:23)
[2019-03-25] MEDS: GLYCOPYRROLATE 1 MG TAB PO SCH ×2 (08:23→19:41)
[2019-03-25] MEDS: sulfaSALAzine 500 MG TABLET PO SCH (08:23)
[2019-03-25] MEDS: DIGOXIN 0.125 MG TAB PO SCH (08:23)
[2019-03-25] MEDS: FOLIC ACID 1 MG TAB PO SCH (08:23)
[2019-03-25] MEDS: ONDANSETRON 4 MG TAB PO SCH (08:23)
[2019-03-25] MEDS: METOPROLOL TARTRATE 25 MG TAB PO SCH ×2 (08:23→19:40)
[2019-03-25] MEDS: CARBIDOPA/LEVODOPA 25/100MG TAB PEG SCH ×4 (08:23→19:41)
[2019-03-25] MEDS: MIDODRINE HCL 10 MG TAB PO SCH ×3 (08:23→19:42)
[2019-03-25] MEDS: AMIODARONE 200 MG TAB PO SCH (08:23)
--- NOTE | 2019-03-25 08:29 | XRay Report ---
XR chest 1V portable HISTORY: 68 years-old Male chest pain acute atypical chest pain COMPARISON: Chest radiograph 03/24/2019 TECHNIQUE: Portable AP view of the chest FINDINGS: Stable positioning of the right IJ [id number]-o-[id number] catheter. Right-sided hydropneumothorax redemonstrat ed with 1.7 cm pleural separation at the right lung apex, previously 1.2 cm. The fluid component proc ess mildly progressed. Persistent bibasilar opacities with cardiomegaly. Trace left pleural effusion. Stable positioning of the pleural drainage catheter about the right lung base. Degenerative changes of the shoulders and spine with left rotator cuff calcific tendinosis. IMPRESSION: Right-sided hydropneumothorax redemonstrated which appears to have slightly increased in size from comparison. The above report was generated using voice recognition software. It may contain grammatical, syntax o r spelling errors. Electronically signed by: Mike Varner M.D. 03/25/2019 8:28 AM
[2019-03-25] MEDS: SODIUM CHLORIDE 0.9% 1000ML 1,000 ML IV SCH ×2 (09:50→17:56)
[2019-03-25 10:49] LABS: Creatine Kinase MB 2.2 ng/ml (0.5-3.6)
--- NOTE | 2019-03-25 13:38 | Hospitalist Progress Note ---
Date of Service March 25, 2019 Assessment & Plan (1) Chest pain: SUbsternal, relieved with SLNTG. Trop mildly elevated as before but actually lower than previously and then trended down on repeat check despite having continued pain. ECG unchanged, no ischemic changes acutely. Discussed with Cardiology-no further workup indicated at this time especially in the setting of such acute frailty. Could be esophageal spasm as thought before and that could also be relieved with NTG -start Nitropaste, carefully watch pressures as he tends to run low -Anticoag with Eliquis is on hold currently for Thoracic Surgery to perhaps instill alteplase tomorrow EGD for tomorrow now cancelled due to ongoing chest pain and worsening pleural effusion as below (2) Hyponatremia: Hyponatremia is improved from admission at 126 to 130 with giving 2 L of normal saline, however, remains 130 Hypovolemic--> start NS at 80ml/hr Urine sodium is 56, urine osmolarity has not been done It is possible that this was from excess free water from free water flushes, but could have just been hypovolemic hyponatremia -Continue tube feeds -Continue to hold free water flushes -Follow BMP (3) Esophageal cancer: Status post XRT/chemo -Has not had surgery During his last endoscopy in January there was no visible evidence of recurrence of esophageal cancer (pathology was also negative) and most of his dysmotility was felt to be from radiation esophagitis. However since that time he has been unable to take anything by mouth as far as solid food, can have liquids, occasionally has problems swallowing mucus. -Consulted GI to see about doing EGD this admission-appreciate consultation, initially there was a plan for EGD with possible dilatation on Tuesday- NOW CANCELLED due to worsening pleural effusion and chest pains (4) Atrial fibrillation: Patient has chronic atrial fibrillation and flutter that is rate controlled -Continue amiodarone 200 MG daily -Continue metoprolol but Cardio initially recommended increasing to 25 twice daily today when had elevated trop and chest pain -continue digoxin 0.125 a day -holding anticoagulation with Eliquis 5 twice daily for alteplase on Tuesday -moved to tele today for chest pain (5) Ulcerative colitis: This has been quiescent Of note, he is on sulfasalazine, and not sulfadiazine-this correction was made on the home med rec and here in the hospital, however there is a glitch in the medication list in this EMR that continues to show that he is on sulfadiazine and the medication list. I confirmed with the pharmacist that he is actually receiving sulfasalazine (6) Parkinsons disease: -Continue Sinemet for his Parkinson's disease via his PEG tube 4 times a day (7) Reflux esophagitis: -Continue Prevacid via his PEG for history reflux esophagitis (8) Esophageal stricture: Secondary to radiation scarring and esophageal cancer now in remission -Consulted GI to see about EGD with dilation-as above, on hold and would be elective at some point in the future when more stable -Continue tube feeds for nutrition (9) Indwelling Armijo catheter present: Armijo in place 2nd to BPH Had both alfuzosin and Cardura on his home medication list but he cannot recall taking either of these He also has midorine that he takes for low blood pressures-it does not make sense to be on alpha blockers and alpha agonist -I have since discontinued alfuzosin and Cardura -Continue midodrine -Maintain Armijo catheter and follow-up with urology as an outpatient -Continue finasteride to replace home dutasteride (10) Pleural effusion: Loculated, previously diagnostic as a transudate of effusion Management as per thoracic surgery Not improving so far and actually worse today, nothing coming out of PleurX today His Pleurx catheter in place and performing MIST-2 protocol minus the alteplase as he is on Eliquis, however as Eliquis is now discontinued, will start alteplase on Tuesday once thoracic surgery is back just in case he has bleeding complications in the thoracic cavity as per my discussion with thoracic surgery PA -If not improving, need to consider decortication-defer management to primary team/thoracic surgery Follow chest x-ray (11) BPH (benign prostatic hyperplasia): Armijo catheter in place -Continue finasteride and replacement of dutasteride -He cannot tolerate alpha blockers-have discontinued alfuzosin and doxazosin which were both ordered here. (12) Hypotension: Likely secondary to autonomic dysfunction and Parkinson's disease as well as alpha blockers -DC alpha blockers as above -Continue midodrine (13) UTI (urinary tract infection) due to urinary indwelling Armijo catheter: Urine culture growing both Klebsiella pneumoniae and Pseudomonas resistant for quinolones Leukocytosis was improved today -Continue cefepime IV and will need 7 to 10-day course of IV antibiotics -Has indwelling Armijo- exchanged this admission (14) Hyperkalemia: mildly elevated K+ -dc home KCl supplement -follow BMP in AM (15) DVT prophylaxis: Eliquis but will now be on hold received one dose of Lovenox 40 subcu on AM of 03/25 for DVT prophylaxis Disposition-remain hospitalized Hospitalist service will continue to follow along Subjective Pt having intermittent substernal chest squeezing since 0500 this AM that is nonradiating, relieved with SLNTG and then returns. Denies worsening SOB. He was having diaphoresis with it earlier. Discussed case with Thoracic Surgery PA and Cardiology. CXR shows worsening pleural effusions Trop mildly elevated but lower than previously and then trended downward on repeat despite having continued chest pains. Review of Systems Review of Systems: All systems reviewed & are unremarkable except as noted in HPI & below Physical Exam Constitutional: + cachectic and + frail appearing; no acute distress ENMT: Ears: no hearing impairment Neck: trachea midline, no thyromegaly Respiratory: normal respiratory effort (+dressing in place over PleurX with drain coming out) Auscultation: + diminished lung sounds (at right base and middle lung field) Cardiovascular: RRR, no murmur, no edema Gastrointestinal (Abdomen): normal bowel sounds, soft, nontender, no hepatosplenomegaly Musculoskeletal: Extremities: + extremities abnormal to inspection (diffuse sarcopenia), no cyanosis and no clubbing Skin: no rashes, warm and dry Neurologic: moves all extremities and awake; no focal motor deficits Psychiatric: A+Ox3, euthymic affect Results & Data Vital Signs (Past 12 Hours) Vital Signs Temp Pulse Pulse Pulse Resp BP BP 03/25/19 11:00 36.5 C 90 20 115/69 03/25/19 10:01 89 20 113/65 03/25/19 09:39 86 122/75 03/25/19 09:00 36.6 C 89 18 150/88 H 03/25/19 08:23 98 H 03/25/19 07:38 89 120/71 03/25/19 07:24 111/67 03/25/19 07:02 36.6 C 97 H 20 119/72 03/25/19 03:50 100 H 16 03/25/19 03:48 36.8 C 91 H 19 121/72 03/25/19 03:41 Pulse Ox 03/25/19 11:00 100 03/25/19 10:01 100 03/25/19 09:39 03/25/19 09:00 96 03/25/19 08:23 03/25/19 07:38 03/25/19 07:24 03/25/19 07:02 96 03/25/19 03:50 98 03/25/19 03:48 97 03/25/19 03:41 98 Laboratory Results 03/26/19 03/26/19 03/26/19 Range/Units 05:48 05:47 05:47 WBC (4.8-10.8) K/uL RBC (4.7-6.1) M/uL Hgb (14.0-18.0) g/dL Hct (42-52) % MCV (80-100) fL MCH (25-34) pg MCHC (32-36) g/dL RDW Std Deviation (36.4-46.3) fL RDW Coeff of Mikki (11.5-14.5) % Plt Count (130-400) K/uL MPV (7.4-10.4) fL Immature Gran % (Auto) % Neut % (Auto) % Lymph % (Auto) % Weston % (Auto) % Eos % (Auto) % Baso % (Auto) % Immature Gran # (Auto) (0.00-0.02) K/uL Neut # (Auto) (1.4-6.5) K/uL Lymph # (Auto) (1.2-3.4) K/uL Weston # (Auto) (0.11-0.59) K/uL Eos # (Auto) (0-0.5) K/uL Baso # (Auto) (0-0.2) K/uL APTT 41.1 H (21.0-31.0) Seconds PTT Ratio 1.5 Sodium 133 L (136-145) mmol/L Potassium 5.2 H (3.5-5.1) mmol/L Chloride 96 L (98-107) mmol/L Carbon Dioxide 33 H (21-32) mmol/L Anion Gap 4.0 (3-11) BUN 21 H (7-18) mg/dl Creatinine 0.50 L (0.6-1.4) mg/dl Est Cr Clr Drug Dosing 128.2 ml/min Est GFR ( Amer) 128.2 Est GFR (Non-Af Amer) 110.6 BUN/Creatinine Ratio 41.1 H (10-20) Glucose 126 H (70-99) mg/dl POC Glucose 129 H (70-99) Calcium 8.1 L (8.5-10.1) mg/dl Total Bilirubin 0.5 (0.2-1) mg/dl AST 31 (15-37) U/L ALT 20 (12-78) U/L Alkaline Phosphatase 47 (45-117) U/L CK-MB (CK-2) (0.5-3.6) ng/ml CK/CKMB % Calc Troponin I (0-0.045) ng/ml Total Protein 5.3 L (6.4-8.2) gm/dl Albumin 2.1 L (3.4-5.0) gm/dl Globulin 3.2 (2.5-4.0) gm/dl Albumin/Globulin Ratio 0.6 L (0.9-2) 03/26/19 03/26/19 03/25/19 Range/Units 05:47 00:01 18:02 WBC 8.68 (4.8-10.8) K/uL RBC 3.36 L (4.7-6.1) M/uL Hgb 9.5 L (14.0-18.0) g/dL Hct 29.8 L (42-52) % MCV 88.7 (80-100) fL MCH 28.3 (25-34) pg MCHC 31.9 L (32-36) g/dL RDW Std Deviation 49.3 H (36.4-46.3) fL RDW Coeff of Mikki 15.3 H (11.5-14.5) % Plt Count 291 (130-400) K/uL MPV 9.5 (7.4-10.4) fL Immature Gran % (Auto) 0.1 % Neut % (Auto) 81.1 % Lymph % (Auto) 6.5 % Weston % (Auto) 11.2 % Eos % (Auto) 0.8 % Baso % (Auto) 0.3 % Immature Gran # (Auto) 0.01 (0.00-0.02) K/uL Neut # (Auto) 7.04 H (1.4-6.5) K/uL Lymph # (Auto) 0.56 L (1.2-3.4) K/uL Weston # (Auto) 0.97 H (0.11-0.59) K/uL Eos # (Auto) 0.07 (0-0.5) K/uL Baso # (Auto) 0.03 (0-0.2) K/uL APTT (21.0-31.0) Seconds PTT Ratio Sodium (136-145) mmol/L Potassium (3.5-5.1) mmol/L Chloride (98-107) mmol/L Carbon Dioxide (21-32) mmol/L Anion Gap (3-11) BUN (7-18) mg/dl Creatinine (0.6-1.4) mg/dl Est Cr Clr Drug Dosing ml/min Est GFR ( Amer) Est GFR (Non-Af Amer) BUN/Creatinine Ratio (10-20) Glucose (70-99) mg/dl POC Glucose 103 H 91 (70-99) Calcium (8.5-10.1) mg/dl Total Bilirubin (0.2-1) mg/dl AST (15-37) U/L ALT (12-78) U/L Alkaline Phosphatase (45-117) U/L CK-MB (CK-2) (0.5-3.6) ng/ml CK/CKMB % Calc Troponin I (0-0.045) ng/ml Total Protein (6.4-8.2) gm/dl Albumin (3.4-5.0) gm/dl Globulin (2.5-4.0) gm/dl Albumin/Globulin Ratio (0.9-2) 03/25/19 03/25/19 03/25/19 Range/Units 16:30 16:30 16:30 WBC (4.8-10.8) K/uL RBC (4.7-6.1) M/uL Hgb 10.3 L (14.0-18.0) g/dL Hct 32.1 L (42-52) % MCV (80-100) fL MCH (25-34) pg MCHC (32-36) g/dL RDW Std Deviation (36.4-46.3) fL RDW Coeff of Mikki (11.5-14.5) % Plt Count (130-400) K/uL MPV (7.4-10.4) fL Immature Gran % (Auto) % Neut % (Auto) % Lymph % (Auto) % Weston % (Auto) % Eos % (Auto) % Baso % (Auto) % Immature Gran # (Auto) (0.00-0.02) K/uL Neut # (Auto) (1.4-6.5) K/uL Lymph # (Auto) (1.2-3.4) K/uL Weston # (Auto) (0.11-0.59) K/uL Eos # (Auto) (0-0.5) K/uL Baso # (Auto) (0-0.2) K/uL APTT 43.3 H (21.0-31.0) Seconds PTT Ratio 1.6 Sodium (136-145) mmol/L Potassium (3.5-5.1) mmol/L Chloride (98-107) mmol/L Carbon Dioxide (21-32) mmol/L Anion Gap (3-11) BUN (7-18) mg/dl Creatinine (0.6-1.4) mg/dl Est Cr Clr Drug Dosing ml/min Est GFR ( Amer) Est GFR (Non-Af Amer) BUN/Creatinine Ratio (10-20) Glucose (70-99) mg/dl POC Glucose (70-99) Calcium (8.5-10.1) mg/dl Total Bilirubin (0.2-1) mg/dl AST (15-37) U/L ALT (12-78) U/L Alkaline Phosphatase (45-117) U/L CK-MB (CK-2) 2.5 (0.5-3.6) ng/ml CK/CKMB % Calc Troponin I 0.277 H* (0-0.045) ng/ml Total Protein (6.4-8.2) gm/dl Albumin (3.4-5.0) gm/dl Globulin (2.5-4.0) gm/dl Albumin/Globulin Ratio (0.9-2) 03/25/19 03/25/19 03/25/19 Range/Units 12:20 10:12 10:12 WBC (4.8-10.8) K/uL RBC (4.7-6.1) M/uL Hgb (14.0-18.0) g/dL Hct (42-52) % MCV (80-100) fL MCH (25-34) pg MCHC (32-36) g/dL RDW Std Deviation (36.4-46.3) fL RDW Coeff of Mikki (11.5-14.5) % Plt Count (130-400) K/uL MPV (7.4-10.4) fL Immature Gran % (Auto) % Neut % (Auto) % Lymph % (Auto) % Weston % (Auto) % Eos % (Auto) % Baso % (Auto) % Immature Gran # (Auto) (0.00-0.02) K/uL Neut # (Auto) (1.4-6.5) K/uL Lymph # (Auto) (1.2-3.4) K/uL Weston # (Auto) (0.11-0.59) K/uL Eos # (Auto) (0-0.5) K/uL Baso # (Auto) (0-0.2) K/uL APTT (21.0-31.0) Seconds PTT Ratio Sodium (136-145) mmol/L Potassium (3.5-5.1) mmol/L Chloride (98-107) mmol/L Carbon Dioxide (21-32) mmol/L Anion Gap (3-11) BUN (7-18) mg/dl Creatinine (0.6-1.4) mg/dl Est Cr Clr Drug Dosing ml/min Est GFR ( Amer) Est GFR (Non-Af Amer) BUN/Creatinine Ratio (10-20) Glucose (70-99) mg/dl POC Glucose 129 H (70-99) Calcium (8.5-10.1) mg/dl Total Bilirubin (0.2-1) mg/dl AST (15-37) U/L ALT (12-78) U/L Alkaline Phosphatase (45-117) U/L CK-MB (CK-2) 2.2 (0.5-3.6) ng/ml CK/CKMB % Calc Not Reportable Troponin I 0.267 H* (0-0.045) ng/ml Total Protein (6.4-8.2) gm/dl Albumin (3.4-5.0) gm/dl Globulin (2.5-4.0) gm/dl Albumin/Globulin Ratio (0.9-2) Diagnostic Findings CXR image personally reviewed by me and agree with the following report: XR chest 1V portable HISTORY: 68 years-old Male chest pain acute atypical chest pain COMPARISON: Chest radiograph 03/24/2019 TECHNIQUE: Portable AP view of the chest FINDINGS: Stable positioning of the right IJ [id number] catheter. Right-sided hydropneumothorax redemonstrated with 1.7 cm pleural separation at the right lung apex, previously 1.2 cm. The fluid component process mildly progressed. Persistent bibasilar opacities with cardiomegaly. Trace left pleural effusion. Stable positioning of the pleural drainage catheter about the right lung base. Degenerative changes of the shoulders and spine with left rotator cuff calcific tendinosis. IMPRESSION: Right-sided hydropneumothorax redemonstrated which appears to have slightly increased in size from comparison. PG Care Time/CCT Total # of Minutes Spent Total Time Spent with Patient: Total time spent is greater than 50% in coordination of care (as documented) at patient's floor/unit and/or counseling patient: (1) BPH (benign prostatic hyperplasia) Lower urinary tract symptom detail: incomplete bladder emptying Lower urinary tract symptom presence: symptoms present Qualified Code(s): N40.1 - Benign prostatic hyperplasia with lower urinary tract symptoms; R39.14 - Feeling of incomplete bladder emptying (2) Hypotension Hypotension type: other hypotension type Qualified Code(s): I95.89 - Other hypotension
[2019-03-25] MEDS: NITROGLYCERIN 2% OINTMENT 30GM TUBE EXT SCH ×2 (14:08→20:33)
--- NOTE | 2019-03-25 15:13 | Gastroenterology Progress Note ---
Date of Service March 25, 2019 Assessment & Plan (1) Esophageal stricture: pt with solid food dysphagia. Discussed with Dr Kelley. Pt with more fluid accumulation in lung. Will hold off doing EGD with esophageal dilatation until patient is optimized to the extent he can be. dysphagia--from stricture LLQ pain--perhaps from constipation--none at present constipation--discussed giving him stronger laxative and he would like to hold off on strong laxative but is ok with miralax tid. Will sign off. Please call if/when ok for EGD with dil as inpt versus do as outpt. Subjective cc f/u dysphagia HPI Pt denies abd pain at present. States still no stool output despite mag citrate yesterday Physical Exam Constitutional: well developed and + thin Respiratory: normal respiratory effort, lungs clear to auscultation Cardiovascular: Heart Sounds: normal, physiologic split S2 Gastrointestinal (Abdomen): pos bs, soft,PEG present,no guarding nor rebound Results & Data Vital Signs (Past 12 Hours) Vital Signs Temp Pulse Pulse Pulse Resp BP BP 03/25/19 14:00 93 H 106/68 03/25/19 11:00 36.5 C 90 20 115/69 03/25/19 10:01 89 20 113/65 03/25/19 09:39 86 122/75 03/25/19 09:00 36.6 C 89 18 150/88 H 03/25/19 08:23 98 H 03/25/19 07:38 89 120/71 03/25/19 07:24 111/67 03/25/19 07:02 36.6 C 97 H 20 119/72 03/25/19 03:50 100 H 16 03/25/19 03:48 36.8 C 91 H 19 121/72 03/25/19 03:41 Pulse Ox 03/25/19 14:00 03/25/19 11:00 100 03/25/19 10:01 100 03/25/19 09:39 03/25/19 09:00 96 03/25/19 08:23 03/25/19 07:38 03/25/19 07:24 03/25/19 07:02 96 03/25/19 03:50 98 03/25/19 03:48 97 03/25/19 03:41 98
--- NOTE | 2019-03-25 15:31 | Consultation Report ---
DATE OF CONSULTATION: 03/25/2019 REQUESTING PHYSICIANS: Raeann Kelley MD and MARY LOU Reed. GLASS PRODUCTS INSPECTOR: Jarred Romeo DO, [facility] Cardiology for Dr. 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 REASON FOR CONSULTATION: Chest discomfort. Thank you for requesting a cardiology consultation on [place]. He was admitted to the hospital with a known esophageal stricture and recurrent pleural effusions that is not draining through his PleurX catheter which was placed approximately a week ago. He did receive dornase, but not alteplase as he was on Eliquis to try to break up the loculated effusion. At this point, it has been unsuccessful. He had chest discomfort at 4:30 in the morning, he felt mildly diaphoretic. He notes the chest discomfort was worse with a deep breath. Two sublingual nitroglycerins did relieve his symptoms. He currently feels well now. He notes in the past when he has had chest pain that has been similar as it usually worse with a deep breath. He was admitted and seen in consultation by Dr. Sarmiento for very similar symptoms. In addition, he is known to have chronic troponin elevations in December. His troponin was 0.3-0.4. His troponin here, currently, this admission is in the range of 0.2-0.3. Currently, he is pain free. He denies any palpitations or fluttering. He does still feel somewhat anxious. He notes he feels more short of breath as the effusion has reoccurred. He denies any current bleeding or bruising or dark stools. He is awaiting endoscopy for dilation tomorrow and esophageal stricture. The rest of review of systems is otherwise negative. PAST MEDICAL HISTORY: 1. Atrial fibrillation and atrial flutter which is chronic and rate controlled on anticoagulation. 2. Parkinson's disease. 3. 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 4. Indwelling Armijo catheter. 5. Loculated pleural effusions, status post PleurX catheter which is not draining. 6. Hypotension. 7. Parkinson's disease. 8. UTI. 9. Hyponatremia. 10. Reflux esophagitis. 11. Chronic enteral nutrition. 12. Dysphagia, which has been more progressive. ALLERGIES: No known drug allergies. MEDICATIONS: Reviewed in electronic medical record. PHYSICAL EXAMINATION: GENERAL: He looks chronically ill. VITAL SIGNS: His heart rate is 90, blood pressure 115/69, respirations 20, sats are 100% on 2 liters. HEENT: Although he was tachycardic, his carotid upstrokes felt relatively normal. His sclerae is anicteric. His hearing is normal. LUNGS: Decreased breath sounds on the right side approximately snf up. His left lung odonnell were clear to auscultation. HEART: Irregular rate and rhythm. He has a loud holosystolic murmur at the left sternal border. ABDOMEN: Soft, nontender, nondistended. Positive bowel sounds. EXTREMITIES: No clubbing, cyanosis or edema. IMPRESSION: 1. Chest discomfort, which is similar to what he had in December of 2018 with chronic troponin elevations. For now, I would treat him conservatively. This could be pleuritic in nature as it was worse with a deep breath. It was also relieved by nitroglycerin and could be related to esophageal spasm. I would trend his troponins, but given the complexity of his medical problems and how frail he looks even if he were to have obstructive coronary artery disease, I would treat him medically. 2. Harsh holosystolic murmur at the left sternal border which was present also in December of 2018 during the consultation. His echo at the same time did not reveal significant tricuspid regurgitation. 3. Chronic atrial fibrillation and atrial flutter, on anticoagulation and rate control strategy. As was discussed with the primary service, I do not think that this is related to an acute coronary syndrome, I would continue to monitor him and control his heart rate and blood pressure. He has been on anticoagulation. The plan is for endoscopy tomorrow. We will continue to follow him with you. Dr. Ahumada will return tomorrow.
[2019-03-25 16:41] LABS: Hematocrit (blood only) 32.1 % (42-52); Hemoglobin 10.3 g/dL (14.0-18.0)
[2019-03-25 16:55] LABS: Partial Thromboplastin Ratio 1.6; Partial Thromboplastin Time 43.3 Seconds (21.0-31.0)
[2019-03-25 17:07] LABS: Creatine Kinase MB 2.5 ng/ml (0.5-3.6); Troponin I 0.277 ng/ml (0-0.045)
[2019-03-25] MEDS: KETOROLAC TROMETHAMINE 15 MG/ML VIAL IV PRN (17:54)
[2019-03-26] MEDS: NITROGLYCERIN 2% OINTMENT 30GM TUBE EXT SCH ×4 (02:50→20:33)
[2019-03-26] MEDS: CEFEPIME 1,000 MG in SYRINGE 0 ML IV SCH ×3 (02:50→19:35)
[2019-03-26] MEDS: SODIUM CHLORIDE 0.9% 1000ML 1,000 ML IV SCH ×3 (02:50→22:58)
[2019-03-26 06:14] LABS: Basophils # (auto) 0.03 K/uL (0-0.2); Basophils % (auto) 0.3 %; Eosinophils # (auto) 0.07 K/uL (0-0.5); Eosinophils % (auto) 0.8 %; Hematocrit (blood only) 29.8 % (42-52); Hemoglobin 9.5 g/dL (14.0-18.0); Immature Granulocytes # (auto) 0.01 K/uL (0.00-0.02); Immature Granulocytes % (auto) 0.1 %; Lymphocytes # (auto) 0.56 K/uL (1.2-3.4); Lymphocytes % (auto) 6.5 %; Mean Corpuscular Hgb Conc 31.9 g/dL (32-36); Mean Corpuscular Volume 88.7 fL (80-100); Mean Platelet Volume 9.5 fL (7.4-10.4); Monocytes # (auto) 0.97 K/uL (0.11-0.59); Monocytes % (auto) 11.2 %; Neutrophils # (auto) 7.04 K/uL (1.4-6.5); Neutrophils % (auto) 81.1 %; Platelet Count 291 K/uL (130-400); RDW Coefficient of Variation 15.3 % (11.5-14.5); RDW Standard Deviation 49.3 fL (36.4-46.3); Red Blood Count 3.36 M/uL (4.7-6.1); White Blood Count 8.68 K/uL (4.8-10.8)
[2019-03-26 06:31] LABS: Partial Thromboplastin Ratio 1.5; Partial Thromboplastin Time 41.1 Seconds (21.0-31.0)
[2019-03-26 06:48] LABS: Albumin Level 2.1 gm/dl (3.4-5.0); BUN Creatinine Ratio 41.1 (10-20); Calcium 8.1 mg/dl (8.5-10.1); Creatinine Clr Calc Pharmacy 128.2 ml/min; Est GFR (African American) 128.2; Est GFR (Non-African American) 110.6; Potassium 5.2 mmol/L (3.5-5.1)
[2019-03-26 06:51] LABS: Albumin Globulin Ratio 0.6 (0.9-2); Bilirubin,Total 0.5 mg/dl (0.2-1); Globulin 3.2 gm/dl (2.5-4.0); Total Protein 5.3 gm/dl (6.4-8.2)
--- NOTE | 2019-03-26 07:43 | XRay Report ---
SINGLE VIEW CHEST CLINICAL HISTORY: Pleural effusion. FINDINGS: An AP, portable, upright chest radiograph is compared to study dated 03/25/2019 and correlate d with chest CT dated 01/27/2019. The examination is degraded by portable technique and patient rotatio n. A right internal jugular central venous infusion port is unchanged in position. The heart is enl arged and there is atherosclerotic calcification of the thoracic aorta. The pulmonary vasculature is noncongested. There are right larger than left pleural effusions with associated bibasilar consolidat ion. The small right apical pneumothorax persists. The skeletal structures are osteopenic. The bony t horax is grossly intact. IMPRESSION: 1. Right-sided hydropneumothorax, not significantly changed from yesterday. 2. Small left pleural effusion. 3. Bibasilar consolidation. 4. Cardiomegaly without radiographic evidence of congestive failure. Electronically signed by: Adrian Espino M.D. 03/26/2019 7:42 AM
[2019-03-26] MEDS ORDERED: ALTEPLASE, RECOMBINANT 1 MG/ML 2ML VIAL IPL SCH (08:00)
[2019-03-26] MEDS: OXYCODONE HCL IR 5 MG TAB (IMMEDIATE RELEASE) PEG PRN ×3 (09:12→21:32)
[2019-03-26] MEDS: SIMVASTATIN 20 MG TAB PO SCH (09:17)
[2019-03-26] MEDS: FINASTERIDE 5 MG TAB PEG SCH (09:17)
[2019-03-26] MEDS: METOPROLOL TARTRATE 25 MG TAB PO SCH ×2 (09:17→20:32)
[2019-03-26] MEDS: MIDODRINE HCL 10 MG TAB PO SCH ×3 (09:18→20:32)
[2019-03-26] MEDS: GLYCOPYRROLATE 1 MG TAB PO SCH ×2 (09:18→20:32)
[2019-03-26] MEDS: CARBIDOPA/LEVODOPA 25/100MG TAB PEG SCH ×4 (09:18→20:32)
[2019-03-26] MEDS: ONDANSETRON 4 MG TAB PO SCH (09:18)
[2019-03-26] MEDS: CHOLECALCIFEROL 1,000 UNITS TAB PEG SCH (09:18)
[2019-03-26] MEDS: sulfaSALAzine 500 MG TABLET PO SCH (09:19)
[2019-03-26] MEDS: FOLIC ACID 1 MG TAB PO SCH (09:19)
[2019-03-26] MEDS: LANSOPRAZOLE 30 MG SOLTAB PEG SCH (09:19)
[2019-03-26] MEDS: POT PHOSPHATE MONOBASIC W/ SOD TAB PO SCH ×4 (09:19→20:33)
[2019-03-26] MEDS: AMIODARONE 200 MG TAB PO SCH (09:19)
[2019-03-26] MEDS: DIGOXIN 0.125 MG TAB PO SCH (09:20)
[2019-03-26] MEDS: LACTULOSE SYRUP 10 GM/15 ML BTL 473 ML PEG SCH (09:21)
--- NOTE | 2019-03-26 09:36 | XRay Report ---
XR chest 1V portable CLINICAL HISTORY: thoracentesis COMPARISON STUDY: Chest radiograph March 26, 2019 at 7:[address] January 27, 2019. FINDINGS: A right hydropneumothorax is again noted. Right apical pleural gas has slightly decreased. Loculated right pleural fluid is similar to prior exam. There is a small left pleural effusion. There is no left pneumothorax. There is no evidence for pulmonary edema. Cardiomediastinal silhouette is s table. Right basilar pleural catheter is in place. IMPRESSION: Slight decrease in a right hydropneumothorax. Right basilar pleural catheter in place. Electronically signed by: Walt Alvarado M.D. 03/26/2019 9:35 AM
--- NOTE | 2019-03-26 09:57 | Operative Report ---
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 PROCEDURE: Right thoracentesis under ultrasound guidance. SURGEON: Aren Estrada MD AIRPLANE NAVIGATOR: MARY LOU Reed ANESTHESIA: Local. SPECIFICS OF PROCEDURE: With the patient in a seated position, ultrasound was used to find a window into his right chest. This fluid appears loculated and complex. We had a problem because we have a PleurX catheter which is not draining. He is also on Eliquis for atrial flutter and AFib, which has been held. On 03/26/2019, the patient was evaluated with an ultrasound and seemed to have a window into his right chest and we drained about 150 mL of fluid. pH was 7.1. It appears to be clear. This was sent for culture, a glucose and LDH. He tolerated it well, but we were disappointed we could not get more fluid. DESCRIPTION OF PROCEDURE: The patient was seated up in bed. After appropriate consent had been obtained and an appropriate timeout was called, he was prepped and draped in the usual sterile fashion. An ultrasound had been used to find an area into what appeared to be rather complex fluid. A 25-gauge needle with 1% Xylocaine without epinephrine was used to anesthetize the skin and subcutaneous tissues and a larger bore needle was used to go in and we aspirated clear yellow fluid. A guidewire was inserted and the needle removed. Triple lumen catheter slid in, although it was difficult to get in further than 12-14 cm. Guidewire was removed and about 150 mL of serous fluid was drained. pH 7.1. We could really not get any more out. We then removed it. He had no bleeding from the site. He tolerated it well. A chest x-ray is pending at this point. It is still unclear exactly how we are going to proceed. If this fluid grows out an organism, we may put him through the MIST protocol. It is still not clear to me why this tube is not draining when it did drain well initially. I attest to the content of the Intraoperative Record and any orders documented therein. Any exception s are noted below.
[2019-03-26 10:06] LABS: Glucose Pleural Fluid 40 mg/dl; LDH Pleural Fluid 223 U/L
[2019-03-26] MEDS: KETOROLAC TROMETHAMINE 15 MG/ML VIAL IV PRN (12:53)
--- NOTE | 2019-03-26 16:11 | Hospitalist Progress Note ---
Date of Service March 26, 2019 Assessment & Plan (1) Pleural effusion: Loculated, previously diagnostic as a transudate of effusion. - Management as per thoracic surgery - Not improving so far, nothing coming out of PleurX. - His Pleurx catheter in place and performing MIST-2 protocol. Initially off the alteplase as he is on Eliquis; however, as Eliquis is now discontinued, he was started on alteplase on 03/26. - If not improving, need to consider decortication - defer management to primary team/thoracic surgery - Follow chest x-ray (2) Chest pain: Substernal, relieved with SLNTG. Trop mildly elevated as before but actually lower than previously and then trended down on repeat check despite having continued pain. ECG unchanged, no ischemic changes acutely. - Discussed with Cardiology-no further workup indicated at this time especially in the setting of such acute frailty. - Could be esophageal spasm as thought before and that could also be relieved with NTG - Start nitropaste on 03/25 -> Improved his chest pain (3) Hyponatremia: Hyponatremia is improved from admission at 126 to 130 with giving 2 L of normal saline, however, remains 130. - Continue tube feeds - Continue to hold free water flushes - Follow BMP (4) Esophageal cancer: Status post XRT/chemo. Has not had surgery. During his last endoscopy in January there was no visible evidence of recurrence of esophageal cancer (pathology was also negative) and most of his dysmotility was felt to be from radiation esophagitis. - However since that time he has been unable to take anything by mouth as far as solid food, can have liquids, occasionally has problems swallowing mucus. - Consulted GI to see about doing EGD this admission - appreciate consultation, initially there was a plan for EGD with possible dilatation on 03/26. (5) Atrial fibrillation: Patient has chronic atrial fibrillation and flutter that is rate controlled. - Continue amiodarone 200 MG daily - Continue metoprolol but cardio initially recommended increasing to 25 twice daily today when had elevated trop and chest pain - Continue digoxin 0.125 a day - Holding anticoagulation with Eliquis 5 twice daily for alteplase on Tuesday (6) Ulcerative colitis: This has been quiescent. Of note, he is on sulfasalazine, and not sulfad iazine. (7) Parkinsons disease: - Continue Sinemet for his Parkinson's disease via his PEG tube 4 times a day. (8) Reflux esophagitis: - Continue Prevacid via his PEG for history reflux esophagitis (9) Esophageal stricture: Secondary to radiation scarring and esophageal cancer now in remission. - Consulted GI to see about EGD with dilation - as above. -Continue tube feeds for nutrition (10) Indwelling Armijo catheter present: Armijo in place 2nd to BPH. Had both alfuzosin and Cardura on his home medication list but he cannot recall taking either of these. - He also has midorine that he takes for low blood pressures - it does not make sense to be on alpha blockers and alpha agonist. - I have since discontinued alfuzosin and Cardura - Continue midodrine - Maintain Armijo catheter and follow-up with urology as an outpatient - Continue finasteride to replace home dutasteride (11) BPH (benign prostatic hyperplasia): Armijo catheter in place -Continue finasteride and replacement of dutasteride -He cannot tolerate alpha blockers-have discontinued alfuzosin and doxazosin which were both ordered here. (12) Hypotension: Likely secondary to autonomic dysfunction and Parkinson's disease as well as alpha blockers. - DC alpha blockers as above - Continue midodrine (13) UTI (urinary tract infection) due to urinary indwelling Armijo catheter: Urine culture growing both Klebsiella pneumoniae and Pseudomonas resistant for quinolones. - Continue cefepime IV and will need 7 to 10-day course of IV antibiotics - Has indwelling Armijo - exchanged this admission (14) DVT prophylaxis: Eliquis Subjective No major concerns at present. No further chest pain. Review of Systems Review of Systems: All systems reviewed & are unremarkable except as noted in HPI & below Physical Exam Constitutional: + cachectic and + frail appearing; no acute distress ENMT: Ears: no hearing impairment Neck: trachea midline, no thyromegaly Respiratory: normal respiratory effort (+dressing in place over PleurX with drain coming out) Auscultation: + diminished lung sounds (at right base and middle lung field) Cardiovascular: RRR, no murmur, no edema Gastrointestinal (Abdomen): normal bowel sounds, soft, nontender, no hepatosplenomegaly Musculoskeletal: Extremities: + extremities abnormal to inspection (diffuse sarcopenia), no cyanosis and no clubbing Skin: no rashes, warm and dry Neurologic: moves all extremities and awake; no focal motor deficits Psychiatric: A+Ox3, euthymic affect Results & Data Vital Signs (Past 12 Hours) Vital Signs Temp Pulse Pulse Resp BP Pulse Ox 03/26/19 10:59 36.3 C L 81 20 117/68 94 03/26/19 09:20 103 H 03/26/19 07:37 36.6 C 96 H 20 109/69 95 PG Care Time/CCT Total # of Minutes Spent Total Time Spent with Patient: Total time spent is greater than 50% in coordination of care (as documented) at patient's floor/unit and/or counseling patient: (1) BPH (benign prostatic hyperplasia) Lower urinary tract symptom presence: symptoms present Lower urinary tract symptom detail: incomplete bladder emptying Qualified Code(s): N40.1 - Benign prostatic hyperplasia with lower urinary tract symptoms; R39.14 - Feeling of incomplete bladder emptying (2) Hypotension Hypotension type: other hypotension type Qualified Code(s): I95.89 - Other hypotension
[2019-03-26] MEDS: FIBERSOURCE HN 1.2 CAL 1000 ML BAG PO SCH (17:21)
[2019-03-27] MEDS: CEFEPIME 1,000 MG in SYRINGE 0 ML IV SCH ×3 (02:33→17:57)
[2019-03-27] MEDS: NITROGLYCERIN 2% OINTMENT 30GM TUBE EXT SCH ×4 (02:35→20:40)
[2019-03-27 06:21] LABS: Basophils # (auto) 0.02 K/uL (0-0.2); Basophils % (auto) 0.3 %; Eosinophils # (auto) 0.11 K/uL (0-0.5); Eosinophils % (auto) 1.6 %; Hematocrit (blood only) 29.7 % (42-52); Hemoglobin 9.4 g/dL (14.0-18.0); Immature Granulocytes # (auto) 0.02 K/uL (0.00-0.02); Immature Granulocytes % (auto) 0.3 %; Lymphocytes # (auto) 0.52 K/uL (1.2-3.4); Lymphocytes % (auto) 7.3 %; Mean Corpuscular Hgb Conc 31.6 g/dL (32-36); Mean Corpuscular Volume 90.3 fL (80-100); Mean Platelet Volume 9.6 fL (7.4-10.4); Monocytes # (auto) 0.92 K/uL (0.11-0.59); Neutrophils % (auto) 77.5 %; Platelet Count 303 K/uL (130-400); RDW Coefficient of Variation 15.2 % (11.5-14.5); RDW Standard Deviation 50.4 fL (36.4-46.3); Red Blood Count 3.29 M/uL (4.7-6.1); White Blood Count 7.09 K/uL (4.8-10.8)
[2019-03-27 06:56] LABS: BUN Creatinine Ratio 51.7 (10-20); Calcium 7.7 mg/dl (8.5-10.1); Creatinine Clr Calc Pharmacy 152.6 ml/min; Est GFR (African American) 137.7; Est GFR (Non-African American) 118.8; Potassium 4.5 mmol/L (3.5-5.1)
[2019-03-27 06:58] LABS: Albumin Globulin Ratio 0.6 (0.9-2); Bilirubin,Total 0.5 mg/dl (0.2-1); Globulin 3.1 gm/dl (2.5-4.0); Total Protein 5.1 gm/dl (6.4-8.2)
[2019-03-27] MEDS: OXYCODONE HCL IR 5 MG TAB (IMMEDIATE RELEASE) PEG PRN ×3 (07:44→20:44)
--- NOTE | 2019-03-27 07:56 | Procedure Note ---
Procedure Note Date of Service March 27, 2019 Right Pleurex removed at bedside without difficulty. Sterile dressing applied. Coding
--- NOTE | 2019-03-27 08:14 | XRay Report ---
XR chest 1V portable HISTORY: effusion COMPARISON: Chest 03/26/2019. FINDINGS: Interval progression of the partially loculated large right pleural effusion. Right apical pneumothorax persists. This is similar to the prior study. Right jugular central venous catheter term inates at the SVC. Trace left pleural effusion. The heart remains mildly enlarged. Right basilar pleu ral catheter is unchanged in position. IMPRESSION: Interval increase in size in the partially loculated large right pleural effusion. A small right pneu mothorax persists. Right-sided chest tube is unchanged in position. Electronically signed by: Adam Moreira M.D. 03/27/2019 8:12 AM
--- NOTE | 2019-03-27 08:27 | Progress Note ---
DATE: 03/27/2019 HISTORY OF PRESENT ILLNESS: Mr. Donahue is complaining of lower sternal chest pain. He denies shortness of breath. The pulse oximetry is 96% on room air. His x-ray looks terrible. He has some atelectasis and perhaps some fluid. I looked at his PleurX site and it looks fine. He does have decreased breath sounds on the right. He appears to be in no distress. He has had no fevers. He has had no productive cough. I attempted to drain his PleurX catheter and there was no fluid whatsoever despite manipulations. I do not believe this catheter is working, it may be kinked. We are going to remove this pleural catheter today. A bit disturbed that we attempted a thoracentesis and got very little out yesterday. I believe the acute changes in his x-rays from day to day are more than likely due to a combination of the fluid and atelectasis. I am going to ask pulmonary to evaluate him to see if they think perhaps a bronchoscopy would be helpful.
[2019-03-27] MEDS: SODIUM CHLORIDE 0.9% 1000ML 1,000 ML IV SCH ×2 (09:02→18:08)
[2019-03-27] MEDS: KETOROLAC TROMETHAMINE 15 MG/ML VIAL IV PRN ×2 (09:46→17:22)
[2019-03-27] MEDS: LACTULOSE SYRUP 10 GM/15 ML BTL 473 ML PEG SCH (09:51)
[2019-03-27] MEDS: CHOLECALCIFEROL 1,000 UNITS TAB PEG SCH (10:34)
[2019-03-27] MEDS: CARBIDOPA/LEVODOPA 25/100MG TAB PEG SCH ×4 (10:34→20:43)
[2019-03-27] MEDS: MIDODRINE HCL 10 MG TAB PO SCH ×3 (10:35→20:43)
[2019-03-27] MEDS: LANSOPRAZOLE 30 MG SOLTAB PEG SCH (10:35)
[2019-03-27] MEDS: FINASTERIDE 5 MG TAB PEG SCH (10:35)
[2019-03-27] MEDS: FOLIC ACID 1 MG TAB PO SCH (10:36)
[2019-03-27] MEDS: AMIODARONE 200 MG TAB PO SCH (10:37)
[2019-03-27] MEDS: sulfaSALAzine 500 MG TABLET PO SCH (10:37)
[2019-03-27] MEDS: METOPROLOL TARTRATE 25 MG TAB PO SCH ×2 (10:38→20:42)
[2019-03-27] MEDS: GLYCOPYRROLATE 1 MG TAB PO SCH ×2 (10:39→20:43)
[2019-03-27] MEDS: POT PHOSPHATE MONOBASIC W/ SOD TAB PO SCH ×4 (10:39→20:43)
[2019-03-27] MEDS: DIGOXIN 0.125 MG TAB PO SCH (10:41)
[2019-03-27] MEDS: ONDANSETRON 4 MG OD TAB PO SCH (11:01)
--- NOTE | 2019-03-27 11:40 | CT Scan Report ---
CT chest wo con CLINICAL HISTORY: 68 years-old Male presenting with eval pleural space. TECHNIQUE: Multidetector CT imaging of the chest was performed without the use of intravenous contras t. IV contrast: None. One or more dose lowering techniques were used consistent with the principles o f ALARA (as low as reasonably achievable), including automatic exposure control, mA or kV adjustment to individual patient size, and/or use of iterative reconstruction. COMPARISON: 01/27/2019. CT DOSE (mGy.cm): The estimated cumulative dose is 313.72 mGy.cm. FINDINGS: Photographic Equipment Technician topogram: Right pleural effusion. Soft tissues: Normal thyroid. Right internal jugular Mediport terminates in the SVC. Body wall edema evident. No axillary, supraclavicular, or mediastinal lymphadenopathy. Evaluation of the bib limited without intravenous contrast. Atherosclerosis of the aorta. Multichamber enlargement of the heart. C oronary artery and aortic valve calcification. No pericardial effusion. Moderate right and small left pleural effusions. The right pleural effusion is loculated. Multiple foci of gas evident within the loculations as well as a small nondependent pneumothorax anteriorly on the right. Gallstones noted in the upper abdomen. Lungs and airways: No left-sided pneumothorax. Central airways patent. Patchy groundglass and solid i nfiltrates noted in the superior segment of the left lower lobe. Multiple solid pulmonary nodules not ed bilaterally, the largest in the right upper lobe ensuring 1.4 cm. Evidence of extensive interlobul ar septal thickening in the right middle and lower lobes in the dependent portions.. Nodularity of th e fissures also noted. Musculoskeletal: Degenerative changes of the spine. IMPRESSION: 1. Multiple solid pulmonary nodules, which are new or have significantly enlarged in size from prior . This is consistent with progression of metastatic disease. 2. 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 3. Loculated pleural effusion on the right concerning for metastatic involvement. Hydropneumothorax also evident on the right, which is new from prior. 4. Simple left pleural effusion. Metastatic involvement cannot be excluded. The report will be called/faxed according to standard departmental protocol. Electronically signed by: Saurav Foley M.D. 03/27/2019 11:39 AM
--- NOTE | 2019-03-27 13:34 | Hospitalist Progress Note ---
Date of Service March 27, 2019 Assessment & Plan (1) Pleural effusion: Loculated, previously diagnostic as a transudate effusion. - Not improving so far, nothing coming out of PleurX -> Pulled on 03/27; thought that it is maybe kinked. - CXR on 03/27 still bad with combination of pleural effusion and atelectasis -> Thoracic asking pulm for recs on possible bronch. - Management as per thoracic surgery (2) Chest pain: Substernal, relieved with SLNTG. Trop mildly elevated as before but actually lower than previously and then trended down on repeat check despite having continued pain. ECG unchanged, no ischemic changes acutely. - Discussed with Cardiology - no further workup indicated at this time especially in the setting of such acute frailty. - Could be esophageal spasm as thought before and that could also be relieved with NTG - Started nitropaste on 03/25 -> Improved his chest pain - On 03/27, still with some substernal pain and abdominal pain. (3) Hyponatremia: Hyponatremia is improved from admission at 126 to 130 with giving 2 L of normal saline, however, remains 130. - Continue tube feeds - Continue to hold free water flushes - Follow BMP - As of 03/27, his Na is stable. (4) Esophageal cancer: Status post XRT/chemo. Has not had surgery. During his last endoscopy in January there was no visible evidence of recurrence of esophageal cancer (pathology was also negative) and most of his dysmotility was felt to be from radiation esophagitis. - However since that time he has been unable to take anything by mouth as far as solid food, can have liquids, occasionally has problems swallowing mucus. - Consulted GI to see about doing EGD this admission - appreciate consultation, initially there was a plan for EGD with possible dilatation on 03/26. (5) Atrial fibrillation: Patient has chronic atrial fibrillation and flutter that is rate controlled. - Continue amiodarone 200 MG daily - Continue metoprolol but cardio initially recommended increasing to 25 twice daily today when had elevated trop and chest pain - Continue digoxin 0.125 a day - On anticoagulation with Eliquis (6) Ulcerative colitis: This has been quiescent. Of note, he is on sulfasalazine, and not sulfadiazine. (7) Parkinsons disease: - Continue Sinemet for his Parkinson's disease via his PEG tube 4 times a day. (8) Reflux esophagitis: - Continue Prevacid via his PEG for history reflux esophagitis (9) Esophageal stricture: Secondary to radiation scarring and esophageal cancer. - Consulted GI to see about EGD with dilation - as above. -Continue tube feeds for nutrition (10) Indwelling Armijo catheter present: Armijo in place 2nd to BPH. Had both alfuzosin and Cardura on his home medication list but he cannot recall taking either of these. - He also has midorine that he takes for low blood pressures - it does not make sense to be on alpha blockers and alpha agonist. - I have since discontinued alfuzosin and Cardura - Continue midodrine - Maintain Armijo catheter and follow-up with urology as an outpatient - Continue finasteride to replace home dutasteride (11) BPH (benign prostatic hyperplasia): Armijo catheter in place -Continue finasteride and replacement of dutasteride -He cannot tolerate alpha blockers-have discontinued alfuzosin and doxazosin which were both ordered here. (12) Hypotension: Likely secondary to autonomic dysfunction and Parkinson's disease as well as alpha blockers. - DC alpha blockers as above - Continue midodrine (13) UTI (urinary tract infection) due to urinary indwelling Armijo catheter: Urine culture growing both Klebsiella pneumoniae and Pseudomonas resistant for quinolones. - Continue cefepime IV and will need 7 to 10-day course of IV antibiotics - Has indwelling Armijo - exchanged this admission (14) DVT prophylaxis: Eliquis Subjective Still having some substernal pain and abdominal pain. Otherwise, no acute changes to symptoms. Review of Systems Review of Systems: All systems reviewed & are unremarkable except as noted in HPI & below Physical Exam Constitutional: + cachectic and + frail appearing; no acute distress ENMT: Ears: no hearing impairment Neck: trachea midline, no thyromegaly Respiratory: normal respiratory effort Auscultation: + diminished lung sounds (At right base and middle lung field) Cardiovascular: RRR, no murmur, no edema Gastrointestinal (Abdomen): normal bowel sounds, soft, nontender, no hepatosplenomegaly Musculoskeletal: Extremities: + extremities abnormal to inspection (diffuse sa rcopenia), no cyanosis and no clubbing Skin: no rashes, warm and dry Neurologic: moves all extremities and awake; no focal motor deficits Psychiatric: A+Ox3, euthymic affect Results & Data Vital Signs (Past 12 Hours) Vital Signs Temp Pulse Pulse Resp BP BP Pulse Ox 03/27/19 10:41 96 H 03/27/19 10:32 94 H 143/80 H 03/27/19 07:25 36.7 C 90 18 139/69 96 03/27/19 02:35 98/59 L PG Care Time/CCT Total # of Minutes Spent Total Time Spent with Patient: Total time spent is greater than 50% in coordination of care (as documented) at patient's floor/unit and/or counseling patient: (1) BPH (benign prostatic hyperplasia) Lower urinary tract symptom presence: symptoms present Lower urinary tract symptom detail: incomplete bladder emptying Qualified Code(s): N40.1 - Benign prostatic hyperplasia with lower urinary tract symptoms; R39.14 - Feeling of incomplete bladder emptying (2) Hypotension Hypotension type: other hypotension type Qualified Code(s): I95.89 - Other hypotension
--- NOTE | 2019-03-27 13:47 | Pulmonary Consultation ---
Date of Consultation March 27, 2019 Assessment & Plan (1) Abnormal chest CT: Impression: 68-year-old male with history of esophageal cancer status post chemo and radiation therapy. He has a long-standing right-sided pleural effusion and had been treated with a Pleurx catheter which has not drained much. He was admitted due to potential catheter dysfunction. The catheter is now been removed but the effusion appears to be increasing in size and appears loculated and complex with air bubbles located within the pleural space. He also has progressive pulmonary nodules and the abnormality identified on chest x-ray likely represents a pseudotumor based on CT findings. Recommendations: 1. Reviewed CT scan with the patient. I do not think bronchoscopy would yield much at this point in time. Will discuss with thoracic surgery. Would be happy to proceed with bronchoscopy with therapeutic aspiration of secretions if thoracic surgery feels this would be beneficial. Aggressive pulmonary toilet recommended. 2. The patient has several pulmonary nodules which are new compared to prior CT scan from 3 months ago or have significantly enlarged. This is highly concerning for progression of the patient's underlying malignancy. Biopsy may be difficult but will discuss with thoracic surgery if this would alter the patient's management. If he undergoes thoracoscopic decortication, consideration for wedge resection of 1 of the pulmonary nodules may be appropriate. Additional management per medical oncology. (2) Pleural effusion: Recommendations: 1. Management primarily per thoracic surgery. Given the CT appearance, it is unclear whether additional attempts at catheter drainage would be beneficial. It is also unclear whether the patient is a appropriate candidate for video- assisted thoracoscopic decortication. Will discuss with thoracic surgery. (3) Acute hypoxemic respiratory failure: Recommendations: 1. Secondary to a pleural effusion as well as underlying pulmonary process. Wean oxygen as tolerated. History of Present Illness Reason for Consultation: Abnormal CT scan and hypoxemic respiratory failure with complicated right pleural space in a patient with a history of esophageal cancer Attending Physician: Aren Estrada MD, FACS History of Present Illness History is obtained from discussion with the patient the bedside as well as discussion with thoracic surgery and reviewed the electronic medical record. The patient is a 68-year-old debilitated male with a history of esophageal cancer. He has a feeding tube in place. He is status post chemotherapy and radiation therapy. The patient has a history of a recurrent right pleural effusion and is undergone serial thoracentesis which have failed to elucidate any evidence of malignancy. He eventually underwent tunneled Pleurx catheter placement by thoracic surgery. Over the past several days the catheter had been more difficult to drain. This prompted the patient to be returned to the hospital. He was seen in consultation by thoracic surgery who attempted to drain the Pleurx catheter without much success. It was subsequently removed it was thought that the catheter was kinked or malfunctioning. Repeat thoracentesis was attempted yesterday which yielded only 100 mL's of fluid. The patient has had x-rays performed which revealed progressive opacities within the right hemithorax which prompted pulmonary consultation today. The patient does report cough. He is not expectorating any significant phlegm. He denies any chest pain or palpitations. He does not report any significant aspiration events that he is aware of. No loss of consciousness. I think the Allergies Allergy/AdvReac Type Severity Reaction Status Date / Time No Known Allergies Allergy Verified 03/22/19 12:45 Home Medications Home Medications Medication Instructions Recorded Confirmed Type levalbuterol HCl 1.25 mg INHALATION Q8 PRN 01/14/19 03/24/19 History guaifenesin 400 mg TID PRN 01/19/19 03/22/19 History metoprolol tartrate 12.5 mg FEEDING TUBE BID 01/19/19 03/24/19 History amiodarone 200 mg tablet 200 mg FEEDING TUBE DAILY tab 03/14/19 03/24/19 History apixaban 5 mg tablet 5 mg FEEDING TUBE BID 03/14/19 03/24/19 History carbidopa 25 mg-levodopa 100 mg 2 tab FEEDING TUBE QID 03/14/19 03/22/19 History tablet digoxin 125 mcg tablet 125 mcg FEEDING TUBE DAILY tab 03/14/19 03/24/19 History doxazosin 1 mg tablet 1 mg FEEDING TUBE HS tab 03/14/19 03/24/19 History finasteride 5 mg tablet 5 mg FEEDING TUBE DAILY 03/15/19 03/24/19 History midodrine 10 mg tablet 10 mg FEEDING TUBE TID tab 03/15/19 03/24/19 History nitroglycerin 0.4 mg sublingual 0.4 mg .ROUTE .COMPLEX PRN tab 03/15/19 03/24/19 History tablet rasagiline 1 mg tablet 1 mg FEEDING TUBE HS tab 03/15/19 03/24/19 History sodium di- and 1 tab FEEDING TUBE QID 03/15/19 03/24/19 History monophosphate-potassium phos monobasic 250 mg tablet glycopyrrolate 1 mg FEEDING TUBE BID 03/16/19 03/24/19 History lactulose 15 ml FEEDING TUBE HS 03/16/19 03/24/19 History potassium chloride 10 meq FEEDING TUBE DAILY 03/16/19 03/24/19 History tramadol [Ultram] 50 mg PO Q4H PRN #15 tab 03/16/19 03/22/19 Rx aspirin 81 mg tablet,delayed PO .TAKE 1 TABLET DAILY. tab 03/22/19 03/22/19 History release cholecalciferol (vitamin D3) 2,000 1 PO .Take 1 tablet daily tab 03/22/19 03/22/19 History unit tablet coenzyme Q10 200 mg capsule 1 PO .TAKE 1 CAPSULE DAILY cap 03/22/19 03/22/19 History folic acid 1 mg tablet PO .TAKE 2 TABLETS DAILY tab 03/22/19 03/22/19 History food supplement, lactose-reduced ea PO ml 03/22/19 03/22/19 History oral liquid ondansetron HCl 4 mg tablet 4 mg PO DAILY #20 tab 03/22/19 03/22/19 History Free Water Flushes 210 ml PEG QID 03/24/19 03/24/19 History acetaminophen 650 mg FEEDING TUBE QID PRN 03/24/19 03/24/19 History amino ac-protein hydr-whey pro 30 HS 03/24/19 History [Prosource TF] bisacodyl [Dulcolax (bisacodyl)] 10 mg MT DAILY PRN 03/24/19 03/24/19 History glycopyrrolate 1 mg FEEDING TUBE BID 03/24/19 03/24/19 History lactulose 10 g PO HS 03/24/19 03/24/19 History melatonin 1 mg FEEDING TUBE HS 03/24/19 03/24/19 History nutrition [id number] See Rx Instructions .ROUTE .COMPLEX 03/24/19 03/24/19 History [Fibersource HN] oxycodone 5 mg FEEDING TUBE QID 03/24/19 03/24/19 History polyethylene glycol 3350 [Miralax] 17 g FEEDING TUBE DAILY PRN 03/24/19 03/24/19 History soft lens rinse,store solution 03/24/19 03/24/19 History [Saline Solution] sulfasalazine 500 mg FEEDING TUBE DAILY 03/24/19 03/24/19 History Patient History Medical History DVT prophylaxis On enteral nutrition Encounter for feeding tube placement (Acute) Atrial fibrillation Dysphagia PROGRESSIVE X 2 MONTHS PER ONCOLOGY NOTE Esophageal cancer 2018--chemo, radiation Esophageal stenosis Armijo catheter in place History of recent pneumonia hospitalized [facility] 11/19/18-11/23/2018 Hyperlipidemia Hypertension Orthostatic hypotension Parkinsons disease Reflux esophagitis Ulcerative colitis Weight loss 30 POUND WEIGHT LOSS PER ONCOLOGY NOTE Surgical History History of cardioversion x2--07/2018 History of colonoscopy History of esophagogastroduodenoscopy (EGD) History of tonsillectomy History of tooth extraction all upper teeth History of vascular access device aport right side Family History Mother , at 80yo;[place], aortic valve replacement, stroke No problems noted. Father , at 88yo;"Colon problem that caused him to weaken" No problems noted. Brother No problems noted. Grandmother (Maternal) Family history of diabetes mellitus Grandfather (Maternal) Family hx of colon cancer Other No family history of adverse response to anesthesia Social History Preferred Language: Mauritian Communication Ability: Effective Visual Impairment: No Limitations Hearing Ability: Normal Renewals Manager Required: No Beliefs That Will Affect Care: Zoroastrianism Zoroastrianism Beliefs: Jehovah'S Witness marital status: Single Current Living Situation: Personal Care Facility Current Living Situation Comment: [facility] Feels Safe at Home: Yes Smoking Status: Never smoker Second Hand Exposure: No ; Hx Alcohol Use: Yes Hx Substance Use: No caffeine: Yes (1 cup coffee/day;not currently since diagnosis;) during the past year weight has: increased > 10 lbs Review of Systems Review of Systems: All systems reviewed & are unremarkable except as noted in HPI & below Physical Exam Constitutional: Debilitated male. He does not appear in acute distress Neck: trachea midline, no thyromegaly Respiratory: Diminished breath sounds throughout the right hemithorax without crackles or rales. Left lung relatively clear Cardiovascular: RRR, no murmur, no edema Gastrointestinal (Abdomen): normal bowel sounds, soft, nontender, no hepatosplenomegaly Results & Data Vital Signs (Past 12 Hours) Vital Signs Temp Pulse Pulse Resp BP BP Pulse Ox 03/27/19 10:41 96 H 03/27/19 10:32 94 H 143/80 H 03/27/19 07:25 36.7 C 90 18 139/69 96 03/27/19 02:35 98/59 L Laboratory Results 03/27/19 05:37 03/27/19 05:37 Microbiology 03/26/19 Unknown Pleural Fluid Gram Stain - Final 03/26/19 Unknown Pleural Fluid Aerobic and Anaerobic Culture - Preliminary No growth to date. 03/22/19 16:29 Urine,Indwelling Cath Urine Culture - Final Pseudomonas aeruginosa Klebsiella pneumoniae Diagnostic Findings CT chest wo con CLINICAL HISTORY: 68 years-old Male presenting with eval pleural space. TECHNIQUE: Multidetector CT imaging of the chest was performed without the use of intravenous contrast. IV contrast: None. One or more dose lowering techniques were used consistent with the principles of ALARA (as low as reasonably achievable), including automatic exposure control, mA or kV adjustment to individual patient size, and/or use of iterative reconstruction. COMPARISON: 01/27/2019. CT DOSE (mGy.cm): The estimated cumulative dose is 313.72 mGy.cm. FINDINGS: Occupational Health Nurse topogram: Right pleural effusion. Soft tissues: Normal thyroid. Right internal jugular Mediport terminates in the SVC. Body wall edema evident. No axillary, supraclavicular, or mediastinal lymphadenopathy. Evaluation of the bib limited without intravenous contrast. Atherosclerosis of the aorta. Multichamber enlargement of the heart. Coronary artery and aortic valve calcification. No pericardial effusion. Moderate right and small left pleural effusions. The right pleural effusion is loculated. Multiple foci of gas evident within the loculations as well as a small nondependent pneumothorax anteriorly on the right. Gallstones noted in the upper abdomen. Lungs and airways: No left-sided pneumothorax. Central airways patent. Patchy groundglass and solid infiltrates noted in the superior segment of the left lower lobe. Multiple solid pulmonary nodules noted bilaterally, the largest in the right upper lobe ensuring 1.4 cm. Evidence of extensive interlobular septal thickening in the right middle and lower lobes in the dependent portions.. Nodularity of the fissures also noted. Musculoskeletal: Degenerative changes of the spine. IMPRESSION: 1. Multiple solid pulmonary nodules, which are new or have significantly enlarged in size from prior. This is consistent with progression of metastatic disease. 2. 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 3. Loculated pleural effusion on the right concerning for metastatic involvement. Hydropneumothorax also evident on the right, which is new from prior. 4. Simple left pleural effusion. Metastatic involvement cannot be excluded. The report will be called/faxed according to standard departmental protocol. Electronically signed by: Saurav Foley M.D. 03/27/2019 11:39 AM PG Care Time/CCT Total # of Minutes Spent Total Time Spent with Patient: Total time spent is greater than 50% in television schedule coordinator rdination of care (as documented) at patient's floor/unit and/or counseling patient:
[2019-03-27] MEDS ORDERED: SODIUM CHLORIDE 0.65% NA SOLN 45 ML (OCEAN) PRN (15:40)
[2019-03-27] MEDS ORDERED: SODIUM CHLORIDE 0.65% NA SOLN 45 ML (OCEAN) ONE (15:42)
[2019-03-27] MEDS: FIBERSOURCE HN 1.2 CAL 1000 ML BAG PO SCH (16:16)
[2019-03-27] MEDS: HEPARIN 100 UNIT/ML 5ML FLUSH FLUSH PRN (17:57)
[2019-03-27] MEDS: SIMVASTATIN 20 MG TAB PO SCH (20:44)
[2019-03-28] MEDS: NITROGLYCERIN 2% OINTMENT 30GM TUBE EXT SCH ×4 (02:44→20:23)
[2019-03-28] MEDS: OXYCODONE HCL IR 5 MG TAB (IMMEDIATE RELEASE) PEG PRN ×4 (02:45→21:46)
[2019-03-28] MEDS: CEFEPIME 1,000 MG in SYRINGE 0 ML IV SCH ×3 (02:45→20:22)
[2019-03-28] MEDS: SODIUM CHLORIDE 0.9% 1000ML 1,000 ML IV SCH ×3 (04:01→23:29)
[2019-03-28] MEDS: KETOROLAC TROMETHAMINE 15 MG/ML VIAL IV PRN ×2 (05:34→13:57)
[2019-03-28 06:06] LABS: Basophils # (auto) 0.03 K/uL (0-0.2); Basophils % (auto) 0.3 %; Eosinophils # (auto) 0.23 K/uL (0-0.5); Eosinophils % (auto) 2.2 %; Immature Granulocytes # (auto) 0.03 K/uL (0.00-0.02); Immature Granulocytes % (auto) 0.3 %; Lymphocytes % (auto) 5.7 %; Mean Corpuscular Hgb Conc 31.3 g/dL (32-36); Mean Corpuscular Volume 90.1 fL (80-100); Mean Platelet Volume 9.6 fL (7.4-10.4); Monocytes % (auto) 8.5 %; Platelet Count 306 K/uL (130-400); RDW Coefficient of Variation 15.2 % (11.5-14.5); RDW Standard Deviation 50.3 fL (36.4-46.3); Red Blood Count 3.55 M/uL (4.7-6.1); White Blood Count 10.59 K/uL (4.8-10.8)
[2019-03-28 06:47] LABS: BUN Creatinine Ratio 48.2 (10-20); Calcium 7.8 mg/dl (8.5-10.1); Creatinine Clr Calc Pharmacy 142.4 ml/min; Est GFR (African American) 133.8; Est GFR (Non-African American) 115.5; Potassium 4.2 mmol/L (3.5-5.1)
[2019-03-28 06:50] LABS: Albumin Globulin Ratio 0.6 (0.9-2); Bilirubin,Total 0.4 mg/dl (0.2-1); Globulin 3.3 gm/dl (2.5-4.0); Total Protein 5.3 gm/dl (6.4-8.2)
[2019-03-28] MEDS: MoRPHine SULFATE 2 MG/ML CARP IV PRN ×3 (06:51→20:24)
[2019-03-28] MEDS: ONDANSETRON 4 MG OD TAB PO SCH (08:24)
[2019-03-28] MEDS: LANSOPRAZOLE 30 MG SOLTAB PEG SCH (08:25)
[2019-03-28] MEDS: FINASTERIDE 5 MG TAB PEG SCH (08:25)
[2019-03-28] MEDS: MIDODRINE HCL 10 MG TAB PO SCH ×3 (08:26→20:23)
[2019-03-28] MEDS: POT PHOSPHATE MONOBASIC W/ SOD TAB PO SCH ×4 (08:26→20:23)
[2019-03-28] MEDS: FOLIC ACID 1 MG TAB PO SCH (08:28)
[2019-03-28] MEDS: METOPROLOL TARTRATE 25 MG TAB PO SCH ×2 (08:28→20:23)
[2019-03-28] MEDS: DIGOXIN 0.125 MG TAB PO SCH (08:28)
[2019-03-28] MEDS: AMIODARONE 200 MG TAB PO SCH (08:29)
[2019-03-28] MEDS: LACTULOSE SYRUP 10 GM/15 ML BTL 473 ML PEG SCH (08:30)
[2019-03-28] MEDS: sulfaSALAzine 500 MG TABLET PO SCH (08:31)
[2019-03-28] MEDS: CHOLECALCIFEROL 1,000 UNITS TAB PEG SCH (08:32)
[2019-03-28] MEDS: CARBIDOPA/LEVODOPA 25/100MG TAB PEG SCH ×4 (08:33→20:23)
[2019-03-28] MEDS: GLYCOPYRROLATE 1 MG TAB PO SCH ×2 (08:33→20:23)
[2019-03-28] MEDS ORDERED: LIDOCAINE HCL 2% (LOCAL) INJ 50 ML VIAL ONE (10:52)
--- NOTE | 2019-03-28 11:47 | XRay Report ---
XR chest 1V portable CLINICAL HISTORY: 68 years-old Male presenting with effusion. TECHNIQUE: Portable upright AP view of the chest was obtained. COMPARISON: 03/27/2019. FINDINGS: Right internal jugular Mediport has been accessed and terminates in the mid SVC. A right pleural drai n terminates near the right apex and is new from prior. Atherosclerosis of the aortic arch. Cardiac s ilhouette mildly enlarged. Slight interval decreased size of the now small to moderate right pleural effusion, which may be loculated. A small left pleural effusion is also suspected. Significant interv al increase in central predominant left lung opacities. Improved aeration of the right lung in compar gabrielle to prior. Prominent skin folds project over the right hemithorax. No pneumothorax. Degenerative changes of the thoracic spine. Upper abdomen normal. IMPRESSION: 1. Placement of a right pleural drain with significant decrease in right pleural fluid. Residual rig ht pleural effusion may be loculated. No pneumothorax. 2. Improved aeration of the right lung. 3. Interval development of pronounced central left lung infiltrates concerning for aspiration or pne umonia. 4. Suspected left pleural effusion. Electronically signed by: Saurav Foley M.D. 03/28/2019 11:45 AM
[2019-03-28 12:19] LABS: Glucose Pleural Fluid 94 mg/dl
[2019-03-28 12:27] LABS: Amylase Pleural Fluid 7 U/L; LDH Pleural Fluid 122 U/L; Total Protein Pleural Fluid 1.7 g/dl
--- NOTE | 2019-03-28 12:28 | Pulmonology Progress Note ---
Date of Service March 28, 2019 Assessment & Plan (1) Abnormal chest CT: Impression: 68-year-old male with history of esophageal cancer status post chemo and radiation therapy. He has a long-standing right-sided pleural effusion and had been treated with a Pleurx catheter which has not drained much. He was admitted due to potential catheter dysfunction. The catheter is now been removed and replaced. Recommendations: 1. Reviewed CT scan with the patient. Continue pulmonary toilet. 2. The patient has several pulmonary nodules which are new compared to prior CT scan from 3 months ago or have significantly enlarged. This is highly concerning for progression of the patient's underlying malignancy. The patient is scheduled to meet with medical oncology later today. Consideration for palliative care may be appropriate. Will sign off. Feel free to contact us with additional or progressive pulmonary issues. (2) Pleural effusion: Recommendations: 1. Management primarily per thoracic surgery. (3) Acute hypoxemic respiratory failure: Recommendations: 1. Secondary to a pleural effusion as well as underlying pulmonary process. Wean oxygen as tolerated. Subjective Patient is status post replacement of a Pleurx drain today. Reportedly 600 mL's of fluid was able to be removed. He otherwise feels his breathing is about the same. He is pending evaluation with his medical oncologist. No significant chest pain. No fevers chills or sweats. Cough intermittently productive. Review of Systems Review of Systems: Unchanged from prior Physical Exam Constitutional: + frail appearing and + malnourished Neck: trachea midline, no thyromegaly Respiratory: Coarse breath sounds bilaterally without wheezing. Gastrointestinal (Abdomen): Feeding tube in place Neurologic: Parkinsonian tremor in the right hand Results & Data Vital Signs (Past 12 Hours) Vital Signs Temp Pulse Pulse Pulse Resp BP BP 03/28/19 11:54 36.6 C 94 H 18 125/72 03/28/19 08:28 96 H 03/28/19 08:19 96 H 131/84 03/28/19 07:36 36.7 C 90 18 130/76 03/28/19 02:44 83 127/79 Pulse Ox 03/28/19 11:54 93 03/28/19 08:28 03/28/19 08:19 03/28/19 07:36 92 03/28/19 02:44 Laboratory Results 03/28/19 05:23 03/28/19 05:23 Diagnostic Findings CXR indpenedntly reviewed. XR chest 1V portable CLINICAL HISTORY: 68 years-old Male presenting with effusion. TECHNIQUE: Portable upright AP view of the chest was obtained. COMPARISON: 03/27/2019. FINDINGS: Right internal jugular Mediport has been accessed and terminates in the mid SVC. A right pleural drain terminates near the right apex and is new from prior. Atherosclerosis of the aortic arch. Cardiac silhouette mildly enlarged. Slight interval decreased size of the now small to moderate right pleural effusion, which may be loculated. A small left pleural effusion is also suspected. Significant interval increase in central predominant left lung opacities. Improved aeration of the right lung in comparison to prior. Prominent skin folds project over the right hemithorax. No pneumothorax. Degenerative changes of the thoracic spine. Upper abdomen normal. IMPRESSION: 1. Placement of a right pleural drain with significant decrease in right pleural fluid. Residual right pleural effusion may be loculated. No pneumothorax. 2. Improved aeration of the right lung. 3. Interval development of pronounced central left lung infiltrates concerning for aspiration or pneumonia. 4. Suspected left pleural effusion. Electronically signed by: Saurav Foley M.D. 03/28/2019 11:45 AM PG Care Time/CCT Total # of Minutes Spent Total Time Spent with Patient: Total time spent is greater than 50% in coordination of care (as documented) at patient's floor/unit and/or counseling patient:
[2019-03-28 12:39] LABS: Appearance Pleural Fluid HAZY; Color Pleural Fluid YELLOW; Mononuclear WBC Pleural 55.4 %; Polynuclear WBC Pleural 44.6 %; RBC Pleural Fluid (A) 5000 /uL; Source Pleural Fluid RIGHT LUNG; WBC Pleural Fluid (A) 57 /uL
--- NOTE | 2019-03-28 14:15 | Hospitalist Progress Note ---
Date of Service March 28, 2019 Assessment & Plan (1) Pleural effusion: Loculated, previously diagnostic as a transudate effusion. - Not improving so far, nothing coming out of PleurX -> Pulled on 03/27; thought that it is maybe kinked. - New PleurX inserted on 03/28 - Management as per thoracic surgery - Sounds like they will restart his MIST protocol (2) Chest pain: Substernal, relieved with SLNTG. Trop mildly elevated as before but actually lower than previously and then trended down on repeat check despite having continued pain. ECG unchanged, no ischemic changes acutely. - Discussed with Cardiology - no further workup indicated at this time especially in the setting of such acute frailty. - Could be esophageal spasm as thought before and that could also be relieved with NTG - Started nitropaste on 03/25 -> Improved his chest pain - On 03/28, his chest pain is resolved. Possibly distension from his tube feeds? (3) Hyponatremia: Hyponatremia is improved from admission at 126 to 130 with giving 2 L of normal saline, however, remains 130. - Continue tube feeds - Continue to hold free water flushes - Follow BMP - As of 03/28, his Na is stable. (4) Esophageal cancer: Status post XRT/chemo. Has not had surgery. During his last endoscopy in January there was no visible evidence of recurrence of esophageal cancer (pathology was also negative) and most of his dysmotility was felt to be from radiation esophagitis. - However since that time he has been unable to take anything by mouth as far as solid food, can have liquids, occasionally has problems swallowing mucus. - Consulted GI to see about doing EGD this admission - appreciate consultation, initially there was a plan for EGD with possible dilatation on 03/26; however, this was put on hold for his medical issues. (5) Atrial fibrillation: Patient has chronic atrial fibrillation and flutter that is rate controlled. - Continue amiodarone 200 MG daily - Continue metoprolol but cardio initially recommended increasing to 25 twice daily today when had elevated trop and chest pain - Continue digoxin 0.125 a day - On anticoagulation with Eliquis - Presently on hold for the MIST-protocol per thoracic surgery (6) Ulcerative colitis: This has been quiescent. Of note, he is on sulfasalazine, and not sulfadiazine. (7) Parkinsons disease: - Continue Sinemet for his Parkinson's disease via his PEG tube 4 times a day. (8) Reflux esophagitis: - Continue Prevacid via his PEG for history reflux esophagitis (9) Esophageal stricture: Secondary to radiation scarring and esophageal cancer. - Consulted GI to see about EGD with dilation - as above. -Continue tube feeds for nutrition (10) Indwelling Armijo catheter present: Armijo in place 2nd to BPH. Had both alfuzosin and Cardura on his home medication list but he cannot recall taking either of these. - He also has midorine that he takes for low blood pressures - it does not make sense to be on alpha blockers and alpha agonist. - Discontinued alfuzosin and Cardura on 03/23 - Continue midodrine - Maintain Armijo catheter and follow-up with urology as an outpatient - Continue finasteride to replace home dutasteride (11) BPH (benign prostatic hyperplasia): Armijo catheter in place -Continue finasteride and replacement of dutasteride -He cannot tolerate alpha blockers-have discontinued alfuzosin and doxazosin which were both ordered here. (12) Hypotension: Likely secondary to autonomic dysfunction and Parkinson's disease as well as alpha blockers. - DC alpha blockers as above - Continue midodrine (13) UTI (urinary tract infection) due to urinary indwelling Armijo catheter: Urine culture growing both Klebsiella pneumoniae and Pseudomonas resistant for quinolones. - Continue cefepime IV and will need 7 to 10-day course of IV antibiotics - Has indwelling Armijo - exchanged this admission (14) DVT prophylaxis: Eliquis - Presently on hold Subjective Less abdominal pain and less lower chest pain than yesterday. shortness of breath is stable. Review of Systems Review of Systems: All systems reviewed & are unremarkable except as noted in HPI & below Physical Exam Constitutional: + cachectic and + frail appearing; no acute distress ENMT: Ears: no hearing impairment Neck: trachea midline, no thyromegaly Respiratory: normal respiratory effort Auscultation: + diminished lung sounds (At right base and middle lung field) Cardiovascular: RRR, no murmur, no edema Gastrointestinal (Abdomen): normal bowel sounds, soft, nontender, no hepatosplenomegaly Musculoskeletal: Extremities: + extremities abnormal to inspection (diffuse sarcopenia), no cyanosis and no clubbing Skin: no rashes, warm and dry Neurologic: moves all extremities and awake; no focal motor deficits Psychiatric: A+Ox3, euthymic affect Results & Data Vital Signs (Past 12 Hours) Vital Signs Temp Pulse Pulse Pulse Resp BP BP 03/28/19 13:54 141/89 H 03/28/19 11:54 36.6 C 94 H 18 125/72 03/28/19 08:28 96 H 03/28/19 08:19 96 H 131/84 03/28/19 07:36 36.7 C 90 18 130/76 03/28/19 02:44 83 127/79 Pulse Ox 03/28/19 13:54 03/28/19 11:54 93 03/28/19 08:28 03/28/19 08:19 03/28/19 07:36 92 03/28/19 02:44 PG Care Time/CCT Total # of Minutes Spent Total Time Spent with Patient: Total time spent is greater than 50% in coordination of care (as documented) at patient's floor/unit and/or counseling patient: (1) BPH (benign prostatic hyperplasia) Lower urinary tract symptom presence: symptoms present Lower urinary tract symptom detail: incomplete bladder emptying Qualified Code(s): N40.1 - Benign prostatic hyperplasia with lower urinary tract symptoms; R39.14 - Feeling of incomplete bladder emptying (2) Hypotension Hypotension type: other hypotension type Qualified Code(s): I95.89 - Other hypotension
--- NOTE | 2019-03-28 16:03 | XRay Report ---
XR chest 1V portable HISTORY: hypoxia COMPARISON: Chest 03/28/2019. FINDINGS: Right chest tube terminates in the right lung apex, unchanged. Small right basilar hydropne umothorax and right basilar airspace opacities persist. Small left pleural effusion and left perihila r airspace opacities remain unchanged. The heart is stable in size. Right jugular Port-A-Cath termina sebastián at the SVC. IMPRESSION: 1. No change in the small right basilar hydropneumothorax. 2. Small bilateral pleural effusions and left perihilar airspace opacities are also unchanged. Electronically signed by: Adam Moreira M.D. 03/28/2019 4:02 PM
[2019-03-28] MEDS: FIBERSOURCE HN 1.2 CAL 1000 ML BAG PO SCH (17:18)
--- NOTE | 2019-03-28 17:20 | Progress Note ---
DATE: 03/28/2019 Mr. Donahue is seen this morning. I reviewed a CT scan from yesterday and my feeling is that the PleurX catheter is probably not working well. He does have evidence of progressive malignant disease with nodules which were not present just a few months ago and now appearing not only frequently but rather distinctly. He also has a complicated left pleural effusion. I had a long talk and I think the best way to proceed with this is to go ahead and reinsert a PleurX catheter. If it is indeed complicated and it does not drain well, we can institute the MIST-2 protocol. It should be noted that the fluid from his chest has not grown any organisms. I am going to go ahead and insert a PleurX catheter, so we can at least address his pleural fluid now. I had a long discussion and he is in agreement.
[2019-03-28] MEDS: SIMVASTATIN 20 MG TAB PO SCH (20:23)
--- NOTE | 2019-03-28 20:36 | Operative Report ---
DATE OF OPERATION: 03/28/2019 PREOPERATIVE DIAGNOSIS: Recurrent right pleural effusion. POSTOPERATIVE DIAGNOSIS: Recurrent right pleural effusion. PROCEDURE: Insertion of right PleurX catheter under ultrasound guidance. SURGEON: Aren Estrada MD. HEALTH ADVISOR: MARY LOU Reed. ANESTHESIA: Local. DESCRIPTION OF PROCEDURE: With the patient in left lateral decubitus position, the right chest was prepped and draped and an ultrasound was used to find an area into his pleural cavity. This was on a bit higher than his prior thoracentesis or PleurX site and I marked this and anesthetized it with 25-gauge needle with 1% Xylocaine. A bigger needle was used to anesthetize the intercostal muscles and the pleura and then upon entering the pleural cavity, we did get free flowing fluid back. For this reason, I inserted a guidewire and removed the needle. Incision was lengthened to about 1 cm here. Approximately 12 cm inferior and anterior to this, another skin wheal was raised with 25-gauge needle, 1% Xylocaine and 1 cm incision was made. A long needle was used to anesthetize subcutaneous tissues between these 2 incisions. A tunneler was attached to the PleurX catheter and pulled from the anterior to posterior incision and the tunneler removed. Introducer sheath and inner cannula was slid over the guidewire into the pleural cavity, inner cannula and guidewire removed and the PleurX catheter inserted through the peel-away sheath which was removed. The 2 separate 3-0 silk sutures were used to close the posterior incision and a 2-0 silk suture was used anteriorly x2 to anchor the skin to the patient's catheter. 600 mL of serous fluid was drained and his x-ray looked much improved afterwards. The pH was 7.50. We are going to discuss this case with Dr. Brice. I attest to the content of the Intraoperative Record and any orders documented therein. Any exception s are noted below.
[2019-03-28] MEDS: LEVALBUTEROL 1.25MG/0.5ML NEB INH PRN (22:27)
--- NOTE | 2019-03-28 22:48 | XRay Report ---
XR chest 1V portable HISTORY: hypoxia COMPARISON: Chest 03/28/2019. FINDINGS: Right-sided chest tube is unchanged in position. Small right basilar hydropneumothorax and right basilar densities remain unchanged. Right jugular Port-A-Cath terminates at the SVC. Improved a eration within the left perihilar airspace opacities. Small left pleural effusion, unchanged. The hea rt remains enlarged. IMPRESSION: 1. No change in the small right basilar hydropneumothorax. Right-sided chest tube is unchanged in pos ition. 2. Slight improved aeration within the left perihilar airspace opacities. 3. Stable small left pleural effusion. Electronically signed by: Adma Moreira M.D. 03/28/2019 10:47 PM
[2019-03-28] MEDS ORDERED: ALBUMIN 25% 50 ML with FUROSEMIDE 40 MG IV ONE (23:45)
[2019-03-29] MEDS: CEFEPIME 1,000 MG in SYRINGE 0 ML IV SCH ×2 (02:12→13:34)
[2019-03-29] MEDS: NITROGLYCERIN 2% OINTMENT 30GM TUBE EXT SCH ×2 (02:21→08:17)
[2019-03-29] MEDS: KETOROLAC TROMETHAMINE 15 MG/ML VIAL IV PRN (03:44)
[2019-03-29 05:06] VITALS: O2SAT 95
[2019-03-29] MEDS: MoRPHine SULFATE 2 MG/ML CARP IV PRN ×2 (05:50→13:34)
[2019-03-29 06:29] LABS: Basophils # (auto) 0.02 K/uL (0-0.2); Basophils % (auto) 0.2 %; Eosinophils # (auto) 0.05 K/uL (0-0.5); Eosinophils % (auto) 0.4 %; Hematocrit (blood only) 31.7 % (42-52); Hemoglobin 10.1 g/dL (14.0-18.0); Immature Granulocytes # (auto) 0.04 K/uL (0.00-0.02); Immature Granulocytes % (auto) 0.3 %; Lymphocytes # (auto) 0.67 K/uL (1.2-3.4); Lymphocytes % (auto) 5.6 %; Mean Corpuscular Hgb Conc 31.9 g/dL (32-36); Mean Corpuscular Volume 89.3 fL (80-100); Monocytes # (auto) 1.07 K/uL (0.11-0.59); Monocytes % (auto) 8.9 %; Neutrophils # (auto) 10.22 K/uL (1.4-6.5); Neutrophils % (auto) 84.6 %; Platelet Count 269 K/uL (130-400); RDW Coefficient of Variation 15.2 % (11.5-14.5); Red Blood Count 3.55 M/uL (4.7-6.1); White Blood Count 12.07 K/uL (4.8-10.8)
--- NOTE | 2019-03-29 07:01 | XRay Report ---
XR chest 1V portable HISTORY: 68 years-old Male effusion follow-up study in a patient with pleural effusion COMPARISON: Chest radiograph 03/28/2019, chest CT 03/27/2019 TECHNIQUE: Portable AP view of the chest FINDINGS: Cardiac silhouette is enlarged, unchanged. Stable positioning of right IJ central venous catheter and right-sided chest tube. Unchanged small right hydropneumothorax. Bibasilar and left perihilar predom inant opacities. Stable left pleural effusion. No overt pulmonary edema. Degenerative changes of the shoulders and spine. IMPRESSION: 1. Stable positioning of the right-sided chest tube with stable small right basilar hydropneumothorax . 2. Unchanged small left pleural effusion with bibasilar and left perihilar opacities. The above report was generated using voice recognition software. It may contain grammatical, syntax o r spelling errors. Electronically signed by: Mike Varner M.D. 03/29/2019 6:59 AM
[2019-03-29 07:02] LABS: Albumin Level 2.3 gm/dl (3.4-5.0); BUN Creatinine Ratio 40.7 (10-20); Creatinine Clr Calc Pharmacy 122.6 ml/min; Est GFR (African American) 123.2; Est GFR (Non-African American) 106.3; Potassium 3.9 mmol/L (3.5-5.1)
[2019-03-29 07:11] LABS: Albumin Globulin Ratio 0.7 (0.9-2); Bilirubin,Total 0.7 mg/dl (0.2-1); Globulin 3.3 gm/dl (2.5-4.0); Total Protein 5.6 gm/dl (6.4-8.2)
[2019-03-29 07:43] VITALS: PULSE 94
[2019-03-29] MEDS: FOLIC ACID 1 MG TAB PO SCH (08:11)
[2019-03-29] MEDS: ONDANSETRON 4 MG OD TAB PO SCH (08:12)
[2019-03-29] MEDS: MIDODRINE HCL 10 MG TAB PO SCH (08:12)
[2019-03-29] MEDS: sulfaSALAzine 500 MG TABLET PO SCH (08:12)
[2019-03-29] MEDS: CARBIDOPA/LEVODOPA 25/100MG TAB PEG SCH ×2 (08:13→13:40)
[2019-03-29] MEDS: DIGOXIN 0.125 MG TAB PO SCH (08:13)
[2019-03-29] MEDS: METOPROLOL TARTRATE 25 MG TAB PO SCH (08:13)
[2019-03-29] MEDS: AMIODARONE 200 MG TAB PO SCH (08:13)
[2019-03-29] MEDS: LANSOPRAZOLE 30 MG SOLTAB PEG SCH (08:13)
[2019-03-29] MEDS: POT PHOSPHATE MONOBASIC W/ SOD TAB PO SCH ×2 (08:14→13:39)
[2019-03-29] MEDS: GLYCOPYRROLATE 1 MG TAB PO SCH (08:14)
[2019-03-29] MEDS: CHOLECALCIFEROL 1,000 UNITS TAB PEG SCH (08:14)
[2019-03-29] MEDS: LACTULOSE SYRUP 10 GM/15 ML BTL 473 ML PEG SCH (08:14)
[2019-03-29] MEDS: FINASTERIDE 5 MG TAB PEG SCH (08:15)
--- NOTE | 2019-03-29 11:46 | Hospitalist Progress Note ---
Date of Service March 29, 2019 Assessment & Plan (1) Esophageal cancer: Status post XRT/chemo. Has not had surgery. During his last endoscopy in January there was no visible evidence of recurrence of esophageal cancer (pathology was also negative) and most of his dysmotility was felt to be from radiation esophagitis. Due to his poor PO intake and cancer, he has severe chronic protein-calorie malnutrition which we are working on with tube feeds. - However since that time he has been unable to take anything by mouth as far as solid food, can have liquids, occasionally has problems swallowing mucus. - Consulted GI to see about doing EGD this admission - appreciate consultation, initially there was a plan for EGD with possible dilatation on 03/26; however, this was put on hold for his medical issues. - CT chest on 03/27 showed new and larger masses - Concerning for metastatic disease (2) Pleural effusion: Loculated, previously diagnostic as a transudate effusion. - Not improving so far, nothing coming out of PleurX -> Pulled on 03/27; thought that it is maybe kinked. - New PleurX inserted on 03/28 - Management as per thoracic surgery (3) Chest pain: Substernal, relieved with SLNTG. Trop mildly elevated as before but actually lower than previously and then trended down on repeat check despite having continued pain. ECG unchanged, no ischemic changes acutely. - Discussed with Cardiology - no further workup indicated at this time especially in the setting of such acute frailty. - Could be esophageal spasm as thought before and that could also be relieved with NTG - Started nitropaste on 03/25 -> Improved his chest pain - On 03/28, his chest pain is resolved. Possibly distension from his tube feeds? - Will stop nitropaste today and monitor (4) Hyponatremia: Hyponatremia is improved from admission at 126 to 130 with giving 2 L of normal saline, however, remains 130. - Continue tube feeds - Continue to hold free water flushes - Follow BMP - As of 03/28, his Na is stable. (5) Atrial fibrillation: Patient has chronic atrial fibrillation and flutter that is rate c ontrolled. - Continue amiodarone 200 MG daily - Continue metoprolol but cardio initially recommended increasing to 25 twice daily today when had elevated trop and chest pain - Continue digoxin 0.125 a day - On anticoagulation with Eliquis - Presently on hold for the MIST-protocol per thoracic surgery (6) Ulcerative colitis: This has been quiescent. Of note, he is on sulfasalazine, and not sulfadiazine. (7) Parkinsons disease: - Continue Sinemet for his Parkinson's disease via his PEG tube 4 times a day. (8) Reflux esophagitis: - Continue Prevacid via his PEG for history reflux esophagitis (9) Esophageal stricture: Secondary to radiation scarring and esophageal cancer. - Consulted GI to see about EGD with dilation - as above. -Continue tube feeds for nutrition (10) Indwelling Armijo catheter present: Armijo in place 2nd to BPH. Had both alfuzosin and Cardura on his home medication list but he cannot recall taking either of these. - He also has midorine that he takes for low blood pressures - it does not make sense to be on alpha blockers and alpha agonist. - Discontinued alfuzosin and Cardura on 03/23 - Continue midodrine - Maintain Armijo catheter and follow-up with urology as an outpatient - Continue finasteride to replace home dutasteride (11) BPH (benign prostatic hyperplasia): Armijo catheter in place -Continue finasteride and replacement of dutasteride -He cannot tolerate alpha blockers-have discontinued alfuzosin and doxazosin which were both ordered here. (12) Hypotension: Likely secondary to autonomic dysfunction and Parkinson's disease as well as alpha blockers. - DC alpha blockers as above - Continue midodrine (13) UTI (urinary tract infection) due to urinary indwelling Armijo catheter: Urine culture growing both Klebsiella pneumoniae and Pseudomonas resistant for quinolones. - Continue cefepime IV and will need 7 to 10-day course of IV antibiotics - Has indwelling Armijo - exchanged this admission (14) DVT prophylaxis: Eliquis - Presently on hold Subjective Feeling fairly well today. No pain at PleurX site, no pain in the abdomen. He is hoping to speak with his oncologist today to determine prognosis and possible hospice. Review of Systems Review of Systems: All systems reviewed & are unremarkable except as noted in HPI & below Physical Exam Constitutional: + cachectic and + frail appearing; no acute distress ENMT: Ears: no hearing impairment Neck: trachea midline, no thyromegaly Respiratory: normal respiratory effort Auscultation: + diminished lung sounds (At right base and middle lung field) Cardiovascular: RRR, no murmur, no edema Gastrointestinal (Abdomen): normal bowel sounds, soft, nontender, no hepatosplenomegaly Musculoskeletal: Extremities: + extremities abnormal to inspection (diffuse sarcopenia), no cyanosis and no clubbing Skin: no rashes, warm and dry Neurologic: moves all extremities and awake; no focal motor deficits Psychiatric: A+Ox3, euthymic affect Results & Data Vital Signs (Past 12 Hours) Vital Signs Temp Pulse Pulse Pulse Resp BP Pulse Ox 03/29/19 07:10 36.7 C 94 H 16 124/91 95 03/29/19 04:00 36.8 C 98 H 24 118/84 95 03/29/19 02:35 36.8 C 91 H 20 128/74 99 03/29/19 02:08 95 H 03/29/19 00:46 120/79 03/29/19 00:44 110/75 03/28/19 23:55 36.6 C 90 20 96/54 L 99 PG Care Time/CCT Total # of Minutes Spent Total Time Spent with Patient: Total time spent is greater than 50% in coordination of care (as documented) at patient's floor/unit and/or counseling patient: (1) BPH (benign prostatic hyperplasia) Lower urinary tract symptom presence: symptoms present Lower urinary tract symptom detail: incomplete bladder emptying Qualified Code(s): N40.1 - Benign prostatic hyperplasia with lower urinary tract symptoms; R39.14 - Feeling of incomplete bladder emptying (2) Hypotension Hypotension type: other hypotension type Qualified Code(s): I95.89 - Other hypotension
[2019-03-29 12:15] VITALS: BP 130/76; TEMP 97.9
--- NOTE | 2019-03-29 14:48 | Palliative Care Consultation ---
Date of Consultation March 29, 2019 Assessment & Plan (1) Goals of care, counseling/discussion: -68 year old male patient with PMH esophageal cancer s/p chemo/radiation, dysphagia, Parkinson's, AFIB, GERD, ulcerative colitis, and others, presented to the hospital with increased SOB and poorly functioning Pleur-x catheter. Patient has had hx loculated pleural effusions, sees Dr. Estrada and had a pleur-x placed. Patient also has a feeding tube in place for nutrition. Of note, pleural effusions were negative for malignancy. During this visit, however, patient had an abnormal CT chest which showed bilateral pleural effusions and multiple nodules-- all concerning for malignancy. Patient is quite realistic and does't know that he would want to pursue any further aggressive therapy even if it was offered to him. Palliative care is consulted to discuss goals of care. -met with patient in room 211 today. He is awake, alert and oriented x4. Pleasant and talkative. -Patient stated his main goal is for comfort and quality of life. He only wants his life to be prolonged if he has good quality. Patient has been waiting to speak with Dr. Brice about next steps/options. -Patient did state that he is about 95% sure that he would like to return to [facility] with hospice care. -Patient has some SOB with exertion, but really no pain. Does have dysphagia, but is fed via feeding tube. He will continue tube feedings of course even if he is on hospice. (2) Esophageal cancer: Malignant neoplasm of esophagus location: lower third Qualified Code(s): C15.5 - Malignant neoplasm of lower third of esophagus (3) Dysphagia: (4) Abnormal chest CT: Supervising Physician Co-Signing Physician Notes Pt known to me from [facility] Chart reviewed, pt seen and examined, collaborated with JULIO CESAR Jones, as well as Dr Estrada and Dr Napier PE: pt awake and alert, sitting in chair, NAD HEENT; EOMI Resp: unlabored CV: RR, no edema Abd: GT in place EXT: FROM Neuro: A&O X 4 Discussed Hospice referral after returning to his home, will notify pt's PCP- Dr Dsouza. Called nursing fitness supervisor regarding having pt return today - they have all his prior meds available - will require new script for his oxycodone. Pt anxious to return home. History of Present Illness Reason for Consultation: Goals of care Requesting Physician: Dr. Rayna Napier Attending Physician: Aren Estrada MD, [facility] History of Present Illness This 68 year old male patient with PMH esophageal cancer s/p chemo/radiation, dysphagia, Parkinson's, AFIB, GERD, ulcerative colitis, and others, presented to the hospital with increased SOB and poorly functioning Pleur-x catheter. Patient has had hx loculated pleural effusions, sees Dr. Estrada and had a pleur-x placed. Patient also has a feeding tube in place for nutrition. Of note, pleural effusions were negative for malignancy. During this visit, however, patient had an abnormal CT chest which showed bilateral pleural effusions and multiple nodules-- all concerning for malignancy. Patient is quite realistic and does't know that he would want to pursue any further aggressive therapy even if it was offered to him. Palliative care is consulted to discuss goals of care. Thank you kindly for this consult. I will follow as needed. Allergies Allergy/AdvReac Type Severity Reaction Status Date / Time No Known Allergies Allergy Verified 03/22/19 12:45 Home Medications Home Medications Medication Instructions Recorded Confirmed Type levalbuterol HCl 1.25 mg INHALATION Q8 PRN 01/14/19 03/24/19 History guaifenesin 400 mg TID PRN 01/19/19 03/22/19 History metoprolol tartrate 12.5 mg FEEDING TUBE BID 01/19/19 03/24/19 History amiodarone 200 mg tablet 200 mg FEEDING TUBE DAILY tab 03/14/19 03/24/19 History apixaban 5 mg tablet 5 mg FEEDING TUBE BID 03/14/19 03/24/19 History carbidopa 25 mg-levodopa 100 mg 2 tab FEEDING TUBE QID 03/14/19 03/22/19 History tablet digoxin 125 mcg tablet 125 mcg FEEDING TUBE DAILY tab 03/14/19 03/24/19 History finasteride 5 mg tablet 5 mg FEEDING TUBE DAILY 03/15/19 03/24/19 History midodrine 10 mg tablet 10 mg FEEDING TUBE TID tab 03/15/19 03/24/19 History nitroglycerin 0.4 mg sublingual 0.4 mg .ROUTE .COMPLEX PRN tab 03/15/19 03/24/19 History tablet rasagiline 1 mg tablet 1 mg FEEDING TUBE HS tab 03/15/19 03/24/19 History sodium di- and 1 tab FEEDING TUBE QID 03/15/19 03/24/19 History monophosphate-potassium phos monobasic 250 mg tablet glycopyrrolate 1 mg FEEDING TUBE BID 03/16/19 03/24/19 History potassium chloride 10 meq FEEDING TUBE DAILY 03/16/19 03/24/19 History aspirin 81 mg tablet,delayed PO .TAKE 1 TABLET DAILY. tab 03/22/19 03/22/19 History release cholecalciferol (vitamin D3) 2,000 1 PO .Take 1 tablet daily tab 03/22/19 03/22/19 History unit tablet coenzyme Q10 200 mg capsule 1 PO .TAKE 1 CAPSULE DAILY cap 03/22/19 03/22/19 History folic acid 1 mg tablet PO .TAKE 2 TABLETS DAILY tab 03/22/19 03/22/19 History food supplement, lactose-reduced ea PO ml 03/22/19 03/22/19 History oral liquid ondansetron HCl 4 mg tablet 4 mg PO DAILY #20 tab 03/22/19 03/22/19 History Fibersource HN See Rx Instructions .ROUTE .COMPLEX 03/24/19 03/24/19 History Free Water Flushes 210 ml PEG QID 03/24/19 03/24/19 History Prosource TF 30 HS 03/24/19 History Saline Solution 03/24/19 03/24/19 History acetaminophen 650 mg FEEDING TUBE QID PRN 03/24/19 03/24/19 History bisacodyl [Dulcolax (bisacodyl)] 10 mg NC DAILY PRN 03/24/19 03/24/19 History lactulose 10 g PO HS 03/24/19 03/24/19 History melatonin 1 mg FEEDING TUBE HS 03/24/19 03/24/19 History polyethylene glycol 3350 [Miralax] 17 g FEEDING TUBE DAILY PRN 03/24/19 03/24/19 History sulfasalazine 500 mg FEEDING TUBE DAILY 03/24/19 03/24/19 History lansoprazole [Prevacid SoluTab] 30 mg PEG DAILY #1 tab 03/29/19 Rx oxycodone 5 mg FEEDING TUBE QID #4 tab 03/29/19 Rx tramadol [Ultram] 50 mg PO Q4H PRN #10 tab 03/29/19 Rx Patient History Medical History DVT prophylaxis On enteral nutrition Encounter for feeding tube placement (Acute) Atrial fibrillation Dysphagia PROGRESSIVE X 2 MONTHS PER ONCOLOGY NOTE Esophageal cancer 2018--chemo, radiation Esophageal stenosis Armijo catheter in place History of recent pneumonia hospitalized [facility] 11/19/18-11/23/2018 Hyperlipidemia Hypertension Orthostatic hypotension Parkinsons disease Reflux esophagitis Ulcerative colitis Weight loss 30 POUND WEIGHT LOSS PER ONCOLOGY NOTE Surgical History History of cardioversion x2--07/2018 History of colonoscopy History of esophagogastroduodenoscopy (EGD) History of tonsillectomy History of tooth extraction all upper teeth History of vascular access device aport right side Family History Mother , at 80yo;NM, aortic valve replacement, stroke No problems noted. Father , at 88yo;"Colon problem that caused him to weaken" No problems noted. Brother No problems noted. Grandmother (Maternal) Family history of diabetes mellitus Grandfather (Maternal) Family hx of colon cancer Other No family history of adverse response to anesthesia Social History Preferred Language: Slovenian Communication Ability: Effective Visual Impairment: No Limitations Hearing Ability: Normal Aitchbone Breaker Required: No Beliefs That Will Affect Care: Episcopal Episcopal Beliefs: Gnosticist marital status: Single Current Living Situation: Personal Care Facility Current Living Situation Comment: [facility] Feels Safe at Home: Yes Smoking Status: Never smoker Second Hand Exposure: No ; Hx Alcohol Use: Yes Hx Substance Use: No caffeine: Yes (1 cup coffee/day;not currently since diagnosis;) during the past year weight has: increased > 10 lbs Review of Systems Constitutional: + weakness Ear, Nose, Mouth, Throat: + dysphagia Respiratory: + dyspnea on exertion Cardiovascular: no chest pain and no edema Gastrointestinal: + constipation (occasional) Neurologic: no confusion Psychiatric: no anxiety Physical Exam Constitutional: + ill appearing ENMT: Mouth: + poor dentition Neck: normal visual inspection Respiratory: normal respiratory effort, lungs clear to auscultation Auscultation: + diminished lung sounds Cardiovascular: Rate/Rhythm: regular rate; + abnormal rhythm (aflutter) Gastrointestinal (Abdomen): Inspection/Auscultation: normal bowel sounds feeding tube Skin: no rashes, warm and dry Neurologic: moves all extremities and awake Psychiatric: A+Ox3, euthymic affect Insight: excellent insight Results & Data Vital Signs (Past 12 Hours) Vital Signs Temp Pulse Pulse Resp BP Pulse Ox 03/29/19 11:35 36.6 C 94 H 16 130/76 95 03/29/19 07:10 36.7 C 94 H 16 124/91 95 03/29/19 04:00 36.8 C 98 H 24 118/84 95 PG Care Time/CCT Total # of Minutes Spent Total Time Spent with Patient: Total time spent is greater than 50% in coordination of care (as documented) at patient's floor/unit and/or counseling patient: Prolonged Care Time Prolonged Care Time: Yes Total Prolonged Care Time: 30 Time Spent Midlevel 70 minutes with >50% of the time spent at bedside with patient discussing condition and GOC. Attending Spent 30 min in addition to above 70 min by ASSOCIATE PROFESSOR OF RADIOLOGY for a total of 100 min with > 50% of time spent at bedside discussing POC with pt Critical Care Time Prolonged Care Time Prolonged Care Time: Yes Total Prolonged Care Time: 30 100
--- NOTE | 2019-03-29 14:53 | Discharge Summary ---
Date of Service March 29, 2019 Principal Diagnosis Loculated pleural effusion & worsening metastatic cancer Discharge Exam Constitutional + cachectic and + frail appearing; no acute distress ENMT Ears: no hearing impairment Neck trachea midline, no thyromegaly Respiratory normal respiratory effort Auscultation: + diminished lung sounds (At right base and middle lung field) Cardiovascular RRR, no murmur, no edema Gastrointestinal (Abdomen) normal bowel sounds, soft, nontender, no hepatosplenomegaly Musculoskeletal Extremities: + extremities abnormal to inspection (diffuse sarcopenia), no cyanosis and no clubbing Skin no rashes, warm and dry Neurologic moves all extremities and awake; no focal motor deficits Psychiatric A+Ox3, euthymic affect Discharge Data Allergies Allergy/AdvReac Type Severity Reaction Status Date / Time No Known Allergies Allergy Verified 03/22/19 12:45 Consultations 03/22/19 16:05 Consult Hospitalist Routine 03/23/19 18:27 Consult Health Information Management Routine 03/23/19 18:33 Consult Gastroenterology Routine 03/25/19 08:13 Consult Cardiology Routine 03/27/19 09:40 Consult Pulmonology Routine 03/28/19 15:30 Consult Oncology Routine 03/28/19 15:49 Consult Palliative Care Routine Procedures Performed Operation Date: 03/26/19 08:30 <No data on this case meets the specified criteria> Ordered Studies 03/27/19 11:07 CT chest wo con Urgent Hospital Course (1) Esophageal cancer: Status post XRT/chemo. Has not had surgery. During his last endoscopy in January there was no visible evidence of recurrence of esophageal cancer (pathology was also negative) and most of his dysmotility was felt to be from radiation esophagitis. Due to his poor PO intake and cancer, he has severe chronic protein-calorie malnutrition which we are working on with tube feeds. - However since that time he has been unable to take anything by mouth as far as solid food, can have liquids, occasionally has problems swallowing mucus. - Consulted GI to see about doing EGD this admission - appreciate consultation, initially there was a plan for EGD with possible dilatation on 03/26; however, this was put on hold for his medical issues. - CT chest on 03/27 showed new and larger masses - Concerning for metastatic disease - Discussed with Dr. Brice on 03/29. Given his poor performance status and hard time with prior chemo, he elected to pursue hospice care. (2) Pleural effusion: Loculated, previously diagnostic as a transudate effusion. - Not improving so far, nothing coming out of PleurX -> Pulled on 03/27; thought that it is maybe kinked. - New PleurX inserted on 03/28 - Draining well. (3) Chest pain: Substernal, relieved with SLNTG. Trop mildly elevated as before but actually lower than previously and then trended down on repeat check despite having continued pain. ECG unchanged, no ischemic changes acutely. - Discussed with Cardiology - no further workup indicated at this time especially in the setting of such acute frailty. - Could be esophageal spasm as thought before and that could also be relieved with NTG - Started nitropaste on 03/25 -> Improved his chest pain - On 03/28, his chest pain is resolved. Possibly distension from his tube feeds? - Will stop nitropaste today and monitor (4) Hyponatremia: Hyponatremia is improved from admission at 126 to 130 with giving 2 L of normal saline, however, remains 134. - Continue tube feeds - Continue to hold free water flushes - Follow BMP - As of 03/28, his Na is stable. (5) Atrial fibrillation: Patient has chronic atrial fibrillation and flutter that is rate controlled. - Continue amiodarone 200 MG daily - Continue metoprolol but cardio initially recommended increasing to 25 twice daily today when had elevated trop and chest pain - Continue digoxin 0.125 a day - On anticoagulation with Eliquis (6) Ulcerative colitis: This has been quiescent. Of note, he is on sulfasalazine, and not sulfa diazine. (7) Parkinsons disease: - Continue Sinemet for his Parkinson's disease via his PEG tube 4 times a day. (8) Reflux esophagitis: - Continue Prevacid via his PEG for history reflux esophagitis (9) Esophageal stricture: Secondary to radiation scarring and esophageal cancer. - Consulted GI to see about EGD with dilation - as above. -Continue tube feeds for nutrition (10) Indwelling Armijo catheter present: Armijo in place 2nd to BPH. Had both alfuzosin and Cardura on his home medication list but he cannot recall taking either of these. - He also has midorine that he takes for low blood pressures - it does not make sense to be on alpha blockers and alpha agonist. - Discontinued alfuzosin and Cardura on 03/23 - Continue midodrine - Maintain Armijo catheter and follow-up with urology as an outpatient - Continue finasteride to replace home dutasteride (11) BPH (benign prostatic hyperplasia): Armijo catheter in place -Continue finasteride and replacement of dutasteride -He cannot tolerate alpha blockers-have discontinued alfuzosin and doxazosin which were both ordered here. (12) Hypotension: Likely secondary to autonomic dysfunction and Parkinson's disease as well as alpha blockers. - DC alpha blockers as above - Continue midodrine (13) UTI (urinary tract infection) due to urinary indwelling Armijo catheter: Urine culture growing both Klebsiella pneumoniae and Pseudomonas resistant for quinolones. - Continued cefepime IV while inpatient - Finished course prior to discharge. - Has indwelling Armijo - exchanged this admission (14) DVT prophylaxis: Eliquis Total Time Total Time Spent Total Time Spent (In Minutes): 45 Total Time Includes: Examination of the Patient, Discharge Planning, Medication Reconciliation and Communication With Other Providers Discharge Plan Discharge Items Patient Disposition: Trans Resident Long-Term Care Reason For Visit: LOCULATED PLEURAL EFFUSION Discharge Diagnosis: Loculated pleural effusion - Worsening cancer Discharge Goals: Decrease discomfort, Improve disease control and Improve function Activity: Resume your previous activity Non-emergency contact: Primary Care Provider Call non-emergency contact if: your pain is not controlled and your pain is worsening Follow-up/Referrals: Eriberto Turner [Primary Care Provider] - Diet: Nothing by mouth Addtl Provider Instructions: Mr. Donahue was admitted for a loculated pleural effusion possibly due to his worsening esophageal cancer. He had his PleurX catheter replaced. He had a CT scan of his chest which shows worsening of his metastatic esophageal cancer. He elected to pursue hospice care. Prescriptions: New lansoprazole [Prevacid SoluTab] 30 mg Tablet,Disintegrat, Delay Rel 30 mg PEG DAILY Qty: 1 RF: 0 Continued nitroglycerin 0.4 mg tablet, sublingual 0.4 mg .ROUTE .COMPLEX PRN (Reason: chest pain) RF: 0 finasteride 5 mg tablet 5 mg feeding tube DAILY RF: 0 potassium chloride 10 meq feeding tube DAILY RF: 0 cholecalciferol (vitamin D3) 2,000 unit tablet 1 PO .Take 1 tablet daily RF: 0 coenzyme Q10 200 mg capsule 1 PO .TAKE 1 CAPSULE DAILY RF: 0 folic acid 1 mg tablet PO .TAKE 2 TABLETS DAILY RF: 0 ondansetron HCl 4 mg tablet 4 mg PO DAILY Qty: 20 RF: 0 Ensure liquid PO RF: 0 glycopyrrolate 1 mg Tablet 1 mg feeding tube BID RF: 0 tramadol [Ultram] 50 mg tablet 50 mg PO Q4H PRN (Reason: pain) Qty: 15 RF: 0 acetaminophen 325 mg Tablet 650 mg feeding tube QID PRN (Reason: routine) RF: 0 Fibersource HN 0.05 gram- 1.2 kcal/mL Liquid See Rx Instructions .ROUTE .COMPLEX RF: 0 lactulose 10 gram/15 mL Solution 10 g PO HS RF: 0 melatonin 1 mg Tablet 1 mg feeding tube HS RF: 0 Prosource TF 11-40 gram-kcal/45 mL Liquid In Packet 30 HS RF: 0 bisacodyl [Dulcolax (bisacodyl)] 10 mg Suppository 10 mg OR DAILY PRN (Reason: Constipation) RF: 0 polyethylene glycol 3350 [Miralax] 17 gram Powder In Packet 17 g feeding tube DAILY PRN (Reason: Constipation) RF: 0 oxycodone 5 mg Tablet 5 mg feeding tube QID RF: 0 Saline Solution Solution RF: 0 Free Water Flushes 210 ml PEG QID RF: 0 sulfasalazine 500 mg tablet 500 mg feeding tube DAILY RF: 0 carbidopa-levodopa [Sinemet] 25-100 mg tablet 2 tab feeding tube QID RF: 0 guaifenesin 400 mg Tablet 400 mg TID PRN (Reason: congestion/thick secretions) RF: 0 metoprolol tartrate 25 mg Tablet 12.5 mg feeding tube BID RF: 0 amiodarone 200 mg tablet 200 mg feeding tube DAILY RF: 0 digoxin 125 mcg tablet 125 mcg feeding tube DAILY RF: 0 midodrine 10 mg tablet 10 mg feeding tube TID RF: 0 rasagiline 1 mg tablet 1 mg feeding tube HS RF: 0 levalbuterol HCl 1.25 mg/0.5 mL solution for nebulization 1.25 mg inhalation Q8 PRN (Reason: Shortness Of Breath) RF: 0 Eliquis 5 mg tablet 5 mg feeding tube BID RF: 0 Phospha 250 Neutral 250 mg tablet 1 tab feeding tube QID RF: 0 Discontinued doxazosin [Cardura] 1 mg tablet 1 mg feeding tube HS RF: 0 aspirin 81 mg tablet,delayed release (/EC) PO .TAKE 1 TABLET DAILY. RF: 0 lactulose 10 gram/15 mL Solution 15 ml feeding tube HS RF: 0 glycopyrrolate 1 mg/5 mL (0.2 mg/mL) Solution 1 mg feeding tube BID RF: 0 Stand-Alone Forms: [facility] Discharge Orders: Discharge Order (Routine); Ordered 03/29/19 Ordered By: German Napier Admission Data Admit Date/Time: 03/22/19 13:27 Attending Provider: Aren Estrada Admit Provider: Zeeshan Roca Primary Care Provider: Eriberto Turner Other Providers: Rigoberto Gerardo ; Samantha Michele ; Maribel Gilmore ; Ellis Pena ; Quinton Naranjo ; Caryl Chanel ; Javier Pascal ; Jcarlos Mckay ; Kevin Herrera ; Raeann Kelley ; Senait Roblero ; Asia Connolly ; Silvio Michael ; Mary Marquis ; German Napier ; Adolph Yo ; Phillip Fox ; Samantha Allen ; Rut Hinojosa ; Jeremy Olsen ; Ernesto Monterroso ; [place] ; Andie Robin ; Karlos Kearney ; Bren Anthony ; Deon Mazariegos ; Weston Blair ; Dominic Sarmiento ; Samuel Ahumada ; Billy Day ; Chano Hannon ; Brennen Mercedes Jr ; Christiano Minaya ; Jody Dang ; Hanna Hdez ; Ernesto Valdes ; Ernesto Schmidt ; Murali Landa ; Leesa Guan ; Raquel Ramirez ; Shakeel Loredo ; Jonn Brice ; Deborah Ramirez Service: Telemetry
--- NOTE | 2019-03-29 16:06 | Oncology Consultation ---
Date of Consultation March 29, 2019 Assessment & Plan (1) Primary cancer of lower third of esophagus: I had a long conversation with Mr. Donahue today. I strongly suspect that he has metastatic disease, based on the appearance of his CTs. The only way to confirm this would be to obtain a biopsy. However, even if we did confirm that he has metastatic disease, it is very unlikely he would tolerate treatment. Metastatic esophageal cancer is an aggressive disease and is usually treated with multi-agent chemotherapy. His ECOG performance status is 3, which is generally not adequate for systemic chemotherapy. Importantly, much of the decline in his PS has come from his other comorbid conditions, including the effusion and his Parkinson's disease. These diseases are unrelated to cancer and thus unlikely to improve even if his disease did respond to treatment. Mr. Donahue felt that a biopsy was not needed, given his clinical decline and his likely inability to be treated if we did confirm metastatic cancer. He would like to proceed with hospice care instead. I think this is a totally reasonable decision given the circumstances. He has already spoken with palliative care and will meet with Dr. Ramirez later today. He has an appointment scheduled with me in 3 weeks and I would be happy to see him then. However, if he would prefer, he could also cancel that visit. Present on Admission?: Yes History of Present Illness Reason for Consultation: Esophageal cancer Attending Physician: Aren Estrada MD, [facility] History of Present Illness Mr. Donahue is a 68 year old man with a history of Parkinson's disease, hypertension, and gastric reflux. He developed progressive dysphagia starting in February, leading to a ~30 lb over the following month. EGD 04/10/18 revealed a fungating, nearly obstructive mass in the distal esophagus that was biopsied, revealing a moderately differentiated adenocarcinoma. PET/CT 05/03 was negative for metastatic disease and EUS revealed clinical stage II disease (uT3 uN0 cM0). He was treated with neoadjuvant concurrent chemoradiaton with carboplatin and paclitaxel, completing treatment 07/05/18. A repeat EGD on 11/22/18 revealed scar at the GE junction with some residual polypoid tissue that proved to be residual adenocarcinoma. He was treated with esophageal brachytherapy, which ended in mid-December 2018. During that therapy, he required a feeding tube due to poor oral intake. He has since developed a refractory right pleural effusion. Cytology from multiple thoracenteses has been negative for malignancy. He was admitted last week after he had worsening shortness of breath and chest pain that was related to decreased output from his PleurX catheter. He also complained of some increased dysphagia. He was evaluated by GI for possible esophageal dilation, but due to his worsening effusion, this was postponed. A repeat CT Chest on 03/27 revealed a large right effusion and scattered bilateral pulmonary nodules that are highly suspicious for metastatic disease. He had his PleurX changed yesterday and has seen an improvement in his breathing. However, he's still sore there. He also is feeling very tired and weak. He is now in assisted living and spends most of his time either in bed or a recliner. He needs assistance with activities of daily living. He is doubtful that he would be able to tolerate any more chemotherapy. Allergies Allergy/AdvReac Type Severity Reaction Status Date / Time No Known Allergies Allergy Verified 03/22/19 12:45 Home Medications Home Medications Medication Instructions Recorded Confirmed Type levalbuterol HCl 1.25 mg INHALATION Q8 PRN 01/14/19 03/24/19 History guaifenesin 400 mg TID PRN 01/19/19 03/22/19 History metoprolol tartrate 12.5 mg FEEDING TUBE BID 01/19/19 03/24/19 History amiodarone 200 mg tablet 200 mg FEEDING TUBE DAILY tab 03/14/19 03/24/19 History apixaban 5 mg tablet 5 mg FEEDING TUBE BID 03/14/19 03/24/19 History carbidopa 25 mg-levodopa 100 mg 2 tab FEEDING TUBE QID 03/14/19 03/22/19 History tablet digoxin 125 mcg tablet 125 mcg FEEDING TUBE DAILY tab 03/14/19 03/24/19 History finasteride 5 mg tablet 5 mg FEEDING TUBE DAILY 03/15/19 03/24/19 History midodrine 10 mg tablet 10 mg FEEDING TUBE TID tab 03/15/19 03/24/19 History nitroglycerin 0.4 mg sublingual 0.4 mg .ROUTE .COMPLEX PRN tab 03/15/1911/07 History tablet rasagiline 1 mg tablet 1 mg FEEDING TUBE HS tab 03/15/19 03/24/19 History sodium di- and 1 tab FEEDING TUBE QID 03/15/19 03/24/19 History monophosphate-potassium phos monobasic 250 mg tablet glycopyrrolate 1 mg FEEDING TUBE BID 03/16/19 03/24/19 History potassium chloride 10 meq FEEDING TUBE DAILY 03/16/19 03/24/19 History aspirin 81 mg tablet,delayed PO .TAKE 1 TABLET DAILY. tab 03/22/19 03/22/19 History release cholecalciferol (vitamin D3) 2,000 1 PO .Take 1 tablet daily tab 03/22/19 03/22/19 History unit tablet coenzyme Q10 200 mg capsule 1 PO .TAKE 1 CAPSULE DAILY cap 03/22/19 03/22/19 History folic acid 1 mg tablet PO .TAKE 2 TABLETS DAILY tab 03/22/19 03/22/19 History food supplement, lactose-reduced ea PO ml 03/22/19 03/22/19 History oral liquid ondansetron HCl 4 mg tablet 4 mg PO DAILY #20 tab 03/22/19 03/22/19 History Free Water Flushes 210 ml PEG QID 03/24/19 03/24/19 History acetaminophen 650 mg FEEDING TUBE QID PRN 03/24/19 03/24/19 History amino ac-protein hydr-whey pro 30 HS 03/24/19 History [Prosource TF] bisacodyl [Dulcolax (bisacodyl)] 10 mg [place] DAILY PRN 03/24/19 03/24/19 History lactulose 10 g PO HS 03/24/19 03/24/19 History melatonin 1 mg FEEDING TUBE HS 03/24/19 03/24/19 History nutrition [id number]-CEH-fiber See Rx Instructions .ROUTE .COMPLEX 03/24/19 03/24/19 History [Fibersource HN] polyethylene glycol 3350 [Miralax] 17 g FEEDING TUBE DAILY PRN 03/24/19 03/24/19 History soft lens rinse,store solution 03/24/19 03/24/19 History [Saline Solution] sulfasalazine 500 mg FEEDING TUBE DAILY 03/24/19 03/24/19 History lansoprazole [Prevacid SoluTab] 30 mg PEG DAILY #1 tab 03/29/19 Rx oxycodone 5 mg FEEDING TUBE QID #4 tab 03/29/19 Rx tramadol [Ultram] 50 mg PO Q4H PRN #10 tab 08/08/19 Rx Patient History Medical History DVT prophylaxis On enteral nutrition Encounter for feeding tube placement (Acute) Atrial fibrillation Dysphagia PROGRESSIVE X 2 MONTHS PER ONCOLOGY NOTE Esophageal cancer 2018--chemo, radiation Esophageal stenosis Armijo catheter in place History of recent pneumonia hospitalized [facility] 11/19/18-11/23/2018 Hyperlipidemia Hypertension Orthostatic hypotension Parkinsons disease Reflux esophagitis Ulcerative colitis Weight loss 30 POUND WEIGHT LOSS PER ONCOLOGY NOTE Surgical History History of cardioversion x2--07/2018 History of colonoscopy History of esophagogastroduodenoscopy (EGD) History of tonsillectomy History of tooth extraction all upper teeth History of vascular access device aport right side Family History Mother , at 80yo;[place], aortic valve replacement, stroke No problems noted. Father , at 88yo;"Colon problem that caused him to weaken" No problems noted. Brother No problems noted. Grandmother (Maternal) Family history of diabetes mellitus Grandfather (Maternal) Family hx of colon cancer Other No family history of adverse response to anesthesia Social History Preferred Language: Uzbek Communication Ability: Effective Visual Impairment: No Limitations Hearing Ability: Normal Mental Tester Required: No Beliefs That Will Affect Care: Hindu Hindu Beliefs: Bahai marital status: Single Current Living Situation: Personal Care Facility Current Living Situation Comment: [facility] Feels Safe at Home: Yes Smoking Status: Never smoker Second Hand Exposure: No ; Hx Alcohol Use: Yes Hx Substance Use: No caffeine: Yes (1 cup coffee/day;not currently since diagnosis;) during the past year weight has: increased > 10 lbs Review of Systems Constitutional: + fatigue, + weakness and + weight loss; no fever Respiratory: + dyspnea (improving) and + pain on inspiration; no cough Cardiovascular: no palpitations and no edema Gastrointestinal: + dysphagia; no abdominal pain and no diarrhea/loose stools Genitourinary: no dysuria Musculoskeletal: no back pain Neurologic: no localized weakness and no headache(s) Physical Exam Constitutional: + ill appearing (chronically) and + thin; no acute distress Eyes: + anicteric sclerae and EOM intact bilaterally ENMT: Mouth: + dry oral mucous membranes Respiratory: no respiratory distress Auscultation: + diminished lung sounds (on the right) Cardiovascular: RRR, no murmur, no edema Gastrointestinal (Abdomen): normal bowel sounds, soft, nontender, no hepatosplenomegaly Skin: + pallor; no rashes Neurologic: Tremor consistent with his Parkinson's disease Results & Data Vital Signs (Past 12 Hours) Vital Signs Temp Pulse Resp BP Pulse Ox 03/29/19 11:35 36.6 C 94 H 16 130/76 95 03/29/19 07:10 36.7 C 94 H 16 124/91 95 Laboratory Results Laboratory Tests 03/29/19 03/29/19 06:14 06:14 WBC 12.07 H Hgb 10.1 L Plt Count 269 Albumin 2.3 L Diagnostic Findings I reviewed his CT and also discussed it with Dr. Estrada. I concur that the findings are very concerning for pulmonary metastases. We identified a lesion that could be amenable to a biopsy, should the patient be willing.
[2019-03-29] MEDS: HEPARIN 100 UNIT/ML 5ML FLUSH FLUSH PRN (16:28)
--- NOTE | 2019-03-29 20:28 | Progress Note ---
DATE: 03/29/2019 Mr. Donahue was seen today. The patient feels that he "strangulated" on some liquid and saturations dropped, so he was moved down to the telemetry unit. Today, he looks great. He is 97% on 2 liters. He does have a few rhonchi, but actually moving air well. His x-ray shows clearing infiltrate in the left and he has a much better expansion on the right. He only drained 100 mL or so of serous fluid. I had a long talk with Mr. Donahue and he states that he would like to talk to Dr. Brice, but he does not think he is going to proceed with any further therapy which would preclude a diagnostic workup. He also states that he would like to be moved back to [facility]. We will see about this later on today.
[2019-03-29] MEDS ORDERED: RASAGILINE PEG SCH (21:00)
--- NOTE | 2019-03-30 01:53 | Discharge Summary ---
DISCHARGE DIAGNOSES: 1. Complicated right pleural effusion. 2. Probable metastatic adenocarcinoma of the gastroesophageal junction. 3. Parkinson's. HOSPITAL COURSE: Mr. Donahue was admitted to Dr. Roca's service when I was out of town as a PleurX catheter had been placed in his right pleural cavity and he had increasing fluid. It was concerning that he may be harboring an infection in his right chest. The patient was admitted and we could not get this tube to drain. I then attempted a thoracentesis on 03/26/2019 and got about 150 mL. The pH was a bit low, but the patient had been receiving dornase through the tube in a modified MIST-2 protocol. We finally removed the PleurX catheter. Yesterday, I reinserted the PleurX catheter and got 600 mL of fluid out. The pH was 7.5. The patient's x-ray is greatly improved; however, he looks like he may have an infiltrate and may have aspiration in the left. More importantly, a CT scan showed almost certainly metastatic nodules in the right and left lung. The patient was aware of this. He discussed this with Dr. Brice and informed Dr. Brice he did not want any further therapy. Dr. Brice and I had discussed this and felt that we would not need to offer him any further diagnostic workup. The patient wished to be transferred back to [facility] and we complied sending him there with instructions to drain the PleurX daily. I will see Mr. Donahue back in the office in the next week or two with an x-ray. The nurses have been instructed to drain this daily. He actually looked better to me upon discharge.
== END 2019-03-29 16:45 | DRG 374 ==
LOC: 3N 13:27 → 2S 03-25 08:21 → 3N 03-26 16:18 → 2E 03-28 23:57